=== PATIENT | male | born 1950 | race Caucasian/White ===

== ENCOUNTER 2020-12-19 22:52 | Inpatient (IN) | payer MEDICARE, OTHER, SELFPAY ==
--- NOTE | ~2020-12-19 | MR_ITS ---
EXAMINATION: MR brain/brain stem wo con DATE: 12/20/2020 09:49 INDICATION: Altered mental status. TECHNIQUE: Magnetic resonance imaging (MRI) of the brain and brainstem was performed without intraven ous contrast. Sequences included sagittal and axial T1-weighted FSE, axial diffusion-weighted FS EPI, axial T2*-weighted GRE, axial T2-weighted FLAIR Propeller, and axial T2-weighted Propeller. Apparent diffusion coefficient (ADC) maps were created. COMPARISON: Head CT 12/19/2020 FINDINGS: There are scattered areas of nonspecific increased T2-weighted signal intensity in the cere bral white matter and tiny. There is no intracranial hemorrhage, acute infarction, or abnormal intrac ranial mass lesion. The ventricles are normal in size. The paranasal sinuses are clear. The orbits ar e normal. There is a small right mastoid effusion. IMPRESSION: 1. Extensive nonspecific cerebral white matter disease and mild pontine disease, which likely represe nts chronic small vessel ischemic disease. Reviewed, dictated and finalized at location A. IMPRESSION: 1. Extensive nonspecific cerebral white matter disease and mild pontine disease , which likely represents chronic small vessel ischemic disease.
--- NOTE | ~2020-12-19 | CT_ITS ---
EXAMINATION: CT brain wo con DATE: 12/21/2020 16:13 INDICATION: Confusion. Altered mental state. TECHNIQUE: Computed tomography (CT) of the head was performed without intravenous contrast. The mA wa s adjusted according to patient size. Iterative reconstruction technique was employed. Exam dose: 83 2.33 mGy-cm total exam DLP. COMPARISON: 12/19/2020 CT brain 01/24/2019 CT brain FINDINGS: Bilateral carotid siphon internal carotid artery calcifications. Nonspecific diminished attenuation of the subcortical and periventricular cerebral white matter, like ly due to chronic small vessel ischemic changes. There is cerebral volume loss. No intracranial mass lesion or hemorrhage or cerebrovascular accident is evident. No midline shifts o r mass effects. No subdural or epidural hematoma. Small mucus retention cyst or polyp at the floor of the right maxillary sinus. The paranasal sinuses and mastoid air cells are otherwise unremarkable. No fracture or bone destruction of the cranial vault. IMPRESSION: Cerebral atherosclerosis and chronic small vessel ischemic changes of the cerebral white matter No acute intracranial finding Reviewed, dictated and finalized at Location [facility]. Reviewed, dictated and finalized at location A.
--- NOTE | ~2020-12-19 | XR_ITS ---
XR chest 1V DATE: 12/21/2020 16:16 INDICATION: Shortness of breath TECHNIQUE: Portable AP chest on 12/21/2020 at 1613 hours COMPARISON: 12/19/2020 portable AP chest FINDINGS: There is patchy infiltrate and/atelectasis of the left lower lung, increased since . The remaining lung bowles appear clear. No pleural effusion or pulmonary vascular congestion or pneum othorax. Cardiomegaly. Aortic calcification and mild unfolding. Diffuse osteopenia. IMPRESSION: Patchy left lower lung infiltrate and/atelectasis, increased since 12/19/2020 Reviewed, dictated and finalized at location A.
--- NOTE | ~2020-12-19 | US_ITS ---
EXAMINATION: US carotid duplex BI DATE: 12/20/2020 10:05 INDICATION: Syncope. TECHNIQUE: Grayscale, color Doppler, and pulsed Doppler images of the cervical carotid arteries were obtained. The degree of vessel stenosis is placed in one of the following categories: normal, <50%, 5 0-69%, >=70% but less than near-occlusion, near-occlusion, or total occlusion. Note that percent sten osis relative to normal distal artery lumen diameter is indirectly measured from velocity measurement s as described by Thompson, et al. Radiology 2003; [id number]:[id number]. COMPARISON: None. FINDINGS: RIGHT: The right common carotid artery (CCA) peak systolic velocity (PSV) is 77 cm/s. The right internal car otid artery (ICA) PSV is 61 cm/s. The right ICA end-diastolic velocity (EDV) is 13 cm/s. The right IC A/CCA PSV ratio is 0.8. Grayscale and color Doppler images yield an estimate of <50% diameter reducti on from plaque in the ICA. There is antegrade flow in the right vertebral artery. LEFT: The left CCA PSV is 75 cm/s. The left ICA PSV is 81 cm/s. The left ICA EDV is 24 cm/s. The left ICA/C CA PSV ratio is 1.1. Grayscale and color Doppler images yield an estimate of <50% diameter reduction from plaque in the ICA. There is antegrade flow in the left vertebral artery. IMPRESSION: 1. <50% stenosis in the right internal carotid artery. 2. <50% stenosis in the left internal carotid artery. Reviewed, dictated and finalized at location A.
--- NOTE | ~2020-12-19 | XR_ITS ---
XR chest 1V portable DATE: 12/19/2020 23:21 INDICATION: Transient alteration of awareness TECHNIQUE: Portable upright AP chest on at 2322 hours COMPARISON: 02/03/2019 portable AP chest FINDINGS: There is discoid atelectasis or scarring in the left lower lung. No pulmonary consolidation or pleural effusion, pulmonary vascular congestion or pneumothorax is evident. Alignment borderline heart size. Mild aortic calcification and unfolding. Diffuse osteopenia. IMPRESSION: Mild discoid atelectasis or scarring of the left lower lung Aortic atherosclerosis Diffuse osteopenia Reviewed, dictated and finalized at location A.
--- NOTE | ~2020-12-19 | CT_ITS ---
EXAMINATION: CT brain wo con DATE: 12/19/2020 22:59 INDICATION: Altered mental state, confusion starting this evening TECHNIQUE: Computed tomography (CT) of the head was performed without intravenous contrast. The mA wa s adjusted according to patient size. Iterative reconstruction technique was employed. Exam dose: 60 5.33 mGy-cm total exam DLP. COMPARISON: 01/24/2019 CT brain FINDINGS: Bilateral carotid siphon internal carotid artery calcifications. There is nonspecific dimin ished attenuation of the cerebral white matter, likely due to chronic small vessel ischemic changes. There is central and cortical cerebral atrophy. No intracranial mass lesion or hemorrhage or cerebrov ascular accident is evident. No midline shift or mass effect effect. No subdural or epidural hematoma . No fracture or bone destruction of the cranial vault. The mastoid air cells and included paranasal si nuses are unremarkable. IMPRESSION: No acute intracranial finding Cerebral atherosclerosis and chronic small vessel ischemic changes of cerebral white matter Reviewed, dictated and finalized at [facility]. Reviewed, dictated and finalized at location A.
[2020-12-19 23:04] VITALS: BP 156/85; PULSE 74; RESP 20; TEMP 36.6; O2SAT 100
[2020-12-19 23:05] LABS: Glucose Point of Care 105 mg/dl (65-105)
--- NOTE | 2020-12-19 23:05 | ECG_ITS ---
Measurements Intervals [place] Rate: 77 P: -1 IA: 187 QRS: -37 QRSD: 104 T: 11 QT: 388 QTc: 441 Interpretive Statements SINUS RHYTHM LEFT AXIS DEVIATION BORDERLINE R WAVE PROGRESSION, ANTERIOR LEADS INFERIOR INFARCT, AGE INDETERMINATE BASELINE ARTIFACT- V1, V4 ABNORMAL ECG Electronically Signed On 12-20-2020 7:38:19 CDT by Elton Garner D.O.
[2020-12-19 23:21] LABS: Basophils Absolute Auto 0.1 K/mm3 (0.0-0.1); Basophils Percent Auto 0.6 % (0.2-1.2); Eosinophils Absolute Auto 0.3 K/mm3 (0-0.3); Eosinophils Percent Auto 2.7 % (0-4.4); Hematocrit 40.6 % (42.0-52.0); Hemoglobin 12.7 g/dL (14.0-18.0); Immature Granulocyte Absolute 0.04 K/mm3 (0.00-0.031); Immature Granulocyte Percent A 0.4 % (0-0.5); Lymphocytes Absolute Auto 2.46 K/mm3 (0.9-3.2); Lymphocytes Percent Auto 23.1 % (18.3-44.2); Mean Corpuscular HGB Conc 31.3 g/dl (32-36); Mean Corpuscular Hemoglobin 28.7 pg (26-34); Mean Corpuscular Volume 91.6 fl (80-100); Mean Platelet Volume 10.8 fl (7.4-10.4); Monocytes Absolute Auto 0.9 K/mm3 (0.1-0.6); Monocytes Percent Auto 8.3 % (2.6-8.5); Neutrophils Absolute Auto 6.9 K/mm3 (1.3-6.7); Neutrophils Percent Auto 64.9 % (45.5-73.1); Platelet Count Result 228 k/mm3 (150-375); Red Blood Count 4.43 M/mm3 (4.6-6.20); Red Cell Distribution Width 12.8 % (11.5-14.5); White Blood Count 10.6 K/mm3 (4.5-10.0)
[2020-12-19 23:35] LABS: Alanine Aminotransferase 35 U/L (4-50); Albumin Level 4.3 g/dL (3.5-5.1); Alkaline Phosphatase 86 U/L (38-126); Anion Gap 7 mmol/L (8-16); Aspartate Amino Transferase 27 U/L (17-59); Bilirubin,Total 0.2 mg/dL (0.2-1.3); Blood Urea Nitrogen 21 mg/dL (9-20); Calcium 9.8 mg/dL (8.4-10.2); Carbon Dioxide 32 mmol/L (22-30); Chloride 102 mmol/L (98-107); Estimated CRCL calculation 67 ml/min; Estimated Glomerular Filt Rate > 60; Glucose 96 mg/dL (75-110); Magnesium 1.8 mg/dL (1.6-2.3); Potassium 4.6 mmol/L (3.4-5.0); Sodium 141 mmol/L (137-145)
[2020-12-19 23:40] LABS: INR 0.8; Prothrombin Time 11.9 Seconds (11.1-14.7)
[2020-12-19 23:46] LABS: NT Pro B Type Natriuretic Pept 721 pg/mL (5-100); Troponin I < 0.012 ng/mL (0.000-0.034)
[2020-12-19 23:47] LABS: Lactic Acid Reflex 1.7 mmol/L (0.7-2.1)
[2020-12-20] VITALS (18 sets, daily range): BP systolic 87–169; BP diastolic 57–93; PULSE 70–88; RESP 14–22; TEMP 36.2–36.6; O2SAT 93–100; BMI 28.1
--- NOTE | 2020-12-20 00:33 | ED.GENADULT ---
HPI - General Adult General Chief complaint: Altered Mental Status Stated complaint: code stroke Time Seen by Provider: 12/19/20 22:58 History of Present Illness HPI narrative: Patient is 70-year-old gentleman who presents the emergency department with chief complaint of altered mental status. The patient reports that today he had an episode where he became unresponsive the patient reported to be confused after he woke up the patient states that currently he is back to his baseline and has no complaints at this time and actually feels what he did the patient denies chest pain denies shortness of breath abdominal pain vomiting or diarrhea Related Data Home Medications Medication Instructions Recorded Confirmed albuterol 1 mcg INHALATION QID 12/20/20 12/20/20 atorvastatin 40 mg PO HS 12/20/20 budesonide 2 inh INHALATION QAM 12/20/20 diclofenac sodium 4 g TOPICAL QID 12/20/20 finasteride 5 mg PO DAILY 12/20/20 furosemide 40 mg PO DAILY 12/20/20 gabapentin 300 mg PO HS 12/20/20 hydrochlorothiazide 25 mg PO DAILY 12/20/20 insulin aspart U-100 [Novolog 12 unit SUBCUT TID 12/20/20 U-100 Insulin aspart] insulin glargine 25 unit SUBCUT HS 12/20/20 metformin 1,000 mg PO BID 12/20/20 pantoprazole 40 mg PO QAM 12/20/20 potassium chloride 20 meq PO DAILY 12/20/20 sertraline 100 mg PO DAILY 12/20/20 tamsulosin 0.4 mg PO DAILY 12/20/20 Allergies Allergy/AdvReac Type Severity Reaction Status Date / Time lisinopril Allergy Mild SWELLING Verified 01/25/19 00:47 Review of Systems Review of Systems: Narrative: A 10 system review of systems was completed on the patient and is negative except for what is stated in the HPI. Nursing and ancillary documentation was reviewed. Exam Narrative: Exam Narrative: GENERAL: Well-appearing, well-nourished, and in no acute distress. HEAD: Normocephalic, atraumatic. EYES: PERRLA and EOMI. ENT: Nares clear, no rhinorrhea or epistaxis. Mucous membranes moist. NECK: Supple. CHEST: Clear to auscultation. No respiratory distress. HEART: Regular rate and rhythm. No murmur heard. Normal peripheral pulses. ABDOMEN: Soft, nontender, nondistended, normal active bowel sounds. EXTREMITIES: Normal range of motion. No edema. SKIN: Warm, dry, no rash. NEURO: No focal deficits. Alert and oriented x3. PSYCH: Normal mood and affect. Course Vital Signs Vital signs: Vital Signs Temperature 36.6 C 12/19/20 23:04 Pulse Rate 74 12/19/20 23:04 Respiratory Rate 20 12/19/20 23:04 Blood Pressure 156/85 H 12/19/20 23:04 Pulse Oximetry 100 12/19/20 23:04 Temperature 36.6 C 12/19/20 23:04 Pulse Rate 76 12/20/20 01:50 Respiratory Rate 16 12/20/20 01:50 Blood Pressure 159/82 H 12/20/20 01:50 Pulse Oximetry 95 12/20/20 01:50 Medical Decision Making Vital Signs Vital Signs: Vital Signs Temperature 36.6 C 12/19/20 23:04 Pulse Rate 74 12/19/20 23:04 Respiratory Rate 20 12/19/20 23:04 Blood Pressure 156/85 H 12/19/20 23:04 Pulse Oximetry 100 12/19/20 23:04 Temperature 36.6 C 12/19/20 23:04 Pulse Rate 76 12/20/20 01:50 Respiratory Rate 16 12/20/20 01:50 Blood Pressure 159/82 H 12/20/20 01:50 Pulse Oximetry 95 12/20/20 01:50 Lab Data Result diagrams: 12/19/20 23:16 12/19/20 23:16 Labs: Lab Results 12/19/20 12/19/20 12/19/20 Range/Units 23:02 23:15 23:16 WBC 10.6 H (4.5-10.0) K/mm3 RBC 4.43 L (4.6-6.20) M/mm3 Hgb 12.7 L (14.0-18.0) g/dL Hct 40.6 L (42.0-52.0) % MCV 91.6 (80-100) fl MCH 28.7 (26-34) pg MCHC 31.3 L (32-36) g/dl RDW 12.8 (11.5-14.5) % Plt Count 228 (150-375) k/mm3 MPV 10.8 H (7.4-10.4) fl Immature Gran % (Auto) 0.4 (0-0.5) % Neut % (Auto) 64.9 (45.5-73.1) % Lymph % (Auto) 23.1 (18.3-44.2) % [place] % (Auto) 8.3 (2.6-8.5) % Eos % (Auto) 2.7 (0-4.4) % Baso % (Auto) 0.6 (0.2-1.2) % Lymph # (Auto)
--- NOTE | 2020-12-20 03:09 | ADMGEN ---
This patient, Memo Simpson, was admitted to [facility] Surg Room 328-01. Patient/family oriented to hospital policies and general routines including ID bracelet, bed and alarms, visiting hours, pain management, procedures, bathroom and other care routines, personal items, smoking policy, room service/diet, and visiting hours. Information on how to activate the Rapid Response Team has been discussed. Patient/Family are encouraged to report perceived risks to care and to ask questions if they do not understand what they are told or what they should do.
--- NOTE | 2020-12-20 06:08 | PM.IMHP ---
H&P: HPI History of Present Illness Date/Time: 12/20/20 06:08 Chief Complaint: altered mental status Narrative: Patient is 70-year-old gentleman who presents the emergency department with chief complaint of altered mental status. The patient reports that today he had an episode where he became unresponsive the patient reported to be confused after he woke up the patient states that currently he is back to his baseline and has no complaints at this time and actually feels back to normal self. he is very slow to respond. he is a former smoker and former drinker. no illicit drug use. he is on oxygen chronically at home as well for his underlying COPD> patient denies chest pain denies shortness of breath abdominal pain vomiting or diarrhea Review of Systems Review of Systems: Narrative: - CONSTITUTIONAL: Denies weight loss, fever and chills. - HEENT: Denies changes in vision and hearing - RESPIRATORY: Denies SOB and cough. - CV: Denies palpitations and CP. - GI: Denies abdominal pain, nausea, vomiting and diarrhea. - : Denies dysuria and urinary frequency. - MSK: Denies myalgia and joint pain. - SKIN: Denies rash and pruritus. - NEUROLOGICAL: Denies headache - PSYCHIATRIC: Denies recent changes in mood. Denies anxiety and depression. All systems reviewed & are unremarkable except as noted in HPI and below Constitutional: Constitutional: Reports fatigue and Reports weakness Neurologic: Reports weakness Endocrine: Endocrine: Reports fatigue [facility] Social History Social History Smoking packs per day: 1.25 Smoking cigarettes per day: 25.0 Smoking status: Former smoker Smoking end date: 11/16/16 Alcohol intake: former Substance use: never Gender identity (if verbalized by the patient): Male Spiritual care concerns: No Meds Home Medications and Allergies Home Medications Medication Instructions Recorded Confirmed Type albuterol 1 mcg INHALATION QID 12/20/20 12/20/20 History atorvastatin 40 mg PO HS 12/20/20 12/20/20 History budesonide 2 inh INHALATION QAM 12/20/20 12/20/20 History diclofenac sodium 4 g TOPICAL QID 12/20/20 12/20/20 History finasteride 5 mg PO DAILY 12/20/20 12/20/20 History furosemide 40 mg PO DAILY 12/20/20 12/20/20 History gabapentin 300 mg PO HS 12/20/20 12/20/20 History hydrochlorothiazide 25 mg PO DAILY 12/20/20 12/20/20 History insulin aspart U-100 [Novolog 12 unit SUBCUT TID 12/20/20 12/20/20 History U-100 Insulin aspart] insulin glargine 25 unit SUBCUT HS 12/20/20 12/20/20 History metformin 1,000 mg PO BID 12/20/20 12/20/20 History pantoprazole 40 mg PO QAM 12/20/20 12/20/20 History potassium chloride 20 meq PO DAILY 12/20/20 12/20/20 History sertraline 100 mg PO DAILY 12/20/20 12/20/20 History tamsulosin 0.4 mg PO DAILY 12/20/20 12/20/20 History Allergies Allergy/AdvReac Type Severity Reaction Status Date / Time lisinopril Allergy Mild SWELLING Verified 01/25/19 00:47 Vital Signs Vital Signs - 24 hr 12/19/20 23:04 12/20/20 00:47 12/20/20 01:50 Temperature 98 F Pulse Rate 74 75 76 Respiratory Rate 20 20 16 Blood Pressure 156/85 H 158/93 H 159/82 H Pulse Oximetry 100 99 95 12/20/20 03:20 12/20/20 03:55 12/20/20 04:00 Temperature 97.9 F Pulse Rate 79 70 Respiratory Rate 20 Blood Pressure 169/84 H Pulse Oximetry 100 96 12/20/20 05:54 Temperature 97.7 F Pulse Rate 81 Respiratory Rate 22 H Blood Pressure 167/81 H Pulse Oximetry 94 Exam Narrative: Exam Narrative: GENERAL: Well-appearing, well-nourished, and in no acute distress. HEAD: Normocephalic, atraumatic. EYES: PERRLA and EOMI. ENT: Nares clear, no rhinorrhea or epistaxis. Mucous membranes moist. NECK: Supple.non tender CHEST: Clear to auscultation. No respiratory distress. HEART: Regular rate and rhythm. No murmur heard. Normal peripheral pulses. ABDOMEN: Soft, nontender, nondistended, normal active
[2020-12-20 06:47] LABS: Ammonia < 9 umol/L (9-30)
[2020-12-20 07:44] LABS: Glucose Point of Care 242 mg/dl (65-105)
[2020-12-20] MEDS: ALBUTEROL SULFATE NEB 2.5 MG/0.5 ML INH INHALATION ×3 (08:00→20:44)
--- NOTE | 2020-12-20 08:06 | PCRCNOTE ---
have not received Pulmicort flexhaler yet
[2020-12-20] MEDS: INSULIN ASPART (*BKC) 100 UNITS/ML 12 UNITS SUB-Q ×3 (08:12→17:44)
[2020-12-20] MEDS: ENOXAPARIN 40 MG/0.4 ML SYRINGE SUB-Q (08:14)
[2020-12-20] MEDS: TAMSULOSIN HCL 0.4 MG CAPSULE PO (08:15)
[2020-12-20] MEDS: metFORMIN HCL 500 MG TABLET 1000 MG PO ×2 (08:15→17:42)
[2020-12-20] MEDS: hydroCHLOROthiazide 25 MG TABLET PO (08:15)
[2020-12-20] MEDS: FINASTERIDE 5 MG TABLET PO (08:15)
[2020-12-20] MEDS: SERTRALINE HCL 50 MG TABLET 100 MG PO (08:16)
[2020-12-20] MEDS: PANTOPRAZOLE 40 MG TABLET PO (08:16)
[2020-12-20] MEDS: POTASSIUM CHLORIDE 20 MEQ TABLET.ER PO (08:16)
[2020-12-20] MEDS: amLODIPine BESYLATE 5 MG TABLET PO (11:15)
[2020-12-20] MEDS: FUROSEMIDE INJ 40 MG/4 ML VIAL IV PUSH ×2 (11:15→17:42)
[2020-12-20 11:17] LABS: Alveolar/Arterial O2 Gradient 60.1 mmHg; Base Excess ABG 1.3 mEq/l (+/-2.0); Fractional Inspired Oxygen 36 %; HCO3 ABG 27.3 mEq/l (22.0-26.0); Oxygen Content ABG 16.9 %vol (16.0-22.0); Oxygen Saturation ABG 98.7 % (95.0-100.0); Oxyhemoglobin 97.3 % THb (90.0-100.0); PO2 ABG 139.7 mmHg (80.0-100.0); PO2 FiO2 Ratio Arterial Blood 3.88 %; Total Hemoglobin 12.2 g/dL (12.0-18.0); pH ABG 7.364 (7.350-7.450)
[2020-12-20 11:45] LABS: Glucose Point of Care 146 mg/dl (65-105)
--- NOTE | 2020-12-20 12:05 | PCNSR ---
On 12/20/20, the student, Benita Velasquez, provided care and completed [facility] documentation on this patient. I have reviewed the student's documentation and agree with the findings.
--- NOTE | 2020-12-20 12:36 | P.PNIM_ITS ---
Progress Note: A&P Assessment and Plan (1) Syncope: Qualifiers: Syncope type: unspecified Qualified Code(s): R55 - Syncope and collapse Code(s): R55 - Syncope and collapse Status: Acute Assessment and Plan: * Transient altered mental status: unclear etiology. * Back to his baseline now. * Neurology consultation. 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 * Ammonia <9 * Abg compensated respiratory acidosis * Carotid Doppler were negative and showed less than 50% * Neurology is consulted the for recommendations * Start aspirin 81 mg p.o. daily (2) Altered mental status: Code(s): R41.82 - Altered mental status, unspecified Status: Acute Assessment and Plan: * See above (3) Hypertension: Code(s): I10 - Essential (primary) hypertension Status: Acute Assessment and Plan: * BP is 167/81 from 0500 * Trend blood pressure * Added amlodipine 5mg PO daily * BNP 721 * Changed Lasix from PO to IV 40 BID for 24 hours * Continue hydrochlorothiazide 25mg PO daily (4) Hyperlipidemia: Code(s): E78.5 - Hyperlipidemia, unspecified Status: Acute Assessment and Plan: * Continue home atorvastatin 40mg PO bedtime (5) Diabetes type 2, controlled: Code(s): E11.9 - Type 2 diabetes mellitus without complications Status: Acute Assessment and Plan: * Blood sugar 96 according to labs * Continue home Metformin HCL 1000mg PO BIDWM * Aspart 12 units with meals * Lantus 25 units at bedtime * Sliding scale (6) BPH (benign prostatic hyperplasia): Code(s): N40.0 - Benign prostatic hyperplasia without lower urinary tract symptoms Status: Acute Assessment and Plan: * Continue home finasteride 5mg PO and tamsulosin 0.4mg PO daily * Strict I&Os * Check residual if needed for retention (7) Peripheral neuropathy: Code(s): G62.9 - Polyneuropathy, unspecified Status: Acute Assessment and Plan: * Continue home gabapentin 300 PO bedtime (8) GERD (gastroesophageal reflux disease): Code(s): K21.9 - Gastro-esophageal reflux disease without esophagitis Status: Acute Assessment and Plan: * Continue home pantoprazole 40mg PO Daily Subjective Date/time seen: 12/20/20 08:20 Patient is 70-year-old gentleman with a past medical history of HLD, CHF, COPD, and home oxygen who presents the emergency department with chief complaint of altered mental status. Tere stated that he was just unaware of what was going on around him. He also stated that this is not new and that he has had many times when he will be in a situation to where he is try to talk but can not find the right words. He did say that he was back to baseline and that he felt better. Patient is on 3-4L of oxygen at home. He also stated that he does have lower extremity swelling which is more on the right then the left. Patient has no other complaints. He denies chest pain, shortness of breath, nausea, vomiting, abdominal pain, constipation, diarrhea, urinary dysfunction, pain or burning with urinating, headache, dizziness, confusion, falls, syncope, numbness and tingling, or lightheadedness weakness or fatigue. Patient did say he quit smoking about 3-4 years ago. Also talked to the patient about his BPH and if he felt that he was fully empting and he state that he thoug
--- NOTE | 2020-12-20 12:36 | PM.IMPN ---
Progress Note: A&P Assessment and Plan (1) Syncope: Qualifiers: Syncope type: unspecified Qualified Code(s): R55 - Syncope and collapse Code(s): R55 - Syncope and collapse Status: Acute Assessment and Plan: Transient altered mental status: unclear etiology. Back to his baseline now. Neurology consultation. 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 Ammonia <9 Abg compensated respiratory acidosis Carotid Doppler were negative and showed less than 50% Neurology is consulted the for recommendations Start aspirin 81 mg p.o. daily (2) Altered mental status: Code(s): R41.82 - Altered mental status, unspecified Status: Acute Assessment and Plan: See above (3) Hypertension: Code(s): I10 - Essential (primary) hypertension Status: Acute Assessment and Plan: BP is 167/81 from 0500 Trend blood pressure Added amlodipine 5mg PO daily BNP 721 Changed Lasix from PO to IV 40 BID for 24 hours Continue hydrochlorothiazide 25mg PO daily (4) Hyperlipidemia: Code(s): E78.5 - Hyperlipidemia, unspecified Status: Acute Assessment and Plan: Continue home atorvastatin 40mg PO bedtime (5) Diabetes type 2, controlled: Code(s): E11.9 - Type 2 diabetes mellitus without complications Status: Acute Assessment and Plan: Blood sugar 96 according to labs Continue home Metformin HCL 1000mg PO BIDWM Aspart 12 units with meals Lantus 25 units at bedtime Sliding scale (6) BPH (benign prostatic hyperplasia): Code(s): N40.0 - Benign prostatic hyperplasia without lower urinary tract symptoms Status: Acute Assessment and Plan: Continue home finasteride 5mg PO and tamsulosin 0.4mg PO daily Strict I&Os Check residual if needed for retention (7) Peripheral neuropathy: Code(s): G62.9 - Polyneuropathy, unspecified Status: Acute Assessment and Plan: Continue home gabapentin 300 PO bedtime (8) GERD (gastroesophageal reflux disease): Code(s): K21.9 - Gastro-esophageal reflux disease without esophagitis Status: Acute Assessment and Plan: Continue home pantoprazole 40mg PO Daily Subjective Date/time seen: 12/20/20 08:20 Patient is 70-year-old gentleman with a past medical history of HLD, CHF, COPD, and home oxygen who presents the emergency department with chief complaint of altered mental status. Patietn stated that he was just unaware of what was going on around him. He also stated that this is not new and that he has had many times when he will be in a situation to where he is try to talk but can not find the right words. He did say that he was back to baseline and that he felt better. Patient is on 3-4L of oxygen at home. He also stated that he does have lower extremity swelling which is more on the right then the left. Patient has no other complaints. He denies chest pain, shortness of breath, nausea, vomiting, abdominal pain, constipation, diarrhea, urinary dysfunction, pain or burning with urinating, headache, dizziness, confusion, falls, syncope, numbness and tingling, or lightheadedness weakness or fatigue. Patient did say he quit smoking about 3-4 years ago. Also talked to the patient about his BPH and if he felt that he was fully empting and he state that he thought so. Review of Systems Review of Systems: All systems reviewed & are unremarkable except as noted in HPI and below Exam Const: General: cooperative, healthy appearing, comfortable, no acute distress, well developed, alert, awake and Physically active Nutritional Appearance: average body habitus, well nourished and overweight Orientation/consciousness: patient oriented x3 Limitations: no limitations HENMT: Head: normal to inspection Ears: hearing grossly normal bilaterally General nose e
--- NOTE | 2020-12-20 13:52 | WPDNEURCNPN ---
Assessment and Plan Assessment and plan (1) Altered mental status: Code(s): R41.82 - Altered mental status, unspecified Status: Acute Additional Plan abnormal neuro examination with normal MRI will need to be re-examined again Consult date: 12/20/20 Time Seen: 13:30 HPI: Memo Simpson is a 70 year old male admitted to the hospital for the complaints of change in the mental status but by the time he came to the hospital he was back to his baseline he was reportedly very slow in responding and reported is a former smoker former drinker no illicit drug use, initial lab studies were compatible with mild abnormalities including the glycosuria and hyperglycemia, MRI of the brain documented extensive nonspecific white matter disease with mild pontine disease as well and negative carotid studies Review of Systems Review of Systems: All systems reviewed & are unremarkable except as noted in HPI and below PMFSH Social History Social History Smoking packs per day: 1.25 Smoking cigarettes per day: 25.0 Smoking status: Former smoker Smoking end date: 11/16/16 Alcohol intake: former Substance use: never Gender identity (if verbalized by the patient): Male Spiritual care concerns: No Meds Home Medications and Allergies Home Medications Medication Instructions Recorded Confirmed Type albuterol 1 mcg INHALATION QID 12/20/20 12/20/20 History atorvastatin 40 mg PO HS 12/20/20 12/20/20 History budesonide 2 inh INHALATION QAM 12/20/20 12/20/20 History diclofenac sodium 4 g TOPICAL QID 12/20/20 12/20/20 History finasteride 5 mg PO DAILY 12/20/20 12/20/20 History furosemide 40 mg PO DAILY 12/20/20 12/20/20 History gabapentin 300 mg PO HS 12/20/20 12/20/20 History hydrochlorothiazide 25 mg PO DAILY 12/20/20 12/20/20 History insulin aspart U-100 [Novolog 12 unit SUBCUT TID 12/20/20 12/20/20 History U-100 Insulin aspart] insulin glargine 25 unit SUBCUT HS 12/20/20 12/20/20 History metformin 1,000 mg PO BID 12/20/20 12/20/20 History pantoprazole 40 mg PO QAM 12/20/20 12/20/20 History potassium chloride 20 meq PO DAILY 12/20/20 12/20/20 History sertraline 100 mg PO DAILY 12/20/20 12/20/20 History tamsulosin 0.4 mg PO DAILY 12/20/20 12/20/20 History Allergies Allergy/AdvReac Type Severity Reaction Status Date / Time lisinopril Allergy Mild SWELLING Verified 01/25/19 00:47 Vital Signs Vital Signs - 24 hr 12/19/20 23:04 12/20/20 00:47 12/20/20 01:50 Temperature 36.6 C Pulse Rate 74 75 76 Respiratory Rate 20 20 16 Blood Pressure 156/85 H 158/93 H 159/82 H Pulse Oximetry 100 99 95 12/20/20 03:20 12/20/20 03:55 12/20/20 04:00 Temperature 36.6 C Pulse Rate 79 70 Respiratory Rate 20 Blood Pressure 169/84 H Pulse Oximetry 100 96 12/20/20 05:54 12/20/20 07:50 12/20/20 08:00 Temperature 36.5 C Pulse Rate 81 86 87 Respiratory Rate 22 H 18 18 Blood Pressure 167/81 H Pulse Oximetry 94 12/20/20 08:07 12/20/20 08:21 12/20/20 12:00 Temperature Pulse Rate 82 88 Respiratory Rate Blood Pressure Pulse Oximetry 94 95 12/20/20 13:39 Temperature Pulse Rate 84 Respiratory Rate 18 Blood Pressure Pulse Oximetry Exam Narrative: Exam Narrative: revealed him to be awake alert sitting in chair with head turn to the left side and not responding very well to the examiner head normocephalic with no cranial bruit ear nose throat examination normal neck supple with no cervical bruit no thyromegaly no lymphadenopathy heart regular with no murmur lungs clear with no rhonchi or crepitation abdomen is softer simple palpation no organomegaly neurologically he was awake alert regarding the examiner with visual turning but did not changes posture at all motor examination was grossly with decreased strength but no focal motor deficit reflex was sluggish plantars were downgoing he was sitting in the chair. Considering the whole
[2020-12-20 17:25] LABS: Glucose Point of Care 236 mg/dl (65-105)
[2020-12-20 17:41] LABS: Add Urine Microscopic? YES; Appearance Urine Clear (Clear); Bilirubin Urine Negative (Negative); Blood Urine Negative (Negative); Color Urine Yellow (Yellow); Glucose Urine UA 3+ mg/dL (Negative); Ketones Urine Negative (Negative); Leukocyte Esterase Ur Negative LEU/UL (NEGATIVE); Mucus Urine Rare /lpf; Nitrate Urine Negative (Negative); Protein Urine Negative (Negative); RBC Urine 0-2 /hpf (0-2); Specific Grav Ur 1.012 (1.001-1.035); Squamous Epithelial Cell Urine Rare /hpf (Few); Urobilinogen Urine Negative mg/dL (<2.0); WBC Urine 0-3 /hpf (0-3)
[2020-12-20] MEDS: DICLOFENAC SODIUM 1% 100 GM GEL (*BKC) TOPICAL ×4 (17:43→20:16)
[2020-12-20] MEDS: ATORVASTATIN 40 MG TABLET PO (20:15)
[2020-12-20] MEDS: GABAPENTIN 300 MG CAPSULE PO (20:16)
[2020-12-20] MEDS: INSULIN GLARGINE (*BKC) 100 UNITS/ML 25 UNITS SUB-Q (20:25)
[2020-12-20 21:11] LABS: Glucose Point of Care 263 mg/dl (65-105)
[2020-12-21] VITALS (17 sets, daily range): BP systolic 107–128; BP diastolic 61–81; PULSE 64–92; RESP 14–20; TEMP 36.4–37; O2SAT 92–99
[2020-12-21] MEDS: ALBUTEROL SULFATE NEB 2.5 MG/0.5 ML INH INHALATION ×4 (01:30→19:51)
[2020-12-21 07:06] LABS: Basophils Absolute Auto 0.1 K/mm3 (0.0-0.1); Basophils Percent Auto 0.6 % (0.2-1.2); Eosinophils Absolute Auto 0.1 K/mm3 (0-0.3); Eosinophils Percent Auto 1.5 % (0-4.4); Hematocrit 33.4 % (42.0-52.0); Hemoglobin 10.9 g/dL (14.0-18.0); Immature Granulocyte Absolute 0.03 K/mm3 (0.00-0.031); Immature Granulocyte Percent A 0.3 % (0-0.5); Lymphocytes Absolute Auto 3.37 K/mm3 (0.9-3.2); Lymphocytes Percent Auto 39.2 % (18.3-44.2); Mean Corpuscular HGB Conc 32.6 g/dl (32-36); Mean Corpuscular Hemoglobin 28.9 pg (26-34); Mean Corpuscular Volume 88.6 fl (80-100); Mean Platelet Volume 10.6 fl (7.4-10.4); Monocytes Absolute Auto 0.7 K/mm3 (0.1-0.6); Monocytes Percent Auto 8.5 % (2.6-8.5); Neutrophils Absolute Auto 4.3 K/mm3 (1.3-6.7); Neutrophils Percent Auto 49.9 % (45.5-73.1); Platelet Count Result 218 k/mm3 (150-375); Red Blood Count 3.77 M/mm3 (4.6-6.20); Red Cell Distribution Width 12.6 % (11.5-14.5); White Blood Count 8.6 K/mm3 (4.5-10.0)
[2020-12-21 07:17] LABS: Alanine Aminotransferase 24 U/L (4-50); Albumin Level 3.4 g/dL (3.5-5.1); Alkaline Phosphatase 75 U/L (38-126); Anion Gap 6 mmol/L (8-16); Aspartate Amino Transferase 15 U/L (17-59); Bilirubin,Total 0.3 mg/dL (0.2-1.3); Blood Urea Nitrogen 20 mg/dL (9-20); Calcium 9.2 mg/dL (8.4-10.2); Carbon Dioxide 31 mmol/L (22-30); Chloride 100 mmol/L (98-107); Estimated CRCL calculation 75 ml/min; Estimated Glomerular Filt Rate > 60; Glucose 146 mg/dL (75-110); Magnesium 1.7 mg/dL (1.6-2.3); Potassium 3.2 mmol/L (3.4-5.0); Sodium 137 mmol/L (137-145)
[2020-12-21 07:24] LABS: NT Pro B Type Natriuretic Pept 136 pg/mL (5-100)
[2020-12-21 08:28] LABS: Glucose Point of Care 135 mg/dl (65-105)
[2020-12-21] MEDS: POTASSIUM CHLORIDE 20 MEQ TABLET.ER PO (09:26)
[2020-12-21] MEDS: INSULIN ASPART (*BKC) 100 UNITS/ML 12 UNITS SUB-Q ×3 (09:26→19:02)
[2020-12-21] MEDS: POTASSIUM CHLORIDE 20 MEQ TABLET 60 MEQ PO (09:26)
[2020-12-21] MEDS: FUROSEMIDE INJ 40 MG/4 ML VIAL IV PUSH ×2 (09:27→16:58)
[2020-12-21] MEDS: hydroCHLOROthiazide 25 MG TABLET PO (09:27)
[2020-12-21] MEDS: ASPIRIN 81 MG CHEWABLE TABLET PO (09:27)
[2020-12-21] MEDS: TAMSULOSIN HCL 0.4 MG CAPSULE PO (09:27)
[2020-12-21] MEDS: metFORMIN HCL 500 MG TABLET 1000 MG PO ×2 (09:27→16:58)
[2020-12-21] MEDS: SERTRALINE HCL 50 MG TABLET 100 MG PO (09:28)
[2020-12-21] MEDS: DICLOFENAC SODIUM 1% 100 GM GEL (*BKC) TOPICAL ×4 (09:28→20:26)
[2020-12-21] MEDS: ENOXAPARIN 40 MG/0.4 ML SYRINGE SUB-Q (09:28)
[2020-12-21] MEDS: amLODIPine BESYLATE 5 MG TABLET PO (09:28)
[2020-12-21] MEDS: PANTOPRAZOLE 40 MG TABLET PO (09:28)
[2020-12-21] MEDS: FINASTERIDE 5 MG TABLET PO (09:29)
--- NOTE | 2020-12-21 10:13 | P.DS_ITS ---
DS: Admitting Diagnosis Admitting Diagnosis Admitting Diagnosis: Altered mental status DS: Discharge Diagnosis Discharge Diagnosis (1) Syncope: Qualifiers: Syncope type: unspecified Qualified Code(s): R55 - Syncope and collapse Code(s): R55 - Syncope and collapse Status: Acute Assessment and Plan: * Transient altered mental status: unclear etiology. * Back to his baseline now. * Neurology consultation. 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 * Ammonia <9 * Abg compensated respiratory acidosis * Carotid Doppler were negative and showed less than 50% * Start aspirin 81 mg p.o. daily * Follow up with neurology in 8 weeks, call to make appt (2) Altered mental status: Qualifiers: Altered mental status type: unspecified Qualified Code(s): R41.82 - Altered mental status, unspecified Code(s): R41.82 - Altered mental status, unspecified Status: Acute Assessment and Plan: * See above (3) Hypertension: Qualifiers: Hypertension type: essential hypertension Qualified Code(s): I10 - Essential (primary) hypertension Code(s): I10 - Essential (primary) hypertension Status: Acute Assessment and Plan: * BP is 128/81 * Trend blood pressure * Added amlodipine 5mg PO daily * BNP 136 today * Changed Lasix from PO to IV 40 BID for 24 hours * Continue hydrochlorothiazide 25mg PO daily (4) Hyperlipidemia: Qualifiers: Hyperlipidemia type: unspecified Qualified Code(s): E78.5 - Hyperlipidemia, unspecified Code(s): E78.5 - Hyperlipidemia, unspecified Status: Acute Assessment and Plan: * Continue home atorvastatin 40mg PO bedtime (5) Diabetes type 2, controlled: Qualifiers: Diabetes mellitus complication status: with unspecified complications Diabetes mellitus chcf insulin use: with chcf use Qualified Code(s): E11.8 - Type 2 diabetes mellitus with unspecified complications; Z79.4 - retirement (current) use of insulin Code(s): E11.9 - Type 2 diabetes mellitus without complications Status: Acute Assessment and Plan: * Blood sugar 146 according to labs * Continue home Metformin HCL 1000mg PO BIDWM * Aspart 12 units with meals * Lantus 25 units at bedtime * Sliding scale (6) BPH (benign prostatic hyperplasia): Qualifiers: Lower urinary tract symptom presence: symptoms absent Qualified Code(s): N40.0 - Benign prostatic hyperplasia without lower urinary tract symptoms Code(s): N40.0 - Benign prostatic hyperplasia without lower urinary tract symptoms Status: Acute Assessment and Plan: * Continue home finasteride 5mg PO and tamsulosin 0.4mg PO daily * Strict I&Os * Check residual if needed for retention (7) Peripheral neuropathy: Qualifiers: Peripheral neuropathy type: polyneuropathy, unspecified Qualified Code(s): G62.9 - Polyneuropathy, unspecified Code(s): G62.9 - Polyneuropathy, unspecified Status: Acute Assessment and Plan: * Continue home gabapentin 300 PO bedtime (8) GERD (gastroesophageal reflux disease): Qualifiers: Esophagitis presence: without esophagitis Qualified Code(s): K21.9 - Gastro-esophageal reflux disease without esophagitis Code(s): K21.9 - Gastro-esophageal reflux disease wi
--- NOTE | 2020-12-21 10:13 | PM.DS ---
DS: Admitting Diagnosis Admitting Diagnosis Admitting Diagnosis: Altered mental status DS: Discharge Diagnosis Discharge Diagnosis (1) Syncope: Qualifiers: Syncope type: unspecified Qualified Code(s): R55 - Syncope and collapse Code(s): R55 - Syncope and collapse Status: Acute Assessment and Plan: Transient altered mental status: unclear etiology. Back to his baseline now. Neurology consultation. 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 Ammonia <9 Abg compensated respiratory acidosis Carotid Doppler were negative and showed less than 50% Start aspirin 81 mg p.o. daily Follow up with neurology in 8 weeks, call to make appt (2) Altered mental status: Qualifiers: Altered mental status type: unspecified Qualified Code(s): R41.82 - Altered mental status, unspecified Code(s): R41.82 - Altered mental status, unspecified Status: Acute Assessment and Plan: See above (3) Hypertension: Qualifiers: Hypertension type: essential hypertension Qualified Code(s): I10 - Essential (primary) hypertension Code(s): I10 - Essential (primary) hypertension Status: Acute Assessment and Plan: BP is 128/81 Trend blood pressure Added amlodipine 5mg PO daily BNP 136 today Changed Lasix from PO to IV 40 BID for 24 hours Continue hydrochlorothiazide 25mg PO daily (4) Hyperlipidemia: Qualifiers: Hyperlipidemia type: unspecified Qualified Code(s): E78.5 - Hyperlipidemia, unspecified Code(s): E78.5 - Hyperlipidemia, unspecified Status: Acute Assessment and Plan: Continue home atorvastatin 40mg PO bedtime (5) Diabetes type 2, controlled: Qualifiers: Diabetes mellitus complication status: with unspecified complications Diabetes mellitus senior care insulin use: with senior care use Qualified Code(s): E11.8 - Type 2 diabetes mellitus with unspecified complications; 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 Code(s): E11.9 - Type 2 diabetes mellitus without complications Status: Acute Assessment and Plan: Blood sugar 146 according to labs Continue home Metformin HCL 1000mg PO BIDWM Aspart 12 units with meals Lantus 25 units at bedtime Sliding scale (6) BPH (benign prostatic hyperplasia): Qualifiers: Lower urinary tract symptom presence: symptoms absent Qualified Code(s): N40.0 - Benign prostatic hyperplasia without lower urinary tract symptoms Code(s): N40.0 - Benign prostatic hyperplasia without lower urinary tract symptoms Status: Acute Assessment and Plan: Continue home finasteride 5mg PO and tamsulosin 0.4mg PO daily Strict I&Os Check residual if needed for retention (7) Peripheral neuropathy: Qualifiers: Peripheral neuropathy type: polyneuropathy, unspecified Qualified Code(s): G62.9 - Polyneuropathy, unspecified Code(s): G62.9 - Polyneuropathy, unspecified Status: Acute Assessment and Plan: Continue home gabapentin 300 PO bedtime (8) GERD (gastroesophageal reflux disease): Qualifiers: Esophagitis presence: without esophagitis Qualified Code(s): K21.9 - Gastro-esophageal reflux disease without esophagitis Code(s): K21.9 - Gastro-esophageal reflux disease without esophagitis Status: Acute Assessment and Plan: Continue home pantoprazole 40mg PO Daily DS: Summary Hospital Course Hospital Course: Patient is 70-year-old gentleman with a past medical history of HLD, CHF, COPD, and home oxygen who presents the emergency department with chief complaint of altered mental status. Patient stated that he was just unaware of what was going on around him. He also stated that this is not new and that he has had many times when he will be in a situation to where he is try
[2020-12-21 12:52] LABS: Glucose Point of Care 295 mg/dl (65-105)
[2020-12-21 15:39] LABS: Alveolar/Arterial O2 Gradient 46.1 mmHg; Base Excess ABG 3.8 mEq/l (+/-2.0); Fractional Inspired Oxygen 28 %; HCO3 ABG 28.6 mEq/l (22.0-26.0); Oxygen Content ABG 18.1 %vol (16.0-22.0); Oxygen Saturation ABG 97.8 % (95.0-100.0); Oxyhemoglobin 96.8 % THb (90.0-100.0); PO2 ABG 101.6 mmHg (80.0-100.0); PO2 FiO2 Ratio Arterial Blood 3.63 %; Total Hemoglobin 13.2 g/dL (12.0-18.0); pH ABG 7.431 (7.350-7.450)
[2020-12-21 15:40] LABS: Glucose Point of Care 172 mg/dl (65-105)
[2020-12-21 15:40] LABS: Device NASAL CANNULA; Modified Allen's Test Pass; Site Drawn RIGHT RADIAL
--- NOTE | 2020-12-21 15:56 | PCRCNOTE ---
Patient did not qualify for home oxygen. Dr Mendenhall was in room and patient aware.
--- NOTE | 2020-12-21 16:06 | PC.NURSE ---
Addendum entered by Derick Huitron RN 12/21/20 16:10: O2 pulled off of wall prior to transfer back to bed. Pt alert to himself, but too agitated to respond to rest of questions. Original Note: Pt prepared for discharge, including IV removed, discharge instructions discussed. When significant other came into pt room, she sat with pt. At 1500, she stated that he had been arguing with her about getting dressed, slurred speech, altered mental status. Pt difficult to get focused as he was this morning; he appears very tired and is slumped in chair. Assisted pt back to bed, difficult to follow instructions. She states something is wrong with pt . Girlfriend in pt wheelchair, and she had rolled over his 02 tubing and pulled it off of 02 valve on wall.
[2020-12-21 17:15] LABS: Alanine Aminotransferase 31 U/L (4-50); Albumin Level 3.8 g/dL (3.5-5.1); Alkaline Phosphatase 80 U/L (38-126); Anion Gap 11 mmol/L (8-16); Aspartate Amino Transferase 26 U/L (17-59); Bilirubin,Total 0.1 mg/dL (0.2-1.3); Blood Urea Nitrogen 28 mg/dL (9-20); Calcium 9.5 mg/dL (8.4-10.2); Carbon Dioxide 28 mmol/L (22-30); Chloride 98 mmol/L (98-107); Estimated CRCL calculation 67 ml/min; Estimated Glomerular Filt Rate > 60; Glucose 133 mg/dL (75-110); Potassium 4.3 mmol/L (3.4-5.0); Sodium 137 mmol/L (137-145)
[2020-12-21 17:39] LABS: Hematocrit 38.9 % (42.0-52.0); Hemoglobin 12.3 g/dL (14.0-18.0); Mean Corpuscular HGB Conc 31.6 g/dl (32-36); Mean Corpuscular Hemoglobin 28.9 pg (26-34); Mean Corpuscular Volume 91.3 fl (80-100); Mean Platelet Volume 10.6 fl (7.4-10.4); Platelet Count Result 229 k/mm3 (150-375); Red Blood Count 4.26 M/mm3 (4.6-6.20); Red Cell Distribution Width 13.1 % (11.5-14.5); White Blood Count 9.3 K/mm3 (4.5-10.0)
[2020-12-21] MEDS: ATORVASTATIN 40 MG TABLET PO (20:24)
[2020-12-21] MEDS: GABAPENTIN 300 MG CAPSULE PO (20:24)
[2020-12-21] MEDS: INSULIN GLARGINE (*BKC) 100 UNITS/ML 25 UNITS SUB-Q (20:26)
[2020-12-21 22:22] LABS: Glucose Point of Care 140 mg/dl (65-105)
[2020-12-22] VITALS (12 sets, daily range): BP systolic 105–158; BP diastolic 58–89; PULSE 65–90; RESP 18–20; TEMP 36.5–36.7; O2SAT 92–99
[2020-12-22] MEDS: ALBUTEROL SULFATE NEB 2.5 MG/0.5 ML INH INHALATION ×4 (02:50→19:40)
[2020-12-22 06:26] LABS: Hemoglobin 11.2 g/dL (14.0-18.0); Mean Corpuscular Hemoglobin 28.6 pg (26-34); Mean Corpuscular Volume 89.5 fl (80-100); Mean Platelet Volume 10.5 fl (7.4-10.4); Platelet Count Result 223 k/mm3 (150-375); Red Blood Count 3.91 M/mm3 (4.6-6.20); Red Cell Distribution Width 12.7 % (11.5-14.5); White Blood Count 8.5 K/mm3 (4.5-10.0)
[2020-12-22 06:37] LABS: Alanine Aminotransferase 29 U/L (4-50); Albumin Level 3.5 g/dL (3.5-5.1); Alkaline Phosphatase 74 U/L (38-126); Anion Gap 7 mmol/L (8-16); Aspartate Amino Transferase 22 U/L (17-59); Bilirubin,Total 0.2 mg/dL (0.2-1.3); Blood Urea Nitrogen 25 mg/dL (9-20); Calcium 9.4 mg/dL (8.4-10.2); Carbon Dioxide 29 mmol/L (22-30); Chloride 100 mmol/L (98-107); Estimated CRCL calculation 75 ml/min; Estimated Glomerular Filt Rate > 60; Glucose 78 mg/dL (75-110); Magnesium 1.7 mg/dL (1.6-2.3); Potassium 3.5 mmol/L (3.4-5.0); Sodium 136 mmol/L (137-145)
--- NOTE | 2020-12-22 07:27 | P.PNIM_ITS ---
Progress Note: A&P Assessment and Plan (1) Syncope: Qualifiers: Syncope type: unspecified Qualified Code(s): R55 - Syncope and collapse Code(s): R55 - Syncope and collapse Status: Acute Assessment and Plan: * Transient altered mental status: unclear etiology. * Back to his baseline now. * Neurology consultation. 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 * Ammonia <9 * Abg compensated respiratory acidosis * Carotid Doppler were negative and showed less than 50% * Start aspirin 81 mg p.o. daily * Follow up with neurology in 8 weeks, call to make appt * Patient had another episode, head ct, labs, and ABG obtained * All testing came back the same and no new findings. * Patient and would like the option of rehab (2) Altered mental status: Qualifiers: Altered mental status type: unspecified Qualified Code(s): R41.82 - Altered mental status, unspecified Code(s): R41.82 - Altered mental status, unspecified Status: Acute Assessment and Plan: * See above (3) Hypertension: Qualifiers: Hypertension type: essential hypertension Qualified Code(s): I10 - Essential (primary) hypertension Code(s): I10 - Essential (primary) hypertension Status: Acute Assessment and Plan: * BP is 128/81 * Trend blood pressure * Added amlodipine 5mg PO daily * BNP 136 today * Changed Lasix from PO to IV 40 BID for 24 hours * Continue hydrochlorothiazide 25mg PO daily (4) Hyperlipidemia: Qualifiers: Hyperlipidemia type: unspecified Qualified Code(s): E78.5 - Hyperlipidemia, unspecified Code(s): E78.5 - Hyperlipidemia, unspecified Status: Acute Assessment and Plan: * Continue home atorvastatin 40mg PO bedtime (5) Diabetes type 2, controlled: Qualifiers: 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 insulin 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: with mcc use Diabetes mellitus complication status: with unspecified complications Qualified Code(s): E11.8 - Type 2 diabetes mellitus with unspecified complications; 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 Code(s): E11.9 - Type 2 diabetes mellitus without complications Status: Acute Assessment and Plan: * Blood sugar 146 according to labs * Continue home Metformin HCL 1000mg PO BIDWM * Aspart 12 units with meals * Lantus 25 units at bedtime * Sliding scale (6) BPH (benign prostatic hyperplasia): Qualifiers: Lower urinary tract symptom presence: symptoms absent Qualified Code(s): N40.0 - Benign prostatic hyperplasia without lower urinary tract symptoms Code(s): N40.0 - Benign prostatic hyperplasia without lower urinary tract symptoms Status: Acute Assessment and Plan: * Continue home finasteride 5mg PO and tamsulosin 0.4mg PO daily * Strict I&Os * Check residual if needed for retention (7) Peripheral neuropathy: Qualifiers: Peripheral neuropathy type: polyneuropathy, unspecified Qualified Code(s): G62.9 - Polyneuropathy, unspecified Code(s): G62.9 - Polyneuropathy, unspecified Status: Acute Assessment and Plan: * Continue home gabapentin 300 PO bedtime (8) GERD (gastroesophageal reflux disease): Qualifiers: Esophagitis presence: without esophagitis Qualified Code(s): K21.9 - Gastro-esophageal reflux disease without esophagitis
--- NOTE | 2020-12-22 07:27 | PM.IMPN ---
Progress Note: A&P Assessment and Plan (1) Syncope: Qualifiers: Syncope type: unspecified Qualified Code(s): R55 - Syncope and collapse Code(s): R55 - Syncope and collapse Status: Acute Assessment and Plan: Transient altered mental status: unclear etiology. Back to his baseline now. Neurology consultation. 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 Ammonia <9 Abg compensated respiratory acidosis Carotid Doppler were negative and showed less than 50% Start aspirin 81 mg p.o. daily Follow up with neurology in 8 weeks, call to make appt Patient had another episode, head ct, labs, and ABG obtained All testing came back the same and no new findings. Patient and would like the option of rehab (2) Altered mental status: Qualifiers: Altered mental status type: unspecified Qualified Code(s): R41.82 - Altered mental status, unspecified Code(s): R41.82 - Altered mental status, unspecified Status: Acute Assessment and Plan: See above (3) Hypertension: Qualifiers: Hypertension type: essential hypertension Qualified Code(s): I10 - Essential (primary) hypertension Code(s): I10 - Essential (primary) hypertension Status: Acute Assessment and Plan: BP is 128/81 Trend blood pressure Added amlodipine 5mg PO daily BNP 136 today Changed Lasix from PO to IV 40 BID for 24 hours Continue hydrochlorothiazide 25mg PO daily (4) Hyperlipidemia: Qualifiers: Hyperlipidemia type: unspecified Qualified Code(s): E78.5 - Hyperlipidemia, unspecified Code(s): E78.5 - Hyperlipidemia, unspecified Status: Acute Assessment and Plan: Continue home atorvastatin 40mg PO bedtime (5) Diabetes type 2, controlled: Qualifiers: Diabetes mellitus skilled nursing insulin use: with skilled nursing use Diabetes mellitus complication status: with unspecified complications Qualified Code(s): E11.8 - Type 2 diabetes mellitus with unspecified complications; Z79.4 - USP (current) use of insulin Code(s): E11.9 - Type 2 diabetes mellitus without complications Status: Acute Assessment and Plan: Blood sugar 146 according to labs Continue home Metformin HCL 1000mg PO BIDWM Aspart 12 units with meals Lantus 25 units at bedtime Sliding scale (6) BPH (benign prostatic hyperplasia): Qualifiers: Lower urinary tract symptom presence: symptoms absent Qualified Code(s): N40.0 - Benign prostatic hyperplasia without lower urinary tract symptoms Code(s): N40.0 - Benign prostatic hyperplasia without lower urinary tract symptoms Status: Acute Assessment and Plan: Continue home finasteride 5mg PO and tamsulosin 0.4mg PO daily Strict I&Os Check residual if needed for retention (7) Peripheral neuropathy: Qualifiers: Peripheral neuropathy type: polyneuropathy, unspecified Qualified Code(s): G62.9 - Polyneuropathy, unspecified Code(s): G62.9 - Polyneuropathy, unspecified Status: Acute Assessment and Plan: Continue home gabapentin 300 PO bedtime (8) GERD (gastroesophageal reflux disease): Qualifiers: Esophagitis presence: without esophagitis Qualified Code(s): K21.9 - Gastro-esophageal reflux disease without esophagitis Code(s): K21.9 - Gastro-esophageal reflux disease without esophagitis Status: Acute Assessment and Plan: Continue home pantoprazole 40mg PO Daily Subjective Date/time seen: 12/21/20 07:15, 16:00 Patient is 70-year-old gentleman with a past medical history of HLD, CHF, COPD, and home oxygen who presents the emergency department with chief complaint of altered mental status. Patient stated that he was just unaware of what was going on around him. He also stated that this is not new and marquita
[2020-12-22 08:04] LABS: Glucose Point of Care 79 mg/dl (65-105)
[2020-12-22] MEDS: TAMSULOSIN HCL 0.4 MG CAPSULE PO (08:15)
[2020-12-22] MEDS: amLODIPine BESYLATE 5 MG TABLET PO (08:15)
[2020-12-22] MEDS: POTASSIUM CHLORIDE 20 MEQ TABLET.ER PO (08:15)
[2020-12-22] MEDS: DICLOFENAC SODIUM 1% 100 GM GEL (*BKC) TOPICAL ×3 (08:15→20:49)
[2020-12-22] MEDS: SERTRALINE HCL 50 MG TABLET 100 MG PO (08:15)
[2020-12-22] MEDS: PANTOPRAZOLE 40 MG TABLET PO (08:15)
[2020-12-22] MEDS: metFORMIN HCL 500 MG TABLET 1000 MG PO ×2 (08:16→17:13)
[2020-12-22] MEDS: FINASTERIDE 5 MG TABLET PO (08:16)
[2020-12-22] MEDS: ENOXAPARIN 40 MG/0.4 ML SYRINGE SUB-Q (08:16)
[2020-12-22] MEDS: ASPIRIN 81 MG CHEWABLE TABLET PO (08:16)
[2020-12-22] MEDS: hydroCHLOROthiazide 25 MG TABLET PO (08:16)
--- NOTE | 2020-12-22 09:44 | P.PNIM_ITS ---
Progress Note: A&P Assessment and Plan (1) Syncope: Qualifiers: Syncope type: unspecified Qualified Code(s): R55 - Syncope and collapse Code(s): R55 - Syncope and collapse Status: Acute Assessment and Plan: * Transient altered mental status: unclear etiology. * Back to his baseline now. * Neurology consultation. 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 * Ammonia <9 * Abg compensated respiratory acidosis * Carotid Doppler were negative and showed less than 50% * Start aspirin 81 mg p.o. daily * Follow up with neurology in 8 weeks, call to make appt * Patient had another episode, Patient was blank, would not answer any questions or respond, also very limp * head ct, labs, and ABG obtained * All testing came back the same and no new findings. * Patient and would like the option of rehab * No further problem * I wonder if this is atypical seizure activity. * Will get an EEG just to check (2) Altered mental status: Qualifiers: Altered mental status type: unspecified Qualified Code(s): R41.82 - Altered mental status, unspecified Code(s): R41.82 - Altered mental status, unspecified Status: Acute Assessment and Plan: * See above (3) Hypertension: Qualifiers: Hypertension type: essential hypertension Qualified Code(s): I10 - Essential (primary) hypertension Code(s): I10 - Essential (primary) hypertension Status: Acute Assessment and Plan: * BP is 128/81 * Trend blood pressure * Added amlodipine 5mg PO daily * BNP 136 today * Changed Lasix from PO to IV 40 BID for 24 hours * Continue hydrochlorothiazide 25mg PO daily (4) Hyperlipidemia: Qualifiers: Hyperlipidemia type: unspecified Qualified Code(s): E78.5 - Hyperlipidemia, unspecified Code(s): E78.5 - Hyperlipidemia, unspecified Status: Acute Assessment and Plan: * Continue home atorvastatin 40mg PO bedtime (5) Diabetes type 2, controlled: Qualifiers: Diabetes mellitus termination clerk insulin use: with jail use Diabetes mellitus complication status: with unspecified complications Qualified Code(s): E11.8 - Type 2 diabetes mellitus with unspecified complications; Z79.4 - residential (current) use of insulin Code(s): E11.9 - Type 2 diabetes mellitus without complications Status: Acute Assessment and Plan: * Blood sugar 78 according to labs * Continue home Metformin HCL 1000mg PO BIDWM * Aspart 12 units with meals held for right now * Lantus 25 units at bedtime * Sliding scale (6) BPH (benign prostatic hyperplasia): Qualifiers: Lower urinary tract symptom presence: symptoms absent Qualified Code(s): N40.0 - Benign prostatic hyperplasia without lower urinary tract symptoms Code(s): N40.0 - Benign prostatic hyperplasia without lower urinary tract symptoms Status: Acute Assessment and Plan: * Continue home finasteride 5mg PO and tamsulosin 0.4mg PO daily * Strict I&Os * Check residual if needed for retention (7) Peripheral neuropathy: Qualifiers: Peripheral neuropathy type: polyneuropathy, unspecified Qualified Code(s): G62.9 - Polyneuropathy, unspecified Code(s): G62.9 - Polyneuropathy, unspecified Status: Acute Assessment and Plan: * Continue home gabapentin 300 PO bedtime
--- NOTE | 2020-12-22 09:44 | PM.IMPN ---
Progress Note: A&P Assessment and Plan (1) Syncope: Qualifiers: Syncope type: unspecified Qualified Code(s): R55 - Syncope and collapse Code(s): R55 - Syncope and collapse Status: Acute Assessment and Plan: Transient altered mental status: unclear etiology. Back to his baseline now. Neurology consultation. 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 Ammonia <9 Abg compensated respiratory acidosis Carotid Doppler were negative and showed less than 50% Start aspirin 81 mg p.o. daily Follow up with neurology in 8 weeks, call to make appt Patient had another episode, Patient was blank, would not answer any questions or respond, also very limp head ct, labs, and ABG obtained All testing came back the same and no new findings. Patient and would like the option of rehab No further problem I wonder if this is atypical seizure activity. Will get an EEG just to check (2) Altered mental status: Qualifiers: Altered mental status type: unspecified Qualified Code(s): R41.82 - Altered mental status, unspecified Code(s): R41.82 - Altered mental status, unspecified Status: Acute Assessment and Plan: See above (3) Hypertension: Qualifiers: Hypertension type: essential hypertension Qualified Code(s): I10 - Essential (primary) hypertension Code(s): I10 - Essential (primary) hypertension Status: Acute Assessment and Plan: BP is 128/81 Trend blood pressure Added amlodipine 5mg PO daily BNP 136 today Changed Lasix from PO to IV 40 BID for 24 hours Continue hydrochlorothiazide 25mg PO daily (4) Hyperlipidemia: Qualifiers: Hyperlipidemia type: unspecified Qualified Code(s): E78.5 - Hyperlipidemia, unspecified Code(s): E78.5 - Hyperlipidemia, unspecified Status: Acute Assessment and Plan: Continue home atorvastatin 40mg PO bedtime (5) Diabetes type 2, controlled: Qualifiers: Diabetes mellitus custodial insulin use: with custodial use Diabetes mellitus complication status: with unspecified complications Qualified Code(s): E11.8 - Type 2 diabetes mellitus with unspecified complications; 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 Code(s): E11.9 - Type 2 diabetes mellitus without complications Status: Acute Assessment and Plan: Blood sugar 78 according to labs Continue home Metformin HCL 1000mg PO BIDWM Aspart 12 units with meals held for right now Lantus 25 units at bedtime Sliding scale (6) BPH (benign prostatic hyperplasia): Qualifiers: Lower urinary tract symptom presence: symptoms absent Qualified Code(s): N40.0 - Benign prostatic hyperplasia without lower urinary tract symptoms Code(s): N40.0 - Benign prostatic hyperplasia without lower urinary tract symptoms Status: Acute Assessment and Plan: Continue home finasteride 5mg PO and tamsulosin 0.4mg PO daily Strict I&Os Check residual if needed for retention (7) Peripheral neuropathy: Qualifiers: Peripheral neuropathy type: polyneuropathy, unspecified Qualified Code(s): G62.9 - Polyneuropathy, unspecified Code(s): G62.9 - Polyneuropathy, unspecified Status: Acute Assessment and Plan: Continue home gabapentin 300 PO bedtime (8) GERD (gastroesophageal reflux disease): Qualifiers: Esophagitis presence: without esophagitis Qualified Code(s): K21.9 - Gastro-esophageal reflux disease without esophagitis Code(s): K21.9 - Gastro-esophageal reflux disease without esophagitis Status: Acute Assessment and Plan: Continue home pantoprazole 40mg PO Daily Subjective Date/time seen: 12/22/20 09:15 Patient is 70-year-old gentleman with a past medical history of HLD, CHF, COPD, and home oxygen who prese
[2020-12-22 11:57] LABS: Glucose Point of Care 251 mg/dl (65-105)
[2020-12-22] MEDS: INSULIN ASPART (*BKC) 100 UNITS/ML 12 UNITS SUB-Q ×2 (12:10→17:12)
[2020-12-22] MEDS: FUROSEMIDE 40 MG TABLET PO (12:11)
[2020-12-22 17:34] LABS: Glucose Point of Care 204 mg/dl (65-105)
[2020-12-22] MEDS: ATORVASTATIN 40 MG TABLET PO (20:48)
[2020-12-22] MEDS: GABAPENTIN 300 MG CAPSULE PO (20:48)
[2020-12-22] MEDS: INSULIN GLARGINE (*BKC) 100 UNITS/ML 25 UNITS SUB-Q (20:50)
[2020-12-22 21:43] LABS: Glucose Point of Care 173 mg/dl (65-105)
[2020-12-23] VITALS (7 sets, daily range): BP systolic 139–151; BP diastolic 73–79; PULSE 70–84; RESP 16–20; TEMP 36.1–36.9; O2SAT 92–96
[2020-12-23] MEDS: ALBUTEROL SULFATE NEB 2.5 MG/0.5 ML INH INHALATION ×3 (01:42→14:27)
[2020-12-23 06:26] LABS: Hematocrit 35.9 % (42.0-52.0); Hemoglobin 11.3 g/dL (14.0-18.0); Mean Corpuscular HGB Conc 31.5 g/dl (32-36); Mean Corpuscular Hemoglobin 28.2 pg (26-34); Mean Corpuscular Volume 89.5 fl (80-100); Mean Platelet Volume 10.6 fl (7.4-10.4); Platelet Count Result 232 k/mm3 (150-375); Red Blood Count 4.01 M/mm3 (4.6-6.20); Red Cell Distribution Width 12.7 % (11.5-14.5); White Blood Count 9.2 K/mm3 (4.5-10.0)
[2020-12-23 06:31] LABS: Alanine Aminotransferase 27 U/L (4-50); Albumin Level 3.9 g/dL (3.5-5.1); Alkaline Phosphatase 80 U/L (38-126); Anion Gap 9 mmol/L (8-16); Aspartate Amino Transferase 20 U/L (17-59); Bilirubin,Total 0.3 mg/dL (0.2-1.3); Blood Urea Nitrogen 23 mg/dL (9-20); Calcium 9.6 mg/dL (8.4-10.2); Carbon Dioxide 30 mmol/L (22-30); Chloride 99 mmol/L (98-107); Estimated CRCL calculation 85 ml/min; Estimated Glomerular Filt Rate > 60; Glucose 159 mg/dL (75-110); Magnesium 1.7 mg/dL (1.6-2.3); Potassium 3.6 mmol/L (3.4-5.0); Sodium 138 mmol/L (137-145)
[2020-12-23] MEDS: metFORMIN HCL 500 MG TABLET 1000 MG PO (07:58)
[2020-12-23] MEDS: ASPIRIN 81 MG CHEWABLE TABLET PO (07:58)
[2020-12-23] MEDS: POTASSIUM CHLORIDE 20 MEQ TABLET.ER PO (07:58)
[2020-12-23] MEDS: INSULIN ASPART (*BKC) 100 UNITS/ML 12 UNITS SUB-Q ×2 (07:58→12:17)
[2020-12-23] MEDS: TAMSULOSIN HCL 0.4 MG CAPSULE PO (08:00)
[2020-12-23] MEDS: FUROSEMIDE 40 MG TABLET PO (08:00)
[2020-12-23] MEDS: hydroCHLOROthiazide 25 MG TABLET PO (08:00)
[2020-12-23] MEDS: DICLOFENAC SODIUM 1% 100 GM GEL (*BKC) TOPICAL ×2 (08:00→12:20)
[2020-12-23] MEDS: SERTRALINE HCL 50 MG TABLET 100 MG PO (08:00)
[2020-12-23] MEDS: amLODIPine BESYLATE 5 MG TABLET PO (08:00)
[2020-12-23] MEDS: PANTOPRAZOLE 40 MG TABLET PO (08:00)
[2020-12-23] MEDS: ENOXAPARIN 40 MG/0.4 ML SYRINGE SUB-Q (08:01)
[2020-12-23] MEDS: FINASTERIDE 5 MG TABLET PO (08:01)
[2020-12-23 08:19] LABS: Glucose Point of Care 182 mg/dl (65-105)
--- NOTE | 2020-12-23 09:47 | WPDNEUROPN ---
Progress Note: A&P Additional Plan EEG to rule out the possibility of seizures Review of Systems Review of Systems: All systems reviewed & are unremarkable except as noted in HPI and below Exam Narrative: Exam Narrative: exam at this particular time is unchanged will wait for the EEG to be done Objective Data Vital Signs Vital Signs: Vital Signs - 24 hr 12/22/20 14:00 12/22/20 14:11 12/22/20 19:42 Temperature 36.7 C Pulse Rate 84 80 84 Respiratory Rate 20 20 20 Blood Pressure 105/58 L Pulse Oximetry 98 95 12/22/20 19:55 12/22/20 20:00 12/22/20 22:00 Temperature 36.7 C Pulse Rate 87 65 Respiratory Rate 20 20 Blood Pressure 131/77 Pulse Oximetry 95 97 12/23/20 01:45 12/23/20 01:55 12/23/20 05:43 Temperature 36.1 C L Pulse Rate 72 70 77 Respiratory Rate 20 20 20 Blood Pressure 151/79 H Pulse Oximetry 96 12/23/20 07:45 12/23/20 07:52 Temperature Pulse Rate 71 81 Respiratory Rate 20 20 Blood Pressure Pulse Oximetry 92 Intake/Output Intake/Output: Intake & Output 12/20/20 12/21/20 12/22/20 12/23/20 23:59 23:59 23:59 23:59 Intake Total 1440 2790 2980 590 Output Total 900 825 Balance 540 1965 2980 590 Meds/Results Medications: Active Medications Generic Name Dose Route Start Last Admin Trade Name Freq PRN Reason Stop Dose Admin Acetaminophen 650 mg 12/20/20 01:47 Acetaminophen 325 Mg Tablet PO Q4H PRN Mild Pain (1-3) or Fever Albuterol 2.5 mg 12/20/20 08:00 12/23/20 07:44 Albuterol Sulfate Neb 2.5 Mg/0.5 Ml Inh INHALATION 2.5 mg Q6HRT KETTY Administration Amlodipine Besylate 5 mg 12/20/20 09:00 12/23/20 08:00 Amlodipine Besylate 5 Mg Tablet PO 5 mg QAM KETTY Administration Aspirin 81 mg 12/21/20 08:00 12/23/20 07:58 Aspirin 81 Mg Chewable Tablet PO 81 mg DAILY@0800 KETTY Administration Atorvastatin Calcium 40 mg 12/20/20 21:00 12/22/20 20:48 Atorvastatin 40 Mg Tablet PO 40 mg HS KETTY Administration Budesonide 2 puff 12/20/20 08:00 12/23/20 07:45 Budesonide 180 Mcg/Puff Flexhaler INHALATION 2 puff DAILYRT KETTY Administration Diclofenac Sodium 0 applic 12/20/20 09:00 12/23/20 08:00 Diclofenac Sodium 1% 100 Gm Gel (*Bkc) TOPICAL 01/19/21 09:01 1 applic QID KETTY Administration Enoxaparin Sodium 40 mg 12/20/20 09:00 12/23/20 08:01 Enoxaparin 40 Mg/0.4 Ml Syringe SUB-Q 40 mg DAILY KETTY Administration Finasteride 5 mg 12/20/20 09:00 12/23/20 08:01 Finasteride 5 Mg Tablet PO 5 mg DAILY KETTY Administration Furosemide 40 mg 12/22/20 09:00 12/23/20 08:00 Furosemide 40 Mg Tablet PO 40 mg DAILY KETTY Administration Gabapentin 300 mg 12/20/20 21:00 12/22/20 20:48 Gabapentin 300 Mg Capsule PO 300 mg HS [facility] Administration Hydrochlorothiazide 25 mg 12/20/20 09:00 12/23/20 08:00 Hydrochlorothiazide 25 Mg Tablet PO 25 mg DAILY KETTY Administration Insulin Aspart 12 units 12/20/20 08:00 12/23/20 07:58 Insulin Aspart (*Bkc) 100 Units/Ml SUB-Q 12 units TIDWM KETTY Administration Insulin Glargine 25 units 12/20/20 21:00 12/22/20 20:50 Insulin Glargine (*Bkc) 100 Units/Ml SUB-Q 01/19/21 21:01 25 units HS KETTY Administration Metformin HCl 1,000 mg 12/20/20 08:00 12/23/20 07:58 Metformin Hcl 500 Mg Tablet PO 1,000 mg BIDWM KETTY Administration Ondansetron HCl 4 mg 12/20/20 01:47 Ondansetron Inj 4 Mg/2 Ml Vial IV PUSH Q4H PRN Nausea Pantoprazole Sodium 40 mg 12/20/20 09:00 12/23/20 08:00 Pantoprazole 40 Mg Tablet PO 40 mg QAM KETTY Administration Potassium Chloride 20 meq 12/20/20 08:00 12/23/20 07:58 Potassium Chloride 20 Meq Tablet.Er PO 20 meq DAILY@0800 KETTY Administration Sertraline HCl 100 mg 12/20/20 09:00 12/23/20 08:00 Sertraline Hcl 50 Mg Tablet PO 100 mg DAILY KETTY Administration Tamsulosin HCl 0.4 mg 12/20/20 09:00 12/23/20 08:00 Tamsulosin Hcl 0.4 Mg Ca
[2020-12-23 10:57] LABS: Device NASAL CANNULA
--- NOTE | 2020-12-23 15:11 | P.DS_ITS ---
DS: Admitting Diagnosis Admitting Diagnosis Admitting Diagnosis: Altered mental status DS: Discharge Diagnosis Discharge Diagnosis (1) Syncope: Qualifiers: Syncope type: unspecified Qualified Code(s): R55 - Syncope and collapse Code(s): R55 - Syncope and collapse Status: Acute Assessment and Plan: * Transient altered mental status: unclear etiology. * Back to his baseline now. * Neurology consultation. 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 * Ammonia <9 * Abg compensated respiratory acidosis * Carotid Doppler were negative and showed less than 50% * Start aspirin 81 mg p.o. daily * Follow up with neurology in 8 weeks, call to make appt * Patient had another episode, Patient was blank, would not answer any questions or respond, also very limp * head ct, labs, and ABG obtained * All testing came back the same and no new findings. * Patient and would like the option of rehab * No further problem * I wonder if this is atypical seizure activity. * Will get an EEG just to check (2) Altered mental status: Qualifiers: Altered mental status type: unspecified Qualified Code(s): R41.82 - Altered mental status, unspecified Code(s): R41.82 - Altered mental status, unspecified Status: Acute Assessment and Plan: * See above (3) Hypertension: Qualifiers: Hypertension type: essential hypertension Qualified Code(s): I10 - Essential (primary) hypertension Code(s): I10 - Essential (primary) hypertension Status: Acute Assessment and Plan: * BP is 128/81 * Trend blood pressure * Added amlodipine 5mg PO daily * BNP 136 today * Changed Lasix from PO to IV 40 BID for 24 hours * Continue hydrochlorothiazide 25mg PO daily (4) Hyperlipidemia: Qualifiers: Hyperlipidemia type: unspecified Qualified Code(s): E78.5 - Hyperlipidemia, unspecified Code(s): E78.5 - Hyperlipidemia, unspecified Status: Acute Assessment and Plan: * Continue home atorvastatin 40mg PO bedtime (5) Diabetes type 2, controlled: Qualifiers: Diabetes 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 Diabetes mellitus complication status: with unspecified complications Qualified Code(s): E11.8 - Type 2 diabetes mellitus with unspecified complications; 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 Code(s): E11.9 - Type 2 diabetes mellitus without complications Status: Acute Assessment and Plan: * Blood sugar 78 according to labs * Continue home Metformin HCL 1000mg PO BIDWM * Aspart 12 units with meals held for right now * Lantus 25 units at bedtime * Sliding scale (6) BPH (benign prostatic hyperplasia): Qualifiers: Lower urinary tract symptom presence: symptoms absent Qualified Co de(s): N40.0 - Benign prostatic hyperplasia without lower urinary tract symptoms Code(s): N40.0 - Benign prostatic hyperplasia without lower urinary tract symptoms Status: Acute Assessment and Plan: * Continue home finasteride 5mg PO and tamsulosin 0.4mg PO daily * Strict I&Os * Check residual if needed for retention (7) Peripheral neuropathy: Qualifiers: Peripheral neuropathy type: polyneuropathy, unspecified Qualified Code(s): G62.9 - Polyneuropathy, unspecified Code(s): G62.9 - Polyneuropathy, unspecified
--- NOTE | 2020-12-23 15:11 | PM.DS ---
DS: Admitting Diagnosis Admitting Diagnosis Admitting Diagnosis: Altered mental status DS: Discharge Diagnosis Discharge Diagnosis (1) Syncope: Qualifiers: Syncope type: unspecified Qualified Code(s): R55 - Syncope and collapse Code(s): R55 - Syncope and collapse Status: Acute Assessment and Plan: Transient altered mental status: unclear etiology. Back to his baseline now. Neurology consultation. 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 Ammonia <9 Abg compensated respiratory acidosis Carotid Doppler were negative and showed less than 50% Start aspirin 81 mg p.o. daily Follow up with neurology in 8 weeks, call to make appt Patient had another episode, Patient was blank, would not answer any questions or respond, also very limp head ct, labs, and ABG obtained All testing came back the same and no new findings. Patient and would like the option of rehab No further problem I wonder if this is atypical seizure activity. Will get an EEG just to check (2) Altered mental status: Qualifiers: Altered mental status type: unspecified Qualified Code(s): R41.82 - Altered mental status, unspecified Code(s): R41.82 - Altered mental status, unspecified Status: Acute Assessment and Plan: See above (3) Hypertension: Qualifiers: Hypertension type: essential hypertension Qualified Code(s): I10 - Essential (primary) hypertension Code(s): I10 - Essential (primary) hypertension Status: Acute Assessment and Plan: BP is 128/81 Trend blood pressure Added amlodipine 5mg PO daily BNP 136 today Changed Lasix from PO to IV 40 BID for 24 hours Continue hydrochlorothiazide 25mg PO daily (4) Hyperlipidemia: Qualifiers: Hyperlipidemia type: unspecified Qualified Code(s): E78.5 - Hyperlipidemia, unspecified Code(s): E78.5 - Hyperlipidemia, unspecified Status: Acute Assessment and Plan: Continue home atorvastatin 40mg PO bedtime (5) Diabetes type 2, controlled: Qualifiers: Diabetes mellitus retirement insulin use: with retirement use Diabetes mellitus complication status: with unspecified complications Qualified Code(s): E11.8 - Type 2 diabetes mellitus with unspecified complications; 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 Code(s): E11.9 - Type 2 diabetes mellitus without complications Status: Acute Assessment and Plan: Blood sugar 78 according to labs Continue home Metformin HCL 1000mg PO BIDWM Aspart 12 units with meals held for right now Lantus 25 units at bedtime Sliding scale (6) BPH (benign prostatic hyperplasia): Qualifiers: Lower urinary tract symptom presence: symptoms absent Qualified Code(s): N40.0 - Benign prostatic hyperplasia without lower urinary tract symptoms Code(s): N40.0 - Benign prostatic hyperplasia without lower urinary tract symptoms Status: Acute Assessment and Plan: Continue home finasteride 5mg PO and tamsulosin 0.4mg PO daily Strict I&Os Check residual if needed for retention (7) Peripheral neuropathy: Qualifiers: Peripheral neuropathy type: polyneuropathy, unspecified Qualified Code(s): G62.9 - Polyneuropathy, unspecified Code(s): G62.9 - Polyneuropathy, unspecified Status: Acute Assessment and Plan: Continue home gabapentin 300 PO bedtime (8) GERD (gastroesophageal reflux disease): Qualifiers: Esophagitis presence: without esophagitis Qualified Code(s): K21.9 - Gastro-esophageal reflux disease without esophagitis Code(s): K21.9 - Gastro-esophageal reflux disease without esophagitis Status: Acute Assessment and Plan: Continue home pantoprazole 40mg PO Daily DS: Summary Hospital Course Hospital Course: Yamileth
[2020-12-23 17:10] LABS: Glucose Point of Care 122 mg/dl (65-105)
--- NOTE | 2020-12-24 09:50 | WPDNEUROLOGY ---
Neurology EEG Report General Information Date of Study: 12/23/20 TEST eeg DIAGNOSIS blank staring CONDITION OF RECORDING awake EEG NUMBER [id number] CLINICAL HISTORY patient reported that he lost consciousness couple of days ago. He could not provide any further information. EEG DESCRIPTION basic resting occipital frequency consists of medium voltage 8 hertz per second alpha admixed with low-voltage 15 to 18 hertz per second beta and super imposed by multiple movement artifacts. Bilateral symmetrical sleep activity seen again admixed with movements artifacts. Hyperventilation not done. Photic stimulation not done. Non paroxysmal .non focal. Nonlateralizing. IMPRESSION No significant abnormalities noted in this tracing
== END 2020-12-23 16:20 | disposition home or self-care (01) | DRG 312 ==
LOC: ANHED 12-20 01:47 → ANH3MEDSUR 12-20 02:21
PROVIDERS: Nurse Practitioner; Admitting Provider Internal Medicine; Emergency Provider Emergency Medicine; Visit Provider Internal Medicine
DX: R55 Syncope and collapse (principal); R41.82 Altered mental status, unspecified; J44.9 Chronic obstructive pulmonary disease, unspecified; I10 Essential (primary) hypertension; E11.42 Type 2 diabetes mellitus with diabetic polyneuropathy; N40.0 Benign prostatic hyperplasia without lower urinary tract symptoms; K21.9 Gastro-esophageal reflux disease without esophagitis; E78.5 Hyperlipidemia, unspecified; Z79.4 Long term (current) use of insulin; Z99.81 Dependence on supplemental oxygen; Z87.891 Personal history of nicotine dependence
CPT/HCPCS: 36415; 36600; 70450; 70551; 71045; 80048; 80053; 80076; 81001; 82140; 82805; 82948; 83605; 83735; 83880; 84484; 85025; 85027; 85610; 85730; 93005; 93880; 94640; 95816; 96372; 96374; 96376; 97110; 97116; 97161; 97165; 97530; 97535; 99285; A9270; G0378; J1650; J1815; J1940

== ENCOUNTER 2024-07-10 16:16 | Inpatient (IN) | payer MEDICARE, OTHER, SELFPAY ==
[2024-07-10] VITALS (8 sets, daily range): BP systolic 113–172; BP diastolic 74–84; PULSE 73–106; RESP 16–22; TEMP 36.4–36.8; O2SAT 90–100; BMI 29.1
--- NOTE | ~2024-07-10 | XR_ITS ---
EXAMINATION: XR chest 1V Exam Date/Time: 07/10/2024 17:22 CANDY MIXER HISTORY: LOC? Comparison: 12/21/2020. RESULT: Lines, tubes, and devices: Small electronic device projecting over the right upper medial arm. Lungs and pleura: Loss of the medial aspect of the right hemidiaphragm shadow, likely related to art ifact of projection. Low volumes. Linear scar/atelectasis in the left midlung. Patchy subsegmental op acities in the left lower lung. Cardiomediastinal silhouette: Stable. Other: No acute osseous or upper abdominal finding. IMPRESSION: Subsegmental left lower lung atelectasis/consolidation. Reviewed, dictated and finalized at location [facility]. [facility] MIXER
--- NOTE | ~2024-07-10 | CT_ITS ---
EXAMINATION: CT brain wo con DATE: 07/10/2024 17:36 INDICATION: LOC . TECHNIQUE: Computed tomography (CT) of the head was performed without intravenous contrast. The mA wa s adjusted according to patient size. Iterative reconstruction technique was employed. The dose-lengt h product was 605.33 mGy-cm. COMPARISON: 12/21/2020. FINDINGS: No acute intracranial hemorrhage or extra-axial fluid collection. No hydrocephalus, mass, or herniation. No acute ischemic infarct. Unremarkable dural venous sinus attenuation. No acute osseous abnormality. Maxillary and ethmoid mucosal thickening, nodular mucosal thickening in the nasal passages, the remai adeola aerated spaces are clear. Moderate atrophy and chronic white matter change. Atherosclerotic intracranial calcification. IMPRESSION: No acute intracranial process. Reviewed, dictated and finalized at location K. TNING ROD ERECTOR
--- NOTE | ~2024-07-10 | CT_ITS ---
EXAMINATION: CT chest high resolution wo co DATE: 07/10/2024 23:16 INDICATION: abnormal chest xray TECHNIQUE: Computed tomography (CT) of the chest was performed with high-resolution imaging. Automate d exposure control and iterative reconstruction technique were employed. The dose-length product was 396.01 mGy-cm. COMPARISON: X-ray chest, same date. FINDINGS: CHEST: Thoracic aorta: Ascending aortic ectasia. Mild arch calcification. Lung parenchyma and airways: Mild dependent atelectasis. Small focus of likely rounded atelectasis in the right lung base. Mild right lung base scarring. Lingular scar/atelectasis. Mild emphysematous ch john paul. Patent airways. Thoracic inlet, axillae and chest wall: No thyroid or soft tissue mass. No axillary lymphadenopathy. Mild body wall edema. Mediastinum: Dilated central pulmonary arteries. Heart and pericardium: Mild cardiomegaly. Trace pericardial fluid. Coronary artery calcifications: Mild. Pleura: No effusion or mass. Upper abdomen: No significant finding. Thoracic bones: No acute osseous finding in the chest. Subacute/chronic left lateral rib fractures. IMPRESSION: No acute thoracic process detected. Mild emphysematous change and evidence of pulmonary arterial hypertension. Mild cardiomegaly. Small volume pericardial effusion. Ascending aortic ectasia. Mild body wall edema. Reviewed, dictated and finalized at location [facility]. [facility]
--- NOTE | 2024-07-10 17:31 | ED.RECABL ---
HPI - Recheck/Abnormal Lab/Rx General Chief Complaint: Recheck/Abnormal Lab/Rx <Belkys Howe PA-C - Last Filed: 07/10/24 21:17> Stated Complaint: low bp <Belkys Howe PA-C - Last Filed: 07/10/24 21:17> Time Seen by Provider: 07/10/24 17:02 <Belkys Howe PA-C - Last Filed: 07/10/24 21:17> History of Present Illness HPI narrative: 73-year-old male with history of BPH, type 2 diabetes, hypertension, hyperlipidemia, GERD, Parkinson's presents to the emergency department via EMS from home for a syncopal episode. Patient is unable to provide much history surrounding the events. Patient lives at home with his girlfriend. Girlfriend was contacted by nursing staff who provided history. States she left the patient at home around 1500 and the patient was in his normal state of health. He apparently had an episode of low blood pressure around 60 and hitting a sandwich in taking his meds prior to her departure. About 45 minutes later the patient's girlfriend's child significant other came to the house and found the patient slumped over in his chair and drooling. States he was unable to wake the patient up. This was approximately 1545. That person contacted the patient's girlfriend who then called EMS. Upon EMS arrival the patient's BP was 52/36. He was given 500 mL of normal saline and blood pressure was 128/60 upon arrival. Reportedly the patient is on 3 L nasal cannula for COPD at baseline and 5-6 L with exertion. The patient was not on O2 upon arrival to the ED. The patient's girlfriend also notes that the patient is intermittently be having ?memory issues? for several months. Recently the patient was advised to discontinue his Lasix and potassium. His statin was recently increased. Upon my evaluation the patient has no complaints. Denies headache, vision changes, focal numbness or weakness, chest pain or shortness of breath, abdominal pain, nausea vomiting, diarrhea, dysuria or hematuria. <Belkys Howe PA-C - Last Filed: 07/10/24 21:17> Related Data Home Medications: Home Medications ?Medication ?Instructions ?Recorded ?Confirmed ?Last Taken ?Type albuterol 90 mcg/actuation aerosol 1 mcg inhalation QID PRN shortness 12/20/20 07/10/24 Unknown History inhaler of breath or wheezing atorvastatin 40 mg tablet 80 mg PO HS 12/20/20 07/10/24 07/09/24 History diclofenac sodium 1 % topical gel 4 g topical QID PRN pain 12/20/20 07/10/24 Unknown History finasteride 5 mg tablet 5 mg PO DAILY 12/20/20 07/10/24 07/10/24 09:00 History insulin aspart U-100 100 unit/mL 5 unit subcut .with breakfast 12/20/20 07/10/24 07/10/24 08:00 History subcutaneous solution (Novolog U-100 Insulin aspart) insulin glargine 100 unit/mL 19 unit subcut HS 12/20/20 07/10/24 07/09/24 History subcutaneous cartridge metformin 1,000 mg tablet 1,000 mg PO BID 12/20/20 07/10/24 07/09/24 History pantoprazole 40 mg tablet,delayed 40 mg PO QAM 12/20/20 07/10/24 07/09/24 History release sertraline 100 mg tablet 150 mg PO DAILY 12/20/20 07/10/24 07/09/24 History tamsulosin 0.4 mg capsule 0.4 mg PO HS 12/20/20 07/10/24 07/09/24 History carbidopa 25 mg-levodopa 100 mg 2 tablet PO QID 07/10/24 07/10/24 07/10/24 09:00 History tablet docusate sodium 100 mg capsule 200 mg PO BID 07/10/24 07/10/24 Unknown History empagliflozin 25 mg tablet 25 mg PO DAILY 07/10/24 07/10/24 07/10/24 History insulin aspart U-100 100 unit/mL 5 unit subcut .with lunch 07/10/24 07/10/24 07/09/24 History subcutaneous solution (Novolog U-100 Insulin aspart) insulin aspart U-100 100 unit/mL 11 unit subcut .with dinner 07/10/24 07/10/24 07/09/24 History subcutaneous solution (Novolog U-100 Insulin aspart) losartan 50 mg tablet (Cozaar) 75 mg PO DAILY 07/10/24 07/10/24 07/09/24 History semaglutide 1 mg/dose (4 mg/3 mL) 1 mg subcut WEEKLY 07/10/24 07/10/24 07/07/24 History subcutaneous pen injector (Ozempic) sennosides 8.6 mg tablet (senna) 8.6 mg PO DAILY 07/10/24 07/10/24 Unknown History <Belkys Howe PA-C - Last Filed: 07/10/24 21:17> Allergies/Adverse Reactions: Allergies Allergy/AdvReac Type Severity Reaction Status Date / Time lisinopril Allergy Mild SWELLING Verified 07/10/24 16:23 <Belkys Howe PA-C - Last Filed: 07/10/24 21:17> Review of Systems Review of Systems: All systems reviewed & are unremarkable except as noted in HPI and below <Belkys Howe PA-C - Last Filed: 07/10/24 21:17> [facility] Family History Family History: Family History Father Cancer <Belkys Howe PA-C - Last Filed: 07/10/24 21:17> Social History Social History: Social History Smoking packs per day: 1.25 Smoking cigarettes per day: 25.0 Years smoked: 16 Smoking pack-years: 20.00 Smoking status: Former smoker Tobacco type: cigarettes Smoking end date: 11/16/16 Alcohol intake: current Substance use: former Do You Feel Safe in your Home?: Yes Lack of Transportation: No Lack of Food: Never True Current Housing: I Have Housing Concerned About Future Housing: No Difficulty Paying Gas/Electric Bills: No Difficulty Paying for Meds: No Currently Unemployed: No Education: High School Diploma/GED Difficulty w/ Childcare or Family Care: No Gender identity (if verbalized by the patient): Male Spiritual care concerns: No <Belkys Howe PA-C - Last Filed: 07/10/24 21:17> Exam Narrative: GENERAL: Chronically ill-appearing, resting comfortably in exam bed in no acute distress HEAD: Normocephalic, atraumatic. EYES: PERRLA and EOMI. ENT: Nares clear, no rhinorrhea or epistaxis. Mucous membranes moist. NECK: Supple. CHEST: Fine crackles in the left lower lung field. No respiratory distress. Satting 100% on 4 L nasal cannula HEART: Regular rate and rhythm. No murmur heard. Normal peripheral pulses. ABDOMEN: Soft, nontender, nondistended, normal active bowel sounds. No rebound, guarding rigidity EXTREMITIES: Normal range of motion. No edema. SKIN: Warm, dry, no rash. NEURO: No focal deficits. Alert and oriented x3. Resting pill-rolling tremor bilaterally <Belkys Howe PA-C - Last Filed: 07/10/24 21:17> Course [employer]/PA Physician Supervision For this patient encounter, I reviewed the [employer] or PA documentation, treatment plan, and medical decision making and had [id number] time with this patient. I performed all aspects of the MDM as documented. <Timothy Bhardwaj MD - Last Filed: 07/11/24 01:22> Vital Signs Vital signs: Vital Signs Temperature 97.6 F 07/10/24 16:16 Pulse Rate 106 H 07/10/24 16:16 Respiratory Rate 22 H 07/10/24 16:16 Blood Pressure 172/81 H 07/10/24 16:16 Pulse Oximetry 100 07/10/24 16:16 Temperature 98.3 F 07/10/24 22:11 Pulse Rate 82 07/11/24 00:00 Respiratory Rate 18 07/10/24 22:11 Blood Pressure 153/81 H 07/10/24 22:11 Pulse Oximetry 98 07/10/24 22:26 Oxygen Delivery Nasal Cannula 07/10/24 22:26 Oxygen Flow Rate 3 07/10/24 22:26 <Belkys Howe PA-C - Last Filed: 07/10/24 21:17> Vital Signs Temperature 97.6 F 07/10/24 16:16 Pulse Rate 106 H 07/10/24 16:16 Respiratory Rate 22 H 07/10/24 16:16 Blood Pressure 172/81 H 07/10/24 16:16 Pulse Oximetry 100 07/10/24 16:16 Temperature 98.3 F 07/10/24 22:11 Pulse Rate 82 07/11/24 00:00 Respiratory Rate 18 07/10/24 22:11 Blood Pressure 153/81 H 07/10/24 22:11 Pulse Oximetry 98 07/10/24 22:26 Oxygen Delivery Nasal Cannula 07/10/24 22:26 Oxygen Flow Rate 3 07/10/24 22:26 <Timothy Bhadrwaj MD - Last Filed: 07/11/24 01:22> MDM - Recheck/Abnormal Lab/Rx MDM Narrative Medical decision making narrative: 73-year-old male with history of hypertension, hyperlipidemia, BPH, GERD presents to emergency department for an episode of transient altered mental status he. See HPI for further history. Triage vitals with elevated blood pressure, mild tachycardia 106 tachypnea of 22. Exam is significant for the above. Lab work shows leukocytosis of 14.5. Chemistries are largely unremarkable. BNP is elevated at 3070, patient does not appear to be volume overloaded on exam. His TSH is elevated at 0.480. Blood pressure remained stable. Free T3-T4 are pending. Urinalysis does show 1+ ketonuria, elevated 20 wbc's and 1+ leuk esterase. Urine cultures pending. CK normal. CT brain shows no acute intracranial process. Chest x-ray shows subsegmental lower lung atelectasis consolidation. Patient does have fine crackles on exam. Will start Rocephin and azithromycin for CHP. Lactic acid is normal at 0.9. Blood cultures are pending. Several EKGs obtained which have poor baseline due to tremor. Nursing staff was able to obtain an EKG with a good baseline that shows a ventricular rate of 85 ppm, normal MS interval normal QRS duration, normal QTC, no ischemic changes. Troponin within normal limits. Patient updated on workup. Plan to admit to the hospitalist for further evaluation and management. Discussed case with Dr. Laws who agrees to admission. Advises the CT high-resolution without contrast for further evaluation of abnormal chest x-ray. Also agrees with med tele given transient AMS. Patient agrees to admission. Vitals are stable. <Belkys Howe PA-C - Last Filed: 07/10/24 21:17> Lab Data Result diagrams: 07/10/24 18:23 07/10/24 18:23 <Belkys Howe PA-C - Last Filed: 07/10/24 21:17> Labs: Lab Results 07/10/24 07/10/24 07/10/24 Range/Units 18:23 19:00 19:05 WBC 14.5 H (4.5-10.0) K/mm3 RBC 4.86 (4.6-6.20) M/mm3 Hgb 13.6 L (14.0-18.0) g/dL Hct 45.8 (42.0-52.0) % MCV 94.2 (80-100) fl MCH 28.0 (26-34) pg MCHC 29.7 L (32-36) g/dl RDW 13.8 (11.5-14.5) % Plt Count 284 (150-375) k/mm3 MPV 11.5 H (7.4-10.4) fl Immature Gran % (Auto) 0.4 (0-0.5) % Neut % (Auto) 74.9 H (45.5-73.1) % Lymph % (Auto) 16.2 L (18.3-44.2) % Rankin % (Auto) 6.9 (2.6-8.5) % Eos % (Auto) 1.0 (0-4.4) % Baso % (Auto) 0.6 (0.2-1.2) % Lymph # (Auto) 2.35 (0.9-3.2) K/mm3 Rankin # (Auto) 1.0 H (0.1-0.6) K/mm3 Eos # (Auto) 0.1 (0-0.3) K/mm3 Baso # (Auto) 0.1 (0.0-0.1) K/mm3 Abs Immat Gran (auto) 0.06 H (0.00-0.031) K/mm3 Absolute Neuts (auto) 10.9 H (1.3-6.7) K/mm3 Absolute Nucleated RBC 0.000 (0.0-0.012) K/mm3 Nucleated RBC % 0.0 (0.0-0.2) % Platelet Estimate Adequate (Adequate) Hypochromasia 1+ Macrocytosis 1+ (NORMAL) Ovalocytes 1+ Schistocytes None seen PT 13.2 (11.1-14.7) Seconds INR 1.0 APTT 31.5 (22.3-36.8) Seconds Sodium 136 L (137-145) mmol/L Potassium 4.6 (3.4-5.0) mmol/L Chloride 103 (98-107) mmol/L Carbon Dioxide 28 (22-30) mmol/L Anion Gap 5 (4-12) mmol/L BUN 24 H (9-20) mg/dL Creatinine 0.90 (0.7-1.3) mg/dL Estim Creat Clear Calc 73 ml/min Estimated GFR > 60 (59 - ) Glucose 239 H (65-110) mg/dL POC Capillary Glucose 259 H (65-105) mg/dl Lactic Acid 0.9 (0.7-2.0) mmol/L Calcium 9.2 (8.4-10.2) mg/dL Magnesium 2.0 (1.6-2.3) mg/dL Total Bilirubin 0.8 (0.2-1.3) mg/dL AST 22 (17-59) U/L ALT 6 (6-50) U/L Alkaline Phosphatase 127 H (38-126) U/L Total Creatine Kinase 30 L (55-170) U/L Troponin I 0.022 (0.000-0.034) ng/mL NT-Pro-B Natriuret Pep 3070 H (19.9-100) pg/mL Total Protein 8.0 (6.3-8.2) g/dL Albumin 4.0 (3.5-5.1) g/dL TSH 8.480 H (0.465-4.680) uIU/mL Free T4 (0.78-2.19) ng/dL Free T3 pg/mL Urine Color Yellow (Yellow) Urine Appearance Cloudy H (Clear) Urine pH 6.0 (5.0-9.0) Ur Specific Williamson 1.027 (1.001-1.035) Urine Protein 2+ H (Negative) mg/dL Urine Glucose (UA) 3+ H (Negative) mg/dL Urine Ketones 1+ H (Negative) mg/dL Ur Blood (Man) Negative (Negative) Urine Nitrate Negative (Negative) Urine Bilirubin Negative (Negative) Urine Urobilinogen 0.2 (<2.0) mg/dL Leukocyte Esterase Rfl 1+ H (Negative) ANNE MARIE/UL Urine RBC 0-2 (0-2) /hpf Urine WBC 11-20 H (0-3) /hpf Ur Squamous Epith Cells Few (Few) /hpf Urine Bacteria 1+ H /hpf Urine Casts 0-2 07/10/24 Range/Units 19:46 WBC (4.5-10.0) K/mm3 RBC (4.6-6.20) M/mm3 Hgb (14.0-18.0) g/dL Hct (42.0-52.0) % MCV (80-100) fl MCH (26-34) pg MCHC (32-36) g/dl RDW (11.5-14.5) % Plt Count (150-375) k/mm3 MPV (7.4-10.4) fl Immature Gran % (Auto) (0-0.5) % Neut % (Auto) (45.5-73.1) % Lymph % (Auto) (18.3-44.2) % Rankin % (Auto) (2.6-8.5) % Eos % (Auto) (0-4.4) % Baso % (Auto) (0.2-1.2) % Lymph # (Auto) (0.9-3.2) K/mm3 Rankin # (Auto) (0.1-0.6) K/mm3 Eos # (Auto) (0-0.3) K/mm3 Baso # (Auto) (0.0-0.1) K/mm3 Abs Immat Gran (auto) (0.00-0.031) K/mm3 Absolute Neuts (auto) (1.3-6.7) K/mm3 Absolute Nucleated RBC (0.0-0.012) K/mm3 Nucleated RBC % (0.0-0.2) % Platelet Estimate (Adequate) Hypochromasia Macrocytosis (NORMAL) Ovalocytes Schistocytes PT (11.1-14.7) Seconds INR APTT (22.3-36.8) Seconds Sodium (137-145) mmol/L Potassium (3.4-5.0) mmol/L Chloride (98-107) mmol/L Carbon Dioxide (22-30) mmol/L Anion Gap (4-12) mmol/L BUN (9-20) mg/dL Creatinine (0.7-1.3) mg/dL Estim Creat Clear Calc ml/min Estimated GFR (59 - ) Glucose (65-110) mg/dL POC Capillary Glucose (65-105) mg/dl Lactic Acid (0.7-2.0) mmol/L Calcium (8.4-10.2) mg/dL Magnesium (1.6-2.3) mg/dL Total Bilirubin (0.2-1.3) mg/dL AST (17-59) U/L ALT (6-50) U/L Alkaline Phosphatase (38-126) U/L Total Creatine Kinase (55-170) U/L Troponin I (0.000-0.034) ng/mL NT-Pro-B Natriuret Pep (19.9-100) pg/mL Total Protein (6.3-8.2) g/dL Albumin (3.5-5.1) g/dL TSH (0.465-4.680) uIU/mL Free T4 1.51 (0.78-2.19) ng/dL Free T3 pg/mL Pending Urine Color (Yellow) Urine Appearance (Clear) Urine pH (5.0-9.0) Ur Specific Williamson (1.001-1.035) Urine Protein (Negative) mg/dL Urine Glucose (UA) (Negative) mg/dL Urine Ketones (Negative) mg/dL Ur Blood (Man) (Negative) Urine Nitrate (Negative) Urine Bilirubin (Negative) Urine Urobilinogen (<2.0) mg/dL Leukocyte Esterase Rfl (Negative) ANNE MARIE/UL Urine RBC (0-2) /hpf Urine WBC (0-3) /hpf Ur Squamous Epith Cells (Few) /hpf Urine Bacteria /hpf Urine Casts <Belkys Howe PA-C - Last Filed: 07/10/24 21:17> Lab Results 07/10/24 07/10/24 07/10/24 Range/Units 18:23 19:00 19:05 WBC 14.5 H (4.5-10.0) K/mm3 RBC 4.86 (4.6-6.20) M/mm3 Hgb 13.6 L (14.0-18.0) g/dL Hct 45.8 (42.0-52.0) % MCV 94.2 (80-100) fl MCH 28.0 (26-34) pg MCHC 29.7 L (32-36) g/dl RDW 13.8 (11.5-14.5) % Plt Count 284 (150-375) k/mm3 MPV 11.5 H (7.4-10.4) fl Immature Gran % (Auto) 0.4 (0-0.5) % Neut % (Auto) 74.9 H (45.5-73.1) % Lymph % (Auto) 16.2 L (18.3-44.2) % Rankin % (Auto) 6.9 (2.6-8.5) % Eos % (Auto) 1.0 (0-4.4) % Baso % (Auto) 0.6 (0.2-1.2) % Lymph # (Auto) 2.35 (0.9-3.2) K/mm3 Rankin # (Auto) 1.0 H (0.1-0.6) K/mm3 Eos # (Auto) 0.1 (0-0.3) K/mm3 Baso # (Auto) 0.1 (0.0-0.1) K/mm3 Abs Immat Gran (auto) 0.06 H (0.00-0.031) K/mm3 Absolute Neuts (auto) 10.9 H (1.3-6.7) K/mm3 Absolute Nucleated RBC 0.000 (0.0-0.012) K/mm3 Nucleated RBC % 0.0 (0.0-0.2) % Platelet Estimate Adequate (Adequate) Hypochromasia 1+ Macrocytosis 1+ (NORMAL) Ovalocytes 1+ Schistocytes None seen PT 13.2 (11.1-14.7) Seconds INR 1.0 APTT 31.5 (22.3-36.8) Seconds Sodium 136 L (137-145) mmol/L Potassium 4.6 (3.4-5.0) mmol/L Chloride 103 (98-107) mmol/L Carbon Dioxide 28 (22-30) mmol/L Anion Gap 5 (4-12) mmol/L BUN 24 H (9-20) mg/dL Creatinine 0.90 (0.7-1.3) mg/dL Estim Creat Clear Calc 73 ml/min Estimated GFR > 60 (59 - ) Glucose 239 H (65-110) mg/dL POC Capillary Glucose 259 H (65-105) mg/dl Lactic Acid 0.9 (0.7-2.0) mmol/L Calcium 9.2 (8.4-10.2) mg/dL Magnesium 2.0 (1.6-2.3) mg/dL Total Bilirubin 0.8 (0.2-1.3) mg/dL AST 22 (17-59) U/L ALT 6 (6-50) U/L Alkaline Phosphatase 127 H (38-126) U/L Total Creatine Kinase 30 L (55-170) U/L Troponin I 0.022 (0.000-0.034) ng/mL NT-Pro-B Natriuret Pep 3070 H (19.9-100) pg/mL Total Protein 8.0 (6.3-8.2) g/dL Albumin 4.0 (3.5-5.1) g/dL TSH 8.480 H (0.465-4.680) uIU/mL Free T4 (0.78-2.19) ng/dL Free T3 pg/mL Urine Color Yellow (Yellow) Urine Appearance Cloudy H (Clear) Urine pH 6.0 (5.0-9.0) Ur Specific Williamson 1.027 (1.001-1.035) Urine Protein 2+ H (Negative) mg/dL Urine Glucose (UA) 3+ H (Negative) mg/dL Urine Ketones 1+ H (Negative) mg/dL Ur Blood (Man) Negative (Negative) Urine Nitrate Negative (Negative) Urine Bilirubin Negative (Negative) Urine Urobilinogen 0.2 (<2.0) mg/dL Leukocyte Esterase Rfl 1+ H (Negative) ANNE MARIE/UL Urine RBC 0-2 (0-2) /hpf Urine WBC 11-20 H (0-3) /hpf Ur Squamous Epith Cells Few (Few) /hpf Urine Bacteria 1+ H /hpf Urine Casts 0-2 //24 Range/Units 19:46 WBC (4.5-10.0) K/mm3 RBC (4.6-6.20) M/mm3 Hgb (14.0-18.0) g/dL Hct (42.0-52.0) % MCV (80-100) fl MCH (26-34) pg MCHC (32-36) g/dl RDW (11.5-14.5) % Plt Count (150-375) k/mm3 MPV (7.4-10.4) fl Immature Gran % (Auto) (0-0.5) % Neut % (Auto) (45.5-73.1) % Lymph % (Auto) (18.3-44.2) % Rankin % (Auto) (2.6-8.5) % Eos % (Auto) (0-4.4) % Baso % (Auto) (0.2-1.2) % Lymph # (Auto) (0.9-3.2) K/mm3 Rankin # (Auto) (0.1-0.6) K/mm3 Eos # (Auto) (0-0.3) K/mm3 Baso # (Auto) (0.0-0.1) K/mm3 Abs Immat Gran (auto) (0.00-0.031) K/mm3 Absolute Neuts (auto) (1.3-6.7) K/mm3 Absolute Nucleated RBC (0.0-0.012) K/mm3 Nucleated RBC % (0.0-0.2) % Platelet Estimate (Adequate) Hypochromasia Macrocytosis (NORMAL) Ovalocytes Schistocytes PT (11.1-14.7) Seconds INR APTT (22.3-36.8) Seconds Sodium (137-145) mmol/L Potassium (3.4-5.0) mmol/L Chloride (98-107) mmol/L Carbon Dioxide (22-30) mmol/L Anion Gap (4-12) mmol/L BUN (9-20) mg/dL Creatinine (0.7-1.3) mg/dL Estim Creat Clear Calc ml/min Estimated GFR (59 - ) Glucose (65-110) mg/dL POC Capillary Glucose (65-105) mg/dl Lactic Acid (0.7-2.0) mmol/L Calcium (8.4-10.2) mg/dL Magnesium (1.6-2.3) mg/dL Total Bilirubin (0.2-1.3) mg/dL AST (17-59) U/L ALT (6-50) U/L Alkaline Phosphatase (38-126) U/L Total Creatine Kinase (55-170) U/L Troponin I (0.000-0.034) ng/mL NT-Pro-B Natriuret Pep (19.9-100) pg/mL Total Protein (6.3-8.2) g/dL Albumin (3.5-5.1) g/dL TSH (0.465-4.680) uIU/mL Free T4 1.51 (0.78-2.19) ng/dL Free T3 pg/mL Pending Urine Color (Yellow) Urine Appearance (Clear) Urine pH (5.0-9.0) Ur Specific Williamson (1.001-1.035) Urine Protein (Negative) mg/dL Urine Glucose (UA) (Negative) mg/dL Urine Ketones (Negative) mg/dL Ur Blood (Man) (Negative) Urine Nitrate (Negative) Urine Bilirubin (Negative) Urine Urobilinogen (<2.0) mg/dL Leukocyte Esterase Rfl (Negative) ANNE MARIE/UL Urine RBC (0-2) /hpf Urine WBC (0-3) /hpf Ur Squamous Epith Cells (Few) /hpf Urine Bacteria /hpf Urine Casts <Timothy Bhardwaj MD - Last Filed: 07/11/24 01:22> Discharge Plan Discharge Clinical Impression: Abnormal urinalysis Altered mental status Qualifiers: Altered mental status type: transient alteration of awareness Qualified Code(s): R40.4 - Transient alteration of awareness CAP (community acquired pneumonia) Qualifiers: Laterality: left Lung location: lower lobe of lung Qualified Code(s): J18.9 - Pneumonia, unspecified organism <Belkys Howe PA-C - Last Filed: 07/10/24 21:17> Patient Disposition: Still a Patient <Belkys Howe PA-C - Last Filed: 07/10/24 21:17> Condition: Stable <Belkys Howe PA-C - Last Filed: 07/10/24 21:17>
--- NOTE | 2024-07-10 17:36 | PC.NURSE ---
RN called pt's girlfriend/point of contact. She states that she was not home when EMS was called, but saw the patient at 15:00 when she states he was totally normal, this is when she left the home. Pt had eaten a sandwich and taken his meds around that time. Approx 45 min later, third democrat in patient's home found patient sitting in chair, slumped over, drooling, and he was unable to wake patient up. This was approximately 15:45. This person called pt's girlfriend who then called EMS. Pt's girlfriend reports pt is normally on 3L NC for COPD at baseline, 5-6L with exertion. Pt receives medical care at [facility]. Pt's girlfriend also states pt has been having memory issues intermittently for the last few months. And that patient is no longer taking Lasix or Potassium. Provider made aware.
--- NOTE | 2024-07-10 18:26 | ECG_ITS ---
Test Date: 2024-07-10 16:21:52 Measurements Intervals [place] Rate: 76 P: 0 SC: 0 QRS: -32 QRSD: 102 T: 26 QT: 412 QTc: 464 Interpretive Statements sinus rhythm LEFT AXIS DEVIATION [QRS AXIS < -30] PATTERN CONSISTENT WITH PULMONARY DISEASE SEPTAL MYOCARDIAL INFARCTION , OF INDETERMINATE AGE [40+ ms Q WAVE IN V1/V2] No previous ECG available for comparison Electronically Signed On 07-11-2024 15:02:56 R&D ENGINEER by Thomas Gandhi M.D.
[2024-07-10 18:32] LABS: Basophils Absolute Auto 0.1 K/mm3 (0.0-0.1); Basophils Percent Auto 0.6 % (0.2-1.2); Eosinophils Absolute Auto 0.1 K/mm3 (0-0.3); Hematocrit 45.8 % (42.0-52.0); Hemoglobin 13.6 g/dL (14.0-18.0); Immature Granulocyte Absolute 0.06 K/mm3 (0.00-0.031); Immature Granulocyte Percent A 0.4 % (0-0.5); Lymphocytes Absolute Auto 2.35 K/mm3 (0.9-3.2); Lymphocytes Percent Auto 16.2 % (18.3-44.2); Mean Corpuscular HGB Conc 29.7 g/dl (32-36); Mean Corpuscular Volume 94.2 fl (80-100); Mean Platelet Volume 11.5 fl (7.4-10.4); Monocytes Percent Auto 6.9 % (2.6-8.5); Neutrophils Absolute Auto 10.9 K/mm3 (1.3-6.7); Neutrophils Percent Auto 74.9 % (45.5-73.1); Platelet Count Result 284 k/mm3 (150-375); Red Blood Count 4.86 M/mm3 (4.6-6.20); Red Cell Distribution Width 13.8 % (11.5-14.5); White Blood Count 14.5 K/mm3 (4.5-10.0)
--- NOTE | 2024-07-10 18:35 | ECG_ITS ---
Test Date: 2024-07-10 18:35:02 Measurements Intervals [place] Rate: 73 P: -24 NC: 187 QRS: -52 QRSD: 106 T: 21 QT: 411 QTc: 454 Interpretive Statements SINUS RHYTHM PATTERN CONSISTENT WITH PULMONARY DISEASE LEFT ANTERIOR FASCICULAR BLOCK [QRS AXIS <= -45, QR IN I, RS IN II] SEPTAL MYOCARDIAL INFARCTION , OF INDETERMINATE AGE [40+ ms Q WAVE IN V1/V2] possible old inferior MD Compared to ECG 07/10/2024 16:21:52 Supraventricular rhythm no longer present Left-axis deviation no longer present Myocardial infarct finding still present Electronically Signed On 07-11-2024 15:00:19 ELECTROPHYSIOLOGY NURSE PRACTITIONER by Thomas Gandhi M.D.
[2024-07-10 18:41] LABS: Alanine Aminotransferase 6 U/L (6-50); Alkaline Phosphatase 127 U/L (38-126); Anion Gap 5 mmol/L (4-12); Aspartate Amino Transferase 22 U/L (17-59); Bilirubin,Total 0.8 mg/dL (0.2-1.3); Blood Urea Nitrogen 24 mg/dL (9-20); Calcium 9.2 mg/dL (8.4-10.2); Carbon Dioxide 28 mmol/L (22-30); Chloride 103 mmol/L (98-107); Creatine Kinase 30 U/L (55-170); Estimated CRCL calculation 73 ml/min; Estimated Glomerular Filt Rate > 60; Glucose 239 mg/dL (65-110); Potassium 4.6 mmol/L (3.4-5.0); Sodium 136 mmol/L (137-145)
[2024-07-10 18:47] LABS: Prothrombin Time 13.2 Seconds (11.1-14.7)
[2024-07-10 18:48] LABS: Partial Thromboplastin Time 31.5 Seconds (22.3-36.8)
[2024-07-10 18:53] LABS: Troponin I 0.022 ng/mL (0.000-0.034)
[2024-07-10 19:09] LABS: Glucose Point of Care 259 mg/dl (65-105)
[2024-07-10 19:22] LABS: Lactic Acid Reflex 0.9 mmol/L (0.7-2.0)
[2024-07-10 19:34] LABS: Hypochromasia 1+; Macrocytosis 1+ (NORMAL); Ovalocytes 1+; Platelet Estimate Adequate (Adequate); Schistocytes None Seen
[2024-07-10 19:41] LABS: Add Urine Microscopic? YES; Appearance Urine Cloudy (Clear); Bacteria Urine 1+ /hpf; Bilirubin Urine Negative (Negative); Blood Urine Negative (Negative); Color Urine Yellow (Yellow); Glucose Urine UA 3+ mg/dL (Negative); Ketones Urine 1+ mg/dL (Negative); Leukocyte Esterase Ur 1+ LEU/UL (Negative); Nitrate Urine Negative (Negative); Non Pathogenic Casts 0-2; Protein Urine 2+ mg/dL (Negative); RBC Urine 0-2 /hpf (0-2); Specific Grav Ur 1.027 (1.001-1.035); Squamous Epithelial Cell Urine Few /hpf (Few); Urobilinogen Urine 0.2 mg/dL (<2.0)
[2024-07-10 19:50] LABS: NT Pro B Type Natriuretic Pept 3070 pg/mL (19.9-100)
[2024-07-10 20:46] LABS: Free T4 Free Thyroxine 1.51 ng/dL (0.78-2.19)
[2024-07-10] MEDS: AZITHROMYCIN 500 MG/NS 250 ML 500 MG/250 ML BAG 250 MG IVPB (21:49)
[2024-07-10 22:09] LABS: Glucose Point of Care 298 mg/dl (65-105)
--- NOTE | 2024-07-10 22:11 | ADMGEN ---
This patient, Memo Simpson, was admitted to Medical Room 343-01. Patient/family oriented to hospital policies and general routines including ID bracelet, bed and alarms, visiting hours, pain management, procedures, bathroom and other care routines, personal items, smoking policy, room service/diet, and visiting hours. Information on how to activate the Rapid Response Team has been discussed. Patient/Family are encouraged to report perceived risks to care and to ask questions if they do not understand what they are told or what they should do.
--- NOTE | 2024-07-10 22:25 | PC.NURSE ---
Call placed to CT to discuss status of order for patient's stat CT chest high resolution. Awaiting further instructions as she is waiting to hear from radiologist.
[2024-07-11] VITALS (10 sets, daily range): BP systolic 139–192; BP diastolic 79–98; PULSE 75–82; RESP 18; TEMP 36.4–36.8; O2SAT 98–100
--- NOTE | 2024-07-11 00:13 | P.HP_ITS ---
H&P: HPI History of Present Illness Date/Time: 07/11/24 00:13 Chief Complaint: Altered mental status Narrative: This is a 73-year-old male with past medical history significant for insulin- dependent diabetes mellitus, dyslipidemia, benign prostatic hyperplasia, Parkinson's. Patient was brought to the emergency room due to altered mental status apparently patient was found unresponsive was a brief episode. Patient has no recollection of events. Patient is unable to really participate in a meaningful way contributing to history taking. Preliminary workup was significant for chest x-ray with opacities present, CBC showed a leukocyte count of 14,000, urinalysis had numerous WBCs present. EXAMINATION: CT brain wo con DATE: 07/10/2024 17:36 INDICATION: LOC . TECHNIQUE: Computed tomography (CT) of the head was performed without intravenous contrast. The mA was adjusted according to patient size. Iterative reconstruction technique was employed. The dose-length product was 605.33 mGy- cm. COMPARISON: 12/21/2020. FINDINGS: No acute intracranial hemorrhage or extra-axial fluid collection. No hydrocephalus, mass, or herniation. No acute ischemic infarct. Unremarkable dural venous sinus attenuation. No acute osseous abnormality. Maxillary and ethmoid mucosal thickening, nodular mucosal thickening in the nasal passages, the remaining aerated spaces are clear. Moderate atrophy and chronic white matter change. Atherosclerotic intracranial calcification. IMPRESSION: No acute intracranial process. EXAMINATION: XR chest 1V Exam Date/Time: 07/10/2024 17:22 BANANA HANDLER HISTORY: LOC? Comparison: 12/21/2020. RESULT: Lines, tubes, and devices: Small electronic device projecting over the right upper medial arm. Lungs and pleura: Loss of the medial aspect of the right hemidiaphragm shadow, likely related to artifact of projection. Low volumes. Linear scar/atelectasis in the left midlung. Patchy subsegmental opacities in the left lower lung. Cardiomediastinal silhouette: Stable. Other: No acute osseous or upper abdominal finding. IMPRESSION: Subsegmental left lower lung atelectasis/consolidation. EXAMINATION: CT chest high resolution wo co DATE: 07/10/2024 23:16 INDICATION: abnormal chest xray TECHNIQUE: Computed tomography (CT) of the chest was performed with high- resolution imaging. Automated exposure control and iterative reconstruction technique were employed. The dose-length product was 396.01 mGy-cm. COMPARISON: X-ray chest, same date. FINDINGS: CHEST: Thoracic aorta: Ascending aortic ectasia. Mild arch calcification. Lung parenchyma and airways: Mild dependent atelectasis. Small focus of likely rounded atelectasis in the right lung base. Mild right lung base scarring. Lingular scar/atelectasis. Mild emphysematous change. Patent airways. Thoracic inlet, axillae and chest wall: No thyroid or soft tissue mass. No axillary lymphadenopathy. Mild body wall edema. Mediastinum: Dilated central pulmonary arteries. Heart and pericardium: Mild cardiomegaly. Trace pericardial fluid. Coronary artery calcifications: Mild. Pleura: No effusion or mass. Upper abdomen: No significant finding. Thoracic bones: No acute osseous finding in the chest. Subacute/chronic left lateral rib fractures. IMPRESSION: No acute thoracic process detected. Mild emphysematous change and evidence of pulmonary arterial hypertension. Mild cardiomegaly. Small volume pericardial effusion. Ascending aortic ectasia. Mild body wall edema. Review of Systems Review of Systems: ROS unobtainable: Yes other (Patient has no recollection event) [facility] Family History Family History Father Cancer Social History Social History Smoking packs per day: 1.25 Smoking cigarettes per day: 25.0 Years smoked: 16 Smoking pack-years: 20.00 Smoking status: Former smoker Tobacco type: cigarettes Smoking end date: 11/16/16 Alcohol intake: current Substance use: former Do You Feel Safe in your Home?: Yes Lack of Transportation: No Lack of Food: Never True Current Housing: I Have Housing Concerned About Future Housing: No Difficulty Paying Gas/Electric Bills: No Difficulty Paying for Meds: No Currently Unemployed: No Education: High School Diploma/GED Difficulty w/ Childcare or Family Care: No Gender identity (if verbalized by the patient): Male Spiritual care concerns: No Meds Home Medications and Allergies Home Medications ?Medication ?Instructions ?Recorded ?Confirmed ?Type albuterol 90 mcg/actuation aerosol 1 mcg inhalation QID PRN shortness 12/20/20 07/10/24 History inhaler of breath or wheezing atorvastatin 40 mg tablet 80 mg PO HS 12/20/20 07/10/24 History diclofenac sodium 1 % topical gel 4 g topical QID PRN pain 12/20/20 07/10/24 History finasteride 5 mg tablet 5 mg PO DAILY 12/20/20 07/10/24 History insulin aspart U-100 100 unit/mL 5 unit subcut .with breakfast 12/20/20 07/10/24 History subcutaneous solution (Novolog U-100 Insulin aspart) insulin glargine 100 unit/mL 19 unit subcut HS 12/20/20 07/10/24 History subcutaneous cartridge metformin 1,000 mg tablet 1,000 mg PO BID 12/20/20 07/10/24 History pantoprazole 40 mg tablet,delayed 40 mg PO QAM 12/20/20 07/10/24 History release sertraline 100 mg tablet 150 mg PO DAILY 12/20/20 07/10/24 History tamsulosin 0.4 mg capsule 0.4 mg PO HS 12/20/20 07/10/24 History aspirin 81 mg chewable tablet 81 mg PO DAILY@0800 #30 tabs 12/21/20 07/10/24 Rx (Children's Aspirin) carbidopa 25 mg-levodopa 100 mg 2 tablet PO QID 07/10/24 07/10/24 History tablet docusate sodium 100 mg capsule 200 mg PO BID 07/10/24 07/10/24 History empagliflozin 25 mg tablet 25 mg PO DAILY 07/10/24 07/10/24 History insulin aspart U-100 100 unit/mL 5 unit subcut .with lunch 07/10/24 07/10/24 History subcutaneous solution (Novolog U-100 Insulin aspart) insulin aspart U-100 100 unit/mL 11 unit subcut .with dinner 07/10/24 07/10/24 History subcutaneous solution (Novolog U-100 Insulin aspart) losartan 50 mg tablet (Cozaar) 75 mg PO DAILY 07/10/24 07/10/24 History semaglutide 1 mg/dose (4 mg/3 mL) 1 mg subcut WEEKLY 07/10/24 07/10/24 History subcutaneous pen injector (Ozempic) sennosides 8.6 mg tablet (senna) 8.6 mg PO DAILY 07/10/24 07/10/24 History Allergies Allergy/AdvReac Type Severity Reaction Status Date / Time lisinopril Allergy Mild SWELLING Verified 07/10/24 16:23 Vital Signs Vital Signs - 24 hr 07/10/24 16:16 07/10/24 17:00 07/10/24 18:15 Temperature 97.6 F Pulse Rate 106 H 76 73 Respiratory Rate 22 H 21 H 18 Blood Pressure 172/81 H 150/74 H 113/77 Pulse Oximetry 100 92 90 Oxygen Delivery Oxygen Flow Rate 07/10/24 18:30 07/10/24 21:45 07/10/24 21:45 Temperature Pulse Rate 76 77 Respiratory Rate 22 H 16 Blood Pressure 139/78 148/84 H Pulse Oximetry 96 94 94 Oxygen Delivery Nasal Cannula Oxygen Flow Rate 3 07/10/24 22:04 07/10/24 22:11 07/10/24 22:26 Temperature 98.3 F Pulse Rate 79 81 Respiratory Rate 18 Blood Pressure 153/81 H Pulse Oximetry 95 98 Oxygen Delivery Nasal Cannula Oxygen Flow Rate 3 Exam Narrative: Laying in bed Const: General: comfortable, no acute distress, well developed, alert, awake and average body habitus Nutritional Appearance: average body habitus Orientation/consciousness: oriented to person and oriented to place HENMT: Head: normal to inspection, normocephalic and atraumatic Ears: hearing grossly normal bilaterally Face/Nose/Sinus: normal facial exam Face and sinus: normal facial exam Eyes: General: appearance normal, both eyes and all related structures Pupils: Equal, round and reactive pupils present EOM: EOMs intact bilaterally Neck: Neck: full ROM, no lymphadenopathy and no JVD Thyroid: thyroid normal Lymphatic: no lymphadenopathy noted Resp: Effort & Inspection: normal respiratory effort and able to speak in complete sentences Auscultation: clear to auscultation bilaterally Cardio: Jugular venous distension: no JVD Rate: regular rate Rhythm: regular rhythm Heart sounds: S1 normal heart sound present and S2 normal heart sound present GI: GI Palp: Yes Soft to palpation and Yes No hepatosplenomegaly present : General: Yes deferred Skin: Rashes: no rashes Wounds: no wounds Neuro: General: patient oriented x3 and CN's II-XI intact bilaterally Cranial nerves: Yes CN's II-XII intact bilaterally and Yes Equal, round and reactive pupils present Cognition (Neuro): normal cognition Speech: normal speech Gait exam (Neuro): Unable to assess gait Motor exam (neuro): 5/5 motor strength present throughout Other: Hand tremors Extrem: General: normal to inspection, full ROM, no joint enlargement and no pedal edema H&P: Results Labs Labs: Short CBC 07/10/24 Range/Units 18:23 WBC 14.5 H (4.5-10.0) K/mm3 Hgb 13.6 L (14.0-18.0) g/dL Hct 45.8 (42.0-52.0) % Plt Count 284 (150-375) k/mm3 BMP 07/10/24 18:23 Sodium 136 L Potassium 4.6 Chloride 103 Carbon Dioxide 28 BUN 24 H Creatinine 0.90 Glucose 239 H Calcium 9.2 Cardiac Enzymes 07/10/24 Range/Units 18:23 Total Creatine Kinase 30 L (55-170) U/L Troponin I 0.022 (0.000-0.034) ng/mL Liver Function 07/10/24 Range/Units 18:23 Total Bilirubin 0.8 (0.2-1.3) mg/dL AST 22 (17-59) U/L ALT 6 (6-50) U/L Alkaline Phosphatase 127 H (38-126) U/L Albumin 4.0 (3.5-5.1) g/dL Urine 07/10/24 Range/Units 19:00 Urine Color Yellow (Yellow) Urine Appearance Cloudy H (Clear) Urine pH 6.0 (5.0-9.0) Ur Specific [place] 1.027 (1.001-1.035) Urine Protein 2+ H (Negative) mg/dL Urine Glucose (UA) 3+ H (Negative) mg/dL Assessment and Plan Assessment and plan (1) CAP (community acquired pneumonia): Qualifiers: Laterality: left Lung location: lower lobe of lung Qualified Code(s): J18.9 - Pneumonia, unspecified organism Code(s): J18.9 - Pneumonia, unspecified organism Status: Acute Assessment and Plan: Admit to [facility] Patient started on Rocephin and Zithromax Cultures in progress (2) Syncope: Qualifiers: Syncope type: unspecified Qualified Code(s): R55 - Syncope and collapse Code(s): R55 - Syncope and collapse Status: Acute Assessment and Plan: Likely vasovagal Patient has Parkinson's (3) Altered mental status: Qualifiers: Altered mental status type: transient alteration of awareness Qualified Code(s): R40.4 - Transient alteration of awareness Code(s): R41.82 - Altered mental status, unspecified Status: Acute Assessment and Plan: As 2. 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 Diabetes mellitus complication status: with unspecified complications Qualified Code(s): E11.8 - Type 2 diabetes mellitus with unspecified complications; Z79.4 - [facility]CI (current) use of insulin Code(s): E11.9 - Type 2 diabetes mellitus without complications Status: Acute Assessment and Plan: Continue home meds Holding metformin (6) Peripheral neuropathy: Qualifiers: Peripheral neuropathy type: polyneuropathy, unspecified Qualified Code(s): G62.9 - Polyneuropathy, unspecified Code(s): G62.9 - Polyneuropathy, unspecified Status: Acute Assessment and Plan: On no treatment (7) BPH (benign prostatic hyperplasia): Qualifiers: Lower urinary tract symptom presence: symptoms absent Qualified Cod e(s): N40.0 - Benign prostatic hyperplasia without lower urinary tract symptoms Code(s): N40.0 - Benign prostatic hyperplasia without lower urinary tract symptoms Status: Acute Assessment and Plan: Continue tamsulosin (8) GERD (gastroesophageal reflux disease): Qualifiers: Esophagitis presence: without esophagitis Qualified Code(s): K21.9 - Gastro-esophageal reflux disease without esophagitis Code(s): K21.9 - Gastro-esophageal reflux disease without esophagitis Status: Acute Assessment and Plan: PPI Hospitalist [facility] Advance Care Plan I have confirmed that the patient's Advanced Care Plan is present, code status is documented, or surrogate decision maker is listed in patient medical record.: Yes Medication Reconciliation I have utilized all available resources to obtain, update and review the patients current medications (includes all prescriptions, OTC, herbals, cannabis, and nutritional supplements).: Yes
[2024-07-11] MEDS: LOSARTAN POTASSIUM 25 MG TABLET 75 MG PO (06:49)
[2024-07-11 08:19] LABS: Glucose Point of Care 151 mg/dl (65-105)
[2024-07-11] MEDS: INSULIN ASPART (*BKC) 100 UNITS/ML SUB-Q ×3 (08:47→17:25)
[2024-07-11] MEDS: DOCUSATE SODIUM 100 MG CAPSULE 200 MG PO ×2 (08:48→17:25)
[2024-07-11] MEDS: ASPIRIN 81 MG CHEWABLE TABLET PO (08:48)
[2024-07-11] MEDS: FINASTERIDE 5 MG TABLET PO (08:48)
[2024-07-11] MEDS: SERTRALINE HCL 50 MG TABLET 150 MG PO (08:48)
[2024-07-11] MEDS: PANTOPRAZOLE 40 MG TABLET PO (08:48)
[2024-07-11] MEDS: CARBIDOPA/LEVODOPA 25/100 MG TABLET 2 TABLET PO ×4 (08:48→20:32)
[2024-07-11] MEDS: EMPAGLIFLOZIN 25 MG TABLET PO (08:48)
[2024-07-11 11:40] LABS: Glucose Point of Care 225 mg/dl (65-105)
[2024-07-11 16:34] LABS: Glucose Point of Care 223 mg/dl (65-105)
[2024-07-11 20:32] LABS: Glucose Point of Care 192 mg/dl (65-105)
[2024-07-11] MEDS: TAMSULOSIN HCL 0.4 MG CAPSULE PO (20:32)
[2024-07-11] MEDS: INSULIN GLARGINE (*BKC) 100 UNITS/ML 19 UNITS SUB-Q (20:32)
[2024-07-11] MEDS: ATORVASTATIN 40 MG TABLET 80 MG PO (20:32)
[2024-07-11] MEDS: AZITHROMYCIN 500 MG/NS 250 ML 500 MG/250 ML BAG 250 MG IVPB (21:03)
[2024-07-12] VITALS (13 sets, daily range): BP systolic 153–182; BP diastolic 76–97; PULSE 67–86; RESP 16–18; TEMP 36.4–36.7; O2SAT 96–99
[2024-07-12 07:13] LABS: Basophils Absolute Auto 0.1 K/mm3 (0.0-0.1); Basophils Percent Auto 0.7 % (0.2-1.2); Eosinophils Absolute Auto 0.2 K/mm3 (0-0.3); Eosinophils Percent Auto 2.6 % (0-4.4); Hematocrit 37.9 % (42.0-52.0); Hemoglobin 11.6 g/dL (14.0-18.0); Immature Granulocyte Absolute 0.02 K/mm3 (0.00-0.031); Immature Granulocyte Percent A 0.2 % (0-0.5); Lymphocytes Absolute Auto 2.06 K/mm3 (0.9-3.2); Lymphocytes Percent Auto 23.4 % (18.3-44.2); Mean Corpuscular HGB Conc 30.6 g/dl (32-36); Mean Corpuscular Hemoglobin 28.5 pg (26-34); Mean Corpuscular Volume 93.1 fl (80-100); Mean Platelet Volume 10.1 fl (7.4-10.4); Monocytes Absolute Auto 0.7 K/mm3 (0.1-0.6); Monocytes Percent Auto 8.2 % (2.6-8.5); Neutrophils Absolute Auto 5.7 K/mm3 (1.3-6.7); Neutrophils Percent Auto 64.9 % (45.5-73.1); Platelet Count Result 210 k/mm3 (150-375); Red Blood Count 4.07 M/mm3 (4.6-6.20); Red Cell Distribution Width 13.8 % (11.5-14.5); White Blood Count 8.8 K/mm3 (4.5-10.0)
[2024-07-12 07:29] LABS: Alanine Aminotransferase 8 U/L (6-50); Albumin Level 3.3 g/dL (3.5-5.1); Alkaline Phosphatase 89 U/L (38-126); Anion Gap -2 mmol/L (4-12); Aspartate Amino Transferase 41 U/L (17-59); Bilirubin,Total 0.5 mg/dL (0.2-1.3); Blood Urea Nitrogen 18 mg/dL (9-20); Calcium 8.6 mg/dL (8.4-10.2); Carbon Dioxide 31 mmol/L (22-30); Chloride 107 mmol/L (98-107); Estimated CRCL calculation 81 ml/min; Estimated Glomerular Filt Rate > 60; Glucose 127 mg/dL (65-110); Sodium 136 mmol/L (137-145)
[2024-07-12 08:58] LABS: Glucose Point of Care 110 mg/dl (65-105)
[2024-07-12] MEDS: SERTRALINE HCL 50 MG TABLET 150 MG PO (08:58)
[2024-07-12] MEDS: LOSARTAN POTASSIUM 25 MG TABLET 75 MG PO (08:58)
[2024-07-12] MEDS: FINASTERIDE 5 MG TABLET PO (08:58)
[2024-07-12] MEDS: ASPIRIN 81 MG CHEWABLE TABLET PO (08:58)
[2024-07-12] MEDS: EMPAGLIFLOZIN 25 MG TABLET PO (08:58)
[2024-07-12] MEDS: PANTOPRAZOLE 40 MG TABLET PO (08:59)
[2024-07-12] MEDS: DOCUSATE SODIUM 100 MG CAPSULE 200 MG PO ×2 (08:59→17:29)
[2024-07-12] MEDS: CARBIDOPA/LEVODOPA 25/100 MG TABLET 2 TABLET PO ×4 (08:59→21:05)
--- NOTE | 2024-07-12 09:54 | P.PNIM_ITS ---
Progress Note: A&P Assessment and Plan (1) Altered mental status: Qualifiers: Altered mental status type: transient alteration of awareness Qualified Code(s): R40.4 - Transient alteration of awareness Code(s): R41.82 - Altered mental status, unspecified Status: Acute Assessment and Plan: Likely more related to patients syncopal episode. - Head CT: No acute intracranial process. - Monitor (2) Syncope: Qualifiers: Syncope type: unspecified Qualified Code(s): R55 - Syncope and collapse Code(s): R55 - Syncope and collapse Status: Acute Assessment and Plan: Likely vasovagal vs dehydration. Per chart review, upon EMS arrival the patient's BP was 52/36. Given 500 mL of normal saline and blood pressure was 128/60 upon arrival to the hospital. Denies seizure history. No neuro deficits on exam. - Orthostatic vital signs: positive although patient remains asymptomatic and does not become hypotensive during assessment - EKG sinus rhythm HR 73 with old inferior [place] findings - Echo ordered (3) CAP (community acquired pneumonia): Qualifiers: Laterality: left Lung location: lower lobe of lung Qualified Code(s): J18.9 - Pneumonia, unspecified organism Code(s): J18.9 - Pneumonia, unspecified organism Status: Acute Assessment and Plan: CXR: Subsegmental left lower lung atelectasis/consolidation. Chest CT: No acute thoracic process. Mild emphysematous change and evidence of pulmonary arterial hypertension. Mild cardiomegaly. Small volume pericardial effusion. Ascending aortic ectasia. Mild body wall edema. - started on CAP tx: azithromycin ceftriaxone on 07/11 - Viral PCR: ordered - Remains on baseline oxygen supplementation of 3 L NC with rest and 5-6 L NC with exertion - Monitor vital signs, I&Os, neuro status and patient is a fall risk - Follow WBC, serum electrolytes, temperature curves and cultures (4) UTI (urinary tract infection): Code(s): N39.0 - Urinary tract infection, site not specified Status: Acute Assessment and Plan: - UA concerning for infection - UC obtained on 07/10: negative - no previous micro to be reviewed - started on rocephin on 07/10, remains on this medication for pneumonia (5) Diabetes type 2, controlled: Qualifiers: Diabetes mellitus complication status: with unspecified complications 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 Qualified Code(s): E11.8 - Type 2 diabetes mellitus with unspecified complications; 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 Code(s): E11.9 - Type 2 diabetes mellitus without complications Status: Acute Assessment and Plan: - hypoglycemia protocol - POC blood glucose ACHS - home medication - jardiance 25 mg daily , metformin 1000 mg BID, ozempic 1 mg weekly, lantus 19 units HS, novolog 5 units with breakfast and lunch, 11 units with dinner - correct regimen ordered - Jardiance 25 mg daily, Mod SSI TIDWM, Lantus 19 units HS, - A1C 8.8 on 07/12/24 (6) Peripheral neuropathy: Qualifiers: Peripheral neuropathy type: polyneuropathy, unspecified Qualified Code(s): G62.9 - Polyneuropathy, unspecified Code(s): G62.9 - Polyneuropathy, unspecified Status: Acute Assessment and Plan: On no treatment (7) BPH (benign prostatic hyperplasia): Qualifiers: Lower urinary tract symptom presence: symptoms absent Qualified Code(s): N40.0 - Benign prostatic hyperplasia without lower urinary tract symptoms Code(s): N40.0 - Benign prostatic hyperplasia without lower urinary tract symptoms Status: Acute Assessment and Plan: Continue tamsulosin (8) GERD (gastroesophageal reflux disease): Qualifiers: Esophagitis presence: without esophagitis Qualified Code(s): K21.9 - Gastro-esophageal reflux disease without esophagitis Code(s): K21.9 - Gastro-esophageal reflux disease without esophagitis Status: Acute Assessment and Plan: PPI Time Spent With Patient Time with patient: 25 - 35 minutes Subjective Date/time seen: 07/12/24 09:54 Interval history: 73-year-old male with past medical history significant for insulin-dependent diabetes mellitus, dyslipidemia, benign prostatic hyperplasia, Parkinson's presents to the hospital for syncopal episode. Patient is pleasant lying comfortably in bed. He has no complaints denying chest pain, shortness of breath, nausea/vomiting and abdominal pain. Review of Systems Review of Systems: All systems reviewed & are unremarkable except as noted in HPI and below Exam Narrative: AF HR 86 RR 18 SpO2 98 3L NC (baseline) BP 155/89 General: male in no acute respiratory distress who is nontoxic appearing, lying semi recumbent in bed. HEENT: Normocephalic. Atraumatic. Extraocular movement intact. Sclera clear and anicteric. No facial asymmetry. Chest: Lungs are clear to auscultation bilaterally. No wheezes or crackles. CV: Heart was regular rate and rhythm. S1/S2. No murmurs, gallops, or rubs. Abd: Abdomen was soft. Nontender. Nondistended. Positive bowel sounds. No organomegaly or masses. Ext: No clubbing, cyanosis, or edema. 2+ DP pulses bilaterally. Neuro: Patient is alert. Cranial nerves 2-12 are intact. Speech is clear. Objective Data Vital Signs Vital Signs: Vital Signs - 24 hr 07/11/24 12:00 07/11/24 14:00 07/11/24 14:04 Temperature 97.6 F Pulse Rate 75 80 Respiratory Rate 18 Blood Pressure 139/79 Pulse Oximetry 98 Oxygen Delivery Nasal Cannula Oxygen Flow Rate 3 07/11/24 16:00 07/11/24 16:03 07/11/24 20:00 Temperature Pulse Rate 82 Respiratory Rate Blood Pressure Pulse Oximetry 98 Oxygen Delivery Room Air Nasal Cannula Oxygen Flow Rate 3 07/11/24 20:00 07/11/24 21:12 07/12/24 00:00 Temperature 98.2 F Pulse Rate 75 75 76 Respiratory Rate 18 Blood Pressure 151/91 H Pulse Oximetry 100 Oxygen Delivery Oxygen Flow Rate 07/12/24 04:00 07/12/24 06:00 07/12/24 08:00 Temperature 98.1 F Pulse Rate 78 76 75 Respiratory Rate 18 Blood Pressure 177/94 H Pulse Oximetry 96 Oxygen Delivery Oxygen Flow Rate Intake/Output Intake/Output: Intake & Output 07/09/24 07/10/24 07/11/24 07/12/24 23:59 23:59 23:59 23:59 Intake Total 300 1980 240 Output Total 1300 Balance 300 1979 -1060 Meds/Results Medications: Active Medications Generic Name Dose Route Start Last Admin Trade Name Freq PRN Reason Stop Dose Admin Albuterol 2.5 mg 07/11/24 01:45 Albuterol Sulfate Neb 2.5 Mg/3 Ml Inh INHALATION Q6HRT PRN Shortness Of Breath Aspirin 81 mg 07/11/24 08:00 07/12/24 08:58 Aspirin 81 Mg Chewable Tablet PO 81 mg DAILY@0800 KETTY Administration Atorvastatin Calcium 80 mg 07/11/24 21:00 07/11/24 20:32 Atorvastatin 40 Mg Tablet PO 80 mg HS KETTY Administration Carbidopa/Levodopa 2 tablet 07/11/24 09:00 07/12/24 08:59 Carbidopa/Levodopa 25/100 Mg Tablet PO 2 tablet QID KETTY Administration Dextrose 12.5 gm 07/11/24 13:41 Dextrose 50% 25 Gm/50 Ml Syringe IV PUSH PRN PRN Hypoglycemia Protocol Docusate Sodium 200 mg 07/11/24 09:00 07/12/24 08:59 Docusate Sodium 100 Mg Capsule PO 200 mg BID KETTY Administration Empagliflozin 25 mg 07/11/24 09:00 07/12/24 08:58 Empagliflozin 25 Mg Tablet PO 25 mg DAILY KETTY Administration Finasteride 5 mg 07/11/24 09:00 07/12/24 08:58 Finasteride 5 Mg Tablet PO 5 mg DAILY KETTY Administration Glucagon 1 mg 07/11/24 13:41 Glucagon For Inj 1 Mg Vial IM PRN PRN Hypoglycemia Protocol Glucose 15 gm 07/11/24 13:41 Glucose Oral Gel 15 Gm Of Glucse In 37.5 Gm Tube PO PRN PRN Hypoglycemia Protocol Ceftriaxone Sodium 1 gm in 50 mls @ 100 mls/hr 07/11/24 21:00 07/11/24 21:02 Rocephin 1 Gm/Ns 50 Ml IVPB Infused Q24H KETTY Infusion Azithromycin 500 mg in 250 mls @ 250 mls/hr 07/11/24 22:00 07/11/24 22:03 Zithromax IVPB Infused Q24H KETTY Infusion Dextrose 1,000 mls @ 100 mls/hr 07/11/24 13:41 Dextrose 5% 1,000 Ml IVPB PRN PRN Hypoglycemia Protocol Insulin Aspart 4 - 8 units 07/11/24 17:00 07/12/24 08:57 Insulin Aspart (*Bkc) 100 Units/Ml SUB-Q Not Given TIDWM KETTY Protocol Insulin Glargine 19 units 07/11/24 21:00 07/11/24 20:32 Insulin Glargine (*Bkc) 100 Units/Ml SUB-Q 19 units HS KETTY Administration Losartan Potassium 75 mg 07/11/24 09:00 07/12/24 08:58 Losartan Potassium 25 Mg Tablet PO 75 mg DAILY KETTY Administration Pantoprazole Sodium 40 mg 07/11/24 09:00 07/12/24 08:59 Pantoprazole 40 Mg Tablet PO 40 mg QAM KETTY Administration Sertraline HCl 150 mg 07/11/24 09:00 07/12/24 08:58 Sertraline Hcl 50 Mg Tablet PO 150 mg DAILY KETTY Administration Tamsulosin HCl 0.4 mg 07/11/24 21:00 07/11/24 20:32 Tamsulosin Hcl 0.4 Mg Capsule PO 0.4 mg HS KETTY Administration Radiology Results: ITS Impressions Head CT 07/10/24 17:38 IMPRESSION: No acute intracranial process. Chest X-Ray 07/10/24 17:54 IMPRESSION: Subsegmental left lower lung atelectasis/consolidation. High Resolution CT 07/10/24 23:30 IMPRESSION: No acute thoracic process detected. Mild emphysematous change and evidence of pulmonary arterial hypertension. Mild cardiomegaly. Small volume pericardial effusion. Ascending aortic ectasia. Mild body wall edema. Labs Labs: Laboratory Results - last 24 hr 07/11/24 07/11/24 07/11/24 11:32 16:28 19:38 WBC RBC Hgb Hct MCV MCH MCHC RDW Plt Count MPV Immature Gran % (Auto) Neut % (Auto) Lymph % (Auto) [place] % (Auto) Eos % (Auto) Baso % (Auto) Lymph # (Auto) [place] # (Auto) Eos # (Auto) Baso # (Auto) Abs Immat Gran (auto) Absolute Neuts (auto) Absolute Nucleated RBC Nucleated RBC % Sodium Potassium Chloride Carbon Dioxide Anion Gap BUN Creatinine Estim Creat Clear Calc Estimated GFR Glucose POC Capillary Glucose 225 H 223 H 192 H Calcium Total Bilirubin AST ALT Alkaline Phosphatase Total Protein Albumin 07/12/24 07/12/24 07:00 08:51 WBC 8.8 RBC 4.07 L Hgb 11.6 L Hct 37.9 L MCV 93.1 MCH 28.5 MCHC 30.6 L RDW 13.8 Plt Count 210 MPV 10.1 Immature Gran % (Auto) 0.2 Neut % (Auto) 64.9 Lymph % (Auto) 23.4 [place] % (Auto) 8.2 Eos % (Auto) 2.6 Baso % (Auto) 0.7 Lymph # (Auto) 2.06 [place] # (Auto) 0.7 H Eos # (Auto) 0.2 Baso # (Auto) 0.1 Abs Immat Gran (auto) 0.02 Absolute Neuts (auto) 5.7 Absolute Nucleated RBC 0.000 Nucleated RBC % 0.0 Sodium 136 L Potassium 4.0 Chloride 107 Carbon Dioxide 31 H Anion Gap -2 L BUN 18 Creatinine 0.70 Estim Creat Clear Calc 81 Estimated GFR > 60 Glucose 127 H POC Capillary Glucose 110 H Calcium 8.6 Total Bilirubin 0.5 AST 41 ALT 8 Alkaline Phosphatase 89 Total Protein 6.0 L Albumin 3.3 L Quality VTE Prophylaxis VTE prophylaxis: mechanical ordered
[2024-07-12 11:00] LABS: Hemoglobin A1C 8.8 % (<5.7)
[2024-07-12 12:24] LABS: Glucose Point of Care 135 mg/dl (65-105)
[2024-07-12 17:28] LABS: Glucose Point of Care 119 mg/dl (65-105)
[2024-07-12 19:26] LABS: Influenza A QL RT-PCR Negative (Negative); Influenza B QL RT-PCR Negative (Negative); RSV RNA, RT-PCR Negative (Negative); SARS-CoV-2 RNA PCR Negative (Negative)
[2024-07-12 20:43] LABS: Glucose Point of Care 160 mg/dl (65-105)
[2024-07-12] MEDS: ATORVASTATIN 40 MG TABLET 80 MG PO (21:05)
[2024-07-12] MEDS: TAMSULOSIN HCL 0.4 MG CAPSULE PO (21:05)
[2024-07-12] MEDS: INSULIN GLARGINE (*BKC) 100 UNITS/ML 19 UNITS SUB-Q (21:06)
[2024-07-12] MEDS: AZITHROMYCIN 500 MG/NS 250 ML 500 MG/250 ML BAG 250 MG IVPB (21:06)
[2024-07-13] VITALS (12 sets, daily range): BP systolic 126–181; BP diastolic 67–98; PULSE 69–87; RESP 16–18; TEMP 36.4–36.6; O2SAT 95–98
--- NOTE | 2024-07-13 | ECHO_ITS ---
Patient Info Name: Memo Simpson Age: 73 years : 1950 Gender: Male Ht: 69 in Wt: 197 lbs BSA: 2.11 m2 HR: 73 bpm BP: 157 / 77 mmHg Technical Quality: Fair Exam Date: 07/13/2024 10:56 AM Exam Location: Echo Lab Patient Status: Inpatient Admit Date: 07/11/2024 Staff Ordering Physician: Lucie Solorio PA-C [employer]: Elliot Em RDCS Attending Provider: Lucie Solorio PA-C Referring Physician: Lyndsey LEONE; Exam Type: CA echo doppler color flow Study Info Indications R55 - Syncope and collapse Complete two-dimensional, color flow and Doppler transthoracic echocardiogram is performed. Summary 1. Complete two-dimensional, color flow and Doppler transthoracic echocardiogram is performed. 2. The left ventricle is normal in size and systolic function. There is mild concentric left ventricular hypertrophy. The left ventricular ejection fraction is visually estimated to be 55-60%. 3. The right ventricle is normal in size and systolic function. 4. The mitral valve leaflets and subvalvular apparatus are thickened. The mitral valve opens well with no significant regurgitation. Left Ventricle The left ventricle is normal in size and systolic function. There is mild concentric left ventricular hypertrophy. The left ventricular ejection fraction is visually estimated to be 55-60%. Right Ventricle The right ventricle is normal in size and systolic function. Left Atria The left atrium is mildly dilated. Right Atria The right atrium is normal size. Aortic Valve The aortic valve is trileaflet and opens well. There is trace aortic regurgitation. Pulmonic Valve The pulmonic valve is not well visualized. There is no color Doppler evidence of pulmonic valve regurgitation. Mitral Valve The mitral valve leaflets and subvalvular apparatus are thickened. The mitral valve opens well with no significant regurgitation. Tricuspid Valve The tricuspid valve is grossly normal. There is trace tricuspid regurgitation. Pericardium/Pleural Subcostal views were not performed. Inferior Vena Cava Subcostal views were not performed. Aorta The aortic root at the level of the sinus of Valsalva measures 2.8 cm in diameter. Left Ventricular Outflow Tract Name Value Normal LVOT 2D LVOT Diameter 1.9 cm LVOT Doppler LVOT Peak Gradient 6 mmHg LVOT Mean Gradient 3 mmHg LVOT VTI 23 cm LVOT VTI/AV VTI Ratio 0.8 LVOT Stroke Volume 63 ml LVOT CO 4.5 l/min LVOT CI 2.1 l/min/m2 Pulmonic Valve Name Value Normal PV Doppler PV Peak Gradient 7 mmHg Mitral Valve Name Value Normal MV Doppler MV Decel [place] 397 cm/s2 MV PHT 40 ms MV Area (PHT) 5.6 cm2 4.0-5.0 MV Diastolic Function MV E Peak Velocity 54 cm/s MV A Peak Velocity 111 cm/s MV E/A 0.5 MV Decel Time 137 ms Tricuspid Valve Name Value Normal TV Regurgitation Doppler TR Peak Velocity 251 cm/s TR Peak Gradient 25 mmHg Aorta Name Value Normal Ascending Aorta Ao Root Diameter (MM) 2.6 cm Ao Root Diam Index (MM) 1.3 cm/m2 Aortic Valve Name Value Normal AV Doppler AV Peak Velocity 166 cm/s AV Peak Gradient 11 mmHg AV Mean Gradient 6 mmHg AV VTI 30 cm AV Area (Cont Eq VTI) 2.1 cm2 >=3.0 AV Area (Cont Eq Darnell) 2.0 cm2 AV Regurgitation 2D LVOT Area 2.7 cm2 AV Regurgitation Doppler AR Decel Time 3,652 ms AR Decel [place] 75 cm/s2 AR PHT 1,059 ms Ventricles Name Value Normal LV Dimensions 2D/MM IVS Diastolic Thickness (2D) 1.0 cm 0.6-1.0 IVS Diastole Thickness (MM) 1.2 cm 0.6-1.0 LVID Diastole (2D) 5.3 cm 4.2-5.8 LVID Diastole (MM) 5.5 cm 4.2-5.8 LVIW Diastolic Thickness (2D) 1.1 cm 0.6-1.0 LVIW Diastolic Thickness (MM) 1.2 cm 0.6-1.0 LVID Systole (2D) 3.4 cm 2.5-4.0 LVID Systole (MM) 3.7 cm 2.5-4.0 LVOT Diameter 1.9 cm LV Mass (2D Cubed) 218.79 g 88.00-224.00 LV Mass Index (2D Cubed) 104 g/m2 49-115 Relative Wall Thickness (2D) 0.41 LV Mass (MM Cubed) 270.02 g 88.00-224.00 LV Mass Index (MM Cubed) 128 g/m2 49-115 Relative Wall Thickness (MM) 0.44 LV Fractional Shortening/Ejection Fraction 2D/MM LV Fractional Shortening (2D) 37 % 25-43 LV Fractional Shortening (MM) 33 % 25-43 LV EF (MM Teicholz) 61 % 52-72 LV EF (2D Teicholz) 66 % 52-72 LV Diastolic Volume (4C MOD) 132 ml LV EF (4C MOD) 54 % LV Diastolic Volume (2C MOD) 108 ml LV EF (2C MOD) 58 % LV Diastolic Volume (BP MOD) 122 ml 62-150 LV Diastolic Volume Index (BP MOD) 58 ml/m2 34-74 LV Systolic Volume (BP MOD) 53 ml 21-61 LV Systolic Volume Index (BP MOD) 25 ml/m2 11-31 LV EF (BP MOD) 57 % 52-72 LV Diastolic Length (4C) 9.2 cm LV Systolic Length (4C) 8.0 cm LV Stroke Volume (4C MOD) 71 ml Atria Name Value Normal LA Dimensions LA Dimension (MM) 5.1 cm 3.0-4.1 LA Volume (4C A-L) 88 ml LA Volume (BP A-L) 87 ml RA Dimensions RA Area (4C) 17.0 cm2 <=18.0 Report Signatures
[2024-07-13 07:24] LABS: Basophils Absolute Auto 0.1 K/mm3 (0.0-0.1); Basophils Percent Auto 0.6 % (0.2-1.2); Eosinophils Absolute Auto 0.3 K/mm3 (0-0.3); Eosinophils Percent Auto 2.8 % (0-4.4); Hematocrit 38.8 % (42.0-52.0); Hemoglobin 11.9 g/dL (14.0-18.0); Immature Granulocyte Absolute 0.02 K/mm3 (0.00-0.031); Immature Granulocyte Percent A 0.2 % (0-0.5); Lymphocytes Absolute Auto 2.19 K/mm3 (0.9-3.2); Lymphocytes Percent Auto 24.9 % (18.3-44.2); Mean Corpuscular HGB Conc 30.7 g/dl (32-36); Mean Corpuscular Hemoglobin 28.3 pg (26-34); Mean Corpuscular Volume 92.4 fl (80-100); Mean Platelet Volume 10.4 fl (7.4-10.4); Monocytes Absolute Auto 0.8 K/mm3 (0.1-0.6); Monocytes Percent Auto 9.5 % (2.6-8.5); Neutrophils Absolute Auto 5.5 K/mm3 (1.3-6.7); Platelet Count Result 206 k/mm3 (150-375); Red Cell Distribution Width 13.6 % (11.5-14.5); White Blood Count 8.8 K/mm3 (4.5-10.0)
[2024-07-13 07:35] LABS: Potassium 4.1 mmol/L (3.4-5.0)
[2024-07-13 07:56] LABS: Alanine Aminotransferase 21 U/L (6-50); Albumin Level 3.4 g/dL (3.5-5.1); Alkaline Phosphatase 107 U/L (38-126); Anion Gap -2 mmol/L (4-12); Aspartate Amino Transferase 82 U/L (17-59); Bilirubin,Total 0.6 mg/dL (0.2-1.3); Blood Urea Nitrogen 17 mg/dL (9-20); Calcium 8.5 mg/dL (8.4-10.2); Carbon Dioxide 30 mmol/L (22-30); Chloride 104 mmol/L (98-107); Estimated CRCL calculation 72 ml/min; Estimated Glomerular Filt Rate > 60; Glucose 99 mg/dL (65-110); Sodium 132 mmol/L (137-145)
--- NOTE | 2024-07-13 08:28 | PCPTNOTE ---
Attempted to see patient for PT, however patient was working with OT.
--- NOTE | 2024-07-13 08:36 | PM.IMPN ---
Progress Note: A&P Assessment and Plan (1) Altered mental status: Qualifiers: Altered mental status type: transient alteration of awareness Qualified Code(s): R40.4 - Transient alteration of awareness Code(s): R41.82 - Altered mental status, unspecified Status: Acute Assessment and Plan: Likely more related to patients syncopal episode. - Head CT: No acute intracranial process. - Monitor (2) Syncope: Qualifiers: Syncope type: unspecified Qualified Code(s): R55 - Syncope and collapse Code(s): R55 - Syncope and collapse Status: Acute Assessment and Plan: Likely vasovagal vs dehydration. Per chart review, upon EMS arrival the patient's BP was 52/36. Given 500 mL of normal saline and blood pressure was 128/60 upon arrival to the hospital. Denies seizure history. No neuro deficits on exam. - Orthostatic vital signs: positive although patient remains asymptomatic and does not become hypotensive during assessment - EKG sinus rhythm HR 73 with old inferior PA findings - Echo ordered (3) CAP (community acquired pneumonia): Qualifiers: Laterality: left Lung location: lower lobe of lung Qualified Code(s): J18.9 - Pneumonia, unspecified organism Code(s): J18.9 - Pneumonia, unspecified organism Status: Acute Assessment and Plan: CXR: Subsegmental left lower lung atelectasis/consolidation. Chest CT: No acute thoracic process. Mild emphysematous change and evidence of pulmonary arterial hypertension. Mild cardiomegaly. Small volume pericardial effusion. Ascending aortic ectasia. Mild body wall edema. - started on CAP tx: azithromycin ceftriaxone on 07/11 - Viral PCR: ordered - Remains on baseline oxygen supplementation of 3 L NC with rest and 5-6 L NC with exertion - Monitor vital signs, I&Os, neuro status and patient is a fall risk - Follow WBC, serum electrolytes, temperature curves and cultures (4) UTI (urinary tract infection): Code(s): N39.0 - Urinary tract infection, site not specified Status: Acute Assessment and Plan: - UA concerning for infection - UC obtained on 07/10: negative - no previous micro to be reviewed - started on rocephin on 07/10, remains on this medication for pneumonia (5) Diabetes type 2, controlled: Qualifiers: Diabetes mellitus alf insulin use: with alf use Diabetes mellitus complication status: with unspecified complications Qualified Code(s): E11.8 - Type 2 diabetes mellitus with unspecified complications; Z79.4 - jail (current) use of insulin Code(s): E11.9 - Type 2 diabetes mellitus without complications Status: Acute Assessment and Plan: - hypoglycemia protocol - POC blood glucose ACHS - home medication - jardiance 25 mg daily , metformin 1000 mg BID, ozempic 1 mg weekly, lantus 19 units HS, novolog 5 units with breakfast and lunch, 11 units with dinner - correct regimen ordered - Jardiance 25 mg daily, Mod SSI TIDWM, Lantus 19 units HS, - A1C 8.8 on 07/12/24 (6) Peripheral neuropathy: Qualifiers: Peripheral neuropathy type: polyneuropathy, unspecified Qualified Code(s): G62.9 - Polyneuropathy, unspecified Code(s): G62.9 - Polyneuropathy, unspecified Status: Acute Assessment and Plan: On no treatment (7) BPH (benign prostatic hyperplasia): Qualifiers: Lower urinary tract symptom presence: symptoms absent Qualified Code(s): N40.0 - Benign prostatic hyperplasia without lower urinary tract symptoms Code(s): N40.0 - Benign prostatic hyperplasia without lower urinary tract symptoms Status: Acute Assessment and Plan: Continue tamsulosin (8) GERD (gastroesophageal reflux disease): Qualifiers: Esophagitis presence: without esophagitis Qualified Code(s): K21.9 - Gastro-esophageal reflux disease without esophagitis Code(s): K21.9 - Gastro-esophageal reflux disease without esophagitis Status: Acute Assessment and Plan: PPI Subjective Date/time seen: 07/13/24 08:36 Interval history: 73-year-old male with past medical history significant for insulin-dependent diabetes mellitus, dyslipidemia, benign prostatic hyperplasia, Parkinson's presents to the hospital for syncopal episode. Review of Systems Review of Systems: All systems reviewed & are unremarkable except as noted in HPI and below Exam Narrative: AF HR General: male in no acute respiratory distress who is nontoxic appearing, lying semi recumbent in bed. HEENT: Normocephalic. Atraumatic. Extraocular movement intact. Sclera clear and anicteric. No facial asymmetry. Chest: Lungs are clear to auscultation bilaterally. No wheezes or crackles. CV: Heart was regular rate and rhythm. S1/S2. No murmurs, gallops, or rubs. Abd: Abdomen was soft. Nontender. Nondistended. Positive bowel sounds. No organomegaly or masses. Ext: No clubbing, cyanosis, or edema. 2+ DP pulses bilaterally. Neuro: Patient is alert. Cranial nerves 2-12 are intact. Speech is clear. Objective Data Vital Signs Vital Signs: Vital Signs - 24 hr 07/12/24 09:00 07/12/24 12:00 07/12/24 12:42 Temperature Pulse Rate 74 Respiratory Rate Blood Pressure 180/84 H Pulse Oximetry 96 Oxygen Delivery Nasal Cannula Oxygen Flow Rate 3 Fraction of Inspired Oxygen 07/12/24 12:44 07/12/24 12:45 07/12/24 14:00 Temperature 97.9 F Pulse Rate 86 86 67 Respiratory Rate 16 Blood Pressure 172/97 H 155/89 H 153/82 H Pulse Oximetry 97 98 97 Oxygen Delivery Oxygen Flow Rate Fraction of Inspired Oxygen 07/12/24 16:00 07/12/24 20:00 07/12/24 20:00 Temperature Pulse Rate 72 69 Respiratory Rate Blood Pressure Pulse Oximetry 98 Oxygen Delivery Nasal Cannula Oxygen Flow Rate 3 Fraction of Inspired Oxygen 07/12/24 20:21 07/13/24 00:00 07/13/24 04:00 Temperature 97.5 F L Pulse Rate 68 75 75 Respiratory Rate 18 Blood Pressure 182/76 H Pulse Oximetry 99 Oxygen Delivery Oxygen Flow Rate Fraction of Inspired Oxygen 07/13/24 05:20 07/13/24 07:42 Temperature 97.8 F Pulse Rate 73 Respiratory Rate 18 Blood Pressure 157/77 H Pulse Oximetry 97 95 Oxygen Delivery Nasal Cannula Oxygen Flow Rate 3 Fraction of Inspired Oxygen 32 Intake/Output Intake/Output: Intake & Output 07/10/24 07/11/24 07/12/24 07/13/24 23:59 23:59 23:59 23:59 Intake Total 300 1980 1820 1200 Output Total 2150 1000 Balance 300 1979 -330 200 Meds/Results Medications: Active Medications Generic Name Dose Route Start Last Admin Trade Name Freq PRN Reason Stop Dose Admin Albuterol 2.5 mg 07/11/24 01:45 Albuterol Sulfate Neb 2.5 Mg/3 Ml Inh INHALATION Q6HRT PRN Shortness Of Breath Aspirin 81 mg 07/11/24 08:00 07/12/24 08:58 Aspirin 81 Mg Chewable Tablet PO 81 mg DAILY@0800 KETTY Administration Atorvastatin Calcium 80 mg 07/11/24 21:00 07/12/24 21:05 Atorvastatin 40 Mg Tablet PO 80 mg HS KETTY Administration Carbidopa/Levodopa 2 tablet 07/11/24 09:00 07/12/24 21:05 Carbidopa/Levodopa 25/100 Mg Tablet PO 2 tablet QID KETTY Administration Dextrose 12.5 gm 07/11/24 13:41 Dextrose 50% 25 Gm/50 Ml Syringe IV PUSH PRN PRN Hypoglycemia Protocol Docusate Sodium 200 mg 07/11/24 09:00 07/12/24 17:29 Docusate Sodium 100 Mg Capsule PO 200 mg BID KETTY Administration Empagliflozin 25 mg 07/11/24 09:00 07/12/24 08:58 Empagliflozin 25 Mg Tablet PO 25 mg DAILY KETTY Administration Finasteride 5 mg 07/11/24 09:00 07/12/24 08:58 Finasteride 5 Mg Tablet PO 5 mg DAILY KETTY Administration Glucagon 1 mg 07/11/24 13:41 Glucagon For Inj 1 Mg Vial IM PRN PRN Hypoglycemia Protocol Glucose 15 gm 07/11/24 13:41 Glucose Oral Gel 15 Gm Of Glucse In 37.5 Gm Tube PO PRN PRN Hypoglycemia Protocol Ceftriaxone Sodium 1 gm in 50 mls @ 100 mls/hr 07/11/24 21:00 07/12/24 21:05 Rocephin 1 Gm/Ns 50 Ml IVPB 100 mls/hr Q24H KETTY Administration Azithromycin 500 mg in 250 mls @ 250 mls/hr 07/11/24 22:00 07/12/24 21:06 Zithromax IVPB 250 mls/hr Q24H KETTY Administration Dextrose 1,000 mls @ 100 mls/hr 07/11/24 13:41 Dextrose 5% 1,000 Ml IVPB PRN PRN Hypoglycemia Protocol Insulin Aspart 4 - 8 units 07/11/24 17:00 07/12/24 17:28 Insulin Aspart (*Bkc) 100 Units/Ml SUB-Q Not Given TIDWM KETTY Protocol Insulin Glargine 19 units 07/11/24 21:00 07/12/24 21:06 Insulin Glargine (*Bkc) 100 Units/Ml SUB-Q 19 units HS KETTY Administration Losartan Potassium 75 mg 07/11/24 09:00 07/12/24 08:58 Losartan Potassium 25 Mg Tablet PO 75 mg DAILY KETTY Administration Pantoprazole Sodium 40 mg 07/11/24 09:00 07/12/24 08:59 Pantoprazole 40 Mg Tablet PO 40 mg QAM KETTY Administration Perflutren Lipid Microsphere 0 ml 07/12/24 10:01 Perflutren Lipid Microspheres 1.5 Ml Vial Diluted To 10 Ml Total Volume IV PUSH 07/15/24 10:01 ONCE PRN adequate visualization Protocol Sertraline HCl 150 mg 07/11/24 09:00 07/12/24 08:58 Sertraline Hcl 50 Mg Tablet PO 150 mg DAILY KETTY Administration Tamsulosin HCl 0.4 mg 07/11/24 21:00 07/12/24 21:05 Tamsulosin Hcl 0.4 Mg Capsule PO 0.4 mg HS KETTY Administration Radiology Results: ITS Impressions Head CT 07/10/24 17:38 IMPRESSION: No acute intracranial process. Chest X-Ray 07/10/24 17:54 IMPRESSION: Subsegmental left lower lung atelectasis/consolidation. High Resolution CT 07/10/24 23:30 IMPRESSION: No acute thoracic process detected. Mild emphysematous change and evidence of pulmonary arterial hypertension. Mild cardiomegaly. Small volume pericardial effusion. Ascending aortic ectasia. Mild body wall edema. Labs Labs: Laboratory Results - last 24 hr 07/12/24 07/12/24 07/12/24 06:58 08:51 12:22 WBC RBC Hgb Hct MCV MCH MCHC RDW Plt Count MPV Immature Gran % (Auto) Neut % (Auto) Lymph % (Auto) [place] % (Auto) Eos % (Auto) Baso % (Auto) Lymph # (Auto) [place] # (Auto) Eos # (Auto) Baso # (Auto) Abs Immat Gran (auto) Absolute Neuts (auto) Absolute Nucleated RBC Nucleated RBC % Sodium Potassium Chloride Carbon Dioxide Anion Gap BUN Creatinine Estim Creat Clear Calc Estimated GFR Glucose POC Capillary Glucose 110 H 135 H Hemoglobin A1c 8.8 H Calcium Total Bilirubin AST ALT Alkaline Phosphatase Total Protein Albumin Influenza A (RT-PCR) Influenza B (RT-PCR) RSV (RT-PCR) SARS-CoV-2 RNA (RT-PCR) 07/12/24 07/12/24 07/12/24 17:23 18:46 20:27 WBC RBC Hgb Hct MCV MCH MCHC RDW Plt Count MPV Immature Gran % (Auto) Neut % (Auto) Lymph % (Auto) [place] % (Auto) Eos % (Auto) Baso % (Auto) Lymph # (Auto) [place] # (Auto) Eos # (Auto) Baso # (Auto) Abs Immat Gran (auto) Absolute Neuts (auto) Absolute Nucleated RBC Nucleated RBC % Sodium Potassium Chloride Carbon Dioxide Anion Gap BUN Creatinine Estim Creat Clear Calc Estimated GFR Glucose POC Capillary Glucose 119 H 160 H Hemoglobin A1c Calcium Total Bilirubin AST ALT Alkaline Phosphatase Total Protein Albumin Influenza A (RT-PCR) Negative Influenza B (RT-PCR) Negative RSV (RT-PCR) Negative SARS-CoV-2 RNA (RT-PCR) Negative 07/13/24 06:57 WBC 8.8 RBC 4.20 L Hgb 11.9 L Hct 38.8 L MCV 92.4 MCH 28.3 MCHC 30.7 L RDW 13.6 Plt Count 206 MPV 10.4 Immature Gran % (Auto) 0.2 Neut % (Auto) 62.0 Lymph % (Auto) 24.9 [place] % (Auto) 9.5 H Eos % (Auto) 2.8 Baso % (Auto) 0.6 Lymph # (Auto) 2.19 [place] # (Auto) 0.8 H Eos # (Auto) 0.3 Baso # (Auto) 0.1 Abs Immat Gran (auto) 0.02 Absolute Neuts (auto) 5.5 Absolute Nucleated RBC 0.000 Nucleated RBC % 0.0 Sodium 132 L Potassium 4.1 Chloride 104 Carbon Dioxide 30 Anion Gap -2 L BUN 17 Creatinine 0.80 Estim Creat Clear Calc 72 Estimated GFR > 60 Glucose 99 POC Capillary Glucose Hemoglobin A1c Calcium 8.5 Total Bilirubin 0.6 AST 82 H ALT 21 Alkaline Phosphatase 107 Total Protein 6.0 L Albumin 3.4 L Influenza A (RT-PCR) Influenza B (RT-PCR) RSV (RT-PCR) SARS-CoV-2 RNA (RT-PCR) Quality VTE Prophylaxis VTE prophylaxis: mechanical ordered
[2024-07-13] MEDS: ASPIRIN 81 MG CHEWABLE TABLET PO (08:37)
[2024-07-13] MEDS: PANTOPRAZOLE 40 MG TABLET PO (08:37)
[2024-07-13] MEDS: LOSARTAN POTASSIUM 25 MG TABLET 75 MG PO (08:37)
[2024-07-13] MEDS: FINASTERIDE 5 MG TABLET PO (08:37)
[2024-07-13] MEDS: EMPAGLIFLOZIN 25 MG TABLET PO (08:37)
[2024-07-13] MEDS: DOCUSATE SODIUM 100 MG CAPSULE 200 MG PO (08:37)
[2024-07-13] MEDS: CARBIDOPA/LEVODOPA 25/100 MG TABLET 2 TABLET PO ×2 (08:37→12:03)
[2024-07-13] MEDS: SERTRALINE HCL 50 MG TABLET 150 MG PO (08:37)
[2024-07-13 09:13] LABS: Glucose Point of Care 100 mg/dl (65-105)
[2024-07-13 11:56] LABS: Glucose Point of Care 218 mg/dl (65-105)
[2024-07-13] MEDS: INSULIN ASPART (*BKC) 100 UNITS/ML SUB-Q (12:03)
--- NOTE | 2024-07-13 15:08 | P.DS_ITS ---
DS: Admitting Diagnosis Discharge Date 07/13/2024 Admitting Diagnosis altered mental status syncope community acquired pneumonia UTI DM peripheral neuropathy BPH GERD DS: Discharge Diagnosis Discharge Diagnosis (1) Altered mental status: Qualifiers: Altered mental status type: transient alteration of awareness Qualified Code(s): R40.4 - Transient alteration of awareness Code(s): R41.82 - Altered mental status, unspecified Status: Acute (2) Syncope: Qualifiers: Syncope type: unspecified Qualified Code(s): R55 - Syncope and collapse Code(s): R55 - Syncope and collapse Status: Acute (3) CAP (community acquired pneumonia): Qualifiers: Laterality: left Lung location: lower lobe of lung Qualified Code(s): J18.9 - Pneumonia, unspecified organism Code(s): J18.9 - Pneumonia, unspecified organism Status: Acute (4) UTI (urinary tract infection): Code(s): N39.0 - Urinary tract infection, site not specified Status: Acute (5) Diabetes type 2, controlled: Qualifiers: Diabetes mellitus complication status: with unspecified complications Diabetes mellitus assisted insulin use: with assisted use Qualified Code(s): E11.8 - Type 2 diabetes mellitus with unspecified complications; 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 Code(s): E11.9 - Type 2 diabetes mellitus without complications Status: Acute (6) Peripheral neuropathy: Qualifiers: Peripheral neuropathy type: polyneuropathy, unspecified Qualified Code(s): G62.9 - Polyneuropathy, unspecified Code(s): G62.9 - Polyneuropathy, unspecified Status: Acute (7) BPH (benign prostatic hyperplasia): Qualifiers: Lower urinary tract symptom presence: symptoms absent Qualified Code(s): N40.0 - Benign prostatic hyperplasia without lower urinary tract symptoms Code(s): N40.0 - Benign prostatic hyperplasia without lower urinary tract symptoms Status: Acute (8) GERD (gastroesophageal reflux disease): Qualifiers: Esophagitis presence: without esophagitis Qualified Code(s): K21.9 - Gastro-esophageal reflux disease without esophagitis Code(s): K21.9 - Gastro-esophageal reflux disease without esophagitis Status: Acute DS: Summary Hospital Course Reason for hospitalization: altered mental status syncope community acquired pneumonia UTI DM peripheral neuropathy BPH GERD Hospital Course: 73-year-old male with past medical history significant for insulin-dependent diabetes mellitus, dyslipidemia, benign prostatic hyperplasia, Parkinson's presents to the hospital for syncopal episode. Likely vasovagal vs dehydration. Per chart review, upon EMS arrival the patient's BP was 52/36. Given 500 mL of normal saline and blood pressure was 128/60 upon arrival to the hospital. Denies seizure history. No neuro deficits on exam. Head CT showed no acute intracranial process. Throughout admission patient was alert and oriented. Patients blood pressures were elevated at time of discharge, however he remained asymptomatic. Discussed with patient that he is to continue his antihypertensives as prescribed and monitor/record his blood pressures for his PCP appointment in a week. Antihypertensive dose was not increased given the fluctuating blood pressures throughout this admission and hypotension being a primary reason for admission. Patient states understanding. At time of admission patient was not meeting sepsis criteria. A chest XR was obtained adn showed subsegmental left lower lung atelectasis/consolidation. Chest CT showed no acute thoracic process, mild emphysematous change and evidence of pulmonary arterial hypertension, mild cardiomegaly and small volume pericardial effusion. Patient was started on IV antibiotics for pneumonia treatment which were transitioned to oral antibiotics at time discharge. Throughout admission patient remained on his home oxygen supplementation. At time of discharge patient has no complaints denying chest pain, shortness of breath, nausea/vomiting, abdominal pain, headache, dizziness and lightheadedness. Patient discharged in a stable condition. He is to follow up with his PCP in 1 week. Status at Discharge Functional status at discharge: uses cane/walker Time Spent with Patient Time attestation: Total time spent providing and/or coordinating discharge services: Time spent: Greater than 30 minutes Exam Narrative: AF HR General: male in no acute respiratory distress who is nontoxic appearing, lying semi recumbent in bed. HEENT: Normocephalic. Atraumatic. Extraocular movement intact. Sclera clear and anicteric. No facial asymmetry. Chest: Lungs are clear to auscultation bilaterally. No wheezes or crackles. CV: Heart was regular rate and rhythm. S1/S2. No murmurs, gallops, or rubs. Abd: Abdomen was soft. Nontender. Nondistended. Positive bowel sounds. No organomegaly or masses. Ext: No clubbing, cyanosis, or edema. 2+ DP pulses bilaterally. Neuro: Patient is alert. Cranial nerves 2-12 are intact. Speech is clear. DS: Data Data Completed and Pending Labs on day of discharge: Labs from last 24 hours 07/13/24 07/13/24 07/13/24 11:51 08:53 06:57 WBC 8.8 RBC 4.20 L Hgb 11.9 L Hct 38.8 L MCV 92.4 MCH 28.3 MCHC 30.7 L RDW 13.6 Plt Count 206 MPV 10.4 Immature Gran % (Auto) 0.2 Neut % (Auto) 62.0 Lymph % (Auto) 24.9 [place] % (Auto) 9.5 H Eos % (Auto) 2.8 Baso % (Auto) 0.6 Lymph # (Auto) 2.19 [place] # (Auto) 0.8 H Eos # (Auto) 0.3 Baso # (Auto) 0.1 Abs Immat Gran (auto) 0.02 Absolute Neuts (auto) 5.5 Absolute Nucleated RBC 0.000 Nucleated RBC % 0.0 Sodium 132 L Potassium 4.1 Chloride 104 Carbon Dioxide 30 Anion Gap -2 L BUN 17 Creatinine 0.80 Estim Creat Clear Calc 72 Estimated GFR > 60 Glucose 99 POC Capillary Glucose 218 H 100 Calcium 8.5 Total Bilirubin 0.6 AST 82 H ALT 21 Alkaline Phosphatase 107 Total Protein 6.0 L Albumin 3.4 L Influenza A (RT-PCR) Influenza B (RT-PCR) RSV (RT-PCR) SARS-CoV-2 RNA (RT-PCR) 07/12/24 07/12/24 07/12/24 20:27 18:46 17:23 WBC RBC Hgb Hct MCV MCH MCHC RDW Plt Count MPV Immature Gran % (Auto) Neut % (Auto) Lymph % (Auto) [place] % (Auto) Eos % (Auto) Baso % (Auto) Lymph # (Auto) [place] # (Auto) Eos # (Auto) Baso # (Auto) Abs Immat Gran (auto) Absolute Neuts (auto) Absolute Nucleated RBC Nucleated RBC % Sodium Potassium Chloride Carbon Dioxide Anion Gap BUN Creatinine Estim Creat Clear Calc Estimated GFR Glucose POC Capillary Glucose 160 H 119 H Calcium Total Bilirubin AST ALT Alkaline Phosphatase Total Protein Albumin Influenza A (RT-PCR) Negative Influenza B (RT-PCR) Negative RSV (RT-PCR) Negative SARS-CoV-2 RNA (RT-PCR) Negative Preliminary micro results at discharge 07/10/24 21:18 Blood Culture - Preliminary Blood 07/10/24 21:18 Blood Culture - Preliminary Blood Discharge Plan Discharge Attending physician on discharge: Jitendra Collins Discharging Clinician: uLcie Solorio Anticipated Discharge Date/Time: 07/13/24 14:58 Patient Disposition: Home, Self-Care Activity: as tolerated Diet: as tolerated, heart healthy and diabetic Discharge Instructions: Discharge disposition: Patient was admitted to the hospital for altered mental status and found to have a low blood pressure Patient received IV fluids and blood pressure has since been stable Continue blood pressure medications as prescribed Ensure adequate hydration Monitor blood pressures Record blood pressures daily and bring this record to your primary care appointment Take caution while standing, rising, or moving Change positions slowly taking a break between each position change If you standing feel dizzy sat back down and take a break During admission patient was diagnosed with pneumonia Started on IV antibiotics Continue oral antibiotics to complete the course, continue this medication even if feeling better Augmentin and azithromycin, course to be completed on 07/17. Attached is information on these medications. Continue oxygen supplementation as prescribed. Monitor glucose levels Encouraged to continue with yearly vaccinations Return to the emergency department if he developed sudden shortness of breath, chest pain, nausea, vomiting, upset stomach or intractable diarrhea Return to the emergency department if you develop fever greater than 101.5 Follow-up with the primary care physician within 1-2 weeks Thank you for [facility] for your healthcare needs Patient Instructions: Antibiotic Form, Amoxicillin/Clavulanate Potassium (By mouth), Azithromycin (By mouth), Heart Failure (DC), Community Acquired Pneumonia (DC), Hypotension (DC) Patient Language: Chadian Stand Alone Forms: General Discharge Information Follow-up/Referrals: [facility] [Primary Care Provider] - 1 Week Discharge Medications: New azithromycin 500 mg tablet 500 mg PO DAILY 5 Days Qty: 5 0RF amoxicillin-pot clavulanate 875-125 mg tablet 1 tablet PO Q12H 5 Days Qty: 10 0RF Continued atorvastatin 40 mg Tablet 80 mg PO HS insulin aspart U-100 [Novolog U-100 Insulin aspart] 100 unit/mL Solution 5 unit SUBCUT .with breakfast metformin 1,000 mg Tablet 1,000 mg PO BID albuterol 90 mcg/actuation Aerosol 1 mcg INHALATION QID PRN (Reason: shortness of breath or wheezing) finasteride 5 mg Tablet 5 mg PO DAILY insulin glargine 100 unit/mL Cartridge 19 unit SUBCUT HS diclofenac sodium 1 % Gel 4 g TOPICAL QID PRN (Reason: pain) sertraline 100 mg Tablet 150 mg PO DAILY tamsulosin 0.4 mg Capsule 0.4 mg PO HS pantoprazole 40 mg Tablet,Delayed Release (Dr/Ec) 40 mg PO QAM aspirin [Children's Aspirin] 81 mg Tablet,Chewable 81 mg PO DAILY@0800 Qty: 30 0RF carbidopa-levodopa 25-100 mg tablet 2 tablet PO QID Patient Comments: significant other decreased dose to 2 tabs with neurologist instruction losartan [Cozaar] 50 mg tablet 75 mg PO DAILY docusate sodium 100 mg capsule 200 mg PO BID sennosides [senna] 8.6 mg tablet 8.6 mg PO DAILY insulin aspart U-100 [Novolog U-100 Insulin aspart] 100 unit/mL solution 5 unit subcut .with lunch insulin aspart U-100 [Novolog U-100 Insulin aspart] 100 unit/mL solution 11 unit subcut .with dinner Ozempic 1 mg/dose (4 mg/3 mL) pen injector 1 mg subcut WEEKLY Rx Instructions: every Wednesday empagliflozin 25 mg tablet 25 mg PO DAILY Date of admission: 07/11/24 13:30 Primary Care Provider: [facility]USUM Admitting Provider: Qasim Laws V. Attending physician on admission: Lucie Solorio Condition: Stable
--- NOTE | 2024-07-13 17:00 | PC.NURSE ---
Patient family member forgot portable oxygen tank when coming to pick patient up following discharge. Refused to go get tank and stated patient would be fine for the five minute drive home and that he regularly goes without oxygen for short periods of time at home. Family member will have portable oxygen tank waiting when patient arrives at home.
== END 2024-07-13 17:01 | disposition home or self-care (01) | DRG 312 ==
LOC: ANHED 21:09 → ANH3MED 21:34
PROVIDERS: Admitting Provider Internal Medicine; Emergency Provider Physician Assistant; Visit Provider Student in an Organized Health Care Education/Training Program
DX: R55 Syncope and collapse (principal); J18.9 Pneumonia, unspecified organism; N39.0 Urinary tract infection, site not specified; E86.0 Dehydration; N40.0 Benign prostatic hyperplasia without lower urinary tract symptoms; K21.9 Gastro-esophageal reflux disease without esophagitis; E11.42 Type 2 diabetes mellitus with diabetic polyneuropathy; G20.A1 Parkinson's disease without dyskinesia, without mention of fluctuations; Z79.4 Long term (current) use of insulin; Z87.891 Personal history of nicotine dependence; Z79.82 Long term (current) use of aspirin
CPT/HCPCS: 36415; 70450; 71045; 71250; 80053; 81001; 82550; 82948; 83036; 83605; 83735; 83880; 84439; 84443; 84480; 84484; 85025; 85610; 85730; 87040; 87086; 87637; 93005; 93306; 96365; 96367; 97110; 97161; 97165; 97530; 97535; 99285; A9270; G0378; J0456; J0696; J1815

== ENCOUNTER 2024-08-26 16:47 | Inpatient (IN) | payer MEDICARE, OTHER, SELFPAY ==
[2024-08-26] VITALS (9 sets, daily range): BP systolic 135–144; BP diastolic 73–94; PULSE 70–82; RESP 16–21; TEMP 36.4–36.6; O2SAT 96–100; BMI 27.5
--- NOTE | ~2024-08-26 | XR_ITS ---
EXAMINATION: XR chest 1V portable Exam Date/Time: 08/26/2024 17:18 ELECTRONICS DEPARTMENT MANAGER HISTORY: syncopal episode Comparison: None. RESULT: Lines, tubes, and devices: None. Lungs and pleura: Persistent left lower lung scar and left hemidiaphragm elevation, lungs otherwise clear. Cardiomediastinal silhouette: Stable. Other: No acute osseous or upper abdominal finding. IMPRESSION: No acute cardiopulmonary process. Reviewed, dictated and finalized at location K. TRONICS DEPARTMENT MANAGER
--- NOTE | ~2024-08-26 | MR_ITS ---
EXAMINATION: MR brain/brain stem wo/w con DATE: 08/27/2024 12:10 INDICATION: Recurrent syncope with staring TECHNIQUE: Magnetic resonance imaging (MRI) of the brain and brainstem was performed without and with 17 mL Multihance intravenous contrast. Sequences included sagittal and axial T1-weighted SE, axial d iffusion-weighted FS SE, axial 3D SWAN, axial T2-weighted FLAIR, and axial T2-weighted FSE. Postcontr ast axial and coronal T1-weighted SE was obtained. Apparent diffusion coefficient (ADC) maps were cre ated. COMPARISON: Brain MR dated 12/20/[address] dated 08/26/2024 FINDINGS: There are no areas of restricted diffusion to suggest acute infarction. No intracranial hemorrhage or abnormal intracranial mass lesion. Extensive scattered areas of nonspecific increased T2-weighted si gnal intensity in the cerebral and pontine white matter, predominantly involving the deep and periven tricular white matter. There are no intraparenchymal signal abnormalities seen on the other pulse seq uences. The ventricles are symmetric and normal in size. There are no abnormal extra-axial fluid sophia ections. Flow voids are seen in the cerebral arteries on the T2-weighted sequences consistent with th eir expected patency. Small mucous retention cyst at the inferior right maxillary sinus and mild muco red thickening the bilateral ethmoid and left maxillary sinuses. Visualized orbits and soft tissues a re unremarkable. There are no areas of abnormal enhancement on the post contrast images. IMPRESSION: 1. No acute intracranial process. 2. Extensive nonspecific cerebral and pontine white matter T2 hyperintensity consistent with chronic small vessel ischemic disease. Reviewed, dictated and finalized at location A. H MOSS GATHERER IMPRESSION: 1. No acute intracranial process. 2. Extensive nonspecific cerebral and pontine white matter T2 hyperintensity co nsistent with chronic small vessel ischemic disease.
--- NOTE | ~2024-08-26 | CT_ITS ---
EXAMINATION: CT brain wo con DATE: 08/26/2024 18:09 INDICATION: syncope . TECHNIQUE: Computed tomography (CT) of the head was performed without intravenous contrast. The mA wa s adjusted according to patient size. Iterative reconstruction technique was employed. The dose-lengt h product was 605.33 mGy-cm. COMPARISON: None. FINDINGS: No acute intracranial hemorrhage or extra-axial fluid collection. No hydrocephalus, mass, or herniation. No acute ischemic infarct. Unremarkable dural venous sinus attenuation. No acute osseous abnormality. Small right inferior mastoid sinus retention cyst/polyp, the remaining aerated spaces are clear. Moderate atrophy and chronic white matter change. Atherosclerotic intracranial calcification. IMPRESSION: No acute intracranial process. Reviewed, dictated and finalized at location K. ENT FINANCIAL REP
--- NOTE | 2024-08-26 17:02 | ECG_ITS ---
Test Date: 2024-08-26 16:59:21 Measurements Intervals Angelica Rate: 69 P: 5 PA: 191 QRS: -23 QRSD: 129 T: 29 QT: 440 QTc: 472 Interpretive Statements SINUS RHYTHM INTRAVENTRICULAR CONDUCTION DELAY ANTEROSEPTAL INFARCT, AGE INDETERMINATE BASELINE ARTIFACT- I, II, III, AVR, AVL, AVF, V1-V6 ABNORMAL ECG Compared to ECG 07/10/2024 18:35:02 NO SIGNIFICANT CHANGE Electronically Signed On 08-26-2024 19:21:00 EDUCATION MANAGER by Elton Garner D.O.
[2024-08-26 17:13] LABS: Basophils Absolute Auto 0.1 K/mm3 (0.0-0.1); Basophils Percent Auto 0.7 % (0.2-1.2); Eosinophils Absolute Auto 0.2 K/mm3 (0-0.3); Eosinophils Percent Auto 2.3 % (0-4.4); Hematocrit 44.4 % (42.0-52.0); Hemoglobin 13.6 g/dL (14.0-18.0); Immature Granulocyte Absolute 0.02 K/mm3 (0.00-0.031); Immature Granulocyte Percent A 0.3 % (0-0.5); Lymphocytes Absolute Auto 1.69 K/mm3 (0.9-3.2); Lymphocytes Percent Auto 24.6 % (18.3-44.2); Mean Corpuscular HGB Conc 30.6 g/dl (32-36); Mean Corpuscular Hemoglobin 27.6 pg (26-34); Mean Corpuscular Volume 90.1 fl (80-100); Mean Platelet Volume 10.7 fl (7.4-10.4); Monocytes Absolute Auto 0.6 K/mm3 (0.1-0.6); Monocytes Percent Auto 8.3 % (2.6-8.5); Neutrophils Absolute Auto 4.4 K/mm3 (1.3-6.7); Neutrophils Percent Auto 63.8 % (45.5-73.1); Platelet Count Result 251 k/mm3 (150-375); Red Blood Count 4.93 M/mm3 (4.6-6.20); Red Cell Distribution Width 13.8 % (11.5-14.5); White Blood Count 6.9 K/mm3 (4.5-10.0)
--- NOTE | 2024-08-26 17:13 | PC.NURSE ---
nasal O2 sensor required to get SpO2 due to tremors
[2024-08-26 17:25] LABS: Alanine Aminotransferase 10 U/L (6-50); Albumin Level 4.2 g/dL (3.5-5.1); Alkaline Phosphatase 148 U/L (38-126); Anion Gap 10 mmol/L (4-12); Aspartate Amino Transferase 22 U/L (17-59); Bilirubin,Total 0.5 mg/dL (0.2-1.3); Blood Urea Nitrogen 18 mg/dL (9-20); Calcium 9.1 mg/dL (8.4-10.2); Carbon Dioxide 27 mmol/L (22-30); Chloride 97 mmol/L (98-107); Estimated CRCL calculation 75 ml/min; Estimated Glomerular Filt Rate > 60; Glucose 239 mg/dL (65-110); Potassium 3.8 mmol/L (3.4-5.0); Sodium 134 mmol/L (137-145)
--- NOTE | 2024-08-26 17:41 | ED_ITS ---
HPI - General Adult General Chief complaint: Recheck/Abnormal Lab/Rx Stated complaint: low blood pressure Time Seen by Provider: 08/26/24 17:08 History of Present Illness HPI narrative: 73-year-old male with history of Parkinson's presents the emergency department for evaluation after having a prolonged syncopal episode. patient was apparently playing with his grandchild when the family went to check on him and the patient was upright in a chair and was unresponsive with a [address] The attempted to wake up the patient but he did not respond. Ultimately EMS was contacted. Patient was reportedly hypoxic when EMS arrived. Patient is normally on 2 L of oxygen at all time. at time of evaluation patient denies any pain or complaints. Patient denies any recent illness coughs colds or fevers. Patient denies any nausea vomiting diarrhea. Patient reports he does feel back at his baseline now. Family agrees he is at his normal self. Patient does have Parkinson's a baseline tremor. Patient had not yet taken his carbidopa levodopa but today. Related Data Home Medications ?Medication ?Instructions ?Recorded ?Confirmed ?Last Taken ?Type albuterol 90 mcg/actuation aerosol 1 mcg inhalation QID PRN shortness 12/20/20 08/26/24 Unknown History inhaler of breath or wheezing atorvastatin 40 mg tablet 80 mg PO HS 12/20/20 08/26/24 08/25/24 History diclofenac sodium 1 % topical gel 4 g topical QID PRN pain 12/20/20 08/26/24 Unknown History finasteride 5 mg tablet 5 mg PO DAILY 12/20/20 08/26/24 08/25/24 History insulin aspart U-100 100 unit/mL 5 unit subcut .with breakfast 12/20/20 08/26/24 08/26/24 History subcutaneous solution (Novolog U-100 Insulin aspart) insulin glargine 100 unit/mL 18 unit subcut HS 12/20/20 08/26/24 08/25/24 History subcutaneous cartridge metformin 1,000 mg tablet 1,000 mg PO BID 12/20/20 08/26/24 08/25/24 History pantoprazole 40 mg tablet,delayed 40 mg PO QPM 12/20/20 08/26/24 08/26/24 History release sertraline 100 mg tablet 150 mg PO DAILY 12/20/20 08/26/24 08/25/24 History tamsulosin 0.4 mg capsule 0.4 mg PO HS 12/20/20 08/26/24 08/25/24 History carbidopa 25 mg-levodopa 100 mg 2 tablet PO QID 07/10/24 08/26/24 08/26/24 History tablet docusate sodium 100 mg capsule 200 mg PO BID 07/10/24 08/26/24 08/25/24 History empagliflozin 25 mg tablet 25 mg PO DAILY 07/10/24 08/26/24 08/25/24 History insulin aspart U-100 100 unit/mL 5 unit subcut .with lunch 07/10/24 08/26/24 08/26/24 History subcutaneous solution (Novolog U-100 Insulin aspart) insulin aspart U-100 100 unit/mL 11 unit subcut .with dinner 07/10/24 08/26/24 08/25/24 History subcutaneous solution (Novolog U-100 Insulin aspart) losartan 50 mg tablet (Cozaar) 100 mg PO DAILY 07/10/24 08/26/24 08/25/24 History semaglutide 1 mg/dose (4 mg/3 mL) 1 mg subcut WEEKLY 07/10/24 08/26/24 08/25/24 History subcutaneous pen injector (Ozempic) sennosides 8.6 mg tablet (senna) 8.6 mg PO DAILY 07/10/24 08/26/24 08/25/24 History Allergies Allergy/AdvReac Type Severity Reaction Status Date / Time lisinopril Allergy Mild SWELLING Verified 08/26/24 20:58 Review of Systems 2 Review of Systems: All systems reviewed & are unremarkable except as noted in HPI and below [facility] Past Medical History Medical History (Updated 08/27/24 @ 07:43 by Flaco Tate MD) Hypotension Parkinson disease Family History Family History Father Cancer Social History Social History Smoking packs per day: 1.25 Smoking cigarettes per day: 25.0 Years smoked: 16 Smoking pack-years: 20.00 Smoking status: Former smoker Substance use: former Substance use type: marijuana Do You Feel Safe in your Home?: Yes Lack of Transportation: No Lack of Food: Never True Current Housing: I Have Housing Concerned About Future Housing: No Difficulty Paying Gas/Electric Bills: No Difficulty Paying for Meds: No Currently Unemployed: No Education: High School Diploma/GED Difficulty w/ Childcare or Family Care: No Gender identity (if verbalized by the patient): Male Spiritual care concerns: No Exam 2 Narrative: APPEARANCE: Well appearing, no pain, no distress, well-nourished. HEAD: normocephalic, atraumatic. EYES: PERRLA/EOMI, conjunctivae clear. NOSE: Normal no drainage EARS:TMS clear with good light reflex. THROAT: Pharynx clear, no exudate. NECK: Supple. No adenopathy, no masses. RESPIRATORY: Airway patent, respirations nonlabored. Clear to auscultation bilaterally, no rales, rhonchi, wheezing. CARDIOVASCULAR: Regular rate and rhythm without murmurs rubs or gallops. ABDOMINAL: Soft, nontender, nondistended, normal bowel sounds MUSCULOSKELETAL: Moves all extremities. Strength/ROM intact, No edema, No calf tenderness. NEURO: Alert. Cranial nerves II through XII intact. Grossly intact SKIN: Warm, dry. Normal Color Course Vital Signs Vital signs: Vital Signs Pulse Rate 74 08/26/24 16:48 Respiratory Rate 16 08/26/24 16:48 Pulse Oximetry 99 08/26/24 16:48 Oxygen Delivery Room Air 08/26/24 16:48 Temperature 98 F 08/27/24 06:00 Pulse Rate 82 08/27/24 06:05 Respiratory Rate 20 08/27/24 06:00 Blood Pressure 133/67 08/27/24 06:05 Pulse Oximetry 99 08/27/24 06:00 Oxygen Delivery Room Air 08/26/24 22:13 Medical Decision Making MDM Narrative Medical decision making narrative: 73-year-old male present to the emergency department for evaluation for having a prolonged syncopal episode. Upon arrival to the emergency department patient was back to his normal baseline denies any complaints. Patient is currently afebrile with no leukocytosis and hemoglobin of 11.9. Patient has no significant acute abnormalities on his CMP, UA was negative for infection. Patient was negative for RSV influenza and COVID. Head CT was ordered and showed no acute intracranial abnormality chest x-ray was negative for any acute cardiopulmonary abnormality. Does sound like the patient had an episode hypotension that has since been resolved lying flat in the bed. I did discuss the case with the hospitalist and patient was accepted for further evaluation. All questions concerns were addressed patient was well-appearing at time of admission to [facility]. Differential Diagnosis Differential Diagnosis: COVID, RSV, influenza, dehydration, gastritis, cardiac syncope Vital Signs Vital Signs: Vital Signs Pulse Rate 74 08/26/24 16:48 Respiratory Rate 16 08/26/24 16:48 Pulse Oximetry 99 08/26/24 16:48 Oxygen Delivery Room Air 08/26/24 16:48 Temperature 98 F 08/27/24 06:00 Pulse Rate 82 08/27/24 06:05 Respiratory Rate 20 08/27/24 06:00 Blood Pressure 133/67 08/27/24 06:05 Pulse Oximetry 99 08/27/24 06:00 Oxygen Delivery Room Air 08/26/24 22:13 Lab Data Lab results reviewed: Yes I reviewed the patient's lab results. 08/27/24 05:11 08/27/24 05:11 Labs: Lab Results 08/26/24 08/26/24 08/26/24 Range/Units 17:09 17:30 18:21 WBC 6.9 (4.5-10.0) K/mm3 RBC 4.93 (4.6-6.20) M/mm3 Hgb 13.6 L (14.0-18.0) g/dL Hct 44.4 (42.0-52.0) % MCV 90.1 (80-100) fl MCH 27.6 (26-34) pg MCHC 30.6 L (32-36) g/dl RDW 13.8 (11.5-14.5) % Plt Count 251 (150-375) k/mm3 MPV 10.7 H (7.4-10.4) fl Immature Gran % (Auto) 0.3 (0-0.5) % Neut % (Auto) 63.8 (45.5-73.1) % Lymph % (Auto) 24.6 (18.3-44.2) % [place] % (Auto) 8.3 (2.6-8.5) % Eos % (Auto) 2.3 (0-4.4) % Baso % (Auto) 0.7 (0.2-1.2) % Lymph # (Auto) 1.69 (0.9-3.2) K/mm3 [place] # (Auto) 0.6 (0.1-0.6) K/mm3 Eos # (Auto) 0.2 (0-0.3) K/mm3 Baso # (Auto) 0.1 (0.0-0.1) K/mm3 Abs Immat Gran (auto) 0.02 (0.00-0.031) K/mm3 Absolute Neuts (auto) 4.4 (1.3-6.7) K/mm3 Absolute Nucleated RBC 0.000 (0.0-0.012) K/mm3 Nucleated RBC % 0.0 (0.0-0.2) % Sodium 134 L (137-145) mmol/L Potassium 3.8 (3.4-5.0) mmol/L Chloride 97 L (98-107) mmol/L Carbon Dioxide 27 (22-30) mmol/L Anion Gap 10 (4-12) mmol/L BUN 18 (9-20) mg/dL Creatinine 0.76 (0.7-1.3) mg/dL Estim Creat Clear Calc 75 ml/min Estimated GFR > 60 (59 - ) Glucose 239 H (65-110) mg/dL Hemoglobin A1c 9.8 H (<5.7) % Calcium 9.1 (8.4-10.2) mg/dL Total Bilirubin 0.5 (0.2-1.3) mg/dL AST 22 (17-59) U/L ALT 10 (6-50) U/L Alkaline Phosphatase 148 H (38-126) U/L Total Protein 7.0 (6.3-8.2) g/dL Albumin 4.2 (3.5-5.1) g/dL Urine Color Yellow (Yellow) Urine Appearance Clear (Clear) Urine pH 5.5 (5.0-9.0) Ur Specific [place] 1.034 (1.001-1.035) Urine Protein 2+ H (Negative) mg/dL Urine Glucose (UA) 3+ H (Negative) mg/dL Urine Ketones 1+ H (Negative) mg/dL Ur Blood (Man) Negative (Negative) Urine Nitrate Negative (Negative) Urine Bilirubin Negative (Negative) Urine Urobilinogen 0.2 (<2.0) mg/dL Leukocyte Esterase Rfl Negative (Negative) ANNE MARIE/UL Urine RBC 0-2 (0-2) /hpf Urine WBC 0-5 (0-3) /hpf Ur Squamous Epith Cells None seen (Few) /hpf Urine Bacteria None seen /hpf Urine Casts 0-2 Influenza A (RT-PCR) Negative (Negative) Influenza B (RT-PCR) Negative (Negative) RSV (RT-PCR) Negative (Negative) SARS-CoV-2 RNA (RT-PCR) Negative (Negative) Imaging Data Radiologist's impression: Impressions Chest X-Ray 08/26/24 17:53 IMPRESSION: No acute cardiopulmonary process. Head CT 08/26/24 18:10 IMPRESSION: No acute intracranial process. Discharge Plan Discharge Clinical Impression: Syncope Qualifiers: Syncope type: unspecified Qualified Code(s): R55 - Syncope and collapse Patient Disposition: Still a Patient Condition: Stable
--- OUTSIDE RECORDS SUMMARY | 2024-08-26 17:42 | XMS_ITS | Referral Summary ---
Author Organization [facility] [address] Address [address] [place] [address] Care Team Providers Care Card Fixer Name Role Phone [facility], Roni [facility] Pro vider Allergies Active Allergy Reactions Criticality Noted Date Comments Lisinopril Unknown,Angioedema,C o ugh High 03/14/2011 Sulfamethoxazole-Trime thoprim Rash,Unknown Medium 05/17/2015 States allergic due to kidney function Medications atorvastatin (LIPITOR) 40 mg tablet Take 1 tablet (40 mg total) by mouth daily Active carbidopa-levod opa CR (SINEMET CR) 25-100 mg per CR tablet Take 1 tablet by mouth 4 (four) times a day Active diclofenac sodium (VOLTAREN) 1 % gel Apply 4 g topically 4 (four) times a day 3 Active sertraline (ZOLOFT) 100 mg tablet Take 1.5 tablets (150 mg total) by mouth daily 3 Active tamsulosin (FLOMAX) 0.4 mg extended release capsule Take 1 capsule (0.4 mg total) by mouth nightly 0 Active potassium chloride ER 20 mEq CR tablet Take 1 tablet (20 mEq total) by mouth daily [address] (PROTONIX) 40 mg EC tablet Take 1 tablet (40 mg total) by mouth daily 0 Active losartan (COZAAR) 50 mg tablet Take 0.5 tablets (25 mg total) by mouth daily 3 Active metFORMIN (GLUCOPHAGE) 1,000 mg tablet Take 1 tablet (1,000 mg total) by mouth 2 (two) times a day with meals 3 Active insulin glargine 100 unit/mL (3 mL) pen for injection Inject 20 Units under the skin 3 Active empagliflozin (JARDIANCE) 25 mg tablet Take 1 tablet (25 mg total) by mouth daily 3 Active finasteride (PROSCAR) 5 mg tablet Take 1 tablet (5 mg total) by mouth daily 0 Active gabapentin (NEURONTIN) 300 mg capsule Take 1 capsule (300 mg total) by mouth nightly 3 Active albuterol HFA (PROVENTIL HFA,VENTOLIN HFA,PROAIR HFA) 90 mcg/actuation inhaler Inhale 2 puffs every 4 (four) hours as needed for wheezing or shortness of breath 4 Active insulin aspart (NovoLOG) 100 unit/mL (3 mL) pen for injection Inject 5 Units under the skin 3 (three) times a day with meals 0 Active semaglutide (OZEMPIC) 1 mg/dose (4 mg/3 mL) pen injector injection Inject 1 mg under the skin once a week 3 Active senna-docusate (PERICOLACE) 8.6-50 mg Take 2 tablets by mouth 2 (two) times a day 120 tablet 4 Active Active Problems Problem Noted Date Diagnosed Date Age-related nuclear cataract, left eye 4 Chronic cor pulmonale 08/09/2023 Chronic insomnia 08/09/2023 Chronic obstructive pulmonary disease 08/09/2023 Assessment & Plan (08/09/2023 3:17 AM [employer]GE): - Continue albuterol PRN - Patient is in process of arranging PFT for further evaluation [facility] Acute on chronic diastolic c ongestive heart failure (CMS/HCC) 08/09/2023 Overview (08/09/2023): Last ECHO in 04/2015 revealed mild LVH and hyperdynamic systolic function with LVEF>70%. Mild diastolic dysfunction with elevated left atrial filling pressure. Mild to mod RV enlargement with hyperdynamic systolic fxn, with mild aortic stenosis. - Taking furosemide 40mg daily and k+ 20meq daily, may not be on optimal dosing of diuretic given waxing and waning nature of his pedal edema.. Assessment & Plan (08/09/2023 7:48 AM [employer] JUDGE): Holding furosemide 20 mg at this time in setting of hypovolemia. - TTE ordered - Continuous telemetry with vitals q8hr Gastro-esophageal reflux disease without esophag itis 08/09/2023 Assessment & Plan (08/09/2023 7:53 AM [employer] JUDGE): - Continue home pantoprazole 40 mg daily Obstructive sleep apnea syndrome in adult 2023 Overview (08/09/2023): Diagnosed several years ago when patient had BMI >-50 per chart review. Most recent sleep summer 2022, patient did not require CPAP and was discontinued on home NPVV Parkinson's disease 08/09/2023 Overview (08/09/2023): Prior history: His tremors started 4-6 years ago, and started in the right hand more than the left. They are worse when using his hands. In the past for his tremor he was tried on primiodone (up to 200 mg QID) and topamax (100 mg BID). When he stopped both of these medications his tremor did not get worse. He thinks that they might have helped a little bit and he was having side effects with Topamax. There was concern for possible Parkinonsim features on exam (bradykinesia, increased tone, decreased arm swing) but however distractable tremors, and he was started on a trial of Carvidopa/Levadopa (25/100 TID). He is unsure if his tremors are worse when he is anxious. He had previous DaTscan that was consistent with Parkinson's done in 04/2021. He [facility]. Last seen in clinic by them in 03/2023. He was last up-titrated to dose of regimen to 2 + 1.5 + 2+ 1.5 of sinamet. Assessment & Plan (08/09/2023 2:21 AM [employer]GE): - holding home carbidopa/levidopa in setting of volume depletion and orthostatic hypotension. - PT/OT consults placed Edema 08/09/2023 Syncope, unspecified syncope type 08/08/2023 Overview (08/09/2023): New syncope without clear etiology, though patient's profound volume depletion and orthostatic hypotension indicates vasovagal syncope to be the culprit. Without prodromal symptoms. Cardiac causes need to be ruled out. CTH 08/08 negative, EKG unremarkable. BP was 70s/40 when he stood up, but is 140s/80s at rest. Assessment & Plan (08/09/2023 7:39 AM [employer]GE): - Given 500 mL IVF in ED - Continuous telemetry with SPO2 monitoring - Conduct orthostatic vitals evaluating for improvement with IVF - IVF 1L when on floor - Repeat TTE during hospitalization BPH with urinary obstruction 02/15/2020 Overview (08/09/2023): 02/15/20 Mild hydronephrosis with BPH/urinary retention 2.2 liters in bladder 02/13/20. Urology consult Dr. Davenport. Oral Proscar and Tamsulosin. Bladder rest with urology follow up. Assessment & Plan (08/09/2023 7:54 AM [employer] JUDGE): - Continue tamsulosin 0.4 mg daily Stercolith ([facility]) 02/14/2020 Overview (08/09/2023): Patient has had progressive challenges having regular bowel movements at home. He states he has not had a bowel movement in several days. CT AP in ED showed rectal stool ball with inflammation of colon concerning for stercoral colitis. Denies abdominal pain or discomfort. Denies fevers, chills, or flushing. >>OVERVIEW FOR CONSTIPATION WRITTEN ON 08/09/2023 1:22 AM BY JAUN HENDRIX MD Bowel regimen ordered Assessment & Plan (08/08/2023 10:53 PM [employer] JUDGE): - will conduct enema - start miralax and senna scheduled Leukocytosis 02/13/2020 Overview (08/09/2023): In setting of recent syncopal episode, most likely reactive. No concerns for infectious process at this time.. Assessment & Plan (08/09/2023 2:37 AM [employer] JUDGE): - CTM daily CBC's Type 2 diabetes, controlled, with renal manifest ation 02/12/2020 Overview (08/09/2023): Managed by PCP and [facility] 08/04/2023: Most recently seen with endocrine on 05/2023, noted BGs in 60s-80s so decreased his home Lantus from 25u -> 15u. Was doing well on this regimen until late June, where his fasting BGs started to increase per spouse. Recently presented to the ED 07/2022 for confusion, urinary frequency, found to be hyperglycemic to 600, responded well to IV insulin therapy. Recent BGs have been in the 300s (fasting), and as a result, endocrinology wanted to increase Lantus back to 30u with an additional short-acting insulin until their appointment on 08/11/2022. Spouse believes the old box of insulin (expires 09/2023) was responsible for this, and has since utilized a new box.Fasting BGs 200s-300s over the past few days. Reports eating more fruits recently. Assessment & Plan (08/09/2023 8:01 AM [employer] JUDGE): Hemoglobin A1c 8.0 03/10 with lantus 30 at home - Repeat A1c here - Dose reduce to 20 units with ss - Continue to monitor with POCT glucose checks TIDAC Mixed hyperlipidemia 02/01/2020 Overview (08/09/2023): Prev lipid panel 08/2022: LDL 68, HDL 58 [facility]. Assessment & Plan (08/08/2023 10:55 PM [employer]GE): - Ordering lipid panel - Continue home atorvastatin 40 mg Depression 02/01/2020 Assessment & Plan (08/09/2023 7:53 AM [employer]GE): - Continue home sertraline 150 mg daily Hypertension 02/01/2020 Overview (08/09/2023): Patient was reportedly well-controlled on regimen including home losartan 50 mg and Jardiance 10 mg. On admission,though he was hypertensive, he also had orthostatic hypotension. Likely in acute hypovolemia with inappropriate sympathetic response due to autonomic dysreflexia in the setting of progressive parkinson's disease. Patient met criteria for orthostatic hypotension when admitted to floor 08/09/23. Would likely improve with treatment of underlying volume depletion and with additional therapies for Parkinson's disease. Assessment & Plan (08/09/2023 7:43 AM [employer]GE): - Continue losartan 50 mg - Holding furosemide in the setting of hypovolemia Resolved Problems Problem Noted Date Diagnosed Date Resolved Date Abdominal obesity 08/09/2023 08/09/2023 Benign neoplasm of colon 08/09/2023 Overview (08/09/2023): Jan 29, 2010 Entered By: BALJINDER OLEA Comment: colonoscopy 12/19/09, f/u in 10 years. Cellulitis, unspecified 08/09/202307/20 Hyperglycemia, unspecified 08/09/2023 0 08/09/2023 Hypokalemia 08/09/2023 08/09/2023 Iron deficiency anemia 08/09/202308/09 Lateral epicondylitis 08/09/20232023 Restless legs syndrome 08/09/202308/09 Phimosis 08/09/2023 08/09/2023 Vitamin D deficiency 08/09/2023 024 Encephalopathy acute 02/15/2020 024 Pressure injury of sacral region, stage 3 02/13/2020 08/09/2023 Overview (08/09/2023): Wound care consulted, debridement not indicated at this time Wound dressing ordered Cellulitis of right leg 02/12/202007/20 Overview (08/09/2023): 02/09/20 completing Doxycycline course PO. Minimal erythema. Decubitus ulcer of coccyx, unstageable 02/12/2020 08/09/2023 Overview (08/09/2023): Present on receipt to skilled rehab admission 02/09/20. Santyl and wound consult. Essential tremor 02/12/2020 08/09/2023 Tremor 02/01/2020 08/09/2023 Overview (08/09/2023): Reports improved by etoh, Patient reports he takes primidone 200 mg Q6H and topiramate 50 mg BID Immunizations Name Administration Dates Next Due H1N1 All Forms 08/13/2009,08/08/2009 Influenza, Quad, Adjuvantate d, Intramuscular 08/20/2022,05/13/2021 Influenza, Quadrivalent, Hig h Dose, Preservative Free, Intrr 06/26/2020 Influenza, Quadrivalent, Spl it, Preservative Free, Intramuscular 06/09/2019,06/30/2018 Influenza, Trivalent, Preser vative Free, Intramuscular 03/19/2019,06/30/2016,04/09/2015,08/28 Influenza, Unspecified 04/20/2013,2011,04/02/2011,05/14,05/08/2009,06/11/2008,05/13/2006 ,06/23/2005 [employer] Sars-Cov-2 Bivalent V accination (12+ YRS) 08/20/2022 Pneumococcal Conjugate PCV 13 06/30/2016 Pneumococcal Polysaccharide PPV23 07/15/2018 Pneumococcal, Unspecified 02/25/2007 Td, Unspecified 02/25/2007 Tdap 03/02/2017 ZOSTER LIVE 07/28/2012 ZOSTER Recombinant 07/15/2018,12/31/2017 Social History Tobacco Use Types Packs/Day Years Used Date Smoking Tobacco: Former Cigarettes Tobacco Cessation:Counseling Given: Not Answered [facility] Utilities Answer Date Recorded In the past 12 months has th e electric, gas, oil, or water company threatened to shut off services in your home? No 08/12/2023 Social Connection and Isolat ion Panel [NHANES] Answer Date Recorded In a typical week, how many times do you talk on the phone with family, friends, or neighbors? Once a week 08/12/2023 How often do you get togethe r with friends or relatives? More than three times a week 08/12/2023 How often do you attend chur ch or islam services? Never 08/12/2023 Do you belong to any clubs o r organizations such as episcopalian groups, unions, fraternal or athletic groups, or school groups? No 08/12/2023 How often do you attend meet ings of the clubs or organizations you belong to? Never 08/12/2023 Are you , , di vorced, , never , or living with a partner? Living with partner 08/12/2023 Overall Financial Resource Strain (CARDIA) Answe r Date Recorded How hard is it for you to pa y for the very basics like food, housing, medical care, and heating? Somewhat hard 08/12/2023 Hunger Vital Sign Answer Date Recorded Within the past 12 months, y ou worried that your food would run out before you got the money to buy more. Sometimes true Within the past 12 months, t he food you bought just didn't last and you didn't have money to get more. Sometimes true PRAPARE - Transportation Answer Date Re corded In the past 12 months, has l ack of transportation kept you from medical appointments or from getting medications? No 07/20 In the past 12 months, has l ack of transportation kept you from meetings, work, or from getting things needed for daily living? No 08/12/2023 Housing Stability Vital Sign Answer Vamsi e Recorded In the last 12 months, was t here a time when you were not able to pay the mortgage or rent on time? No 08/12/2023 In the last 12 months, how many places have you lived? 1 08/12/2023 In the last 12 months, was t here a time when you did not have a steady place to sleep or slept in a [place] (including now)? No 08/12/2023 Personal Safety Answer Date Recorded Have you ever been in or are you currently in a harmful physical or emotional relationship or is someone making you feel afraid or unsafe? Denies 08/08/2023 Sex and Gender Information Value Date Recorded Sex Assigned at Not on file Legal Sex Male 5:35 PM [employer] Gender Identity Not on file Sexual Orientation Not on file Last Filed Vital Signs Vital Sign Reading Time Taken Comments Blood Pressure 99/59 08/11/2023 11:05 AM [employer]GE Pulse 68 08/11/2023 11:05 AM [employer] Temperature 36.5 C (97.7 F) 08/11/2023 11:05 AM [employer]GE Respiratory Rate 20 08/11/2023 11:0 5 AM [employer]GE Oxygen Saturation 96% 08/11/2023 11: 05 AM [employer]GE Inhaled Oxygen Concentration - - Weight 89.3 kg (196 lb 12.8 oz) 08/11/2023 5:20 AM [employer] Height 175.3 cm (5' 9 ) 08/08/2023 11:4 7 PM [employer] Body Mass Index 29.06 08/08/2023 11:47 PM [employer]GE Plan of Treatment Not on file Procedures Procedure Name Priority Date/Time Associated Diagnosis Comments EGFR Routine 08/10/2023 8:13 PM [employer]GE LIPID PANEL Routine 08/09/2023 4:38 AM [employer]GE HEMOGLOBIN A1C Routine 08/09/2023 1:09 AM [employer]IV[employer] F[employer]GE CT ABDOMEN PELVIS W CONTRAST ED 08/08/2023 6:59 PM [employer]GE from Last 3 Months or Most Recently Relevant to Health Maintenance Results * eGFR (08/10/2023 8:13 PM [employer] JUDGE) eGFR 85 >=60 mL/min/1. 73 m2 [facility] Comment: Interpretive Data Reference Interval Normal >/= 90 mL/min/1.73m2 Mildly decreased* 60 - 89 mL/min/1.73m2 Mildly to moderately decreased 45 - 59 mL/min/1.73m2 Moderately to severely decreased 30 - 44 mL/min/1.73m2 Severely decreased 15 - 29 mL/min/1.73m2 Kidney Failure < 15 mL/min/1.73m2 *Relative to young adult level Estimated glomerular filtration rate is determined by the 2020 CKD-EPI equation recommended by the National Kidney Foundation (A Unifying Approach to GFR Estimation: Recommendations of the NKF-ASK Task Force on Reassessing the Inclusion of Race in Diagnosing Kidney Disease, JASN 2020). The CKD-EPI equation should not be used for patients with unstable renal function and has not been validated in children and those over 70. Current interpretive data was last reviewed 2021. Blood 08/10/2023 8:1 3 PM [employer]GE 08/10/2023 9:31 PM [employer]GE Renny Albright MD LAB BLOOD ORDERABLES nal Result [facility] [place] [address] * Lipid panel (08/09/2023 4:38 AM [employer] JUDGE) Cholesterol 137 30 - 199 mg/dL [facility] Comment: Interpretive Data Ages < or = 19 years Acceptable: <170 mg/dL Borderline high: 170-199 mg/dL High: >or= 200 mg/dL Ages > or = 20 years Desirable: <200 mg/dL Borderline high: 200-239 mg/dL High: >or= 240 mg/dL Literature References: 1. Expert Panel on Integrated Guidelines for Cardiovascular Health and Risk Reduction in Children and Adolescents. Pediatrics 2011;128:S213 2. NCEP Expert Panel. Circulation 2004;110:227 Current Interpretive Data was last revised on 2018. Triglycerides 75 <=149 mg/dL [facility] Comment: Interpretive Data Ages < or = 9 years Acceptable: <75 mg/dL Borderline high: 75-99 mg/dL High: >or= 100 mg/dL Ages 10 to 20 years Acceptable: <90 mg/dL Borderline high: 90-129 mg/dL High: >or= 130 mg/dL Ages > or = 20 years Desirable: <150 mg/dL Borderline high: 150-199 mg/dL High: 200-499 mg/dL Very high: >or= 499 mg/dL Literature References: 1. Expert Panel on Integrated Guidelines for Cardiovascular Health and Risk Reduction in Children and Adolescents. Pediatrics 2011;128:S213 2. NCEP Expert Panel. Circulation 2004;110:227 Current Interpretive Data was last revised on 2018. HDL 56 >=40 mg/dL [facility] Comment: Interpretive Data Ages < or = 19 years Acceptable: >45 mg/dL Borderline low: 40-45 mg/dL Low: <40 mg/dL Ages > or = 20 years Desirable: >or= 60 mg/dL Low: <40 mg/dL Literature References: 1. Expert Panel on Integrated Guidelines for Cardiovascular Health and Risk Reduction in Children and Adolescents. Pediatrics 2011;128:S213 2. NCEP Expert Panel. Circulation 2004;110:227 Current Interpretive Data was last revised on 2018. LDL, calculated 66 <=129 mg/dL [facility] Comment: Interpretive Data Ages < or = 19 years Acceptable: <110 mg/dL Borderline high: 110-129 mg/dL High: >or= 130 mg/dL Ages > or = 20 years Optimal: <100 mg/dL Near optimal: 100-129 mg/dL Borderline high: 130-159 mg/dL High: >160 mg/dL Literature References: 1. Expert Panel on Integrated Guidelines for Cardiovascular Health and Risk Reduction in Children and Adolescents. Pediatrics 2011;128:S213 2. NCEP Expert Panel. Circulation 2003;110:227 Current Interpretive Data was last revised on 2018. Non-HDL Cholesterol 81 mg/dL [facility] Comment: Interpretive Data Ages < or = 19 years Acceptable: <120 mg/dL Borderline high: 120-144 mg/dL High: >145 mg/dL Ages > or = 20 years When triglycerides are >200 mg/dL, Non-HDL cholesterol is a secondary target of therapy with treatment goals that are 30 mg/dL greater than the LDL cholesterol target. Literature References: 1. Expert Panel on Integrated Guidelines for Cardiovascular Health and Risk Reduction in Children and Adolescents. Pediatrics 2011;128:S213 2. NCEP Expert Panel. Circulation 2003;110:227 Current Interpretive Data was last revised on 2018. Chol/HDL ratio 2 [facility] Blood 08/09/2023 4:38 AM [employer]GE 08/09/2023 5:32 AM [employer]GE Josh Corona MD LAB BLOOD ORDERABLES F inal Result Performing Organization Address [facility] de Phone Number [facility] [place] [address] * (ABNORMAL) Hemoglobin A1c (08/09/2023 1:09 AM [employer]) Hgb A1C 12.7(H) 4.0 - 5.6 % [facility] Estimated Average Glucose 318 mg/dL [facility] Comment: The ADA recommends reporting an estimated Average Glucose (eAG) with all Hemoglobin A1c results using the equation derived from a study of 507 normal and diabetic adults. Minority populations were underrepresented and children were not included. (Diabetes Care 2020; 43(S1): S66-S76). The eAG is not equivalent to a fasting glucose. Blood 08/09/2023 1:09 AM [employer]GE 08/09/2023 2:23 AM [employer]GE Josh Corona MD LAB BLOOD ORDERABLES F inal Result Performing Organization Address [facility] [place] [address] * CT Abdomen Pelvis W Contrast (08/08/2023 6:59 PM [employer]) Anatomical Region Laterality Modality Body N/A Computed Tomogra phy 08/08/2023 7:24 PM [employer]GE Impressions 08/08/2023 10:35 PM [employer]GE 1. Rectal stool ball with mild surrounding fat stranding, which could be seen with mild stercoral colitis. 2. Mild diffuse urinary bladder wall thickening likely represents chronic bladder outlet obstruction in the setting of prostatomegaly, versus cystitis. 3. Multiple pulmonary nodules within the imaged lung bases, measuring up to 6 mm. If no outside prior imaging is available for comparison, follow-up chest CT can be obtained in 6 months. 4. Indeterminate 1.8 cm unilocular cystic lesion arising from the tail of the pancreas. Differential includes pseudocyst, side branch intraductal papillary mucinous neoplasm, or cystic neuroendocrine tumor. This can be further evaluated with MRCP on a nonemergent basis. 5. Indeterminate right adrenal gland nodule measuring 1.5 cm. If MRCP is obtained, the can be further evaluated on that examination. Alternatively, a follow-up adrenal protocol CT can be obtained in 12 months. 6. High grade stenosis or occlusion of the right superficial femoral artery. Dictated by: Arnaldo Velazquez MD The radiology attending physician has personally reviewed this study, and had reviewed and/or edited this written report and agrees with it. Electronically signed by: Safia Mendez M.D. Narrative 08/08/2023 10:35 PM [employer]GE EXAMINATION: CT ABDOMEN PELVIS W CONTRAST HISTORY: One month of nausea and vomiting, abdominal distention TECHNIQUE: Computed tomographic images of the abdomen and pelvis were obtained following administration of intravenous 95 ml Optiray-350. COMPARISON: No prior body CT available for comparison FINDINGS: There are multiple pulmonary nodules within the imaged portions of the lower lungs. The largest is a subpleural right posterior lower lobe nodule measuring 7 mm (series 3, image 16). There are additional areas of peripheral scarring and/or atelectasis. No focal hepatic lesion. No intra or extrahepatic biliary ductal dilatation. The gallbladder is normal. The spleen is normal. There is a 1.8 cm, round cystic lesion adjacent to the distal pancreatic tail (series 2, image 54). There is a 1.5 cm, intermediate density right adrenal gland nodule. There is nodular thickening of the left adrenal gland. Both kidneys enhance symmetrically. There is a small right renal cyst. No hydronephrosis. There is mild diffuse wall thickening of the urinary bladder. The prostate is mildly enlarged. There is a small hiatal hernia. The small bowel is normal in caliber, without evidence of obstruction. The rectum is mildly distended with stool. There is minimal circumferential fat stranding surrounding the rectum. No free fluid or air. The appendix is not identified, but there are no secondary signs of appendicitis. No abdominopelvic lymphadenopathy. There are atherosclerotic calcifications of the abdominal aorta and its branches, without aneurysm. There is severe stenosis or occlusion of the right superficial femoral artery. There are multilevel degenerative changes throughout the spine. No acute fracture or suspicious osseous lesion identified. Procedure Note Safia Mendez MD - 08/08/2023 EXAMINATION: CT ABDOMEN PELVIS W CONTRAST HISTORY: One month of nausea and vomiting, abdominal distention TECHNIQUE: Computed tomographic images of the abdomen and pelvis were obtained following administration of intravenous 95 ml Optiray-350. COMPARISON: No prior body CT available for comparison FINDINGS: There are multiple pulmonary nodules within the imaged portions of the lower lungs. The largest is a subpleural right posterior lower lobe nodule measuring 7 mm (series 3, image 16). There are additional areas of peripheral scarring and/or atelectasis. No focal hepatic lesion. No intra or extrahepatic biliary ductal dilatation. The gallbladder is normal. The spleen is normal. There is a 1.8 cm, round cystic lesion adjacent to the distal pancreatic tail (series 2, image 54). There is a 1.5 cm, intermediate density right adrenal gland nodule. There is nodular thickening of the left adrenal gland. Both kidneys enhance symmetrically. There is a small right renal cyst. No hydronephrosis. There is mild diffuse wall thickening of the urinary bladder. The prostate is mildly enlarged. There is a small hiatal hernia. The small bowel is normal in caliber, without evidence of obstruction. The rectum is mildly distended with stool. There is minimal circumferential fat stranding surrounding the rectum. No free fluid or air. The appendix is not identified, but there are no secondary signs of appendicitis. No abdominopelvic lymphadenopathy. There are atherosclerotic calcifications of the abdominal aorta and its branches, without aneurysm. There is severe stenosis or occlusion of the right superficial femoral artery. There are multilevel degenerative changes throughout the spine. No acute fracture or suspicious osseous lesion identified. IMPRESSION: 1. Rectal stool ball with mild surrounding fat stranding, which could be seen with mild stercoral colitis. 2. Mild diffuse urinary bladder wall thickening likely represents chronic bladder outlet obstruction in the setting of prostatomegaly, versus cystitis. 3. Multiple pulmonary nodules within the imaged lung bases, measuring up to 6 mm. If no outside prior imaging is available for comparison, follow-up chest CT can be obtained in 6 months. 4. Indeterminate 1.8 cm unilocular cystic lesion arising from the tail of the pancreas. Differential includes pseudocyst, side branch intraductal papillary mucinous neoplasm, or cystic neuroendocrine tumor. This can be further evaluated with MRCP on a nonemergent basis. 5. Indeterminate right adrenal gland nodule measuring 1.5 cm. If MRCP is obtained, the can be further evaluated on that examination. Alternatively, a follow-up adrenal protocol CT can be obtained in 12 months. 6. High grade stenosis or occlusion of the right superficial femoral artery. Dictated by: Arnaldo Velazquez MD The radiology attending physician has personally reviewed this study, and had reviewed and/or edited this written report and agrees with it. Electronically signed by: Safia Mendez M.D. Jaclyn Wall MD PhD IMG CT PROCEDURES Fi nal Result from Last 3 Months or Most Recently Relevant to Health Maintenance [place] Advance Directives For more information, please contact: [phone] * Full Code (Latest Code Status on File) Date Activated Date Inactivated Comments 08/08/2023 11:59 PM 08/11/2023 9:08 PM Care Teams Card Fixer Relationship Specialty Start Date End Date [facility], Roni Austin [address] [place] [id number] PCP - General Genetics 07/05/24
--- OUTSIDE RECORDS SUMMARY | 2024-08-26 17:42 | XMS_ITS | Clinical Summary ---
Author Organization [facility] Address [address] [place] [address] Care Team Providers Care Transfer Table Operator Name Role Phone [facility], Roni Austin Primary Care Pro vider Allergies [...] 08/09/2023 Assessment & Plan (08/09/2023 3:17 AM DULITE MACHINE BLUER): - Continue albuterol PRN - Patient is in process of arranging PFT for further evaluation at the [place] Acute on chronic diastolic c ongestive heart [...] edema.. Assessment & Plan (08/09/2023 7:48 AM DULITE MACHINE BLUER): Holding furosemide 20 mg at this time in setting of hypovolemia. - TTE ordered - Continuous telemetry with vitals q8hr Gastro-esophageal reflux disease without esophag itis 08/09/2023 Assessment & Plan (08/09/2023 7:53 AM DULITE MACHINE BLUER): - Continue home pantoprazole 40 mg daily [...] 04/2021. He follows with neurology at the [place]. Last seen in clinic by them in 03/2023. He was last up-titrated to dose of regimen to 2 + 1.5 + 2+ 1.5 of sinamet. Assessment & Plan (08/09/2023 2:21 AM DULITE MACHINE BLUER): - holding home carbidopa/levidopa in setting of [...] rest. Assessment & Plan (08/09/2023 7:39 AM DULITE MACHINE BLUER): - Given 500 mL IVF in ED [...] up. Assessment & Plan (08/09/2023 7:54 AM DULITE MACHINE BLUER): - Continue tamsulosin 0.4 mg daily Stercolith ([facility]) 02/14/2020 Overview (08/09/2023): Patient has had progressive [...] ordered Assessment & Plan (08/08/2023 10:53 PM DULITE MACHINE BLUER): - will conduct enema - start miralax and senna scheduled Leukocytosis 02/13/2020 Overview (08/09/2023): In setting of recent syncopal episode, most likely reactive. No concerns for infectious process at this time.. Assessment & Plan (08/09/2023 2:37 AM DULITE MACHINE BLUER): - CTM daily CBC's Type 2 diabetes, controlled, with renal manifest ation 02/12/2020 Overview (08/09/2023): Managed by PCP and endocrinology at the [facility]. PCP at [facility] note 08/04/2023: Most recently seen with endocrine [...] recently. Assessment & Plan (08/09/2023 8:01 AM DULITE MACHINE BLUER): Hemoglobin A1c 8.0 03/10 with lantus 30 at home - Repeat A1c here - Dose reduce to 20 units with ss - Continue to monitor with POCT glucose checks TIDAC Mixed hyperlipidemia 02/01/2020 Overview (08/09/2023): Prev lipid panel 08/2022: LDL 68, HDL 58 [facility]. Assessment & Plan (08/08/2023 10:55 PM DULITE MACHINE BLUER): - Ordering lipid panel - Continue home atorvastatin 40 mg Depression 02/01/2020 Assessment & Plan (08/09/2023 7:53 AM DULITE MACHINE BLUER): - Continue home sertraline 150 mg daily [...] disease. Assessment & Plan (08/09/2023 7:43 AM DULITE MACHINE BLUER): - Continue losartan 50 mg - Holding [...] Free, Intramuscular 03/19/2019,06/30/2016,04/09/2015,08/28 Influenza, Unspecified 04/20/2013,2011,04/02/2011,05/14,05/08/2009,06/11/2008,05/13/2006 ,06/23/2005 AM Technology Sars-Cov-2 Bivalent V accination (12+ YRS) 08/20/2022 Pneumococcal Conjugate PCV 13 06/30/2016 Pneumococcal Polysaccharide PPV23 07/15/2018 Pneumococcal, Unspecified 02/25/2007 Td, Unspecified 02/25/2007 Tdap 03/02/2017 ZOSTER LIVE 07/28/2012 ZOSTER Recombinant 07/15/2018,12/31/2017 Medical History Medical History Date Comments Pressure injury of sacral re gion, stage 3 ([facility]) 02/13/2020 Formatting of this note migh t be different from the original. Wound care consulted, debridement not indicated at this time Wound dressing ordered Encephalopathy acute 02/15/2020 Decubitus ulcer of coccyx, u nstageable ([facility]) 02/12/2020 Formatting of this note migh t be different from the original. Present on receipt to skilled rehab admission 02/09/20. Santyl and wound consult. Cellulitis of right leg 02/12/2020 Formatti ng of this note might be different from the original. 02/09/20 completing Doxycycline course PO. Minimal erythema. Cellulitis, unspecified 08/09/2023 Lateral epicondylitis Social History Tobacco Use Types Packs/Day Years Used Date Smoking Tobacco: Former Cigarettes Tobacco Cessation:Counseling Given: Not Answered [facility] Utilities Answer Date Recorded In the past 12 months has [employer], gas, oil, or water [employer] threatened to shut off services in your [...] often do you attend chur ch or anglican services? Never 08/12/2023 Do you belong to any clubs o r organizations such as religion groups, unions, fraternal or athletic groups, or [...] place to sleep or slept in a snf (including now)? No 08/12/2023 Personal Safety Answer Date Recorded Have you ever been in or are you currently in a harmful physical or emotional relationship or is someone making you feel afraid or unsafe? Denies 08/08/2023 Sex and Gender Information Value Date Recorded Sex Assigned at Not on file Legal Sex Male 5:35 PM DULITE MACHINE BLUER Gender Identity Not on file Sexual Orientation Not on file Obstetrics History Last Filed Vital Signs Vital Sign Reading Time Taken Comments Blood Pressure 99/59 08/11/2023 11:05 AM DULITE MACHINE BLUER Pulse 68 08/11/2023 11:05 AM DULITE MACHINE BLUER Temperature 36.5 C (97.7 F) 08/11/2023 11:05 AM DULITE MACHINE BLUER Respiratory Rate 20 08/11/2023 11:0 5 AM DULITE MACHINE BLUER Oxygen Saturation 96% 08/11/2023 11: 05 AM DULITE MACHINE BLUER Inhaled Oxygen Concentration - - Weight 89.3 kg (196 lb 12.8 oz) 08/11/2023 5:20 AM DULITE MACHINE BLUER Height 175.3 cm (5' 9 ) 08/08/2023 11:4 7 PM DULITE MACHINE BLUER Body Mass Index 29.06 08/08/2023 11:47 PM DULITE MACHINE BLUER Plan of Treatment Health Maintenance Due Date Last Done Comments Albumin Creatinine Ratio, Urine 1950 Colon Cancer Screening-Colonoscopy 1950 Depression Screening 1950 Hepatitis C Screening 1950 Dilated Eye Exam 1950 Foot Exam 1950 Hepatitis B Screening 1968 Well Visit 65+ 11/17/2015 Hemoglobin A1C 02/07/2024 08/09/2023 Covid-19 Vaccine (6 2023-2 5 season) 2024 08/04/2023, 08/20/2022, 05/13/2021, Additional history exists Influenza Vaccine (#1) 2024 , 08/20/2022, 05/13/2021, Additional history exists Lipid Panel 08/09/2024 08/09/2023 eGFR 08/10/2024 08/10/2023, 07/20, 08/09/2023, Additional history exists Fall Risk Assessment 08/11/2024 08/11/2023 DTaP/Tdap/Td Vaccine (2 - Td or Tdap) 03/02/2027 03/02/2017, 02/25/2007 Pneumococcal vaccine 65+ Completed 018, 06/30/2016, 02/25/2007 Zoster Vaccine Completed 07/15/2018, 12/17, 07/28/2012 Abdominal Aortic Aneurysm (A AA) Screen Completed 08/08/2023, 02/13/2020 Procedures Procedure Name Priority Date/Time Associated Diagnosis Comments EGFR Routine 08/10/2023 8:13 PM DULITE MACHINE BLUER LIPID PANEL Routine 08/09/2023 4:38 AM DULITE MACHINE BLUER HEMOGLOBIN A1C Routine 08/09/2023 1:[address] ABDOMEN PELVIS W CONTRAST ED 08/08/2023 6:59 PM DULITE MACHINE BLUER from Last 3 Months or Most Recently Relevant to Health Maintenance Results * eGFR (08/10/2023 8:13 PM DULITE MACHINE BLUER) Pathologist [facility] eGFR 85 >=60 mL/min/1. 73 m2 [facility] Comment: Interpretive Data Reference Interval Normal [...] of Race in Diagnosing Kidney Disease, JASN 202). The CKD-EPI equation should not be used for patients with unstable renal function and has not been validated in children and those over 70. Current interpretive data was last reviewed 2021. Blood 08/10/2023 8:13 PM DULITE MACHINE BLUER 08/10/2023 9:31 PM DULITE MACHINE BLUER [facility] Mukesh Albright MD LAB BLOOD ORDERABLES nal Result [facility] [place] [address] * Lipid panel (08/09/2023 4:38 AM DULITE MACHINE BLUER) Pathologist [facility] Cholesterol 137 30 - 199 mg/dL [facility] [...] on 2018. Triglycerides 75 <=149 mg/dL [facility] Comment: Interpretive Data Ages < or = [...] revised on 2018. HDL 56 >=40 mg/dL [facility] Comment: Interpretive Data Ages < or = [...] on 2018. LDL, calculated 66 <=129 mg/dL [facility] Comment: Interpretive Data Ages [...] revised on 2018. Non-HDL Cholesterol 81 mg/dL [facility] Comment: Interpretive Data Ages [...] last revised on 2018. Chol/HDL ratio 2 [facility] Blood 08/09/2023 4:38 AM DULITE MACHINE BLUER 08/09/2023 5:32 AM DULITE MACHINE BLUER Josh Corona MD LAB BLOOD ORDERABLES F inal Result Performing Organization Address [facility] de Phone Number [facility] [place] [address] * (ABNORMAL) Hemoglobin A1c (08/09/2023 1:09 AM DULITE MACHINE BLUER) Hgb A1C 12.7(H) 4.0 - 5.6 % [facility] Estimated Average Glucose 318 mg/dL [facility] Comment: The ADA recommends reporting an estimated Average Glucose (eAG) with all Hemoglobin A1c results using the equation derived from a study of 507 normal and diabetic adults. Minority populations were underrepresented and children were not included. (Diabetes Care 2020; 43(S1): S66-S76). The eAG is not equivalent to a fasting glucose. Blood 08/09/2023 1:09 AM DULITE MACHINE BLUER 08/09/2023 2:23 AM DULITE MACHINE BLUER Josh Corona MD LAB BLOOD ORDERABLES F inal Result Performing Organization Address [facility] de Phone Number [facility] [place] [address] * CT Abdomen Pelvis W Contrast (08/08/2023 6:59 PM DULITE MACHINE BLUER) Anatomical Region Laterality Modality Body N/A Computed Tomogra phy 08/08/2023 7:24 PM DULITE MACHINE BLUER Impressions 08/08/2023 10:35 PM DULITE MACHINE BLUER 1. Rectal stool ball with mild surrounding [...] Safia Mendez M.D. Narrative 08/08/2023 10:35 PM DULITE MACHINE BLUER EXAMINATION: CT ABDOMEN PELVIS W CONTRAST HISTORY: [...] Most Recently Relevant to Health Maintenance Insurance Member Subscriber Plan / Payer (Ef fective 2004-Present) Name:Memo Simpson Relation to Subscriber:Self Name:EllaMemo marie Payer ID:[id number] Group ID:Not on file Type:OTHER [employer] Address: [place] [id number] [place] Advance Directives For more information, please contact: [phone] * Full Code (Latest Code Status on File) Date Activated Date Inactivated Comments 08/08/2023 11:59 PM 08/11/2023 9:08 PM Care Teams Transfer Table Operator Relationship Specialty Start Date [facility] [address] [place] [phone] PCP - General Genetics 07/05/24
[2024-08-26] MEDS: CARBIDOPA/LEVODOPA 12.5/50 MG 1 TABLET, CARBIDOPA/LEVODOPA 25/100 MG 1 TABLET 2 TABLET PO (18:08)
[2024-08-26 18:23] LABS: Influenza A QL RT-PCR Negative (Negative); Influenza B QL RT-PCR Negative (Negative); RSV RNA, RT-PCR Negative (Negative); SARS-CoV-2 RNA PCR Negative (Negative)
--- NOTE | 2024-08-26 18:33 | P.HP_ITS ---
H&P: HPI History of Present Illness Date/Time: 08/26/24 18:33 Chief Complaint: Altered Mental Status Narrative: This 73 year old male pt with PMH of Parkinson's, Nicotine abuse, IDDM, HLD, BPH, with prior episodes of vasovagal syncope comes to the ER today brought by EMS with complaints of having an episode of AMS where pt just sat in the chair and stared for approximately 15 minutes. The pt was then placed on EMS stretcher and was noted to be Hypotensive. He was brought to the ER for further evaluation where he seems to have improved overall. On review of pt's EMR from 06/2024, he had a similar episode that started the same way. Pt is without any acute complaints or symptoms such as headache, CP, dyspnea, N/V. In the ER workup was performed and labs unremarkable with CBC and CMP. Urinalysis pending at the time of my note. Patient negative for COVID, influenza, RSV. Chest x-ray was normal and CT of was. Last reviewed echocardiogram from July 13, 2024 showed a normal systolic function with a 55-60% ejection fraction. Patient was given IV fluids in the emergency room and his dose of carbidopa levodopa as he had not yet taken his. EKG in ER showing NSR with LAD 69 bpm. Patient's spouse is at the bedside and is determined to be a good and reliable source of information very knowledgeable about the patient's health. She was present when the event occurred today and noted that patient just kept staring straight ahead, not blinking with eyes open and would not respond to verbal stimuli. She stated at 1 point has respirations changed and became very shallow with a pale skin appearance and blue lips and she noted that his eyes deviated to each side going in opposite directions. There were no prodromal symptoms of chest pain, dyspnea, headache, dizziness. Patient had reportedly awakened early today and then went back to sleep and had slept most of the day. His spouse noted that he had not taken his medications. She checked his glucose during the altered mental status episode and it was noted to be 296. She does state that over the course of the past 2-3 months his losartan dose has gradually been increased from 50 mg daily to 100 mg daily. Patient sees neurologist, Dr. Vidal, at [facility] and has an appointment scheduled for this week. Review of Systems Review of Systems: All systems reviewed & are unremarkable except as noted in HPI and below [facility] Past Medical History Medical History (Updated 08/26/24 @ 18:43 by GRECIA Lopez) Hypotension Parkinson disease Family History Family History Father Cancer Social History Social History Smoking packs per day: 1.25 Smoking cigarettes per day: 25.0 Years smoked: 16 Smoking pack-years: 20.00 Smoking status: Former smoker Tobacco type: cigarettes Smoking end date: 11/16/16 Alcohol intake: current Substance use: former Do You Feel Safe in your Home?: Yes Lack of Transportation: No Lack of Food: Never True Current Housing: I Have Housing Concerned About Future Housing: No Difficulty Paying Gas/Electric Bills: No Difficulty Paying for Meds: No Currently Unemployed: No Education: High School Diploma/GED Difficulty w/ Childcare or Family Care: No Gender identity (if verbalized by the patient): Male Spiritual care concerns: No Meds Home Medications and Allergies Home Medications ?Medication ?Instructions ?Recorded ?Confirmed ?Type albuterol 90 mcg/actuation aerosol 1 mcg inhalation QID PRN shortness 12/20/20 07/10/24 History inhaler of breath or wheezing atorvastatin 40 mg tablet 80 mg PO HS 12/20/20 07/10/24 History diclofenac sodium 1 % topical gel 4 g topical QID PRN pain 12/20/20 07/10/24 History finasteride 5 mg tablet 5 mg PO DAILY 12/20/20 07/10/24 History insulin aspart U-100 100 unit/mL 5 unit subcut .with breakfast 12/20/20 07/10/24 History subcutaneous solution (Novolog U-100 Insulin aspart) insulin glargine 100 unit/mL 19 unit subcut HS 12/20/20 07/10/24 History subcutaneous cartridge metformin 1,000 mg tablet 1,000 mg PO BID 12/20/20 07/10/24 History pantoprazole 40 mg tablet,delayed 40 mg PO QAM 12/20/20 07/10/24 History release sertraline 100 mg tablet 150 mg PO DAILY 12/20/20 07/10/24 History tamsulosin 0.4 mg capsule 0.4 mg PO HS 12/20/20 07/10/24 History aspirin 81 mg chewable tablet 81 mg PO DAILY@0800 #30 tabs 12/21/20 07/10/24 Rx (Children's Aspirin) carbidopa 25 mg-levodopa 100 mg 2 tablet PO QID 07/10/24 07/10/24 History tablet docusate sodium 100 mg capsule 200 mg PO BID 07/10/24 07/10/24 History empagliflozin 25 mg tablet 25 mg PO DAILY 07/10/24 07/10/24 History insulin aspart U-100 100 unit/mL 5 unit subcut .with lunch 07/10/24 07/10/24 History subcutaneous solution (Novolog U-100 Insulin aspart) insulin aspart U-100 100 unit/mL 11 unit subcut .with dinner 07/10/24 07/10/24 History subcutaneous solution (Novolog U-100 Insulin aspart) losartan 50 mg tablet (Cozaar) 75 mg PO DAILY 07/10/24 07/10/24 History semaglutide 1 mg/dose (4 mg/3 mL) 1 mg subcut WEEKLY 07/10/24 07/10/24 History subcutaneous pen injector (Ozempic) sennosides 8.6 mg tablet (senna) 8.6 mg PO DAILY 07/10/24 07/10/24 History amoxicillin 875 mg-potassium 1 tablet PO Q12H 5 days #10 tabs 07/13/24 Rx clavulanate 125 mg tablet azithromycin 500 mg tablet 500 mg PO DAILY 5 days #5 tabs 07/13/24 Rx Allergies Allergy/AdvReac Type Severity Reaction Status Date / Time lisinopril Allergy Mild SWELLING Verified 07/10/24 16:23 Vital Signs Vital Signs - 24 hr 08/26/24 16:48 08/26/24 16:57 08/26/24 17:11 Temperature 97.5 F L Pulse Rate 74 Respiratory Rate 16 18 Blood Pressure 144/88 H Pulse Oximetry 99 98 Oxygen Delivery Room Air 08/26/24 17:41 08/26/24 18:15 Temperature Pulse Rate 82 77 Respiratory Rate 16 16 Blood Pressure 144/94 H Pulse Oximetry 100 96 Oxygen Delivery Exam Const: General: comfortable and no acute distress Other: Elderly male pt in no acute distress, poorly kempt HENMT: Other: Atraumatic and normocephalic head. MMM Eyes: General: appearance normal, both eyes and all related structures Sclera: sclerae normal Pupils: Equal, round and reactive pupils present EOM: EOMs intact bilaterally Neck: Neck: supple and no JVD Other: Full AROM in a supple manner Resp: Effort & Inspection: normal respiratory effort Auscultation: clear to auscultation bilaterally Cardio: Rate: regular rate Rhythm: regular rhythm Heart sounds: no gallops, no murmurs and no rubs GI: Inspection: non-distended GI Palp: Yes Soft to palpation and No Tenderness to palpation present (GI) Auscultation: normal bowel sounds Skin: General skin exam: normal color, no rashes or lesions noted and no erythema Lesions: no lesions noted Rashes: no rashes noted Wounds: no wounds Neuro: Speech: normal speech Motor exam (neuro): Normal motor muscle tone present throughout and Motor abnormalites present other (Pt with Parkinsonian tremors of BUE.) Sensory Exam: normal sensation Other: Did not test gait. Extrem: General: normal to inspection and edema (Lower extremities with generalized, non-pitting edema) bilateral Psych: Mental Status: mental status grossly normal Affect: normal affect Attitude: not belligerent H&P: Results Labs Labs: Short CBC 08/26/24 Range/Units 17:09 WBC 6.9 (4.5-10.0) K/mm3 Hgb 13.6 L (14.0-18.0) g/dL Hct 44.4 (42.0-52.0) % Plt Count 251 (150-375) k/mm3 BMP 08/26/24 17:09 Sodium 134 L Potassium 3.8 Chloride 97 L Carbon Dioxide 27 BUN 18 Creatinine 0.76 Glucose 239 H Calcium 9.1 Liver Function 08/26/24 Range/Units 17:09 Total Bilirubin 0.5 (0.2-1.3) mg/dL AST 22 (17-59) U/L ALT 10 (6-50) U/L Alkaline Phosphatase 148 H (38-126) U/L Albumin 4.2 (3.5-5.1) g/dL Assessment and Plan Assessment and plan (1) Altered mental status: Qualifiers: Altered mental status type: transient alteration of awareness Qualified Code(s): R40.4 - Transient alteration of awareness Code(s): R41.82 - Altered mental status, unspecified Status: Acute Assessment and Plan: * Etiology unclear, but given this same occurrence has happened before and family notes it is very similar in appearance with staring followed by hypotension and noted change in respiratory status, will consider differentials to include but not limited to: CVA, seizures, Parkinsonian event * EEG ordered * MRI w/wo Brain/brainstem ordered * Neurology consult - appreciate recommendations * Unknown when last ECHO was, ECHO with bubble study ordered. * Telemetry * Fall precautions * Trend labs and VS. * Neuro checks Q4 hrs (2) Syncope: Qualifiers: Syncope type: unspecified Qualified Code(s): R55 - Syncope and collapse Code(s): R55 - Syncope and collapse Status: Acute Assessment and Plan: * See #1 for plan (3) Hypotension: Code(s): I95.9 - Hypotension, unspecified Status: Acute Assessment and Plan: * As noted per EMS, and again as noted in June of 2025. * Orthostatic VS ordered Q shift * Would recommend holding BP meds for now * Monitor and trend VS. * Telemetry (4) Diabetes type 2, controlled: Qualifiers: Diabetes mellitus terminal operations manager insulin use: with alf use Diabetes mellitus complication status: with unspecified complications Qualified Code(s): E11.8 - Type 2 diabetes mellitus with unspecified complications; Z79.4 - buttermaker continuous churn (current) use of insulin Code(s): E11.9 - Type 2 diabetes mellitus without complications Status: Chronic Assessment and Plan: * Check A1C * Glucose checks AC and HS * Moderate dose SSI for meals and bedtime * Hypoglycemic protocol * Diabetic diet * Resume Lantus 18 units HS as home dose. * Would recommend holding oral hypoglycemics to have better control (5) Parkinson disease: Code(s): G20.A1 - Parkinson's disease without dyskinesia, without mention of fluctuations Status: Chronic Assessment and Plan: * Continue home medications when dose is confirmed. * Fall precautions * PT/OT eval and treat (6) Hypertension: Qualifiers: Hypertension type: essential hypertension Qualified Code(s): I10 - Essential (primary) hypertension Code(s): I10 - Essential (primary) hypertension Status: Chronic Assessment and Plan: * Holding any BP meds for now. * Resume as appropriate after home doses are confirmed. * Monitor and trend VS. (7) Hyperlipidemia: Qualifiers: Hyperlipidemia type: unspecified Qualified Code(s): E78.5 - Hyperlipidemia, unspecified Code(s): E78.5 - Hyperlipidemia, unspecified Status: Chronic Assessment and Plan: * Home meds when appropriate. (8) GERD (gastroesophageal reflux disease): Qualifiers: Esophagitis presence: without esophagitis Qualified Code(s): K21.9 - Gastro-esophageal reflux disease without esophagitis Code(s): K21.9 - Gastro-esophageal reflux disease without esophagitis Status: Chronic Assessment and Plan: * Continue PPI after dose confirmed. Plan Admit obs Telemetry SCD Full Code Quality VTE Prophylaxis VTE prophylaxis: mechanical ordered Stroke Scale 1c Level of consciousness: obeys both correctly-0 2 Best gaze: normal-0 3 Visual: no visual loss-0 4 Facial palsy: normal-0 5a Motor: left arm: no drift-0 5b Motor: right arm: no drift-0 6a Motor: left leg: no drift-0 6b Motor: right leg: no drift-0 7 Limb ataxia: absent-0 8 Sensory: normal-0 9 Best language: no aphasia-0 10 Dysarthria: normal-0 11 Extinction and inattention: no abnormality-0 Comment: 0 Low suspicion of CVA. Hospitalist MIPS Advance Care Plan I have confirmed that the patient's Advanced Care Plan is present, code status is documented, or surrogate decision maker is listed in patient medical record.: Yes Medication Reconciliation I have utilized all available resources to obtain, update and review the ayesha ents current medications (includes all prescriptions, OTC, herbals, cannabis, and nutritional supplements).: Yes
[2024-08-26 18:54] LABS: Add Urine Microscopic? YES; Appearance Urine Clear (Clear); Bacteria Urine None Seen /hpf; Bilirubin Urine Negative (Negative); Blood Urine Negative (Negative); Color Urine Yellow (Yellow); Glucose Urine UA 3+ mg/dL (Negative); Ketones Urine 1+ mg/dL (Negative); Leukocyte Esterase Ur Negative LEU/UL (Negative); Nitrate Urine Negative (Negative); Non Pathogenic Casts 0-2; Protein Urine 2+ mg/dL (Negative); RBC Urine 0-2 /hpf (0-2); Specific Grav Ur 1.034 (1.001-1.035); Squamous Epithelial Cell Urine None Seen /hpf (Few); Urobilinogen Urine 0.2 mg/dL (<2.0); WBC Urine 0-5 /hpf (0-3); pH Urine 5.5 (5.0-9.0)
[2024-08-26 20:21] LABS: Glucose Point of Care 189 mg/dl (65-105)
--- NOTE | 2024-08-26 20:41 | ADMGEN ---
This patient, Memo Simpson, was admitted to 2 Medical Room 249-01. Patient/family oriented to hospital policies and general routines including ID bracelet, bed and alarms, visiting hours, pain management, procedures, bathroom and other care routines, personal items, smoking policy, room service/diet, and visiting hours. Report received from JACOB Arriaga. Information on how to activate the Rapid Response Team has been discussed. Patient/Family are encouraged to report perceived risks to care and to ask questions if they do not understand what they are told or what they should do.
[2024-08-26 21:27] LABS: Hemoglobin A1C 9.8 % (<5.7)
[2024-08-26] MEDS: INSULIN ASPART (*BKC) 100 UNITS/ML SUB-Q (21:34)
[2024-08-26] MEDS: INSULIN GLARGINE (*BKC) 100 UNITS/ML 18 UNITS SUB-Q (21:34)
[2024-08-26 21:53] LABS: Glucose Point of Care 221 mg/dl (65-105)
[2024-08-27] VITALS (16 sets, daily range): BP systolic 119–162; BP diastolic 58–83; PULSE 73–91; RESP 18–24; TEMP 36.6–36.9; O2SAT 93–99
[2024-08-27 05:21] LABS: Basophils Absolute Auto 0.1 K/mm3 (0.0-0.1); Basophils Percent Auto 0.7 % (0.2-1.2); Eosinophils Absolute Auto 0.1 K/mm3 (0-0.3); Eosinophils Percent Auto 1.2 % (0-4.4); Hemoglobin 11.9 g/dL (14.0-18.0); Immature Granulocyte Absolute 0.02 K/mm3 (0.00-0.031); Immature Granulocyte Percent A 0.3 % (0-0.5); Lymphocytes Absolute Auto 1.85 K/mm3 (0.9-3.2); Lymphocytes Percent Auto 24.3 % (18.3-44.2); Mean Corpuscular HGB Conc 31.3 g/dl (32-36); Mean Corpuscular Hemoglobin 28.1 pg (26-34); Mean Corpuscular Volume 89.6 fl (80-100); Mean Platelet Volume 10.4 fl (7.4-10.4); Monocytes Absolute Auto 0.6 K/mm3 (0.1-0.6); Monocytes Percent Auto 8.4 % (2.6-8.5); Neutrophils Percent Auto 65.1 % (45.5-73.1); Platelet Count Result 219 k/mm3 (150-375); Red Blood Count 4.24 M/mm3 (4.6-6.20); Red Cell Distribution Width 13.9 % (11.5-14.5); White Blood Count 7.6 K/mm3 (4.5-10.0)
[2024-08-27 05:34] LABS: Alanine Aminotransferase 10 U/L (6-50); Albumin Level 3.5 g/dL (3.5-5.1); Alkaline Phosphatase 111 U/L (38-126); Anion Gap 8 mmol/L (4-12); Aspartate Amino Transferase 17 U/L (17-59); Bilirubin,Total 0.4 mg/dL (0.2-1.3); Blood Urea Nitrogen 19 mg/dL (9-20); Calcium 8.7 mg/dL (8.4-10.2); Carbon Dioxide 28 mmol/L (22-30); Chloride 101 mmol/L (98-107); Estimated CRCL calculation 73 ml/min; Estimated Glomerular Filt Rate > 60; Glucose 176 mg/dL (65-110); Potassium 3.6 mmol/L (3.4-5.0); Sodium 137 mmol/L (137-145)
[2024-08-27 08:29] LABS: Glucose Point of Care 171 mg/dl (65-105)
[2024-08-27 12:36] LABS: Glucose Point of Care 197 mg/dl (65-105)
--- NOTE | 2024-08-27 12:41 | WPDNEURCNPN ---
Assessment and Plan Assessment and plan (1) Syncope: Code(s): R55 - Syncope and collapse Status: Acute (2) Parkinson disease: Code(s): G20.A1 - Parkinson's disease without dyskinesia, without mention of fluctuations Status: Chronic (3) Peripheral neuropathy: Qualifiers: Peripheral neuropathy type: polyneuropathy, unspecified Qualified Code(s): G62.9 - Polyneuropathy, unspecified Code(s): G62.9 - Polyneuropathy, unspecified Status: Acute (4) Orthostasis: Code(s): I95.1 - Orthostatic hypotension Status: Acute Plan 1. Parkinson's disease for which he is taking carbidopa levodopa 25/100 2 tablets 4 times a day and does needs to be continued as such 2. 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 3. An episode of unresponsiveness as per the family again could very well be related to the either syncopal episode or else underlying seizure for which an EEG will be recommended he was noted to be hypoxic when EMS arrived to that could be a real episode, making it more likely 4 MRI has been ordered will be reviewed with he has any silent stroke. Consult date: 08/27/24 HPI: Memo Simpson is a 73 year old male Admitted to the hospital through the emergency room with the complaints of prolonged syncopal episode. As per the information available he was playing with his grandchild and when the family went to check on him ,patient was upright in a chair and was unresponsive ,they attempted to wake up the patient but he did not respond. ultimately EMS were contacted,patient was reportedly hypoxic when EMS arrived at the scene ,normally he has 2L of oxygen at all the time ,he was not complaining of any pain ,there was no history of any recent illness and he was normal to himself as per the family as well but he does carry the diagnosis of Parkinson's disease and has been on carbidopa and levodopa. He has been taking multiple medications as outlined particularly atorvastatin 80mg at night insulin, metformin 1000mg twice a day, sertraline 150mg daily carbidopa levodopa 2 tablets q.i.d. and each tablet 25/100 mg insulin as noted losartan 100mg daily exam pick 1mg subQ weekly. Reportedly he is allergic to lisinopril. He has history of years smoked 16 with smoking pack years of 20 but at present is a former smoker. On initial exam in the emergency room he was documented with no major deficit. His vital signs were normal, CBC was normal, BMP was normal, and he was negative for routine viral infections. He had a CT scan of the head which did not reveal any ventriculomegaly any other Space-occupying lesion. Since admission the carbidopa levodopa 2 tablets q.i.d. has been continued each being 25 or 100mg in addition all his other medications as such Review of Systems Review of Systems: All systems reviewed & are unremarkable except as noted in HPI and below PMFSH Past Medical History Medical History Hypotension Parkinson disease Family History Family History Father Cancer Social History Social History Smoking packs per day: 1.25 Smoking cigarettes per day: 25.0 Years smoked: 16 Smoking pack-years: 20.00 Smoking status: Former smoker Substance use: former Substance use type: marijuana Do You Feel Safe in your Home?: Yes Lack of Transportation: No Lack of Food: Never True Current Housing: I Have Housing Concerned About Future Housing: No Difficulty Paying Gas/Electric Bills: No Difficulty Paying for Meds: No Currently Unemployed: No Education: High School Diploma/GED Difficulty w/ Childcare or Family Care: No Gender identity (if verbalized by the patient): Male Spiritual care concerns: No Meds Home Medications and Allergies Home Medications ?Medication ?Instructions ?Recorded ?Confirmed ?Type albuterol 90 mcg/actuation aerosol 1 mcg inhalation QID PRN shortness 12/20/20 08/26/24 History inhaler of breath or wheezing atorvastatin 40 mg tablet 80 mg PO HS 12/20/20 08/26/24 History diclofenac sodium 1 % topical gel 4 g topical QID PRN pain 12/20/20 08/26/24 History finasteride 5 mg tablet 5 mg PO DAILY 12/20/20 08/26/24 History insulin aspart U-100 100 unit/mL 5 unit subcut .with breakfast 12/20/20 08/26/24 History subcutaneous solution (Novolog U-100 Insulin aspart) insulin glargine 100 unit/mL 18 unit subcut HS 12/20/20 08/26/24 History subcutaneous cartridge metformin 1,000 mg tablet 1,000 mg PO BID 12/20/20 08/26/24 History pantoprazole 40 mg tablet,delayed 40 mg PO QPM 12/20/20 08/26/24 History release sertraline 100 mg tablet 150 mg PO DAILY 12/20/20 08/26/24 History tamsulosin 0.4 mg capsule 0.4 mg PO HS 12/20/20 08/26/24 History aspirin 81 mg chewable tablet 81 mg PO DAILY@0800 #30 tabs 12/21/20 08/26/24 Rx (Children's Aspirin) carbidopa 25 mg-levodopa 100 mg 2 tablet PO QID 07/10/24 08/26/24 History tablet docusate sodium 100 mg capsule 200 mg PO BID 07/10/24 08/26/24 History empagliflozin 25 mg tablet 25 mg PO DAILY 07/10/24 08/26/24 History insulin aspart U-100 100 unit/mL 5 unit subcut .with lunch 07/10/24 08/26/24 History subcutaneous solution (Novolog U-100 Insulin aspart) insulin aspart U-100 100 unit/mL 11 unit subcut .with dinner 07/10/24 08/26/24 History subcutaneous solution (Novolog U-100 Insulin aspart) losartan 50 mg tablet (Cozaar) 100 mg PO DAILY 07/10/24 08/26/24 History semaglutide 1 mg/dose (4 mg/3 mL) 1 mg subcut WEEKLY 07/10/24 08/26/24 History subcutaneous pen injector (Ozempic) sennosides 8.6 mg tablet (senna) 8.6 mg PO DAILY 07/10/24 08/26/24 History Allergies Allergy/AdvReac Type Severity Reaction Status Date / Time lisinopril Allergy Mild SWELLING Verified 08/26/24 20:58 Vital Signs Vital Signs - 24 hr 08/26/24 16:48 08/26/24 16:57 08/26/24 17:11 Temperature 36.4 C L Pulse Rate 74 Respiratory Rate 16 18 Blood Pressure 144/88 H Pulse Oximetry 99 98 Oxygen Delivery Room Air 08/26/24 17:41 08/26/24 18:15 08/26/24 18:30 Temperature Pulse Rate 82 77 70 Respiratory Rate 16 16 17 Blood Pressure 144/94 H 141/76 H Pulse Oximetry 100 96 98 Oxygen Delivery 08/26/24 19:00 08/26/24 19:15 08/26/24 20:40 Temperature 36.6 C Pulse Rate 73 76 78 Respiratory Rate 21 H 19 20 Blood Pressure 138/86 141/93 H 135/73 Pulse Oximetry 99 97 100 Oxygen Delivery 08/26/24 22:13 08/27/24 00:00 08/27/24 04:00 Temperature Pulse Rate 76 76 Respiratory Rate Blood Pressure Pulse Oximetry Oxygen Delivery Room Air 08/27/24 06:00 08/27/24 06:00 08/27/24 06:03 Temperature 36.6 C Pulse Rate 75 75 81 Respiratory Rate 20 Blood Pressure 154/81 H 154/81 H 139/67 Pulse Oximetry 99 Oxygen Delivery 08/27/24 06:05 08/27/24 08:00 08/27/24 08:00 Temperature Pulse Rate 82 76 Respiratory Rate Blood Pressure 133/67 Pulse Oximetry Oxygen Delivery Room Air 08/27/24 08:16 08/27/24 08:19 08/27/24 08:23 Temperature Pulse Rate 74 76 84 Respiratory Rate Blood Pressure 162/72 H 151/83 H 140/79 Pulse Oximetry Oxygen Delivery Exam Narrative: examination today reveals him to be awake alert in no obvious acute distress able to follow the verbal commands appropriately also able to stand and sit at the bedside. His speech is not dysphasic not dysarthric not dysphonic. While sitting at the bedside he was noted to have the tremors of the left upper extremity. Head was normocephalic with no bruit. Neck was supple with no cervical bruit no thyromegaly no lymphadenopathy. Heart was regular with no murmur. Lungs were clear to auscultation with no rhonchi or crepitations. Abdomen was soft nontender. Neurologically he was awake alert, able to follow the verbal commands appropriately and was able to carry on the conversation with no dysphagia dysarthria or dysphonia pupils were round regular feels the vision were full in all 4 quadrants and extraocular movements are full with no nystagmus or restriction of gaze in vertical or horizontal directions facial sensation was intact symmetrical tongue was midline with no fasciculation uvula was midline motor examination revealed him to have resting tremor of left side more than the right minimal cogwheeling of the passive movements of the upper and lower extremities flexes were symmetrical and 1+ plantar responses were down he has slight difficulties in performing [id number] and heel to knee to sandoval. Results Labs 08/27/24 05:11 08/27/24 05:11 Labs: Short CBC 08/26/24 08/27/24 Range/Units 17:09 05:11 WBC 6.9 7.6 (4.5-10.0) K/mm3 Hgb 13.6 L 11.9 L (14.0-18.0) g/dL Hct 44.4 38.0 L (42.0-52.0) % Plt Count 251 219 (150-375) k/mm3 BMP 08/26/24 08/27/24 17:09 05:11 Sodium 134 L 137 Potassium 3.8 3.6 Chloride 97 L 101 Carbon Dioxide 27 28 BUN 18 19 Creatinine 0.76 0.78 Glucose 239 H 176 H Calcium 9.1 8.7 Liver Function 08/26/24 08/27/24 Range/Units 17:09 05:11 Total Bilirubin 0.5 0.4 (0.2-1.3) mg/dL AST 22 17 (17-59) U/L ALT 10 10 (6-50) U/L Alkaline Phosphatase 148 H 111 (38-126) U/L Albumin 4.2 3.5 (3.5-5.1) g/dL Urine 08/26/24 Range/Units 18:21 Urine Color Yellow (Yellow) Urine Appearance Clear (Clear) Urine pH 5.5 (5.0-9.0) Ur Specific [place] 1.034 (1.001-1.035) Urine Protein 2+ H (Negative) mg/dL Urine Glucose (UA) 3+ H (Negative) mg/dL
[2024-08-27] MEDS: CARBIDOPA/LEVODOPA 25/100 MG TABLET 2 TABLET PO ×3 (12:57→20:38)
[2024-08-27] MEDS: INSULIN ASPART (*BKC) 100 UNITS/ML SUB-Q (12:57)
[2024-08-27] MEDS: DICLOFENAC SODIUM 1% 100 GM GEL (*BKC) 1 APPLIC TOPICAL (13:00)
--- NOTE | 2024-08-27 14:46 | P.PNIM_ITS ---
Progress Note: A&P Assessment and Plan (1) Altered mental status: Qualifiers: Altered mental status type: transient alteration of awareness Qualified Code(s): R40.4 - Transient alteration of awareness Code(s): R41.82 - Altered mental status, unspecified Status: Acute (2) Syncope: Qualifiers: Syncope type: unspecified Qualified Code(s): R55 - Syncope and collapse Code(s): R55 - Syncope and collapse Status: Acute (3) Hypotension: Code(s): I95.9 - Hypotension, unspecified Status: Acute (4) Diabetes type 2, controlled: Qualifiers: Diabetes mellitus fdc insulin use: with fdc use Diabetes mellitus complication status: with unspecified complications Qualified Code(s): E11.8 - Type 2 diabetes mellitus with unspecified complications; Z79.4 - halfway (current) use of insulin Code(s): E11.9 - Type 2 diabetes mellitus without complications Status: Chronic (5) Parkinson disease: Code(s): G20.A1 - Parkinson's disease without dyskinesia, without mention of fluctuations Status: Chronic (6) Hypertension: Qualifiers: Hypertension type: essential hypertension Qualified Code(s): I10 - Essential (primary) hypertension Code(s): I10 - Essential (primary) hypertension Status: Chronic (7) Hyperlipidemia: Qualifiers: Hyperlipidemia type: unspecified Qualified Code(s): E78.5 - Hyperlipidemia, unspecified Code(s): E78.5 - Hyperlipidemia, unspecified Status: Chronic (8) GERD (gastroesophageal reflux disease): Qualifiers: Esophagitis presence: without esophagitis Qualified Code(s): K21.9 - Gastro-esophageal reflux disease without esophagitis Code(s): K21.9 - Gastro-esophageal reflux disease without esophagitis Status: Chronic Plan This 73 year old male pt with PMH of Parkinson's, Nicotine abuse, IDDM, HLD, BPH, with prior episodes of vasovagal syncope comes to the ER today brought by EMS with complaints of having an episode of AMS where pt just sat in the chair and stared for approximately 15 minutes. The pt was then placed on EMS stretcher and was noted to be Hypotensive. He was brought to the ER for further evaluation where he seems to have improved overall. On review of pt's EMR from 06/2024, he had a similar episode that started the same way. Pt is without any acute complaints or symptoms such as headache, CP, dyspnea, N/V. In the ER workup was performed and labs unremarkable with CBC and CMP. U rinalysis negative for infection. Patient negative for COVID, influenza, RSV. Chest x-ray was normal and CT head with no acute intracranial process. Last reviewed echocardiogram from July 13, 2024 showed a normal systolic function with a 55-60% ejection fraction. Patient was given IV fluids in the emergency room. EKG in ER showing NSR with LAD 69 bpm. Patient's spouse is at the bedside and is determined to be a good and reliable source of information very knowledgeable about the patient's health. She was present when the event occurred today and noted that patient just kept staring straight ahead, not blinking with eyes open and would not respond to verbal stimuli. She stated at 1 point has respirations changed and became very shallow with a pale skin appearance and blue lips and she noted that his eyes deviated to each side going in opposite directions. There were no prodromal symptoms of chest pain, dyspnea, headache, dizziness. Patient had reportedly awakened early today and then went back to sleep and had slept most of the day. His spouse noted that he had not taken his medications. She checked his glucose during the altered mental status episode and it was noted to be 296. She does state that over the course of the past 2-3 months his losartan dose has gradually been increased from 50 mg daily to 100 mg daily. Patient sees neurologist, Dr. Vidal, at [facility] and has an appointment scheduled for this week. Neurology has been consulted. Brain MRI was performed which did not show any acute intracranial process. There are extensive nonspecific cerebral and pontine white matter T2 hyperintensity consistent with chronic small-vessel ischemic disease. EEG will be performed. Altered mental status History of syncope with positive orthostasis in the past. Insulin-dependent diabetes mellitus Peripheral neuropathy BPH GERD Hypertension Hyperlipidemia COPD DVT prophylaxis SCDs Code status full code Subjective Date/time seen: 08/27/24 14:46 Interval history: No overnight events. Feels okay. Back to his baseline. No chest pain or shortness of breath Review of Systems Review of Systems: All systems reviewed & are unremarkable except as noted in HPI and below Exam Narrative: APPEARANCE: Well appearing, no pain, no distress, well-nourished. HEAD: normocephalic, atraumatic. EYES: PERRLA/EOMI, conjunctivae clear. NOSE: Normal no drainage NECK: Supple. No adenopathy, no masses. RESPIRATORY: Airway patent, respirations nonlabored. Clear to auscultation bilaterally, no rales, rhonchi, wheezing. CARDIOVASCULAR: Regular rate and rhythm without murmurs rubs or gallops. ABDOMINAL: Soft, nontender, nondistended, normal bowel sounds MUSCULOSKELETAL: Moves all extremities. Strength/ROM intact, No edema, No calf tenderness. NEURO: Alert. Cranial nerves II through XII intact. Grossly intact SKIN: Warm, dry. Normal Color Objective Data Vital Signs Vital Signs: Vital Signs - 24 hr 08/26/24 16:48 08/26/24 16:57 08/26/24 17:11 Temperature 97.5 F L Pulse Rate 74 Respiratory Rate 16 18 Blood Pressure 144/88 H Pulse Oximetry 99 98 Oxygen Delivery Room Air 08/26/24 17:41 08/26/24 18:15 08/26/24 18:30 Temperature Pulse Rate 82 77 70 Respiratory Rate 16 16 17 Blood Pressure 144/94 H 141/76 H Pulse Oximetry 100 96 98 Oxygen Delivery 08/26/24 19:00 08/26/24 19:15 08/26/24 20:40 Temperature 97.8 F Pulse Rate 73 76 78 Respiratory Rate 21 H 19 20 Blood Pressure 138/86 141/93 H 135/73 Pulse Oximetry 99 97 100 Oxygen Delivery 08/26/24 22:13 08/27/24 00:00 08/27/24 04:00 Temperature Pulse Rate 76 76 Respiratory Rate Blood Pressure Pulse Oximetry Oxygen Delivery Room Air 08/27/24 06:00 08/27/24 06:00 08/27/24 06:03 Temperature 98 F Pulse Rate 75 75 81 Respiratory Rate 20 Blood Pressure 154/81 H 154/81 H 139/67 Pulse Oximetry 99 Oxygen Delivery 08/27/24 06:05 08/27/24 08:00 08/27/24 08:00 Temperature Pulse Rate 82 76 Respiratory Rate Blood Pressure 133/67 Pulse Oximetry Oxygen Delivery Room Air 08/27/24 08:16 08/27/24 08:19 08/27/24 08:23 Temperature Pulse Rate 74 76 84 Respiratory Rate Blood Pressure 162/72 H 151/83 H 140/79 Pulse Oximetry Oxygen Delivery 08/27/24 14:10 Temperature 98.4 F Pulse Rate 73 Respiratory Rate 24 H Blood Pressure 149/81 H Pulse Oximetry 93 Oxygen Delivery Intake/Output Intake/Output: Intake & Output 08/24/24 08/25/24 08/26/24 08/27/24 23:59 23:59 23:59 23:59 Intake Total 780 Output Total 300 Balance -300 780 Meds/Results Medications: Active Medications Generic Name Dose Route Start Last Admin Trade Name Freq PRN Reason Stop Dose Admin Albuterol 1 puff 08/27/24 12:24 Albuterol Sulfate (*Sp) Aerosol 1 Puff INHALATION QID PRN shortness of breath or wheezing Aspirin 81 mg 08/28/24 08:00 Aspirin 81 Mg Chewable Tablet PO DAILY@0800 [facility] Atorvastatin Calcium 80 mg 08/27/24 21:00 Atorvastatin 40 Mg Tablet PO HS [facility] Carbidopa/Levodopa 2 tablet 08/27/24 13:00 08/27/24 12:57 Carbidopa/Levodopa 25/100 Mg Tablet PO 2 tablet QID KETTY Administration Dextrose 12.5 gm 08/26/24 19:07 Dextrose 50% 25 Gm/50 Ml Syringe IV PUSH PRN PRN Hypoglycemia Protocol Diclofenac Sodium 1 applic 08/27/24 12:16 08/27/24 13:00 Diclofenac Sodium 1% 100 Gm Gel (*Bkc) TOPICAL 1 applic QID PRN Administration pain Docusate Sodium 200 mg 08/27/24 17:00 Docusate Sodium 100 Mg Capsule PO BID [facility] Empagliflozin 25 mg 08/28/24 09:00 Empagliflozin 25 Mg Tablet PO DAILY [facility] Finasteride 5 mg 08/28/24 09:00 Finasteride 5 Mg Tablet PO DAILY [facility] Glucagon 1 mg 08/26/24 19:07 Glucagon For Inj 1 Mg Vial IM PRN PRN Hypoglycemia Protocol Glucose 15 gm 08/26/24 19:07 Glucose Oral Gel 15 Gm Of Glucse In 37.5 Gm Tube PO PRN PRN Hypoglycemia Protocol Dextrose 1,000 mls @ 100 mls/hr 08/26/24 19:07 Dextrose 5% 1,000 Ml IVPB PRN PRN Hypoglycemia Protocol Insulin Aspart 3 - 6 units 08/27/24 08:00 08/27/24 12:55 Insulin Aspart (*Bkc) 100 Units/Ml SUB-Q Not Given TIDWM [facility] Protocol Insulin Aspart 1 - 3 units 08/26/24 21:00 08/26/24 21:34 Insulin Aspart (*Bkc) 100 Units/Ml SUB-Q 1 units HS [facility] Administration Protocol Insulin Aspart 5 units 08/28/24 06:30 Insulin Aspart (*Bkc) 100 Units/Ml SUB-Q DAILY@0630 [facility] Insulin Aspart 5 units 08/27/24 11:30 08/27/24 12:57 Insulin Aspart (*Bkc) 100 Units/Ml SUB-Q 5 units DAILY@1130 [facility] Administration Insulin Aspart 11 units 08/27/24 16:30 Insulin Aspart (*Bkc) 100 Units/Ml SUB-Q DAILY@1630 [facility] Insulin Glargine 18 units 08/27/24 21:00 Insulin Glargine (*Bkc) 100 Units/Ml SUB-Q HS [facility] Losartan Potassium 100 mg 08/28/24 09:00 Losartan Potassium 50 Mg Tablet PO DAILY [facility] Pantoprazole Sodium 40 mg 08/27/24 18:00 Pantoprazole 40 Mg Tablet PO QPM [facility] Perflutren Lipid Microsphere 0 ml 08/26/24 19:12 Perflutren Lipid Microspheres 1.5 Ml Vial Diluted To 10 Ml Total Volume IV PUSH 08/29/24 19:12 ONCE PRN adequate visualization Protocol Senna 8.6 mg 08/28/24 09:00 Sennosides 8.6 Mg Tablet PO DAILY [facility] Sertraline HCl 150 mg 08/28/24 09:00 Sertraline Hcl 50 Mg Tablet PO DAILY [facility] Tamsulosin HCl 0.4 mg 08/27/24 21:00 Tamsulosin Hcl 0.4 Mg Capsule PO [facility] Radiology Results: ITS Impressions Chest X-Ray 08/26/24 17:53 IMPRESSION: No acute cardiopulmonary process. Head CT 08/26/24 18:10 IMPRESSION: No acute intracranial process. Brain MRI 08/27/24 13:32 IMPRESSION: 1. No acute intracranial process. 2. Extensive nonspecific cerebral and pontine white matter T2 hyperintensity consistent with chronic small vessel ischemic disease. Labs Labs: Laboratory Results - last 24 hr 08/26/24 08/26/24 08/26/24 17:09 17:30 18:21 WBC 6.9 RBC 4.93 Hgb 13.6 L Hct 44.4 MCV 90.1 MCH 27.6 MCHC 30.6 L RDW 13.8 Plt Count 251 MPV 10.7 H Immature Gran % (Auto) 0.3 Neut % (Auto) 63.8 Lymph % (Auto) 24.6 [place] % (Auto) 8.3 Eos % (Auto) 2.3 Baso % (Auto) 0.7 Lymph # (Auto) 1.69 [place] # (Auto) 0.6 Eos # (Auto) 0.2 Baso # (Auto) 0.1 Abs Immat Gran (auto) 0.02 Absolute Neuts (auto) 4.4 Absolute Nucleated RBC 0.000 Nucleated RBC % 0.0 Sodium 134 L Potassium 3.8 Chloride 97 L Carbon Dioxide 27 Anion Gap 10 BUN 18 Creatinine 0.76 Estim Creat Clear Calc 75 Estimated GFR > 60 Glucose 239 H POC Capillary Glucose Hemoglobin A1c 9.8 H Calcium 9.1 Magnesium Total Bilirubin 0.5 AST 22 ALT 10 Alkaline Phosphatase 148 H Total Protein 7.0 Albumin 4.2 Urine Color Yellow Urine Appearance Clear Urine pH 5.5 Ur Specific [place] 1.034 Urine Protein 2+ H Urine Glucose (UA) 3+ H Urine Ketones 1+ H Ur Blood (Man) Negative Urine Nitrate Negative Urine Bilirubin Negative Urine Urobilinogen 0.2 Leukocyte Esterase Rfl Negative Urine RBC 0-2 Urine WBC 0-5 Ur Squamous Epith Cells None seen Urine Bacteria None seen Urine Casts 0-2 Influenza A (RT-PCR) Negative Influenza B (RT-PCR) Negative RSV (RT-PCR) Negative SARS-CoV-2 RNA (RT-PCR) Negative 08/26/24 08/26/24 08/27/24 20:19 21:03 05:11 WBC 7.6 RBC 4.24 L Hgb 11.9 L Hct 38.0 L MCV 89.6 MCH 28.1 MCHC 31.3 L RDW 13.9 Plt Count 219 MPV 10.4 Immature Gran % (Auto) 0.3 Neut % (Auto) 65.1 Lymph % (Auto) 24.3 [place] % (Auto) 8.4 Eos % (Auto) 1.2 Baso % (Auto) 0.7 Lymph # (Auto) 1.85 [place] # (Auto) 0.6 Eos # (Auto) 0.1 Baso # (Auto) 0.1 Abs Immat Gran (auto) 0.02 Absolute Neuts (auto) 5.0 Absolute Nucleated RBC 0.000 Nucleated RBC % 0.0 Sodium 137 Potassium 3.6 Chloride 101 Carbon Dioxide 28 Anion Gap 8 BUN 19 Creatinine 0.78 Estim Creat Clear Calc 73 Estimated GFR > 60 Glucose 176 H POC Capillary Glucose 189 H 221 H Hemoglobin A1c Calcium 8.7 Magnesium 2.0 Total Bilirubin 0.4 AST 17 ALT 10 Alkaline Phosphatase 111 Total Protein 6.0 L Albumin 3.5 Urine Color Urine Appearance Urine pH Ur Specific [place] Urine Protein Urine Glucose (UA) Urine Ketones Ur Blood (Man) Urine Nitrate Urine Bilirubin Urine Urobilinogen Leukocyte Esterase Rfl Urine RBC Urine WBC Ur Squamous Epith Cells Urine Bacteria Urine Casts Influenza A (RT-PCR) Influenza B (RT-PCR) RSV (RT-PCR) SARS-CoV-2 RNA (RT-PCR) 08/27/24 08/27/24 08:13 12:26 WBC RBC Hgb Hct MCV MCH MCHC RDW Plt Count MPV Immature Gran % (Auto) Neut % (Auto) Lymph % (Auto) [place] % (Auto) Eos % (Auto) Baso % (Auto) Lymph # (Auto) [place] # (Auto) Eos # (Auto) Baso # (Auto) Abs Immat Gran (auto) Absolute Neuts (auto) Absolute Nucleated RBC Nucleated RBC % Sodium Potassium Chloride Carbon Dioxide Anion Gap BUN Creatinine Estim Creat Clear Calc Estimated GFR Glucose POC Capillary Glucose 171 H 197 H Hemoglobin A1c Calcium Magnesium Total Bilirubin AST ALT Alkaline Phosphatase Total Protein Albumin Urine Color Urine Appearance Urine pH Ur Specific [place] Urine Protein Urine Glucose (UA) Urine Ketones Ur Blood (Man) Urine Nitrate Urine Bilirubin Urine Urobilinogen Leukocyte Esterase Rfl Urine RBC Urine WBC Ur Squamous Epith Cells Urine Bacteria Urine Casts Influenza A (RT-PCR) Influenza B (RT-PCR) RSV (RT-PCR) SARS-CoV-2 RNA (RT-PCR)
--- NOTE | 2024-08-27 15:05 | PCOTNOTE ---
Attempted OT evaluation. Patient pending EEG. Will hold evaluation till EEG, will follow.
--- NOTE | 2024-08-27 15:05 | PCPTNOTE ---
Attempted to see for PT evaluation, per chart review pt is not neurologically stable, unsure if he is having active seizures. Will see after EEG.
[2024-08-27] MEDS: DOCUSATE SODIUM 100 MG CAPSULE 200 MG PO (16:48)
[2024-08-27 17:03] LABS: Glucose Point of Care 132 mg/dl (65-105)
[2024-08-27] MEDS: INSULIN ASPART (*BKC) 100 UNITS/ML 11 UNITS SUB-Q (18:06)
[2024-08-27] MEDS: PANTOPRAZOLE 40 MG TABLET PO (18:57)
[2024-08-27] MEDS: ATORVASTATIN 40 MG TABLET 80 MG PO (20:38)
[2024-08-27] MEDS: TAMSULOSIN HCL 0.4 MG CAPSULE PO (20:38)
[2024-08-27 22:12] LABS: Glucose Point of Care 95 mg/dl (65-105)
[2024-08-28] VITALS (15 sets, daily range): BP systolic 100–168; BP diastolic 53–90; PULSE 70–87; RESP 18; TEMP 36.5–36.7; O2SAT 95–98
--- NOTE | 2024-08-28 | ECHO_ITS ---
Patient Info Name: Memo Simpson Age: 73 years : 1950 Gender: Male Ht: 69 in Wt: 186 lbs BSA: 2.04 m2 HR: 83 bpm BP: 145 / 58 mmHg Technical Quality: Fair Exam Date: 08/28/2024 9:26 AM Exam Location: Echo Lab Patient Status: Inpatient Admit Date: 08/27/2024 Staff Ordering Physician: Montse Pimentel [employer] Installer: Donn Clement RDCS Attending Provider: Leonila Metcalf APRN Referring Physician: Loren WATKINS; Exam Type: CA echo limited w bubble study Study Info Indications - SYNCOPE Limited two-dimensional transthoracic echocardiogram is performed with agitated saline. Contrast/Agitated Saline Contrast/Ag. Saline: Agitated Saline Amount: 20.00 ml Existing IV Access: Yes Summary 1. The left ventricle is normal in size and systolic function. The left ventricular ejection fraction is visually estimated to be 50-55%. 2. The right ventricle is normal in size and systolic function. 3. The bubble study is negative for [id number] shunt. Left Ventricle The left ventricle is normal in size and systolic function. The left ventricular ejection fraction is visually estimated to be 50-55%. Right Ventricle The right ventricle is normal in size and systolic function. Left Atria The left atrium is mildly dilated. Right Atria The right atrium is normal size. Atrial Septum The bubble study is negative for [id number] shunt. Aortic Valve The aortic valve is trileaflet and calcified but opens adequately. Mitral Valve The mitral valve is calcified but opens well. There is no mitral regurgitation. There is evidence of subvalvular calcification. Tricuspid Valve The tricuspid valve is normal. There is no tricuspid regurgitation. Ventricles Name Value Normal LV Fractional Shortening/Ejection Fraction 2D/MM LV Diastolic Volume (4C MOD) 180 ml LV EF (4C MOD) 63 % LV Diastolic Volume (2C MOD) 118 ml LV EF (2C MOD) 45 % LV Diastolic Volume (BP MOD) 147 ml 62-150 LV Diastolic Volume Index (BP MOD) 72 ml/m2 34-74 LV Systolic Volume (BP MOD) 69 ml 21-61 LV Systolic Volume Index (BP MOD) 34 ml/m2 11-31 LV EF (BP MOD) 53 % 52-72 LV Diastolic Length (4C) 9.4 cm LV Systolic Length (4C) 8.4 cm LV Stroke Volume (4C MOD) 114 ml Report Signatures
[2024-08-28 06:28] LABS: Basophils Percent Auto 0.5 % (0.2-1.2); Eosinophils Absolute Auto 0.3 K/mm3 (0-0.3); Eosinophils Percent Auto 3.5 % (0-4.4); Hemoglobin 12.2 g/dL (14.0-18.0); Immature Granulocyte Absolute 0.02 K/mm3 (0.00-0.031); Immature Granulocyte Percent A 0.3 % (0-0.5); Lymphocytes Absolute Auto 1.88 K/mm3 (0.9-3.2); Lymphocytes Percent Auto 23.7 % (18.3-44.2); Mean Corpuscular HGB Conc 30.5 g/dl (32-36); Mean Corpuscular Hemoglobin 28.2 pg (26-34); Mean Corpuscular Volume 92.6 fl (80-100); Mean Platelet Volume 10.6 fl (7.4-10.4); Monocytes Absolute Auto 0.7 K/mm3 (0.1-0.6); Monocytes Percent Auto 8.6 % (2.6-8.5); Neutrophils Percent Auto 63.4 % (45.5-73.1); Platelet Count Result 198 k/mm3 (150-375); Red Blood Count 4.32 M/mm3 (4.6-6.20); Red Cell Distribution Width 13.9 % (11.5-14.5); White Blood Count 7.9 K/mm3 (4.5-10.0)
[2024-08-28 06:46] LABS: Alanine Aminotransferase 7 U/L (6-50); Albumin Level 3.5 g/dL (3.5-5.1); Alkaline Phosphatase 113 U/L (38-126); Anion Gap 8 mmol/L (4-12); Aspartate Amino Transferase 39 U/L (17-59); Bilirubin,Total 0.4 mg/dL (0.2-1.3); Blood Urea Nitrogen 14 mg/dL (9-20); Carbon Dioxide 27 mmol/L (22-30); Chloride 104 mmol/L (98-107); Estimated CRCL calculation 96 ml/min; Estimated Glomerular Filt Rate > 60; Glucose 158 mg/dL (65-110); Potassium 3.8 mmol/L (3.4-5.0); Sodium 139 mmol/L (137-145)
[2024-08-28 08:27] LABS: Glucose Point of Care 180 mg/dl (65-105)
[2024-08-28] MEDS: INSULIN ASPART (*BKC) 100 UNITS/ML SUB-Q ×3 (08:34→20:44)
[2024-08-28] MEDS: CARBIDOPA/LEVODOPA 25/100 MG TABLET 2 TABLET PO ×4 (09:27→20:34)
[2024-08-28] MEDS: LOSARTAN POTASSIUM 50 MG TABLET 100 MG PO (09:27)
[2024-08-28] MEDS: ASPIRIN 81 MG CHEWABLE TABLET PO (09:27)
[2024-08-28] MEDS: SENNOSIDES 8.6 MG TABLET PO (09:27)
[2024-08-28] MEDS: DOCUSATE SODIUM 100 MG CAPSULE 200 MG PO ×2 (09:27→17:01)
[2024-08-28] MEDS: SERTRALINE HCL 50 MG TABLET 150 MG PO (09:27)
[2024-08-28] MEDS: FINASTERIDE 5 MG TABLET PO (09:28)
[2024-08-28] MEDS: EMPAGLIFLOZIN 25 MG TABLET PO (09:28)
[2024-08-28 12:15] LABS: Glucose Point of Care 156 mg/dl (65-105)
--- NOTE | 2024-08-28 15:06 | P.PNIM_ITS ---
Progress Note: A&P Assessment and Plan (1) Altered mental status: Qualifiers: Altered mental status type: transient alteration of awareness Qualified Code(s): R40.4 - Transient alteration of awareness Code(s): R41.82 - Altered mental status, unspecified Status: Acute (2) Syncope: Qualifiers: Syncope type: unspecified Qualified Code(s): R55 - Syncope and collapse Code(s): R55 - Syncope and collapse Status: Acute (3) Hypotension: Code(s): I95.9 - Hypotension, unspecified Status: Acute (4) Diabetes type 2, controlled: Qualifiers: Diabetes mellitus correction insulin use: with correction use Diabetes mellitus complication status: with unspecified complications Qualified Code(s): E11.8 - Type 2 diabetes mellitus with unspecified complications; Z79.4 - senior care (current) use of insulin Code(s): E11.9 - Type 2 diabetes mellitus without complications Status: Chronic (5) Parkinson disease: Code(s): G20.A1 - Parkinson's disease without dyskinesia, without mention of fluctuations Status: Chronic (6) Hypertension: Qualifiers: Hypertension type: essential hypertension Qualified Code(s): I10 - Essential (primary) hypertension Code(s): I10 - Essential (primary) hypertension Status: Chronic (7) Hyperlipidemia: Qualifiers: Hyperlipidemia type: unspecified Qualified Code(s): E78.5 - Hyperlipidemia, unspecified Code(s): E78.5 - Hyperlipidemia, unspecified Status: Chronic (8) GERD (gastroesophageal reflux disease): Qualifiers: Esophagitis presence: without esophagitis Qualified Code(s): K21.9 - Gastro-esophageal reflux disease without esophagitis Code(s): K21.9 - Gastro-esophageal reflux disease without esophagitis Status: Chronic Plan This 73 year old male pt with PMH of Parkinson's, Nicotine abuse, IDDM, HLD, BPH, with prior episodes of vasovagal syncope comes to the ER today brought by EMS with complaints of having an episode of AMS where pt just sat in the chair and stared for approximately 15 minutes. The pt was then placed on EMS stretcher and was noted to be Hypotensive. He was brought to the ER for further evaluation where he seems to have improved overall. On review of pt's EMR from 06/2024, he had a similar episode that started the same way. Pt is without any acute complaints or symptoms such as headache, CP, dyspnea, N/V. In the ER workup was performed and labs unremarkable with CBC and CMP. U rinalysis negative for infection. Patient negative for COVID, influenza, RSV. Chest x-ray was normal and CT head with no acute intracranial process. Last reviewed echocardiogram from July 13, 2024 showed a normal systolic function with a 55-60% ejection fraction. Patient was given IV fluids in the emergency room. EKG in ER showing NSR with LAD 69 bpm. Patient's spouse is at the bedside and is determined to be a good and reliable source of information very knowledgeable about the patient's health. She was present when the event occurred today and noted that patient just kept staring straight ahead, not blinking with eyes open and would not respond to verbal stimuli. She stated at 1 point has respirations changed and became very shallow with a pale skin appearance and blue lips and she noted that his eyes deviated to each side going in opposite directions. There were no prodromal symptoms of chest pain, dyspnea, headache, dizziness. Patient had reportedly awakened early today and then went back to sleep and had slept most of the day. His spouse noted that he had not taken his medications. She checked his glucose during the altered mental status episode and it was noted to be 296. She does state that over the course of the past 2-3 months his losartan dose has gradually been increased from 50 mg daily to 100 mg daily. Patient sees neurologist, Dr. Vidal, at [facility] and has an appointment scheduled for this week. Neurology has been consulted. Brain MRI was performed which did not show any acute intracranial process. There are extensive nonspecific cerebral and pontine white matter T2 hyperintensity consistent with chronic small-vessel ischemic disease. EEG pending. PT OT evaluation Altered mental status this has resolved now History of syncope with positive orthostasis in the past. Insulin-dependent diabetes mellitus Peripheral neuropathy BPH GERD Hypertension Hyperlipidemia COPD DVT prophylaxis SCDs Code status full code Subjective Date/time seen: 08/28/24 15:06 Interval history: No overnight events. PT OT pending. Going for EEG today. Review of Systems Review of Systems: All systems reviewed & are unremarkable except as noted in HPI and below Exam Narrative: APPEARANCE: Well appearing, no pain, no distress, well-nourished. HEAD: normocephalic, atraumatic. EYES: PERRLA/EOMI, conjunctivae clear. NOSE: Normal no drainage NECK: Supple. No adenopathy, no masses. RESPIRATORY: Airway patent, respirations nonlabored. Clear to auscultation bilaterally, no rales, rhonchi, wheezing. CARDIOVASCULAR: Regular rate and rhythm without murmurs rubs or gallops. ABDOMINAL: Soft, nontender, nondistended, normal bowel sounds MUSCULOSKELETAL: Moves all extremities. Strength/ROM intact, No edema, No calf tenderness. NEURO: Alert. Cranial nerves II through XII intact. Grossly intact SKIN: Warm, dry. Normal Color Objective Data Vital Signs Vital Signs: Vital Signs - 24 hr 08/27/24 16:00 08/27/24 20:00 08/27/24 20:00 Temperature Pulse Rate 86 80 81 Respiratory Rate 18 Blood Pressure Pulse Oximetry 97 Oxygen Delivery Room Air Oxygen Flow Rate 08/27/24 21:17 08/27/24 21:20 08/27/24 21:23 Temperature 98.3 F 98.3 F 98.3 F Pulse Rate 80 86 91 Respiratory Rate 18 18 18 Blood Pressure 139/77 119/58 L 122/59 L Pulse Oximetry 97 96 97 Oxygen Delivery Oxygen Flow Rate 08/27/24 21:30 08/28/24 00:00 08/28/24 04:00 Temperature 98.3 F Pulse Rate 80 77 77 Respiratory Rate 18 Blood Pressure 139/77 Pulse Oximetry 97 Oxygen Delivery Oxygen Flow Rate 08/28/24 05:39 08/28/24 08:03 08/28/24 09:28 Temperature 98.0 F Pulse Rate 83 72 Respiratory Rate 18 18 Blood Pressure 145/58 H Pulse Oximetry 95 95 Oxygen Delivery Nasal Cannula Oxygen Flow Rate 3 08/28/24 09:50 08/28/24 12:01 08/28/24 14:06 Temperature Pulse Rate 72 Respiratory Rate Blood Pressure Pulse Oximetry Oxygen Delivery Nasal Cannula Nasal Cannula Oxygen Flow Rate 3 3 Intake/Output Intake/Output: Intake & Output 08/25/24 08/26/24 08/27/24 08/28/24 23:59 23:59 23:59 23:59 Intake Total 1420 1010 Output Total 300 Balance -300 1420 1010 Meds/Results Medications: Active Medications Generic Name Dose Route Start Last Admin Trade Name Freq PRN Reason Stop Dose Admin Albuterol 1 puff 08/27/24 12:24 Albuterol Sulfate (*Sp) Aerosol 1 Puff INHALATION QID PRN shortness of breath or wheezing Aspirin 81 mg 08/28/24 08:00 08/28/24 09:27 Aspirin 81 Mg Chewable Tablet PO 81 mg DAILY@0800 KETTY Administration Atorvastatin Calcium 80 mg 08/27/24 21:00 08/27/24 20:38 Atorvastatin 40 Mg Tablet PO 80 mg HS KETTY Administration Carbidopa/Levodopa 2 tablet 08/27/24 13:00 08/28/24 12:25 Carbidopa/Levodopa 25/100 Mg Tablet PO 2 tablet QID KETTY Administration Dextrose 12.5 gm 08/26/24 19:07 Dextrose 50% 25 Gm/50 Ml Syringe IV PUSH PRN PRN Hypoglycemia Protocol Diclofenac Sodium 1 applic 08/27/24 12:16 08/27/24 13:00 Diclofenac Sodium 1% 100 Gm Gel (*Bkc) TOPICAL 1 applic QID PRN Administration pain Docusate Sodium 200 mg 08/27/24 17:00 08/28/24 09:27 Docusate Sodium 100 Mg Capsule PO 200 mg BID KETTY Administration Empagliflozin 25 mg 08/28/24 09:00 08/28/24 09:28 Empagliflozin 25 Mg Tablet PO 25 mg DAILY KETTY Administration Finasteride 5 mg 08/28/24 09:00 08/28/24 09:28 Finasteride 5 Mg Tablet PO 5 mg DAILY KETTY Administration Glucagon 1 mg 08/26/24 19:07 Glucagon For Inj 1 Mg Vial IM PRN PRN Hypoglycemia Protocol Glucose 15 gm 08/26/24 19:07 Glucose Oral Gel 15 Gm Of Glucse In 37.5 Gm Tube PO PRN PRN Hypoglycemia Protocol Dextrose 1,000 mls @ 100 mls/hr 08/26/24 19:07 Dextrose 5% 1,000 Ml IVPB PRN PRN Hypoglycemia Protocol Insulin Aspart 3 - 6 units 08/27/24 08:00 08/28/24 12:24 Insulin Aspart (*Bkc) 100 Units/Ml SUB-Q Not Given TIDWM [facility] Protocol Insulin Aspart 1 - 3 units 08/26/24 21:00 08/27/24 21:02 Insulin Aspart (*Bkc) 100 Units/Ml SUB-Q Not Given HS [facility] Protocol Insulin Aspart 5 units 08/28/24 06:30 08/28/24 08:34 Insulin Aspart (*Bkc) 100 Units/Ml SUB-Q 5 units DAILY@0630 KETTY Administration Insulin Aspart 5 units 08/27/24 11:30 08/28/24 12:26 Insulin Aspart (*Bkc) 100 Units/Ml SUB-Q 5 units DAILY@1130 KETTY Administration Insulin Aspart 11 units 08/27/24 16:30 08/27/24 18:06 Insulin Aspart (*Bkc) 100 Units/Ml SUB-Q 11 units DAILY@1630 KETTY Administration Insulin Glargine 18 units 08/27/24 21:00 08/27/24 21:03 Insulin Glargine (*Bkc) 100 Units/Ml SUB-Q Not Given HS KETTY Losartan Potassium 100 mg 08/28/24 09:00 08/28/24 09:27 Losartan Potassium 50 Mg Tablet PO 100 mg DAILY KETTY Administration Pantoprazole Sodium 40 mg 08/27/24 18:00 08/27/24 18:57 Pantoprazole 40 Mg Tablet PO 40 mg QPM KETTY Administration Perflutren Lipid Microsphere 0 ml 08/26/24 19:12 Perflutren Lipid Microspheres 1.5 Ml Vial Diluted To 10 Ml Total Volume IV PUSH 08/29/24 19:12 ONCE PRN adequate visualization Protocol Senna 8.6 mg 08/28/24 09:00 08/28/24 09:27 Sennosides 8.6 Mg Tablet PO 8.6 mg DAILY KETTY Administration Sertraline HCl 150 mg 08/28/24 09:00 08/28/24 09:27 Sertraline Hcl 50 Mg Tablet PO 150 mg DAILY KETTY Administration Tamsulosin HCl 0.4 mg 08/27/24 21:00 08/27/24 20:38 Tamsulosin Hcl 0.4 Mg Capsule PO 0.4 mg HS KETTY Administration Radiology Results: ITS Impressions Chest X-Ray 08/26/24 17:53 IMPRESSION: No acute cardiopulmonary process. Head CT 08/26/24 18:10 IMPRESSION: No acute intracranial process. Brain MRI 08/27/24 13:32 IMPRESSION: 1. No acute intracranial process. 2. Extensive nonspecific cerebral and pontine white matter T2 hyperintensity consistent with chronic small vessel ischemic disease. Labs Labs: Laboratory Results - last 24 hr 08/27/24 08/27/24 08/28/24 16:50 21:01 06:03 WBC 7.9 RBC 4.32 L Hgb 12.2 L Hct 40.0 L MCV 92.6 MCH 28.2 MCHC 30.5 L RDW 13.9 Plt Count 198 MPV 10.6 H Immature Gran % (Auto) 0.3 Neut % (Auto) 63.4 Lymph % (Auto) 23.7 Divide % (Auto) 8.6 H Eos % (Auto) 3.5 Baso % (Auto) 0.5 Lymph # (Auto) 1.88 Divide # (Auto) 0.7 H Eos # (Auto) 0.3 Baso # (Auto) 0.0 Abs Immat Gran (auto) 0.02 Absolute Neuts (auto) 5.0 Absolute Nucleated RBC 0.000 Nucleated RBC % 0.0 Sodium 139 Potassium 3.8 Chloride 104 Carbon Dioxide 27 Anion Gap 8 BUN 14 D Creatinine 0.58 L Estim Creat Clear Calc 96 Estimated GFR > 60 Glucose 158 H POC Capillary Glucose 132 H 95 Calcium 9.0 Magnesium 2.0 Total Bilirubin 0.4 AST 39 ALT 7 Alkaline Phosphatase 113 Total Protein 6.0 L Albumin 3.5 08/28/24 08/28/24 08:18 12:07 WBC RBC Hgb Hct MCV MCH MCHC RDW Plt Count MPV Immature Gran % (Auto) Neut % (Auto) Lymph % (Auto) Divide % (Auto) Eos % (Auto) Baso % (Auto) Lymph # (Auto) Divide # (Auto) Eos # (Auto) Baso # (Auto) Abs Immat Gran (auto) Absolute Neuts (auto) Absolute Nucleated RBC Nucleated RBC % Sodium Potassium Chloride Carbon Dioxide Anion Gap BUN Creatinine Estim Creat Clear Calc Estimated GFR Glucose POC Capillary Glucose 180 H 156 H Calcium Magnesium Total Bilirubin AST ALT Alkaline Phosphatase Total Protein Albumin
[2024-08-28 17:01] LABS: Glucose Point of Care 188 mg/dl (65-105)
[2024-08-28] MEDS: PANTOPRAZOLE 40 MG TABLET PO (17:01)
[2024-08-28] MEDS: INSULIN ASPART (*BKC) 100 UNITS/ML 11 UNITS SUB-Q (17:04)
[2024-08-28] MEDS: TAMSULOSIN HCL 0.4 MG CAPSULE PO (20:34)
[2024-08-28] MEDS: ATORVASTATIN 40 MG TABLET 80 MG PO (20:34)
[2024-08-28] MEDS: INSULIN GLARGINE (*BKC) 100 UNITS/ML 18 UNITS SUB-Q (20:44)
[2024-08-28 21:48] LABS: Glucose Point of Care 220 mg/dl (65-105)
[2024-08-29] VITALS (8 sets, daily range): BP systolic 137–175; BP diastolic 74–86; PULSE 71–82; RESP 18–20; TEMP 36.4–36.5; O2SAT 94–98
[2024-08-29 08:05] LABS: Glucose Point of Care 163 mg/dl (65-105)
[2024-08-29] MEDS: INSULIN ASPART (*BKC) 100 UNITS/ML SUB-Q ×3 (08:17→12:24)
[2024-08-29] MEDS: LOSARTAN POTASSIUM 50 MG TABLET 100 MG PO (08:22)
[2024-08-29] MEDS: CARBIDOPA/LEVODOPA 25/100 MG TABLET 2 TABLET PO ×2 (08:22→12:22)
[2024-08-29] MEDS: ASPIRIN 81 MG CHEWABLE TABLET PO (08:22)
[2024-08-29] MEDS: DOCUSATE SODIUM 100 MG CAPSULE 200 MG PO (08:22)
[2024-08-29] MEDS: SENNOSIDES 8.6 MG TABLET PO (08:23)
[2024-08-29] MEDS: SERTRALINE HCL 50 MG TABLET 150 MG PO (08:23)
[2024-08-29] MEDS: FINASTERIDE 5 MG TABLET PO (08:23)
[2024-08-29] MEDS: EMPAGLIFLOZIN 25 MG TABLET PO (08:23)
--- NOTE | 2024-08-29 09:05 | P.NEURO_ITS ---
Neurology EEG Report General Information Date of Study: 08/28/24 TEST Eeg DIAGNOSIS seizure-like activity CONDITION OF RECORDING drowsy and asleep. EEG NUMBER [id number] CLINICAL HISTORY Patient reports he was sitting and talking when he just lost consciousness. EEG DESCRIPTION Background rhythm consists of low to medium voltage 5 to 7 hertz per 2nd theta activity admixed with intermittent low-voltage 15 to 18 hertz per 2nd beta activity. Bilateral symmetrical sleep activity is noted with admixture of low- voltage beta, theta, and alpha activity evolving into bilateral symmetrical sleep spindles. Occasional intermittent low-voltage 3 to 4 hertz per 2nd delta activity is noted. Hyperventilation not done, photic stimulation not done. Non paroxysmal. Nonfocal. Nonlateralizing. IMPRESSION Mildly abnormal record due to the presence of excessive amount of delta activity. There is no evidence of any paroxysmal discharge, clinical correlation recommended, this tracing does not rule out the possibility of seizures. EEG can be normal in the setting of seizure disorder as well.
[2024-08-29 12:01] LABS: Glucose Point of Care 223 mg/dl (65-105)
--- NOTE | 2024-08-29 12:22 | P.DS_ITS ---
DS: Admitting Diagnosis Discharge Date 08/29/2024 Admitting Diagnosis Altered mental status DS: Discharge Diagnosis Discharge Diagnosis (1) Altered mental status: Qualifiers: Altered mental status type: transient alteration of awareness Qualified Code(s): R40.4 - Transient alteration of awareness Code(s): R41.82 - Altered mental status, unspecified Status: Acute (2) Syncope: Qualifiers: Syncope type: unspecified Qualified Code(s): R55 - Syncope and collapse Code(s): R55 - Syncope and collapse Status: Acute (3) Hypotension: Code(s): I95.9 - Hypotension, unspecified Status: Acute (4) Diabetes type 2, controlled: Qualifiers: Diabetes mellitus senior living insulin use: with senior living use Diabetes mellitus complication status: with unspecified complications Qualified Code(s): E11.8 - Type 2 diabetes mellitus with unspecified complications; 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 Code(s): E11.9 - Type 2 diabetes mellitus without complications Status: Chronic (5) Parkinson disease: Code(s): G20.A1 - Parkinson's disease without dyskinesia, without mention of fluctuations Status: Chronic (6) Hypertension: Qualifiers: Hypertension type: essential hypertension Qualified Code(s): I10 - Essential (primary) hypertension Code(s): I10 - Essential (primary) hypertension Status: Chronic (7) Hyperlipidemia: Qualifiers: Hyperlipidemia type: unspecified Qualified Code(s): E78.5 - Hyperlipidemia, unspecified Code(s): E78.5 - Hyperlipidemia, unspecified Status: Chronic (8) GERD (gastroesophageal reflux disease): Qualifiers: Esophagitis presence: without esophagitis Qualified Code(s): K21.9 - Gastro-esophageal reflux disease without esophagitis Code(s): K21.9 - Gastro-esophageal reflux disease without esophagitis Status: Chronic DS: Summary Hospital Course Hospital Course: This 73 year old male pt with PMH of Parkinson's, Nicotine abuse, IDDM, HLD, BPH, with prior episodes of vasovagal syncope comes to the ER today brought by EMS with complaints of having an episode of AMS where pt just sat in the chair and stared for approximately 15 minutes. The pt was then placed on EMS stretcher and was noted to be Hypotensive. He was brought to the ER for further evaluation where he seems to have improved overall. On review of pt's EMR from 06/2024, he had a similar episode that started the same way. Pt is without any acute complaints or symptoms such as headache, CP, dyspnea, N/V. In the ER workup was performed and labs unremarkable with CBC and CMP. Urinalysis negative for infection. Patient negative for COVID, influenza, RSV. Chest x-ray was normal and CT head with no acute intracranial process. Last reviewed echocardiogram from July 13, 2024 showed a normal systolic function with a 55-60% ejection fraction. Patient was given IV fluids in the emergency room. EKG in ER showing NSR with LAD 69 bpm. Patient's spouse is at the bedside and is determined to be a good and reliable source of information very knowledgeable about the patient's health. She was present when the event occurred today and noted that patient just kept staring straight ahead, not blinking with eyes open and would not respond to verbal stimuli. She stated at 1 point has respirations changed and became very shallow with a pale skin appearance and blue lips and she noted that his eyes deviated to each side going in opposite directions. There were no prodromal symptoms of chest pain, dyspnea, headache, dizziness. Patient had reportedly awakened early today and then went back to sleep and had slept most of the day. His spouse noted that he had not taken his medications. She checked his glucose during the altered mental status episode and it was noted to be 296. She does state that over the course of the past 2-3 months his losartan dose has gradually been increased from 50 mg daily to 100 mg daily. Patient sees neurologist, Dr. Vidal, at [facility] and has an appointment scheduled for this week. Neurology has been consulted. Brain MRI was performed which did not show any acute intracranial process. There are extensive nonspecific cerebral and pontine white matter T2 hyperintensity consistent with chronic small-vessel ischemic disease. EEG was performed which was negative for any seizure activity. PT OT evaluation and recommended home health arrangement which was arranged the time of discharge. Altered mental status this has resolved now History of syncope with positive orthostasis in the past. Insulin-dependent diabetes mellitus Peripheral neuropathy BPH GERD Hypertension Hyperlipidemia COPD DVT prophylaxis SCDs Code status full code Time Spent with Patient Time attestation: Total time spent providing and/or coordinating discharge services: 40 minutes Exam Narrative: APPEARANCE: Well appearing, no pain, no distress, well-nourished. HEAD: normocephalic, atraumatic. EYES: PERRLA/EOMI, conjunctivae clear. NOSE: Normal no drainage NECK: Supple. No adenopathy, no masses. RESPIRATORY: Airway patent, respirations nonlabored. Clear to auscultation bilaterally, no rales, rhonchi, wheezing. CARDIOVASCULAR: Regular rate and rhythm without murmurs rubs or gallops. ABDOMINAL: Soft, nontender, nondistended, normal bowel sounds MUSCULOSKELETAL: Moves all extremities. Strength/ROM intact, No edema, No calf tenderness. NEURO: Alert. Cranial nerves II through XII intact. Grossly intact SKIN: Warm, dry. Normal Color DS: Data Data Completed and Pending Labs on day of discharge: Labs from last 24 hours 08/29/24 08/29/24 08/28/24 11:53 07:59 20:41 POC Capillary Glucose 223 H 163 H 220 H 08/28/24 16:57 POC Capillary Glucose 188 H Imaging Radiologist's impression: ITS Impressions Chest X-Ray 08/26/24 17:53 IMPRESSION: No acute cardiopulmonary process. Head CT 08/26/24 18:10 IMPRESSION: No acute intracranial process. Brain MRI 08/27/24 13:32 IMPRESSION: 1. No acute intracranial process. 2. Extensive nonspecific cerebral and pontine white matter T2 hyperintensity consistent with chronic small vessel ischemic disease. Discharge Plan Discharge Attending physician on discharge: Chon Hernandez Consulting providers: Lebron Babb Discharging Clinician: Chon Hernandez Anticipated Discharge Date/Time: 08/29/24 12:24 Patient Disposition: Home Health Service Activity: as tolerated Diet: heart healthy and diabetic Discharge Instructions: Per Care Coordination: Please follow up with [facility] in [facility] to get set up with Home Health for physical and occupational therapy, we are unable to arrange at this time as it is required to go through your primary. Home Health will help you to get stronger. Patient Instructions: Antibiotic Form, Heart Failure (DC), Pain Management (DC) Patient Language: Gambian Stand Alone Forms: General Discharge Information Follow-up/Referrals: Lebron Babb MD [Physician] - 2 Weeks [facility] [Primary Care Provider] - 1 Week Discharge Medications: Continued atorvastatin 40 mg Tablet 80 mg PO HS insulin aspart U-100 [Novolog U-100 Insulin aspart] 100 unit/mL Solution 5 unit SUBCUT .with breakfast metformin 1,000 mg Tablet 1,000 mg PO BID albuterol 90 mcg/actuation Aerosol 1 mcg INHALATION QID PRN (Reason: shortness of breath or wheezing) finasteride 5 mg Tablet 5 mg PO DAILY insulin glargine 100 unit/mL Cartridge 18 unit SUBCUT HS diclofenac sodium 1 % Gel 4 g TOPICAL QID PRN (Reason: pain) sertraline 100 mg Tablet 150 mg PO DAILY tamsulosin 0.4 mg Capsule 0.4 mg PO HS pantoprazole 40 mg Tablet,Delayed Release (Dr/Ec) 40 mg PO QPM aspirin [Children's Aspirin] 81 mg Tablet,Chewable 81 mg PO DAILY@0800 Qty: 30 0RF carbidopa-levodopa 25-100 mg tablet 2 tablet PO QID Patient Comments: significant other decreased dose to 2 tabs with neurologist instruction losartan [Cozaar] 50 mg tablet 100 mg PO DAILY docusate sodium 100 mg capsule 200 mg PO BID sennosides [senna] 8.6 mg tablet 8.6 mg PO DAILY insulin aspart U-100 [Novolog U-100 Insulin aspart] 100 unit/mL solution 5 unit subcut .with lunch insulin aspart U-100 [Novolog U-100 Insulin aspart] 100 unit/mL solution 11 unit subcut .with dinner Ozempic 1 mg/dose (4 mg/3 mL) pen injector 1 mg subcut WEEKLY Rx Instructions: every Wednesday empagliflozin 25 mg tablet 25 mg PO DAILY Date of admission: 08/27/24 07:35 Primary Care Provider: [facility]KUSUM Admitting Provider: Jitendra Collins Attending physician on admission: Leonila Metcalf Condition: Stable
== END 2024-08-29 16:30 | disposition home health service (06) | DRG 312 ==
LOC: ANHED 17:40 → ANH3MEDSUR 19:36 → ANH2MED 20:07
PROVIDERS: Nurse Practitioner Acute Care; Nurse Practitioner Adult Health; Student in an Organized Health Care Education/Training Program; Admitting Provider Internal Medicine; Emergency Provider Emergency Medicine; Visit Provider Internal Medicine
DX: R55 Syncope and collapse (principal); R41.82 Altered mental status, unspecified; I95.9 Hypotension, unspecified; E78.5 Hyperlipidemia, unspecified; E11.42 Type 2 diabetes mellitus with diabetic polyneuropathy; G20.A1 Parkinson's disease without dyskinesia, without mention of fluctuations; N40.0 Benign prostatic hyperplasia without lower urinary tract symptoms; K21.9 Gastro-esophageal reflux disease without esophagitis; Z99.81 Dependence on supplemental oxygen; Z20.822 Contact with and (suspected) exposure to COVID-19; Z79.4 Long term (current) use of insulin; Z87.891 Personal history of nicotine dependence; Z79.82 Long term (current) use of aspirin
CPT/HCPCS: 36415; 70450; 70553; 71045; 80053; 81001; 82948; 83036; 83735; 85025; 87637; 93005; 93308; 95816; 96374; 96375; 97161; 97165; 97535; 99285; A9270; A9577; G0378; J1815

== ENCOUNTER 2024-12-19 19:51 | Emergency (ER) | payer MEDICARE, SELFPAY ==
[2024-12-19] VITALS (20 sets, daily range): BP systolic 146–179; BP diastolic 58–93; PULSE 53–68; RESP 12–20; TEMP 33.8–35.2; O2SAT 93–95
--- NOTE | ~2024-12-19 | CT_ITS ---
Clinical Indication: Altered mental status, elevated d-dimer CT Scan of the Chest, Abdomen, and Pelvis with Contrast: Technique: Contiguous sections were acquired throughout the chest, abdomen, and pelvis after intraven ous administration of 100 cc of Omnipaque 350. Dose reduction technique was used on this scan by uti lizing automated exposure control and iterative reconstruction technique. The dose-length product (DL P) was 2108.19 mGy-cm. Comparison: 07/10/2024 Findings: There is no evidence of any significant mediastinal, hilar or axillary lymphadenopathy. The mediastin al soft tissues appear normal. No pulmonary embolus seen. No aortic aneurysm or dissection. There is no evidence of pleural or pericardial effusion. Chronic areas of left basilar atelectasis is noted. A few scattered subcentimeter pulmonary nodule pr esent, largest the right lower lobe measuring 4 mm (axial image 100). The liver, spleen, pancreas, gallbladder, left adrenal gland, and kidneys are within normal limits. S table small right adrenal nodule, likely adenoma. There are atherosclerotic calcifications of the aor ta. No lymphadenopathy. No bowel obstruction or bowel wall thickening. There is no evidence to suggest acute appendicitis. Urinary bladder is collapsed around a Walters catheter. No pelvic mass evident. No ascites. Impression: No acute abnormality. Chronic left basilar atelectatic change. Scattered subcentimeter pulmonary nodules are similar to prior exam, most likely benign. Probable small left adrenal adenoma. Reviewed, dictated and finalized at location . Impression: No acute abnormality. Chronic left basilar atelectatic change. Scattered subcentimeter pulmonary nodules are similar to prior exam, most likel y benign. Probable small left adrenal adenoma.
--- NOTE | ~2024-12-19 | CT_ITS ---
CT scan of the Neck Technique: 2.5 mm axial scans were obtained through the neck after intravenous administration of 100 cc Omnipaque 350. Coronal and sagittal reconstructions of the neck were obtained. Dose reduction tech nique was used on this scan by utilizing automated exposure control and iterative reconstruction tech nique. The dose-length product (DLP) was 618.39 mGy-cm. Clinical History: Left parotid enlargement Findings: There is no evidence of any significant cervical lymphadenopathy. Several small, nonenlarged jugulo- digastric and posterior cervical lymph nodes are noted bilaterally. Parapharyngeal spaces appear norm al bilaterally. There is mild enlargement of the left parotid gland as compared to the right, without evidence of discrete mass or definite inflammatory change. Submandibular glands unremarkable.. The pharyngeal mucosal spaces appear normal. No soft tissue masses are seen in the neck. The thyroid gland appears normal. Images of the lung apices reveal no abnormalities, aside from left basilar atelectatic change. Impression: Left parotid gland is mildly enlarged as compared to the right, without evidence of discrete mass or definite inflammatory change. Clinical correlation required. Pre and postcontrast MR could be conside red for further evaluation for masses. Reviewed, dictated and finalized at location . Impression: Left parotid gland is mildly enlarged as compared to the right, without evidenc e of discrete mass or definite inflammatory change. Clinical correlation requir ed. Pre and postcontrast MR could be considered for further evaluation for mass es.
--- NOTE | ~2024-12-19 | XR_ITS ---
XR chest 1V Ordering provider: Mable Charlton MD History: 74 years Male with . shortness of breth, altered . Comparison: August 26, 2024 FINDINGS: MEDIASTINUM: The cardiac silhouette is moderately enlarged. Congestive riki. LUNGS: No infiltrates, effusions or pneumothorax. Lucency in the left apical area unchanged from prev ious examination. OTHER: No free air under the diaphragm. IMPRESSION: No acute cardiopulmonary pathology. Reviewed, dictated and finalized at location A.
--- NOTE | ~2024-12-19 | CT_ITS ---
CT brain wo con Ordering provider: Mable Charlton MD History: 74 years Male with . ams . Comparison: August 26, 2024 Technique: CT of the head without contrast. Radiation reduction technique utilized.The dose-length pr oduct was 681 mGy-cm. FINDINGS: BRAIN PARENCHYMA AND CSF SPACES: Mild leukoaraiosis and diffuse cortical atrophy. Mild atheromatous d isease. No midline shift, mass effect or hemorrhage. The brain parenchyma and CSF spaces are otherwi se normal. VISUALIZED PARANASAL SINUSES: Bilateral maxillary sinus. Old fracture in the right nasal bone. MASTOIDS: Well aerated. BONES: The bones appear intact. SOFT TISSUES: Visualized nasopharynx is normal. Enlarged left parotid the gland. Ultrasound or CT con trast evaluation advised. Otherwise, Superficial soft tissues are normal. IMPRESSION: No acute intracranial findings. Enlarged left parotid the gland. Further evaluation advised Reviewed, dictated and finalized at location A.
[2024-12-19 20:06] LABS: Glucose Point of Care 106 mg/dl (65-105)
--- OUTSIDE RECORDS SUMMARY | 2024-12-19 20:13 | XMS_ITS | Clinical Summary ---
Author Organization [facility] Medical Office Building B Address [address] [place] [address] Care Team Providers Care Fern Cutter Name Role Phone [facility], Roni Austin Primary Care Pro vider [...] 08/09/2023 Assessment & Plan (08/09/2023 3:17 AM BISQUE FINISHER): - Continue albuterol PRN - Patient is in process of arranging PFT for further evaluation at the [place] Acute on chronic diastolic congestive heart fail ure 08/09/2023 Overview (08/09/2023): Last ECHO in 04/2015 [...] edema.. Assessment & Plan (08/09/2023 7:48 AM BISQUE FINISHER): Holding furosemide 20 mg at this time in setting of hypovolemia. - TTE ordered - Continuous telemetry with vitals q8hr Gastro-esophageal reflux disease without esophag itis 08/09/2023 Assessment & Plan (08/09/2023 7:53 AM BISQUE FINISHER): - Continue home pantoprazole 40 mg daily [...] 04/2021. He [facility] with [facility]y [facility] the [place]. Last seen in clinic by them in 03/2023. He was last up-titrated to dose of regimen to 2 + 1.5 + 2+ 1.5 of sinamet. Assessment & Plan (08/09/2023 2:21 AM BISQUE FINISHER): - holding home carbidopa/levidopa in setting of [...] rest. Assessment & Plan (08/09/2023 7:39 AM BISQUE FINISHER): - Given 500 mL IVF in ED [...] up. Assessment & Plan (08/09/2023 7:54 AM BISQUE FINISHER): - Continue tamsulosin 0.4 mg daily Stercolith 02/14/2020 Overview (08/09/2023): Patient has had progressive [...] ordered Assessment & Plan (08/08/2023 10:53 PM BISQUE FINISHER): - will conduct enema - start miralax and senna scheduled Leukocytosis 02/13/2020 Overview (08/09/2023): In setting of recent syncopal episode, most likely reactive. No concerns for infectious process at this time.. Assessment & Plan (08/09/2023 2:37 AM BISQUE FINISHER): - CTM daily CBC's Type 2 diabetes, controlled, with renal manifest ation 02/12/2020 Overview (08/09/2023): Managed by PCP and endocrinology [facility]. [facility]CP at [facility] note 08/04/2023: Most recently seen with endocrine [...] recently. Assessment & Plan (08/09/2023 8:01 AM BISQUE FINISHER): Hemoglobin A1c 8.0 03/10 with lantus 30 at home - Repeat A1c here - Dose reduce to 20 units with ss - Continue to monitor with POCT glucose checks TIDAC Mixed hyperlipidemia 02/01/2020 Overview (08/09/2023): Prev lipid panel 08/2022: LDL 68, HDL 58 [facility]. Assessment & Plan (08/08/2023 10:55 PM BISQUE FINISHER): - Ordering lipid panel - Continue home atorvastatin 40 mg Depression 02/01/2020 Assessment & Plan (08/09/2023 7:53 AM BISQUE FINISHER): - Continue home sertraline 150 mg daily [...] disease. Assessment & Plan (08/09/2023 7:43 AM BISQUE FINISHER): - Continue losartan 50 mg - Holding [...] Q6H and topiramate 50 mg BID Immunizations Immunization Administration Dates Next Due H1N1 All Forms 08/13/2009,08/08/2009 Influenza, Quad, Adjuvantate d, Intramuscular 08/20/2022,05/13/2021 Influenza, Quadrivalent, Hig h Dose, Preservative Free, Intrr 06/26/2020 Influenza, Quadrivalent, Spl it, Preservative Free, Intramuscular 06/09/2019,06/30/2018 Influenza, Trivalent, Preser vative Free, Intramuscular 03/19/2019,06/30/2016,04/09/2015,08/28 Influenza, Unspecified 04/20/2013,2011,04/02/2011,05/14,05/08/2009,06/11/2008,05/13/2006 ,06/23/2005 Semprius Sars-Cov-2 Bivalent V accination (12+ YRS) 08/20/2022 Pneumococcal Conjugate PCV 13 06/30/2016 Pneumococcal Polysaccharide PPV23 07/15/2018 Pneumococcal, Unspecified 02/25/2007 Td, Unspecified 02/25/2007 Tdap 03/02/2017 ZOSTER LIVE 07/28/2012 ZOSTER Recombinant 07/15/2018,12/31/2017 Medical History Medical History Date Comments Pressure injury of sacral re gion, stage 3 ([facility]) 02/13/2020 Formatting of this note migh t be different from the original. Wound care consulted, debridement not indicated at this time Wound dressing ordered Encephalopathy acute 02/15/2020 Decubitus ulcer of coccyx, u nstageable ([facility]) 02/12/2020 Formatting of this note migh t be different from the original. Present on receipt to skilled rehab admission 02/09/20. Santyl and wound consult. Cellulitis of right leg 02/12/2020 Formatti ng of this note might be different from the original. 02/09/20 completing Doxycycline course PO. Minimal erythema. Cellulitis, unspecified 08/09/2023 Lateral epicondylitis 08/09/2023 Social History Tobacco Use Types Packs/Day Years Used Date Smoking Tobacco: Former Cigarettes Tobacco Cessation:Counseling Given: Not Answered [facility] Utilities Answer Date Recorded In the past [...] often do you attend chur ch or cheondoism services? Never 08/12/2023 Do you belong to any clubs o r organizations such as religious groups, unions, fraternal or athletic groups, or [...] on file Legal Sex Male 5:35 PM BISQUE FINISHER Gender Identity Not on file Sexual Orientation Not on file Obstetrics History Last Filed Vital Signs Vital Sign Reading Time Taken Comments Blood Pressure 99/59 08/11/2023 11:05 AM BISQUE FINISHER Pulse 68 08/11/2023 11:05 AM BISQUE FINISHER Temperature 36.5 C (97.7 F) 08/11/2023 11:05 AM BISQUE FINISHER Respiratory Rate 20 08/11/2023 11:0 5 AM BISQUE FINISHER Oxygen Saturation 96% 08/11/2023 11: 05 AM BISQUE FINISHER Inhaled Oxygen Concentration - - Weight 89.3 kg (196 lb 12.8 oz) 08/11/2023 5:20 AM BISQUE FINISHER Height 175.3 cm (5' 9) 08/08/2023 11:4 7 PM BISQUE FINISHER Body Mass Index 29.06 08/08/2023 11:47 PM BISQUE FINISHER Plan of Treatment Health Maintenance Due Date Last Done Comments Albumin Creatinine Ratio, Urine 1950 Colon Cancer Screening-Colonoscopy 1950 Depression Screening 1950 Hepatitis C Screening 1950 Dilated Eye Exam 1950 Foot Exam 1950 Hepatitis B Screening 1968 Well Visit 65+ 11/17/2015 Hemoglobin A1C 02/07/2024 08/09/2023 Covid-19 Vaccine (2023-2 5 season) 2024 08/04/2023, 08/20/2022, 05/13/2021, Additional history exists Lipid Panel 08/09/2024 08/09/2023 eGFR 08/10/2024 08/10/2023, 07/20, 08/09/2023, Additional history exists Fall Risk Assessment 08/11/2024 08/11/2023 Influenza Vaccine (Season Ended) 2025 08/04/2023, 08/20/2022, 05/13/2021, Additional history exists DTaP/Tdap/Td Vaccine (2 - Td or Tdap) 03/02/2027 03/02/2017, 02/25/2007 Pneumococcal vaccine 65+ Completed 018, 06/30/2016, 02/25/2007 Zoster Vaccine Completed 07/15/2018, 12/17, 07/28/2012 Abdominal Aortic Aneurysm (A AA) Screen Completed 08/08/2023, 02/13/2020 Procedures Procedure Name Priority Date/Time Associated Diagnosis Comments EGFR Routine 08/10/2023 8:13 PM BISQUE FINISHER LIPID PANEL Routine 08/09/2023 4:38 AM BISQUE FINISHER HEMOGLOBIN A1C Routine 08/09/2023 1:[address] ABDOMEN PELVIS W CONTRAST ED 08/08/2023 6:59 PM BISQUE FINISHER from Last 3 Months or Most Recently Relevant to Health Maintenance Results * eGFR (08/10/2023 8:13 PM BISQUE FINISHER) eGFR 85 >=60 mL/min/1. 73 m2 [facility] Comment: Interpretive Data Reference Interval Normal >/= [...] last reviewed 2021. Blood 08/10/2023 8:13 PM BISQUE FINISHER 08/10/2023 9:31 PM BISQUE FINISHER Renny Albright MD LAB BLOOD ORDERABLES Fi nal Result [facility] Department [place] [address] * Lipid panel (08/09/2023 4:38 AM BISQUE FINISHER) Cholesterol 137 30 - 199 mg/dL [facility] [...] on 2018. HDL 56 >=40 mg/dL [facility] Comment: Interpretive Data Ages < or = [...] 2018. LDL, calculated 66 <=129 mg/dL [facility] Comment: Interpretive Data Ages < or = [...] on 2018. Non-HDL Cholesterol 81 mg/dL [facility] Comment: Interpretive Data Ages < or = [...] last revised on 2018. Chol/HDL ratio 2 [facility] Blood 08/09/2023 4:38 AM BISQUE FINISHER 08/09/2023 5:32 AM BISQUE FINISHER Josh Corona MD LAB BLOOD ORDERABLES F inal Result Performing Organization Address [facility] de Phone Number [facility] [place] [address] * (ABNORMAL) Hemoglobin A1c (08/09/2023 1:09 AM BISQUE FINISHER) Hgb A1C 12.7(H) 4.0 - 5.6 % [facility] Estimated Average Glucose 318 mg/dL [facility] Comment: The ADA recommends reporting an estimated Average Glucose (eAG) with all Hemoglobin A1c results using the equation derived from a study of 507 normal and diabetic adults. Minority populations were underrepresented and children were not included. (Diabetes Care 2020; 43(S1): S66-S76). The eAG is not equivalent to a fasting glucose. Blood 08/09/2023 1:09 AM BISQUE FINISHER 08/09/2023 2:23 AM BISQUE FINISHER Josh Corona MD LAB BLOOD ORDERABLES F inal Result Performing Organization Address [facility] [place] [address] * CT Abdomen Pelvis W Contrast (08/08/2023 6:59 PM BISQUE FINISHER) Anatomical Region Laterality Modality Body N/A Computed Tomogra phy 08/08/2023 7:24 PM BISQUE FINISHER Impressions 08/08/2023 10:35 PM BISQUE FINISHER 1. Rectal stool ball with mild surrounding [...] Safia Mendez M.D. Narrative 08/08/2023 10:35 PM BISQUE FINISHER EXAMINATION: CT ABDOMEN PELVIS W CONTRAST HISTORY: [...] Most Recently Relevant to Health Maintenance Insurance [facility] MEDIC[facility] [place] [facility] Address: [address] [place] [id number] [facility] [place] [facility] Advance Directives For more information, please contact: [phone] * Full Code (Latest Code Status on File) Date Activated Date Inactivated Comments 08/08/2023 11:59 PM 08/11/2023 9:08 PM Care Teams Fern Cutter Relationship Specialty Start Date End Date [facility], Roni Austin [address] [place] [address] PCP - General Genetics 07/05/24
--- OUTSIDE RECORDS SUMMARY | 2024-12-19 20:14 | XMS_ITS | Referral Summary ---
Author Organization [facility] Medical Office Building B Address [address] [place] [address] Care Team Providers Care Ultimate Hoops Scoreboard Operator Name Role Phone [facility], Roni Austin Primary Care Pro vider [...] 08/09/2023 Assessment & Plan (08/09/2023 3:17 AM IMMIGRATION JUDGE): - Continue albuterol PRN - Patient is in process of arranging PFT for [facility] evaluation [place] the [facility] Acute on chronic diastolic congestive heart fail [...] edema.. Assessment & Plan (08/09/2023 7:48 AM IMMIGRATION JUDGE): Holding furosemide 20 mg at this time in setting of hypovolemia. - TTE ordered - Continuous telemetry with vitals q8hr Gastro-esophageal reflux disease without esophag itis 08/09/2023 Assessment & Plan (08/09/2023 7:53 AM IMMIGRATION JUDGE): - Continue home pantoprazole 40 mg [...] 04/2021. [facility] Last seen in clinic by them in 03/2023. He was last up-titrated to dose of regimen to 2 + 1.5 + 2+ 1.5 of sinamet. Assessment & Plan (08/09/2023 2:21 AM IMMIGRATION JUDGE): - holding home carbidopa/levidopa in setting [...] rest. Assessment & Plan (08/09/2023 7:39 AM IMMIGRATION JUDGE): - Given 500 mL IVF in [...] up. Assessment & Plan (08/09/2023 7:54 AM IMMIGRATION JUDGE): - Continue tamsulosin 0.4 mg daily [...] ordered Assessment & Plan (08/08/2023 10:53 PM IMMIGRATION JUDGE): - will conduct enema - start miralax and senna scheduled Leukocytosis 02/13/2020 Overview (08/09/2023): In setting of recent syncopal episode, most likely reactive. No concerns for infectious process at this time.. Assessment & Plan (08/09/2023 2:37 AM IMMIGRATION JUDGE): - CTM daily CBC's Type 2 diabetes, controlled, with renal manifest ation 02/12/2020 Overview (08/09/2023): Managed [facility] 08/04/2023: Most recently seen with endocrine [...] recently. Assessment & Plan (08/09/2023 8:01 AM IMMIGRATION JUDGE): Hemoglobin A1c 8.0 03/10 with lantus 30 at home - Repeat A1c here - Dose reduce to 20 units with ss - Continue to monitor with POCT glucose checks TIDAC Mixed hyperlipidemia 02/01/2020 Overview (08/09/2023): Prev lipid panel 08/2022: LDL 68, HDL 58 [facility]. Assessment & Plan (08/08/2023 10:55 PM IMMIGRATION JUDGE): - Ordering lipid panel - Continue home atorvastatin 40 mg Depression 02/01/2020 Assessment & Plan (08/09/2023 7:53 AM IMMIGRATION JUDGE): - Continue home sertraline 150 mg [...] disease. Assessment & Plan (08/09/2023 7:43 AM IMMIGRATION JUDGE): - Continue losartan 50 mg - [...] Free, Intramuscular 03/19/2019,06/30/2016,04/09/2015,08/28 Influenza, Unspecified 04/20/2013,2011,04/02/2011,05/14,05/08/2009,06/11/2008,05/13/2006 ,06/23/2005 [place] Sars-Cov-2 Bivalent V accination (12+ YRS) 08/20/2022 Pneumococcal Conjugate PCV 13 06/30/2016 Pneumococcal Polysaccharide PPV23 07/15/2018 Pneumococcal, Unspecified 02/25/2007 Td, Unspecified 02/25/2007 Tdap 03/02/2017 ZOSTER LIVE 07/28/2012 ZOSTER Recombinant 07/15/2018,12/31/2017 Social History Tobacco Use Types Packs/Day Years Used Date Smoking Tobacco: Former Cigarettes Tobacco Cessation:Counseling Given: Not Answered [facility] Utilities Answer Date Recorded In the [...] often do you attend chur ch or oriental orthodox services? Never 08/12/2023 Do you belong to any clubs o r organizations such as restorationist groups, unions, fraternal or athletic groups, or [...] place to sleep or slept in a group home (including now)? No 08/12/2023 Personal Safety Answer Date Recorded Have you ever been in or are you currently in a harmful physical or emotional relationship or is someone making you feel afraid or unsafe? Denies 08/08/2023 Sex and Gender Information Value Date Recorded Sex Assigned at Not on file Legal Sex Male 5:35 PM IMMIGRATION JUDGE Gender Identity Not on file Sexual Orientation Not on file Last Filed Vital Signs Vital Sign Reading Time Taken Comments Blood Pressure 99/59 08/11/2023 11:05 AM IMMIGRATION JUDGE Pulse 68 08/11/2023 11:05 AM IMMIGRATION JUDGE Temperature 36.5 C (97.7 F) 08/11/2023 11:05 AM IMMIGRATION JUDGE Respiratory Rate 20 08/11/2023 11:0 5 AM IMMIGRATION JUDGE Oxygen Saturation 96% 08/11/2023 11: 05 AM IMMIGRATION JUDGE Inhaled Oxygen Concentration - - Weight 89.3 kg (196 lb 12.8 oz) 08/11/2023 5:20 AM IMMIGRATION JUDGE Height 175.3 cm (5' 9) 08/08/2023 11:4 7 PM IMMIGRATION JUDGE Body Mass Index 29.06 08/08/2023 11:47 PM IMMIGRATION JUDGE Plan of Treatment Not on file Procedures Procedure Name Priority Date/Time Associated Diagnosis Comments EGFR Routine 08/10/2023 8:13 PM IMMIGRATION JUDGE LIPID PANEL Routine 08/09/2023 4:38 AM IMMIGRATION JUDGE HEMOGLOBIN A1C Routine 08/09/2023 1:[address] ABDOMEN PELVIS W CONTRAST ED 08/08/2023 6:59 PM IMMIGRATION JUDGE from Last 3 Months or Most Recently Relevant to Health Maintenance Results * eGFR (08/10/2023 8:13 PM IMMIGRATION JUDGE) eGFR 85 >=60 mL/min/1. 73 m2 [facility] Comment: Interpretive Data Reference Interval Normal [...] last reviewed 2021. Blood 08/10/2023 8:13 PM IMMIGRATION JUDGE 08/10/2023 9:31 PM IMMIGRATION JUDGE Renny Albright MD LAB BLOOD ORDERABLES Fi nal Result [facility] Department [place] [address] * Lipid panel (08/09/2023 4:38 AM IMMIGRATION JUDGE) Cholesterol 137 30 - 199 mg/dL [...] on 2018. HDL 56 >=40 mg/dL [facility] Comment: Interpretive Data Ages [...] last revised on 2018. Chol/HDL ratio 2 [facility] Blood 08/09/2023 4:38 AM IMMIGRATION JUDGE 08/09/2023 5:32 AM IMMIGRATION JUDGE Josh Corona MD LAB BLOOD ORDERABLES F inal Result Performing Organization Address [facility] de Phone Number [facility] [place] [address] * (ABNORMAL) Hemoglobin A1c (08/09/2023 1:09 AM IMMIGRATION JUDGE) Hgb A1C 12.7(H) 4.0 - 5.6 % [facility] Estimated Average Glucose 318 mg/dL [facility] Comment: The ADA recommends reporting an estimated Average Glucose (eAG) with all Hemoglobin A1c results using the equation derived from a study of 507 normal and diabetic adults. Minority populations were underrepresented and children were not included. (Diabetes Care 2020; 43(S1): S66-S76). The eAG is not equivalent to a fasting glucose. Blood 08/09/2023 1:09 AM IMMIGRATION JUDGE 08/09/2023 2:23 AM IMMIGRATION JUDGE Josh Corona MD LAB BLOOD ORDERABLES F inal Result Performing Organization Address [facility] de Phone Number [facility] [place] [address] * CT Abdomen Pelvis W Contrast (08/08/2023 6:59 PM IMMIGRATION JUDGE) Anatomical Region Laterality Modality Body N/A Computed Tomogra phy 08/08/2023 7:24 PM IMMIGRATION JUDGE Impressions 08/08/2023 10:35 PM IMMIGRATION JUDGE 1. Rectal stool ball with mild [...] Safia Mendez M.D. Narrative 08/08/2023 10:35 PM IMMIGRATION JUDGE EXAMINATION: CT ABDOMEN PELVIS W CONTRAST [...] Most Recently Relevant to Health Maintenance Insurance [facility] Address: [address] [place] [address] [facility] [place] [facility] [place] [facility] Advance Directives For more information, please contact: [phone] * Full Code (Latest Code Status on File) Date Activated Date Inactivated Comments 08/08/2023 11:59 PM 08/11/2023 9:08 PM Care Teams Ultimate Hoops Scoreboard Operator Relationship Specialty Start Date End Date [facility], Roni Austin [address] [place] [id number] PCP - General Genetics 07/05/24
--- NOTE | 2024-12-19 20:25 | ED_ITS ---
HPI - Altered Mental Status General Chief Complaint: Altered Mental Status Stated Complaint: HYPOGLYCEMIA/CONFUSION Time Seen by Provider: 12/19/24 20:10 Source: patient and RN notes reviewed Mode of arrival: EMS Limitations: no limitations History of Present Illness HPI narrative: Patient with T2DM and Parkinsons presents with report of hypoglycemia and confusion. Blood sugar found to be 43 with reportedly shallow breathing. Glucagon administered and juice reportedly poured on patient's face. EMS reported POC BS 75mg/dL en route. Lives with sister who is not sick. Deneis any pain, no chest pain, headache, abdominal pain, or difficulty breathing. Denies cough or diarrhea. Reports eating only 2x/day which is normal for him. Takes long acting Lantus 18U QHS (last dose was last night) and on a short acting as sliding scale; thinks his last dose was breakfast. Baseline tremor due to parkinsons. Feels chills but no fever. Denies any neck/mouth pain or difficulty swallowing/pain with chewing, etc. Related Data Home Medications ?Medication ?Instructions ?Recorded ?Confirmed ?Last Taken ?Type albuterol 90 mcg/actuation aerosol 1 mcg inhalation QID PRN shortness 12/20/20 08/26/24 Unknown History inhaler of breath or wheezing atorvastatin 40 mg tablet 80 mg PO HS 12/20/20 08/26/24 08/25/24 History diclofenac sodium 1 % topical gel 4 g topical QID PRN pain 12/20/20 08/26/24 Unknown History finasteride 5 mg tablet 5 mg PO DAILY 12/20/20 08/26/24 08/25/24 History insulin aspart U-100 100 unit/mL 5 unit subcut .with breakfast 12/20/20 08/26/24 08/26/24 History subcutaneous solution (Novolog U-100 Insulin aspart) insulin glargine 100 unit/mL 18 unit subcut HS 12/20/20 08/26/24 08/25/24 History subcutaneous cartridge metformin 1,000 mg tablet 1,000 mg PO BID 12/20/20 08/26/24 08/25/24 History pantoprazole 40 mg tablet,delayed 40 mg PO QPM 12/20/20 08/26/24 08/26/24 History release sertraline 100 mg tablet 150 mg PO DAILY 12/20/20 08/26/24 08/25/24 History tamsulosin 0.4 mg capsule 0.4 mg PO HS 12/20/20 08/26/24 08/25/24 History carbidopa 25 mg-levodopa 100 mg 2 tablet PO QID 07/10/24 08/26/24 08/26/24 History tablet docusate sodium 100 mg capsule 200 mg PO BID 07/10/24 08/26/24 08/25/24 History empagliflozin 25 mg tablet 25 mg PO DAILY 07/10/24 08/26/24 08/25/24 History insulin aspart U-100 100 unit/mL 5 unit subcut .with lunch 07/10/24 08/26/24 08/26/24 History subcutaneous solution (Novolog U-100 Insulin aspart) insulin aspart U-100 100 unit/mL 11 unit subcut .with dinner 07/10/24 08/26/24 08/25/24 History subcutaneous solution (Novolog U-100 Insulin aspart) losartan 50 mg tablet (Cozaar) 100 mg PO DAILY 07/10/24 08/26/24 08/25/24 History semaglutide 1 mg/dose (4 mg/3 mL) 1 mg subcut WEEKLY 07/10/24 08/26/24 08/25/24 History subcutaneous pen injector (Ozempic) sennosides 8.6 mg tablet (senna) 8.6 mg PO DAILY 07/10/24 08/26/24 08/25/24 History Allergies Allergy/AdvReac Type Severity Reaction Status Date / Time lisinopril Allergy Mild SWELLING Verified 12/19/24 22:30 [facility] Past Medical History Medical History Type 2 diabetes mellitus treated with insulin Hypotension Parkinson disease Family History Family History Father Cancer Social History Social History Smoking packs per day: 1.25 Smoking cigarettes per day: 25.0 Years smoked: 16 Smoking pack-years: 20.00 Smoking status: Former smoker Substance use: former Substance use type: marijuana Do You Feel Safe in your Home?: Yes Lack of Transportation: No Lack of Food: Never True Current Housing: I Have Housing Concerned About Future Housing: No Difficulty Paying Gas/Electric Bills: No Difficulty Paying for Meds: No Currently Unemployed: No Education: High School Diploma/GED Difficulty w/ Childcare or Family Care: No Living arrangements: with family Additional living arrangements comments: sister Gender identity (if verbalized by the patient): Male Spiritual care concerns: No Exam 2 Narrative: GENERAL: Malodorous but well-nourished, and in no acute distress. HEAD: Normocephalic, atraumatic. EYES: Non injected, non icteric ENT: Red juice in gordon. Nares clear, no rhinorrhea or epistaxis. Gross auditory acuity intact. Mild facial swelling of the left face but no appreciable abscess/fluctuance or tenderness on palpation. Large tongue. Mallampati 4. Unable to visualize posterior oropharynx but grossly normal buccal mucosa. NECK: Supple. No meningismus. CHEST: Speaking in full sentences. No respiratory distress. HEART: Regular rate and rhythm. . ABDOMEN: Soft, nondistended. No rigidity or guarding. Not peritoneal EXTREMITIES: Normal range of motion. No lower extremity edema. SKIN: Cool, dry, no rash. NEURO: No focal deficits. Alert and oriented. Answering questions. Knows where he is and the month; last thing he recalled was being in ambulance. Following commands. Normal speech without aphasia or dysarthria. Tremor, baseline. PSYCH: Congruent mood and affect. Course Vital Signs Vital signs: Vital Signs Pulse Rate 62 12/19/24 19:58 Respiratory Rate 15 12/19/24 19:58 Blood Pressure 146/58 H 12/19/24 19:58 Pulse Oximetry 94 12/19/24 19:58 Oxygen Delivery Room Air 12/19/24 19:58 Temperature 98.3 F 12/20/24 07:00 Pulse Rate 80 12/20/24 07:00 Respiratory Rate 21 H 12/20/24 07:00 Blood Pressure 190/80 H 12/20/24 07:00 Pulse Oximetry 100 12/20/24 07:00 Oxygen Delivery Nasal Cannula 12/20/24 03:35 Oxygen Flow Rate 2 12/20/24 03:35 MDM - Altered Mental Status MDM Narrative Medical decision making narrative: Tere presents after reportedly being confused and found to be hypoglycemic. Blood glucose 43 at the houes; received glucagon and juice. 75mg/dL en route for EMS. Not altered on my exam and without any complaints. I am informed that is difficult to obtain a temperature on patient after multiple attempts. Patient did have a temperature potentially of 92 point something F on rectal temp; will insert temp sensing Walters for better determination. His temperature is 91.8? after temp sensing Walters placed. Biar Hugger ordered. Dimer mildly elevated; although the red on his gordon is presumably from juice, can not confirm this so it remains a possibility that this represents hemoptysis (again, presumably low). Therefore, will proceed with CTA imaging of Chest/abd/pelvis and add CT neck given finding of L parotid seen on earlier imaging. Urine does not appear infected, only proteinuria which I suspect to be due to diabetes. Mild leukocytosis and normocytic anemia. He has an isolated AST elevation. This has been appreciated intermittently before. He also has an isolated BUN elevation and similarly has had isolated azotemia before. While his creatinine is technically within normal limits today, it does represent an increase from previous thus will give 1L IV fluids. Repeat blood sugar after approximately 4 hours in the emergency department is 77mg/dL. Later 98mg/dL. Patient hypertensive on 3 readings. His home 100 mg losartan is ordered. He also is noted to desaturate, 86-88% overnight. When I asked if he is supposed to be on Oxygen he denies but he then tells the nurse that he does wear 1-2L PRN. Patient temperature normalizes even after several hours with Sarah hugger off. GLucose remains normal. Suspected hypothermia was secondary to his hypoglycemia. Differential Diagnosis Differential diagnosis: Likely alcoholic intoxication, altered mental status, hypoglycemia, hyponatremia and subarachnoid hemorrhage Lab Data Attestation: I reviewed the patient's lab results. 12/19/24 21:33 12/19/24 21:33 Labs: Lab Results 12/19/24 12/19/24 12/19/24 Range/Units 20:02 21:18 21:33 WBC 10.9 H (4.5-10.0) K/mm3 RBC 3.78 L (4.6-6.20) M/mm3 Hgb 10.7 L (14.0-18.0) g/dL Hct 36.5 L (42.0-52.0) % MCV 96.6 (80-100) fl MCH 28.3 (26-34) pg MCHC 29.3 L (32-36) g/dl RDW 14.7 H (11.5-14.5) % Plt Count 234 (150-375) k/mm3 MPV 10.3 (7.4-10.4) fl Immature Gran % (Auto) 0.6 H (0-0.5) % Neut % (Auto) 84.2 H (45.5-73.1) % Lymph % (Auto) 8.8 L (18.3-44.2) % [place] % (Auto) 5.6 (2.6-8.5) % Eos % (Auto) 0.4 (0-4.4) % Baso % (Auto) 0.4 (0.2-1.2) % Lymph # (Auto) 0.96 (0.9-3.2) K/mm3 [place] # (Auto) 0.6 (0.1-0.6) K/mm3 Eos # (Auto) 0.0 (0-0.3) K/mm3 Baso # (Auto) 0.0 (0.0-0.1) K/mm3 Abs Immat Gran (auto) 0.06 H (0.00-0.031) K/mm3 Absolute Neuts (auto) 9.2 H (1.3-6.7) K/mm3 Absolute Nucleated RBC 0.000 (0.0-0.012) K/mm3 Nucleated RBC % 0.0 (0.0-0.2) % PT 13.0 (11.1-14.7) Seconds INR 1.0 APTT 31.8 (22.3-36.8) Seconds D-Dimer 0.83 H (<0.48) ug/mL Sodium Cancelled Potassium Chloride Carbon Dioxide Anion Gap BUN Creatinine Estim Creat Clear Calc Estimated GFR Glucose POC Capillary Glucose 106 H (65-105) mg/dl Lactic Acid (0.7-2.0) mmol/L Calcium Magnesium (1.6-2.3) mg/dL Total Bilirubin AST ALT Alkaline Phosphatase Ammonia (9-30) umol/L Total Creatine Kinase Troponin I NT-Pro-B Natriuret Pep (19.9-100) pg/mL Total Protein Albumin TSH Urine Color Yellow (Yellow) Urine Appearance Clear (Clear) Urine pH 5.5 (5.0-9.0) Ur Specific [place] 1.022 (1.001-1.035) Urine Protein 2+ H (Negative) mg/dL Urine Glucose (UA) Negative (Negative) mg/dL Urine Ketones Trace H (Negative) mg/dL Ur Blood (Man) Negative (Negative) Urine Nitrate Negative (Negative) Urine Bilirubin Negative (Negative) Urine Urobilinogen 0.2 (<2.0) mg/dL Leukocyte Esterase Rfl Negative (Negative) ANNE MARIE/UL Urine RBC 0-2 (0-2) /hpf Urine WBC 0-5 (0-3) /hpf Ur Squamous Epith Cells None seen (Few) /hpf Urine Bacteria None seen /hpf Urine Casts 3-5 Salicylates (2-20) mg/dL Urine Opiates Screen Negative (Negative) Urine Methadone Screen Negative (Negative) Acetaminophen (10-30) ug/mL Ur Barbiturates Screen Negative (Negative) Ur Phencyclidine Scrn Negative (Negative) Ur Amphetamine Screen Negative (Negative) U Benzodiazepines Scrn Negative (Negative) Urine Cocaine Screen Negative (Negative) U Cannabinoids Screen Negative (Negative) Ethyl Alcohol (<10) mg/dL Influenza A (RT-PCR) Negative (Negative) Influenza B (RT-PCR) Negative (Negative) RSV (RT-PCR) Negative (Negative) SARS-CoV-2 RNA (RT-PCR) Negative (Negative) 12/19/24 12/19/24 12/19/24 Range/Units 21:33 21:33 21:33 WBC (4.5-10.0) K/mm3 RBC (4.6-6.20) M/mm3 Hgb (14.0-18.0) g/dL Hct (42.0-52.0) % MCV (80-100) fl MCH (26-34) pg MCHC (32-36) g/dl RDW (11.5-14.5) % Plt Count (150-375) k/mm3 MPV (7.4-10.4) fl Immature Gran % (Auto) (0-0.5) % Neut % (Auto) (45.5-73.1) % Lymph % (Auto) (18.3-44.2) % [place] % (Auto) (2.6-8.5) % Eos % (Auto) (0-4.4) % Baso % (Auto) (0.2-1.2) % Lymph # (Auto) (0.9-3.2) K/mm3 [place] # (Auto) (0.1-0.6) K/mm3 Eos # (Auto) (0-0.3) K/mm3 Baso # (Auto) (0.0-0.1) K/mm3 Abs Immat Gran (auto) (0.00-0.031) K/mm3 Absolute Neuts (auto) (1.3-6.7) K/mm3 Absolute Nucleated RBC (0.0-0.012) K/mm3 Nucleated RBC % (0.0-0.2) % PT (11.1-14.7) Seconds INR APTT (22.3-36.8) Seconds D-Dimer (<0.48) ug/mL Sodium 140 Potassium Cancelled 4.5 Chloride Cancelled 103 Carbon Dioxide Cancelled Anion Gap BUN Creatinine Estim Creat Clear Calc Estimated GFR Glucose POC Capillary Glucose (65-105) mg/dl Lactic Acid (0.7-2.0) mmol/L Calcium Magnesium (1.6-2.3) mg/dL Total Bilirubin AST ALT Alkaline Phosphatase Ammonia (9-30) umol/L Total Creatine Kinase Troponin I NT-Pro-B Natriuret Pep (19.9-100) pg/mL Total Protein Albumin TSH Urine Color (Yellow) Urine Appearance (Clear) Urine pH (5.0-9.0) Ur Specific [place] (1.001-1.035) Urine Protein (Negative) mg/dL Urine Glucose (UA) (Negative) mg/dL Urine Ketones (Negative) mg/dL Ur Blood (Man) (Negative) Urine Nitrate (Negative) Urine Bilirubin (Negative) Urine Urobilinogen (<2.0) mg/dL Leukocyte Esterase Rfl (Negative) ANNE MARIE/UL Urine RBC (0-2) /hpf Urine WBC (0-3) /hpf Ur Squamous Epith Cells (Few) /hpf Urine Bacteria /hpf Urine Casts Salicylates (2-20) mg/dL Urine Opiates Screen (Negative) Urine Methadone Screen (Negative) Acetaminophen (10-30) ug/mL Ur Barbiturates Screen (Negative) Ur Phencyclidine Scrn (Negative) Ur Amphetamine Screen (Negative) U Benzodiazepines Scrn (Negative) Urine Cocaine Screen (Negative) U Cannabinoids Screen (Negative) Ethyl Alcohol (<10) mg/dL Influenza A (RT-PCR) (Negative) Influenza B (RT-PCR) (Negative) RSV (RT-PCR) (Negative) SARS-CoV-2 RNA (RT-PCR) (Negative) 12/19/24 12/19/24 12/19/24 Range/Units 21:33 21:33 21:33 WBC (4.5-10.0) K/mm3 RBC (4.6-6.20) M/mm3 Hgb (14.0-18.0) g/dL Hct (42.0-52.0) % MCV (80-100) fl MCH (26-34) pg MCHC (32-36) g/dl RDW (11.5-14.5) % Plt Count (150-375) k/mm3 MPV (7.4-10.4) fl Immature Gran % (Auto) (0-0.5) % Neut % (Auto) (45.5-73.1) % Lymph % (Auto) (18.3-44.2) % [place] % (Auto) (2.6-8.5) % Eos % (Auto) (0-4.4) % Baso % (Auto) (0.2-1.2) % Lymph # (Auto) (0.9-3.2) K/mm3 [place] # (Auto) (0.1-0.6) K/mm3 Eos # (Auto) (0-0.3) K/mm3 Baso # (Auto) (0.0-0.1) K/mm3 Abs Immat Gran (auto) (0.00-0.031) K/mm3 Absolute Neuts (auto) (1.3-6.7) K/mm3 Absolute Nucleated RBC (0.0-0.012) K/mm3 Nucleated RBC % (0.0-0.2) % PT (11.1-14.7) Seconds INR APTT (22.3-36.8) Seconds D-Dimer (<0.48) ug/mL Sodium Potassium Chloride Carbon Dioxide 29 Anion Gap Cancelled 8 BUN Cancelled 46 H D Creatinine Cancelled Estim Creat Clear Calc Estimated GFR Glucose POC Capillary Glucose (65-105) mg/dl Lactic Acid (0.7-2.0) mmol/L Calcium Magnesium (1.6-2.3) mg/dL Total Bilirubin AST ALT Alkaline Phosphatase Ammonia (9-30) umol/L Total Creatine Kinase Troponin I NT-Pro-B Natriuret Pep (19.9-100) pg/mL Total Protein Albumin TSH Urine Color (Yellow) Urine Appearance (Clear) Urine pH (5.0-9.0) Ur Specific [place] (1.001-1.035) Urine Protein (Negative) mg/dL Urine Glucose (UA) (Negative) mg/dL Urine Ketones (Negative) mg/dL Ur Blood (Man) (Negative) Urine Nitrate (Negative) Urine Bilirubin (Negative) Urine Urobilinogen (<2.0) mg/dL Leukocyte Esterase Rfl (Negative) ANNE MARIE/UL Urine RBC (0-2) /hpf Urine WBC (0-3) /hpf Ur Squamous Epith Cells (Few) /hpf Urine Bacteria /hpf Urine Casts Salicylates (2-20) mg/dL Urine Opiates Screen (Negative) Urine Methadone Screen (Negative) Acetaminophen (10-30) ug/mL Ur Barbiturates Screen (Negative) Ur Phencyclidine Scrn (Negative) Ur Amphetamine Screen (Negative) U Benzodiazepines Scrn (Negative) Urine Cocaine Screen (Negative) U Cannabinoids Screen (Negative) Ethyl Alcohol (<10) mg/dL Influenza A (RT-PCR) (Negative) Influenza B (RT-PCR) (Negative) RSV (RT-PCR) (Negative) SARS-CoV-2 RNA (RT-PCR) (Negative) 12/19/24 12/19/24 12/19/24 Range/Units 21:33 21:33 21:33 WBC (4.5-10.0) K/mm3 RBC (4.6-6.20) M/mm3 Hgb (14.0-18.0) g/dL Hct (42.0-52.0) % MCV (80-100) fl MCH (26-34) pg MCHC (32-36) g/dl RDW (11.5-14.5) % Plt Count (150-375) k/mm3 MPV (7.4-10.4) fl Immature Gran % (Auto) (0-0.5) % Neut % (Auto) (45.5-73.1) % Lymph % (Auto) (18.3-44.2) % [place] % (Auto) (2.6-8.5) % Eos % (Auto) (0-4.4) % Baso % (Auto) (0.2-1.2) % Lymph # (Auto) (0.9-3.2) K/mm3 [place] # (Auto) (0.1-0.6) K/mm3 Eos # (Auto) (0-0.3) K/mm3 Baso # (Auto) (0.0-0.1) K/mm3 Abs Immat Gran (auto) (0.00-0.031) K/mm3 Absolute Neuts (auto) (1.3-6.7) K/mm3 Absolute Nucleated RBC (0.0-0.012) K/mm3 Nucleated RBC % (0.0-0.2) % PT (11.1-14.7) Seconds INR APTT (22.3-36.8) Seconds D-Dimer (<0.48) ug/mL Sodium Potassium Chloride Carbon Dioxide Anion Gap BUN Creatinine 1.06 Estim Creat Clear Calc Cancelled 62 Estimated GFR Cancelled > 60 Glucose Cancelled POC Capillary Glucose (65-105) mg/dl Lactic Acid (0.7-2.0) mmol/L Calcium Magnesium (1.6-2.3) mg/dL Total Bilirubin AST ALT Alkaline Phosphatase Ammonia (9-30) umol/L Total Creatine Kinase Troponin I NT-Pro-B Natriuret Pep (19.9-100) pg/mL Total Protein Albumin TSH Urine Color (Yellow) Urine Appearance (Clear) Urine pH (5.0-9.0) Ur Specific [place] (1.001-1.035) Urine Protein (Negative) mg/dL Urine Glucose (UA) (Negative) mg/dL Urine Ketones (Negative) mg/dL Ur Blood (Man) (Negative) Urine Nitrate (Negative) Urine Bilirubin (Negative) Urine Urobilinogen (<2.0) mg/dL Leukocyte Esterase Rfl (Negative) ANNE MARIE/UL Urine RBC (0-2) /hpf Urine WBC (0-3) /hpf Ur Squamous Epith Cells (Few) /hpf Urine Bacteria /hpf Urine Casts Salicylates (2-20) mg/dL Urine Opiates Screen (Negative) Urine Methadone Screen (Negative) Acetaminophen (10-30) ug/mL Ur Barbiturates Screen (Negative) Ur Phencyclidine Scrn (Negative) Ur Amphetamine Screen (Negative) U Benzodiazepines Scrn (Negative) Urine Cocaine Screen (Negative) U Cannabinoids Screen (Negative) Ethyl Alcohol (<10) mg/dL Influenza A (RT-PCR) (Negative) Influenza B (RT-PCR) (Negative) RSV (RT-PCR) (Negative) SARS-CoV-2 RNA (RT-PCR) (Negative) 12/19/24 12/19/24 12/19/24 Range/Units 21:33 21:33 21:33 WBC (4.5-10.0) K/mm3 RBC (4.6-6.20) M/mm3 Hgb (14.0-18.0) g/dL Hct (42.0-52.0) % MCV (80-100) fl MCH (26-34) pg MCHC (32-36) g/dl RDW (11.5-14.5) % Plt Count (150-375) k/mm3 MPV (7.4-10.4) fl Immature Gran % (Auto) (0-0.5) % Neut % (Auto) (45.5-73.1) % Lymph % (Auto) (18.3-44.2) % [place] % (Auto) (2.6-8.5) % Eos % (Auto) (0-4.4) % Baso % (Auto) (0.2-1.2) % Lymph # (Auto) (0.9-3.2) K/mm3 [place] # (Auto) (0.1-0.6) K/mm3 Eos # (Auto) (0-0.3) K/mm3 Baso # (Auto) (0.0-0.1) K/mm3 Abs Immat Gran (auto) (0.00-0.031) K/mm3 Absolute Neuts (auto) (1.3-6.7) K/mm3 Absolute Nucleated RBC (0.0-0.012) K/mm3 Nucleated RBC % (0.0-0.2) % PT (11.1-14.7) Seconds INR APTT (22.3-36.8) Seconds D-Dimer (<0.48) ug/mL Sodium Potassium Chloride Carbon Dioxide Anion Gap BUN Creatinine Estim Creat Clear Calc Estimated GFR Glucose 92 POC Capillary Glucose (65-105) mg/dl Lactic Acid 1.7 (0.7-2.0) mmol/L Calcium Cancelled 9.7 Magnesium 2.1 (1.6-2.3) mg/dL Total Bilirubin Cancelled 0.3 AST Cancelled ALT Alkaline Phosphatase Ammonia (9-30) umol/L Total Creatine Kinase Troponin I NT-Pro-B Natriuret Pep (19.9-100) pg/mL Total Protein Albumin TSH Urine Color (Yellow) Urine Appearance (Clear) Urine pH (5.0-9.0) Ur Specific [place] (1.001-1.035) Urine Protein (Negative) mg/dL Urine Glucose (UA) (Negative) mg/dL Urine Ketones (Negative) mg/dL Ur Blood (Man) (Negative) Urine Nitrate (Negative) Urine Bilirubin (Negative) Urine Urobilinogen (<2.0) mg/dL Leukocyte Esterase Rfl (Negative) ANNE MARIE/UL Urine RBC (0-2) /hpf Urine WBC (0-3) /hpf Ur Squamous Epith Cells (Few) /hpf Urine Bacteria /hpf Urine Casts Salicylates (2-20) mg/dL Urine Opiates Screen (Negative) Urine Methadone Screen (Negative) Acetaminophen (10-30) ug/mL Ur Barbiturates Screen (Negative) Ur Phencyclidine Scrn (Negative) Ur Amphetamine Screen (Negative) U Benzodiazepines Scrn (Negative) Urine Cocaine Screen (Negative) U Cannabinoids Screen (Negative) Ethyl Alcohol (<10) mg/dL Influenza A (RT-PCR) (Negative) Influenza B (RT-PCR) (Negative) RSV (RT-PCR) (Negative) SARS-CoV-2 RNA (RT-PCR) (Negative) 12/19/24 12/19/24 12/19/24 Range/Units 21:33 21:33 21:33 WBC (4.5-10.0) K/mm3 RBC (4.6-6.20) M/mm3 Hgb (14.0-18.0) g/dL Hct (42.0-52.0) % MCV (80-100) fl MCH (26-34) pg MCHC (32-36) g/dl RDW (11.5-14.5) % Plt Count (150-375) k/mm3 MPV (7.4-10.4) fl Immature Gran % (Auto) (0-0.5) % Neut % (Auto) (45.5-73.1) % Lymph % (Auto) (18.3-44.2) % [place] % (Auto) (2.6-8.5) % Eos % (Auto) (0-4.4) % Baso % (Auto) (0.2-1.2) % Lymph # (Auto) (0.9-3.2) K/mm3 [place] # (Auto) (0.1-0.6) K/mm3 Eos # (Auto) (0-0.3) K/mm3 Baso # (Auto) (0.0-0.1) K/mm3 Abs Immat Gran (auto) (0.00-0.031) K/mm3 Absolute Neuts (auto) (1.3-6.7) K/mm3 Absolute Nucleated RBC (0.0-0.012) K/mm3 Nucleated RBC % (0.0-0.2) % PT (11.1-14.7) Seconds INR APTT (22.3-36.8) Seconds D-Dimer (<0.48) ug/mL Sodium Potassium Chloride Carbon Dioxide Anion Gap BUN Creatinine Estim Creat Clear Calc Estimated GFR Glucose POC Capillary Glucose (65-105) mg/dl Lactic Acid (0.7-2.0) mmol/L Calcium Magnesium (1.6-2.3) mg/dL Total Bilirubin AST 92 H ALT Cancelled 12 Alkaline Phosphatase Cancelled 124 Ammonia < 9 L (9-30) umol/L Total Creatine Kinase Cancelled Troponin I NT-Pro-B Natriuret Pep (19.9-100) pg/mL Total Protein Albumin TSH Urine Color (Yellow) Urine Appearance (Clear) Urine pH (5.0-9.0) Ur Specific [place] (1.001-1.035) Urine Protein (Negative) mg/dL Urine Glucose (UA) (Negative) mg/dL Urine Ketones (Negative) mg/dL Ur Blood (Man) (Negative) Urine Nitrate (Negative) Urine Bilirubin (Negative) Urine Urobilinogen (<2.0) mg/dL Leukocyte Esterase Rfl (Negative) ANNE MARIE/UL Urine RBC (0-2) /hpf Urine WBC (0-3) /hpf Ur Squamous Epith Cells (Few) /hpf Urine Bacteria /hpf Urine Casts Salicylates (2-20) mg/dL Urine Opiates Screen (Negative) Urine Methadone Screen (Negative) Acetaminophen (10-30) ug/mL Ur Barbiturates Screen (Negative) Ur Phencyclidine Scrn (Negative) Ur Amphetamine Screen (Negative) U Benzodiazepines Scrn (Negative) Urine Cocaine Screen (Negative) U Cannabinoids Screen (Negative) Ethyl Alcohol (<10) mg/dL Influenza A (RT-PCR) (Negative) Influenza B (RT-PCR) (Negative) RSV (RT-PCR) (Negative) SARS-CoV-2 RNA (RT-PCR) (Negative) 12/19/24 12/19/24 12/19/24 Range/Units 21:33 21:33 21:33 WBC (4.5-10.0) K/mm3 RBC (4.6-6.20) M/mm3 Hgb (14.0-18.0) g/dL Hct (42.0-52.0) % MCV (80-100) fl MCH (26-34) pg MCHC (32-36) g/dl RDW (11.5-14.5) % Plt Count (150-375) k/mm3 MPV (7.4-10.4) fl Immature Gran % (Auto) (0-0.5) % Neut % (Auto) (45.5-73.1) % Lymph % (Auto) (18.3-44.2) % [place] % (Auto) (2.6-8.5) % Eos % (Auto) (0-4.4) % Baso % (Auto) (0.2-1.2) % Lymph # (Auto) (0.9-3.2) K/mm3 [place] # (Auto) (0.1-0.6) K/mm3 Eos # (Auto) (0-0.3) K/mm3 Baso # (Auto) (0.0-0.1) K/mm3 Abs Immat Gran (auto) (0.00-0.031) K/mm3 Absolute Neuts (auto) (1.3-6.7) K/mm3 Absolute Nucleated RBC (0.0-0.012) K/mm3 Nucleated RBC % (0.0-0.2) % PT (11.1-14.7) Seconds INR APTT (22.3-36.8) Seconds D-Dimer (<0.48) ug/mL Sodium Potassium Chloride Carbon Dioxide Anion Gap BUN Creatinine Estim Creat Clear Calc Estimated GFR Glucose POC Capillary Glucose (65-105) mg/dl Lactic Acid (0.7-2.0) mmol/L Calcium Magnesium (1.6-2.3) mg/dL Total Bilirubin AST ALT Alkaline Phosphatase Ammonia (9-30) umol/L Total Creatine Kinase 86 Troponin I Cancelled < 0.012 NT-Pro-B Natriuret Pep 477 H Cancelled (19.9-100) pg/mL Total Protein Cancelled Albumin TSH Urine Color (Yellow) Urine Appearance (Clear) Urine pH (5.0-9.0) Ur Specific [place] (1.001-1.035) Urine Protein (Negative) mg/dL Urine Glucose (UA) (Negative) mg/dL Urine Ketones (Negative) mg/dL Ur Blood (Man) (Negative) Urine Nitrate (Negative) Urine Bilirubin (Negative) Urine Urobilinogen (<2.0) mg/dL Leukocyte Esterase Rfl (Negative) ANNE MARIE/UL Urine RBC (0-2) /hpf Urine WBC (0-3) /hpf Ur Squamous Epith Cells (Few) /hpf Urine Bacteria /hpf Urine Casts Salicylates (2-20) mg/dL Urine Opiates Screen (Negative) Urine Methadone Screen (Negative) Acetaminophen (10-30) ug/mL Ur Barbiturates Screen (Negative) Ur Phencyclidine Scrn (Negative) Ur Amphetamine Screen (Negative) U Benzodiazepines Scrn (Negative) Urine Cocaine Screen (Negative) U Cannabinoids Screen (Negative) Ethyl Alcohol (<10) mg/dL Influenza A (RT-PCR) (Negative) Influenza B (RT-PCR) (Negative) RSV (RT-PCR) (Negative) SARS-CoV-2 RNA (RT-PCR) (Negative) 12/19/24 12/19/24 12/19/24 Range/Units 21:33 21:33 21:33 WBC (4.5-10.0) K/mm3 RBC (4.6-6.20) M/mm3 Hgb (14.0-18.0) g/dL Hct (42.0-52.0) % MCV (80-100) fl MCH (26-34) pg MCHC (32-36) g/dl RDW (11.5-14.5) % Plt Count (150-375) k/mm3 MPV (7.4-10.4) fl Immature Gran % (Auto) (0-0.5) % Neut % (Auto) (45.5-73.1) % Lymph % (Auto) (18.3-44.2) % [place] % (Auto) (2.6-8.5) % Eos % (Auto) (0-4.4) % Baso % (Auto) (0.2-1.2) % Lymph # (Auto) (0.9-3.2) K/mm3 [place] # (Auto) (0.1-0.6) K/mm3 Eos # (Auto) (0-0.3) K/mm3 Baso # (Auto) (0.0-0.1) K/mm3 Abs Immat Gran (auto) (0.00-0.031) K/mm3 Absolute Neuts (auto) (1.3-6.7) K/mm3 Absolute Nucleated RBC (0.0-0.012) K/mm3 Nucleated RBC % (0.0-0.2) % PT (11.1-14.7) Seconds INR APTT (22.3-36.8) Seconds D-Dimer (<0.48) ug/mL Sodium Potassium Chloride Carbon Dioxide Anion Gap BUN Creatinine Estim Creat Clear Calc Estimated GFR Glucose POC Capillary Glucose (65-105) mg/dl Lactic Acid (0.7-2.0) mmol/L Calcium Magnesium (1.6-2.3) mg/dL Total Bilirubin AST ALT Alkaline Phosphatase Ammonia (9-30) umol/L Total Creatine Kinase Troponin I NT-Pro-B Natriuret Pep (19.9-100) pg/mL Total Protein 7.4 Albumin Cancelled 4.4 TSH Cancelled 3.540 Urine Color (Yellow) Urine Appearance (Clear) Urine pH (5.0-9.0) Ur Specific [place] (1.001-1.035) Urine Protein (Negative) mg/dL Urine Glucose (UA) (Negative) mg/dL Urine Ketones (Negative) mg/dL Ur Blood (Man) (Negative) Urine Nitrate (Negative) Urine Bilirubin (Negative) Urine Urobilinogen (<2.0) mg/dL Leukocyte Esterase Rfl (Negative) ANNE MARIE/UL Urine RBC (0-2) /hpf Urine WBC (0-3) /hpf Ur Squamous Epith Cells (Few) /hpf Urine Bacteria /hpf Urine Casts Salicylates < 1.0 L (2-20) mg/dL Urine Opiates Screen (Negative) Urine Methadone Screen (Negative) Acetaminophen < 10 L (10-30) ug/mL Ur Barbiturates Screen (Negative) Ur Phencyclidine Scrn (Negative) Ur Amphetamine Screen (Negative) U Benzodiazepines Scrn (Negative) Urine Cocaine Screen (Negative) U Cannabinoids Screen (Negative) Ethyl Alcohol < 10 (<10) mg/dL Influenza A (RT-PCR) (Negative) Influenza B (RT-PCR) (Negative) RSV (RT-PCR) (Negative) SARS-CoV-2 RNA (RT-PCR) (Negative) 12/19/24 12/20/24 12/20/24 Range/Units 23:34 01:21 05:24 WBC (4.5-10.0) K/mm3 RBC (4.6-6.20) M/mm3 Hgb (14.0-18.0) g/dL Hct (42.0-52.0) % MCV (80-100) fl MCH (26-34) pg MCHC (32-36) g/dl RDW (11.5-14.5) % Plt Count (150-375) k/mm3 MPV (7.4-10.4) fl Immature Gran % (Auto) (0-0.5) % Neut % (Auto) (45.5-73.1) % Lymph % (Auto) (18.3-44.2) % [place] % (Auto) (2.6-8.5) % Eos % (Auto) (0-4.4) % Baso % (Auto) (0.2-1.2) % Lymph # (Auto) (0.9-3.2) K/mm3 [place] # (Auto) (0.1-0.6) K/mm3 Eos # (Auto) (0-0.3) K/mm3 Baso # (Auto) (0.0-0.1) K/mm3 Abs Immat Gran (auto) (0.00-0.031) K/mm3 Absolute Neuts (auto) (1.3-6.7) K/mm3 Absolute Nucleated RBC (0.0-0.012) K/mm3 Nucleated RBC % (0.0-0.2) % PT (11.1-14.7) Seconds INR APTT (22.3-36.8) Seconds D-Dimer (<0.48) ug/mL Sodium Potassium Chloride Carbon Dioxide Anion Gap BUN Creatinine Estim Creat Clear Calc Estimated GFR Glucose POC Capillary Glucose 77 98 134 H (65-105) mg/dl Lactic Acid (0.7-2.0) mmol/L Calcium Magnesium (1.6-2.3) mg/dL Total Bilirubin AST ALT Alkaline Phosphatase Ammonia (9-30) umol/L Total Creatine Kinase Troponin I NT-Pro-B Natriuret Pep (19.9-100) pg/mL Total Protein Albumin TSH Urine Color (Yellow) Urine Appearance (Clear) Urine pH (5.0-9.0) Ur Specific [place] (1.001-1.035) Urine Protein (Negative) mg/dL Urine Glucose (UA) (Negative) mg/dL Urine Ketones (Negative) mg/dL Ur Blood (Man) (Negative) Urine Nitrate (Negative) Urine Bilirubin (Negative) Urine Urobilinogen (<2.0) mg/dL Leukocyte Esterase Rfl (Negative) ANNE MARIE/UL Urine RBC (0-2) /hpf Urine WBC (0-3) /hpf Ur Squamous Epith Cells (Few) /hpf Urine Bacteria /hpf Urine Casts Salicylates (2-20) mg/dL Urine Opiates Screen (Negative) Urine Methadone Screen (Negative) Acetaminophen (10-30) ug/mL Ur Barbiturates Screen (Negative) Ur Phencyclidine Scrn (Negative) Ur Amphetamine Screen (Negative) U Benzodiazepines Scrn (Negative) Urine Cocaine Screen (Negative) U Cannabinoids Screen (Negative) Ethyl Alcohol (<10) mg/dL Influenza A (RT-PCR) (Negative) Influenza B (RT-PCR) (Negative) RSV (RT-PCR) (Negative) SARS-CoV-2 RNA (RT-PCR) (Negative) Imaging Data Radiologist's impression: Impressions Head CT 12/19/24 21:17 IMPRESSION: No acute intracranial findings. Enlarged left parotid the gland. Further evaluation advised Chest X-Ray 12/19/24 21:23 IMPRESSION: No acute cardiopulmonary pathology. CT Neck Soft Tissue Stat Rad: Asymmetric enlargement of the left parotid glad which could be due to infectious or inflammatory etiologies verses sialolithiasis, autoimmune disease, versus neoplastic disease. No incidental findings. CTA CHest Stat Rad: No pulmonary embolism. No pneumonia. Subsegmental atelectasis at both lung bases. No pneumonia. No other acute findings. Degenerative changes in the spine. CTA Abd & Pelvis with Contrast Stat Rad: No acute findings. Aortoiliac atherosclerosis. Walters catheter in bladder. Degenerative changes spine. ECG Data EKG #1: Attestation: I personally reviewed and interpreted this ECG as follows: ECG completion date: 12/19/24 ECG completion time: 22:00 Interpretation: Sinus bradycardia at a rate of 55 beats per minute. OK interval 192. QRS 111. QT/QTC 486/476. No T-wave inversions. Left axis deviation (QRS is positive with dominant R wave in Lead I; QRS is negative with dominant S wave in leads II, III, and aVF). Discharge Plan Discharge Clinical Impression: Hypoglycemia, Acute alteration in mental status, Swelling of left parotid gland, Proteinuria due to type 2 diabetes mellitus, Leukocytosis, Anemia, Hypothermia, Aorto-iliac atherosclerosis, Degenerative joint disease of spine, Adenoma of left adrenal gland, Pulmonary nodule Patient Disposition: Home Condition: Stable Instructions: Antibiotic Form, Hypoglycemia in a Person with Diabetes (DC), Altered Mental Status (ED), Anemia (ED), Pulmonary Nodules (ED), Degenerative Disc Disease (ED) Additional Instructions: Your blood sugar remained normal overnight. Your temperature was low when your blood sugar was low but it also normalized and remained stable. This is not uncommon to happen during hypoglycemia. Make sure you are eating regularly and taking your insulin and other medications as prescribed. Left parotid gland is mildly enlarged as compared to the right, without evidence of discrete mass or definite inflammatory change. Pre and postcontrast MR could be considered for further evaluation for masses. Your primary care physician can help arrange this in the outpatient setting. [facility] but if you need an alternative PCP, a doctor is listed below. Home losartan medication was given this morning given your blood pressure was elevated. Return to the emergency department with any new, worsening, or unmanaged symptoms. Patient Language: Belgian Prescriptions: No Action atorvastatin 40 mg Tablet 80 mg PO HS insulin aspart U-100 [Novolog U-100 Insulin aspart] 100 unit/mL Solution 5 unit SUBCUT .with breakfast metformin 1,000 mg Tablet 1,000 mg PO BID albuterol 90 mcg/actuation Aerosol 1 mcg INHALATION QID PRN (Reason: shortness of breath or wheezing) finasteride 5 mg Tablet 5 mg PO DAILY insulin glargine 100 unit/mL Cartridge 18 unit SUBCUT HS diclofenac sodium 1 % Gel 4 g TOPICAL QID PRN (Reason: pain) sertraline 100 mg Tablet 150 mg PO DAILY tamsulosin 0.4 mg Capsule 0.4 mg PO HS pantoprazole 40 mg Tablet,Delayed Release (Dr/Ec) 40 mg PO QPM aspirin [Children's Aspirin] 81 mg Tablet,Chewable 81 mg PO DAILY@0800 Qty: 30 0RF carbidopa-levodopa 25-100 mg tablet 2 tablet PO QID Patient Comments: significant other decreased dose to 2 tabs with neurologist instruction losartan [Cozaar] 50 mg tablet 100 mg PO DAILY docusate sodium 100 mg capsule 200 mg PO BID sennosides [senna] 8.6 mg tablet 8.6 mg PO DAILY insulin aspart U-100 [Novolog U-100 Insulin aspart] 100 unit/mL solution 5 unit subcut .with lunch insulin aspart U-100 [Novolog U-100 Insulin aspart] 100 unit/mL solution 11 unit subcut .with dinner Ozempic 1 mg/dose (4 mg/3 mL) pen injector 1 mg subcut WEEKLY Rx Instructions: every Wednesday empagliflozin 25 mg tablet 25 mg PO DAILY Follow-up/Referrals: Melina Gordon DO [Physician] - [facility] [Primary Care Provider] - Time of Disposition: 06:17
--- NOTE | 2024-12-19 20:26 | ECG_ITS ---
Test Date: 2024-12-19 22:00:36 Measurements Intervals [place] Rate: 55 P: -4 RI: 192 QRS: -34 QRSD: 111 T: 29 QT: 486 QTc: 468 Interpretive Statements SINUS BRADYCARDIA LEFT AXIS DEVIATION INTRAVENTRICULAR CONDUCTION DELAY CANNOT R/O SEPTAL INFARCT, AGE INDETERMINATE ABNORMAL ECG Compared to ECG 08/26/2024 16:59:21 HEART RATE HAS DECREASED Electronically Signed On 12-20-2024 06:23:28 CDT by Elton Garner D.O.
[2024-12-19 21:49] LABS: Basophils Percent Auto 0.4 % (0.2-1.2); Eosinophils Percent Auto 0.4 % (0-4.4); Hematocrit 36.5 % (42.0-52.0); Hemoglobin 10.7 g/dL (14.0-18.0); Immature Granulocyte Absolute 0.06 K/mm3 (0.00-0.031); Immature Granulocyte Percent A 0.6 % (0-0.5); Lymphocytes Absolute Auto 0.96 K/mm3 (0.9-3.2); Lymphocytes Percent Auto 8.8 % (18.3-44.2); Mean Corpuscular HGB Conc 29.3 g/dl (32-36); Mean Corpuscular Hemoglobin 28.3 pg (26-34); Mean Corpuscular Volume 96.6 fl (80-100); Mean Platelet Volume 10.3 fl (7.4-10.4); Monocytes Absolute Auto 0.6 K/mm3 (0.1-0.6); Monocytes Percent Auto 5.6 % (2.6-8.5); Neutrophils Absolute Auto 9.2 K/mm3 (1.3-6.7); Neutrophils Percent Auto 84.2 % (45.5-73.1); Platelet Count Result 234 k/mm3 (150-375); Red Blood Count 3.78 M/mm3 (4.6-6.20); Red Cell Distribution Width 14.7 % (11.5-14.5); White Blood Count 10.9 K/mm3 (4.5-10.0)
[2024-12-19 22:01] LABS: Acetaminophen < 10 ug/mL (10-30); Ammonia < 9 umol/L (9-30); Ethanol < 10 mg/dL (<10); Salicylate < 1.0 mg/dL (2-20)
[2024-12-19 22:04] LABS: Alanine Aminotransferase 12 U/L (6-50); Albumin Level 4.4 g/dL (3.5-5.1); Alkaline Phosphatase 124 U/L (38-126); Anion Gap 8 mmol/L (4-12); Aspartate Amino Transferase 92 U/L (17-59); Bilirubin,Total 0.3 mg/dL (0.2-1.3); Blood Urea Nitrogen 46 mg/dL (9-20); Calcium 9.7 mg/dL (8.4-10.2); Carbon Dioxide 29 mmol/L (22-30); Chloride 103 mmol/L (98-107); Creatine Kinase 86 U/L (55-170); Estimated CRCL calculation 62 ml/min; Estimated Glomerular Filt Rate > 60; Glucose 92 mg/dL (65-110); Magnesium 2.1 mg/dL (1.6-2.3); Potassium 4.5 mmol/L (3.4-5.0); Sodium 140 mmol/L (137-145); Total Protein 7.4 g/dL (6.3-8.2)
[2024-12-19 22:04] LABS: Add Urine Microscopic? YES; Appearance Urine Clear (Clear); Bacteria Urine None Seen /hpf; Bilirubin Urine Negative (Negative); Blood Urine Negative (Negative); Color Urine Yellow (Yellow); Glucose Urine UA Negative (Negative); Ketones Urine Trace mg/dL (Negative); Leukocyte Esterase Ur Negative LEU/UL (Negative); Nitrate Urine Negative (Negative); Protein Urine 2+ mg/dL (Negative); RBC Urine 0-2 /hpf (0-2); Specific Grav Ur 1.022 (1.001-1.035); Squamous Epithelial Cell Urine None Seen /hpf (Few); Urobilinogen Urine 0.2 mg/dL (<2.0); WBC Urine 0-5 /hpf (0-3); pH Urine 5.5 (5.0-9.0)
[2024-12-19 22:05] LABS: Lactic Acid Reflex 1.7 mmol/L (0.7-2.0)
[2024-12-19 22:11] LABS: Partial Thromboplastin Time 31.8 Seconds (22.3-36.8)
[2024-12-19 22:14] LABS: D Dimer 0.83 ug/mL (<0.48)
[2024-12-19 22:16] LABS: NT Pro B Type Natriuretic Pept 477 pg/mL (19.9-100); Troponin I < 0.012 ng/mL (0.000-0.034)
[2024-12-19 22:36] LABS: Amphetamine Screen Urine Negative (Negative); Barbiturate Screen Urine Negative (Negative); Benzodiazepines Screen Urine Negative (Negative); Cannabinoid Screen Urine Negative (Negative); Cocaine Screen Urine Negative (Negative); Methadone Screen Urine Negative (Negative); Opiate Screen Urine Negative (Negative); Phencyclidine Screen Urine Negative (Negative)
[2024-12-19 22:38] LABS: Influenza A QL RT-PCR Negative (Negative); Influenza B QL RT-PCR Negative (Negative); RSV RNA, RT-PCR Negative (Negative); SARS-CoV-2 RNA PCR Negative (Negative)
--- NOTE | 2024-12-19 22:57 | PC.NURSE ---
This RN called pt contact and gave update. Will call back with any pt status change.
[2024-12-19] MEDS: SODIUM CHLORIDE 0.9% IV 1,000 ML 999 ML IV CONT (23:36)
[2024-12-19 23:45] LABS: Glucose Point of Care 77 mg/dl (65-105)
[2024-12-20] VITALS (19 sets, daily range): BP systolic 175–194; BP diastolic 77–84; PULSE 66–81; RESP 15–21; TEMP 35.3–36.8; O2SAT 90–100
[2024-12-20 01:25] LABS: Glucose Point of Care 98 mg/dl (65-105)
--- NOTE | 2024-12-20 03:07 | PC.NURSE ---
This RN spoke o dorota and gave update on pt status. Will call back with any new updates.
--- NOTE | 2024-12-20 03:35 | PC.NURSE ---
Pt was placed on 2L NC due to pt O2 being 88% on RA. This RN asked pt if he has ever needed Oxygen before and he said yes, I am supposed to wear 2 L at all times. . When this RN asked pt why he did not say anything when myself and the EDP asked earlier, pt stated, didn't think about it.
[2024-12-20] MEDS: LOSARTAN POTASSIUM 100 MG TABLET PO (05:21)
[2024-12-20 05:28] LABS: Glucose Point of Care 134 mg/dl (65-105)
--- NOTE | 2024-12-20 06:21 | PC.NURSE ---
This RN spoke to pt and informed of pt discharge status. Pt Kathryn stated she will have her daughter come and pick him up.
== END 2024-12-20 07:01 | disposition home or self-care (01) ==
PROVIDERS: Emergency Provider Student in an Organized Health Care Education/Training Program
DX: E11.649 Type 2 diabetes mellitus with hypoglycemia without coma (principal); R41.82 Altered mental status, unspecified; K11.9 Disease of salivary gland, unspecified; D72.829 Elevated white blood cell count, unspecified; R80.8 Other proteinuria; D64.9 Anemia, unspecified; R68.0 Hypothermia, not associated with low environmental temperature; I70.0 Atherosclerosis of aorta; I25.10 Atherosclerotic heart disease of native coronary artery without angina pectoris; M47.9 Spondylosis, unspecified; D35.02 Benign neoplasm of left adrenal gland; R91.1 Solitary pulmonary nodule; Z87.891 Personal history of nicotine dependence; Z79.899 Other long term (current) drug therapy
CPT/HCPCS: 36415; 70450; 70491; 71045; 71275; 74177; 80053; 80143; 80179; 80307; 81001; 82077; 82140; 82550; 82948; 83605; 83735; 83880; 84443; 84484; 85025; 85380; 85610; 85730; 87040; 87637; 93005; 96360; 99284; A9270; J7030; Q9967

== ENCOUNTER 2025-02-09 00:12 | Inpatient (IN) | payer MEDICARE, SELFPAY ==
[2025-02-09] VITALS (22 sets, daily range): BP systolic 117–176; BP diastolic 53–103; PULSE 36–777; RESP 14–28; TEMP 36.4–37.1; O2SAT 90–100
--- NOTE | ~2025-02-09 | XR_ITS ---
XR chest 1V portable 02/09/2025 01:24 Indication: Cough Procedure: AP portable chest Comparison: Comparison to multiple prior studies sequentially, with oldest reviewed study dated 11/2020. Findings: Borderline heart size. Bilateral infiltrates of the mid and lower lungs. No pleural effusio n. No pneumothorax. No acute osseous abnormality. Impression: 1: Bilateral infiltrates of the mid and lower lungs have developed. Differential diagnosis includes e melani and pneumonia. Reviewed, dictated and finalized at location A. Impression: 1: Bilateral infiltrates of the mid and lower lungs have developed. Differentia l diagnosis includes edema and pneumonia.
--- NOTE | ~2025-02-09 | XR_ITS ---
CHEST RADIOGRAPH CLINICAL HISTORY: pneumonia . COMPARISON: 02/09/2025 TECHNIQUE: Single portable view of the chest. FINDINGS The cardiomediastinal silhouette is enlarged, unchanged. Bibasilar atelectasis. Elevation of the left hemidiaphragm with adjacent compressive atelectasis. The remainder of the lungs are clear. IMPRESSION: Elevation of the left hemidiaphragm with adjacent compressive atelectasis. Bibasilar atelectasis. The remainder of the lungs are clear. Reviewed, dictated and finalized at location A.
--- NOTE | 2025-02-09 00:21 | ECG_ITS ---
Test Date: 2025-02-09 01:16:44 Measurements Intervals [place] Rate: 69 P: 7 [place]: 189 QRS: -37 QRSD: 109 T: 50 QT: 410 QTc: 439 Interpretive Statements SINUS RHYTHM LEFT AXIS DEVIATION [QRS AXIS < -30] Compared to ECG 12/19/2024 22:00:36 Sinus bradycardia no longer present Intraventricular conduction delay no longer present Myocardial infarct finding no longer present Electronically Signed On 02-10-2025 18:27:17 CDT by Carroll Araiza M.D.
--- OUTSIDE RECORDS SUMMARY | 2025-02-09 00:25 | XMS_ITS | Clinical Summary ---
Author Organization [facility] [address] Address [address] [place] [address] Care Team Providers Care Market Superintendent Name Role Phone [facility], Roni Austin Primary Care Pro vider [...] 08/09/2023 Assessment & Plan (08/09/2023 3:17 AM DATA COLLECTION INTERVIEWER): - Continue albuterol PRN - Patient is in process of arranging PFT for further evaluation at the [facility] Acute on chronic diastolic congestive heart fail [...] edema.. Assessment & Plan (08/09/2023 7:48 AM DATA COLLECTION INTERVIEWER): Holding furosemide 20 mg at this time in setting of hypovolemia. - TTE ordered - Continuous telemetry with vitals q8hr Gastro-esophageal reflux disease without esophag itis 08/09/2023 Assessment & Plan (08/09/2023 7:53 AM DATA COLLECTION INTERVIEWER): - Continue home pantoprazole 40 mg daily [...] 04/2021. He follows with neurology at the [facility]. Last seen in clinic by them in 03/2023. He was last up-titrated to dose of regimen to 2 + 1.5 + 2+ 1.5 of sinamet. Assessment & Plan (08/09/2023 2:21 AM DATA COLLECTION INTERVIEWER): - holding home carbidopa/levidopa in setting of [...] rest. Assessment & Plan (08/09/2023 7:39 AM DATA COLLECTION INTERVIEWER): - Given 500 mL IVF in ED [...] up. Assessment & Plan (08/09/2023 7:54 AM DATA COLLECTION INTERVIEWER): - Continue tamsulosin 0.4 mg daily Stercolith [...] ordered Assessment & Plan (08/08/2023 10:53 PM DATA COLLECTION INTERVIEWER): - will conduct enema - start miralax and senna scheduled Leukocytosis 02/13/2020 Overview (08/09/2023): In setting of recent syncopal episode, most likely reactive. No concerns for infectious process at this time.. Assessment & Plan (08/09/2023 2:37 AM DATA COLLECTION INTERVIEWER): - CTM daily CBC's Type 2 diabetes, controlled, with renal manifest ation 02/12/2020 Overview (08/09/2023): Managed by PCP and endocrinology at [facility]. PCP [facility] note 08/04/2023: Most recently seen with endocrine [...] recently. Assessment & Plan (08/09/2023 8:01 AM DATA COLLECTION INTERVIEWER): Hemoglobin A1c 8.0 03/10 with lantus 30 at home - Repeat A1c here - Dose reduce to 20 units with ss - Continue to monitor with POCT glucose checks TIDAC Mixed hyperlipidemia 02/01/2020 Overview (08/09/2023): Prev lipid panel 08/2022: LDL 68, HDL 58 [facility]. Assessment & Plan (08/08/2023 10:55 PM DATA COLLECTION INTERVIEWER): - Ordering lipid panel - Continue home atorvastatin 40 mg Depression 02/01/2020 Assessment & Plan (08/09/2023 7:53 AM DATA COLLECTION INTERVIEWER): - Continue home sertraline 150 mg daily [...] disease. Assessment & Plan (08/09/2023 7:43 AM DATA COLLECTION INTERVIEWER): - Continue losartan 50 mg - Holding [...] Free, Intramuscular 03/19/2019,06/30/2016,04/09/2015,08/28 Influenza, Unspecified 04/20/2013,2011,04/02/2011,05/14,05/08/2009,06/11/2008,05/13/2006 ,06/23/2005 [employer] Sars-Cov-2 Bivalent V accination (12+ YRS) 08/20/2022 [...] Cigarettes Tobacco Cessation:Counseling Given: Not Answered [facility] Utilities Answer Date Recorded In the [...] often do you attend chur ch or hindu services? Never 08/12/2023 Do you belong to any clubs o r organizations such as cheondoism groups, unions, fraternal or athletic groups, or [...] place to sleep or slept in a custodial (including now)? No 08/12/2023 Personal Safety Answer Date Recorded Have you ever been in or are you currently in a harmful physical or emotional relationship or is someone making you feel afraid or unsafe? Denies 08/08/2023 Sex and Gender Information Value Date Recorded Sex Assigned at Not on file Legal Sex Male 5:35 PM DATA COLLECTION INTERVIEWER Gender Identity Not on file Sexual Orientation Not on file Obstetrics History Last Filed Vital Signs Vital Sign Reading Time Taken Comments Blood Pressure 99/59 08/11/2023 11:05 AM DATA COLLECTION INTERVIEWER Pulse 68 08/11/2023 11:05 AM DATA COLLECTION INTERVIEWER Temperature 36.5 C (97.7 F) 08/11/2023 11:05 AM DATA COLLECTION INTERVIEWER Respiratory Rate 20 08/11/2023 11:0 5 AM DATA COLLECTION INTERVIEWER Oxygen Saturation 96% 08/11/2023 11: 05 AM DATA COLLECTION INTERVIEWER Inhaled Oxygen Concentration - - Weight 89.3 kg (196 lb 12.8 oz) 08/11/2023 5:20 AM DATA COLLECTION INTERVIEWER Height 175.3 cm (5' 9) 08/08/2023 11:4 7 PM DATA COLLECTION INTERVIEWER Body Mass Index 29.06 08/08/2023 11:47 PM DATA COLLECTION INTERVIEWER Plan of Treatment Health Maintenance Due Date [...] Fall Risk Assessment 08/11/2024 08/11/2023 Influenza Vaccine (#1) 2025 , 08/20/2022, 05/13/2021, Additional history exists DTaP/Tdap/Td Vaccine (2 - Td or Tdap) 03/02/2027 03/02/2017, 02/25/2007 Pneumococcal vaccine 65+ Completed 018, 06/30/2016, 02/25/2007 Zoster Vaccine Completed 07/15/2018, 12/17, 07/28/2012 Abdominal Aortic Aneurysm (A AA) Screen Completed 08/08/2023, 02/13/2020 Procedures Procedure Name Priority Date/Time Associated Diagnosis Comments EGFR Routine 08/10/2023 8:13 PM DATA COLLECTION INTERVIEWER LIPID PANEL Routine 08/09/2023 4:38 AM DATA COLLECTION INTERVIEWER HEMOGLOBIN A1C Routine 08/09/2023 1:09 [address] COLLECTION INTER[address]ER CT ABDOMEN PELVIS W CONTRAST ED 08/08/2023 6:59 PM DATA COLLECTION INTERVIEWER from Last 3 Months or Most Recently Relevant to Health Maintenance Results * eGFR (08/10/2023 8:13 PM DATA COLLECTION INTERVIEWER) eGFR 85 >=60 mL/min/1. 73 m2 [facility] Comment: Interpretive Data Reference Interval Normal [...] last reviewed 2021. Blood 08/10/2023 8:13 PM DATA COLLECTION INTERVIEWER 08/10/2023 9:31 PM DATA COLLECTION INTERVIEWER Renny Albright MD LAB BLOOD ORDERABLES Fi nal Result [facility] Department [place] [address] * Lipid panel (08/09/2023 4:38 AM DATA COLLECTION INTERVIEWER) Cholesterol 137 30 - 199 mg/dL [facility] [...] on 2018. HDL 56 >=40 mg/dL [facility] Comment: Interpretive Data Ages < or [...] 2018. LDL, calculated 66 <=129 mg/dL [facility] Comment: Interpretive Data Ages < or [...] on 2018. Non-HDL Cholesterol 81 mg/dL [facility] Comment: Interpretive Data Ages < or [...] last revised on 2018. Chol/HDL ratio 2 [facility] Blood 08/09/2023 4:38 AM DATA COLLECTION INTERVIEWER 08/09/2023 5:32 AM DATA COLLECTION INTERVIEWER Josh Corona MD LAB BLOOD ORDERABLES F inal Result Performing Organization Address [facility] de Phone Number [facility] [place] [address] * (ABNORMAL) Hemoglobin A1c (08/09/2023 1:09 AM DATA COLLECTION INTERVIEWER) Hgb A1C 12.7(H) 4.0 - 5.6 % [facility] Estimated Average Glucose 318 mg/dL [facility] Comment: The ADA recommends reporting an estimated Average Glucose (eAG) with all Hemoglobin A1c results using the equation derived from a study of 507 normal and diabetic adults. Minority populations were underrepresented and children were not included. (Diabetes Care 2020; 43(S1): S66-S76). The eAG is not equivalent to a fasting glucose. Blood 08/09/2023 1:09 AM DATA COLLECTION INTERVIEWER 08/09/2023 2:23 AM DATA COLLECTION INTERVIEWER Josh Corona MD LAB BLOOD ORDERABLES F inal Result Performing Organization Address [facility] [address] * CT Abdomen Pelvis W Contrast (08/08/2023 6:59 PM DATA COLLECTION INTERVIEWER) Anatomical Region Laterality Modality Body N/A Computed Tomogra phy 08/08/2023 7:24 PM DATA COLLECTION INTERVIEWER Impressions 08/08/2023 10:35 PM DATA COLLECTION INTERVIEWER 1. Rectal stool ball with mild surrounding [...] Safia Mendez M.D. Narrative 08/08/2023 10:35 PM DATA COLLECTION INTERVIEWER EXAMINATION: CT ABDOMEN PELVIS W CONTRAST HISTORY: [...] Recently Relevant to Health Maintenance Insurance [facility] [place] [facility] Member Subscriber Plan / Payer (Ef fective 2004-Present) Name:Memo Simpson Relation to Subscriber:Self Name:Memo Simpson Payer ID:[id number] Group ID:Not on file Type:[facility] Address: [address] [place] [id number] [facility] [place] [facility] Advance Directives For more information, please contact: [phone] * Full Code (Latest Code Status on File) Date Activated Date Inactivated Comments 08/08/2023 11:59 PM 08/11/2023 9:08 PM Care Teams Market Superintendent Relationship Specialty Start Date End Date [facility], Roni Austin [address] [place] [address] PCP - General Genetics 07/05/24
--- OUTSIDE RECORDS SUMMARY | 2025-02-09 00:25 | XMS_ITS | Referral Summary ---
Author Organization [facility] Medical Office Building [address] Address [address] [place] [address] Care Team Providers Care Train Control Technician Name Role Phone [facility], Roni Austin Primary Care Pro vider [...] 08/09/2023 Assessment & Plan (08/09/2023 3:17 AM THERAPEUTIC RECREATION LEADER): - Continue albuterol PRN - Patient is in process of arranging PFT for further evaluation at the [facility] on chronic diastolic congestive heart fail [...] edema.. Assessment & Plan (08/09/2023 7:48 AM THERAPEUTIC RECREATION LEADER): Holding furosemide 20 mg at this time in setting of hypovolemia. - TTE ordered - Continuous telemetry with vitals q8hr Gastro-esophageal reflux disease without esophag itis 08/09/2023 Assessment & Plan (08/09/2023 7:53 AM THERAPEUTIC RECREATION LEADER): - Continue home pantoprazole 40 mg daily [...] 04/2021. He follows with neurology at the [facility]. Last seen in clinic by them in 03/2023. He was last up-titrated to dose of regimen to 2 + 1.5 + 2+ 1.5 of sinamet. Assessment & Plan (08/09/2023 2:21 AM THERAPEUTIC RECREATION LEADER): - holding home carbidopa/levidopa in setting of [...] rest. Assessment & Plan (08/09/2023 7:39 AM THERAPEUTIC RECREATION LEADER): - Given 500 mL IVF in ED [...] up. Assessment & Plan (08/09/2023 7:54 AM THERAPEUTIC RECREATION LEADER): - Continue tamsulosin 0.4 mg daily Stercolith [...] ordered Assessment & Plan (08/08/2023 10:53 PM THERAPEUTIC RECREATION LEADER): - will conduct enema - start miralax and senna scheduled Leukocytosis 02/13/2020 Overview (08/09/2023): In setting of recent syncopal episode, most likely reactive. No concerns for infectious process at this time.. Assessment & Plan (08/09/2023 2:37 AM THERAPEUTIC RECREATION LEADER): - CTM daily CBC's Type 2 diabetes, controlled, with renal manifest ation 02/12/2020 Overview (08/09/2023): Managed by PCP and endocrinology at [facility]. PCP [facility] note 08/04/2023: Most recently seen with endocrine [...] recently. Assessment & Plan (08/09/2023 8:01 AM THERAPEUTIC RECREATION LEADER): Hemoglobin A1c 8.0 03/10 with lantus 30 at home - Repeat A1c here - Dose reduce to 20 units with ss - Continue to monitor with POCT glucose checks TIDAC Mixed hyperlipidemia 02/01/2020 Overview (08/09/2023): Prev lipid panel 08/2022: LDL 68, HDL 58 per [facility]. Assessment & Plan (08/08/2023 10:55 PM THERAPEUTIC RECREATION LEADER): - Ordering lipid panel - Continue home atorvastatin 40 mg Depression 02/01/2020 Assessment & Plan (08/09/2023 7:53 AM THERAPEUTIC RECREATION LEADER): - Continue home sertraline 150 mg daily [...] disease. Assessment & Plan (08/09/2023 7:43 AM THERAPEUTIC RECREATION LEADER): - Continue losartan 50 mg - Holding [...] Free, Intramuscular 03/19/2019,06/30/2016,04/09/2015,08/28 Influenza, Unspecified 04/20/2013,2011,04/02/2011,05/14,05/08/2009,06/11/2008,05/13/2006 ,06/23/2005 [employer] Sars-Cov-2 Bivalent V accination (12+ YRS) 08/20/2022 Pneumococcal Conjugate PCV 13 06/30/2016 Pneumococcal Polysaccharide PPV23 07/15/2018 Pneumococcal, Unspecified 02/25/2007 Td, Unspecified 02/25/2007 Tdap 03/02/2017 [employer]OST[employer] LIVE 07/28/2012 [employer] Recombinant 07/15/2018,12/31/2017 Social History Tobacco Use Types Packs/Day Years Used Date Smoking Tobacco: Former Cigarettes Tobacco Cessation:Counseling Given: Not Answered [facility] Utilities Answer Date Recorded In the [...] often do you attend chur ch or pentecostal services? Never 08/12/2023 Do you belong to any clubs o r organizations such as jewish groups, unions, fraternal or athletic groups, or [...] place to sleep or slept in a chcf (including now)? No 08/12/2023 Personal Safety Answer Date Recorded Have you ever been in or are you currently in a harmful physical or emotional relationship or is someone making you feel afraid or unsafe? Denies 08/08/2023 Sex and Gender Information Value Date Recorded Sex Assigned at Not on file Legal Sex Male 5:35 PM THERAPEUTIC RECREATION LEADER Gender Identity Not on file Sexual Orientation Not on file Last Filed Vital Signs Vital Sign Reading Time Taken Comments Blood Pressure 99/59 08/11/2023 11:05 AM THERAPEUTIC RECREATION LEADER Pulse 68 08/11/2023 11:05 AM THERAPEUTIC RECREATION LEADER Temperature 36.5 C (97.7 F) 08/11/2023 11:05 AM THERAPEUTIC RECREATION LEADER Respiratory Rate 20 08/11/2023 11:0 5 AM THERAPEUTIC RECREATION LEADER Oxygen Saturation 96% 08/11/2023 11: 05 AM THERAPEUTIC RECREATION LEADER Inhaled Oxygen Concentration - - Weight 89.3 kg (196 lb 12.8 oz) 08/11/2023 5:20 AM THERAPEUTIC RECREATION LEADER Height 175.3 cm (5' 9) 08/08/2023 11:4 7 PM THERAPEUTIC RECREATION LEADER Body Mass Index 29.06 08/08/2023 11:47 PM THERAPEUTIC RECREATION LEADER Plan of Treatment Not on file Procedures Procedure Name Priority Date/Time Associated Diagnosis Comments EGFR Routine 08/10/2023 8:13 PM THERAPEUTIC RECREATION LEADER LIPID PANEL Routine 08/09/2023 4:38 AM THERAPEUTIC RECREATION LEADER HEMOGLOBIN A1C Routine 08/09/2023 1:09 [address]IC RECREATION LEAD[address] CT ABDOMEN PELVIS W CONTRAST ED 08/08/2023 6:59 PM THERAPEUTIC RECREATION LEADER from Last 3 Months or Most Recently Relevant to Health Maintenance Results * eGFR (08/10/2023 8:13 PM THERAPEUTIC RECREATION LEADER) eGFR 85 >=60 mL/min/1. 73 m2 [facility] Comment: Interpretive Data Reference Interval [...] last reviewed 2021. Blood 08/10/2023 8:13 PM THERAPEUTIC RECREATION LEADER 08/10/2023 9:31 PM THERAPEUTIC RECREATION LEADER Renny Albright MD LAB BLOOD ORDERABLES Fi nal Result [facility] Department [place] [address] * Lipid panel (08/09/2023 4:38 AM THERAPEUTIC RECREATION LEADER) Cholesterol 137 30 - 199 mg/dL [facility] [...] last revised on 2018. Chol/HDL ratio 2 [facility] Blood 08/09/2023 4:38 AM THERAPEUTIC RECREATION LEADER 08/09/2023 5:32 AM THERAPEUTIC RECREATION LEADER Josh Corona MD LAB BLOOD ORDERABLES F inal Result Performing Organization Address [facility] de Phone Number [facility] [place] [address] * (ABNORMAL) Hemoglobin A1c (08/09/2023 1:09 AM THERAPEUTIC RECREATION LEADER) Hgb A1C 12.7(H) 4.0 - 5.6 % [facility] Estimated Average Glucose 318 mg/dL [facility] Comment: The ADA recommends reporting an estimated Average Glucose (eAG) with all Hemoglobin A1c results using the equation derived from a study of 507 normal and diabetic adults. Minority populations were underrepresented and children were not included. (Diabetes Care 2020; 43(S1): S66-S76). The eAG is not equivalent to a fasting glucose. Blood 08/09/2023 1:09 AM THERAPEUTIC RECREATION LEADER 08/09/2023 2:23 AM THERAPEUTIC RECREATION LEADER Josh Corona MD LAB BLOOD ORDERABLES F inal Result Performing Organization Address [facility] de Phone Number [facility] [place] [address] * CT Abdomen Pelvis W Contrast (08/08/2023 6:59 PM THERAPEUTIC RECREATION LEADER) Anatomical Region Laterality Modality Body N/A Computed Tomogra phy 08/08/2023 7:24 PM THERAPEUTIC RECREATION LEADER Impressions 08/08/2023 10:35 PM THERAPEUTIC RECREATION LEADER 1. Rectal stool ball with mild surrounding [...] Safia Mendez M.D. Narrative 08/08/2023 10:35 PM THERAPEUTIC RECREATION LEADER EXAMINATION: CT ABDOMEN PELVIS W CONTRAST HISTORY: [...] Most Recently Relevant to Health Maintenance Insurance [facility] Address: [address] [place] [address] [facility] Advance Directives For more information, please contact: [phone] * Full Code (Latest Code Status on File) Date Activated Date Inactivated Comments 08/08/2023 11:59 PM 08/11/2023 9:08 PM Care Teams Train Control Technician Relationship Specialty Start Date End Date [facility], Roni Austin [address] [place] [id number] PCP - General Genetics 07/05/24
--- NOTE | 2025-02-09 00:26 | ED.GENADULT ---
HPI - General Adult General Chief complaint: Unspecified <Belkys Howe PA-C - Last Filed: 02/09/25 03:08> Stated complaint: high blood sugar <Belkys Howe PA-C - Last Filed: 02/09/25 03:08> Time Seen by Provider: 02/09/25 00:15 <Belkys Howe PA-C - Last Filed: 02/09/25 03:08> History of Present Illness HPI narrative: 74-year-old male with history of Parkinson's disease, GERD, insulin-dependent type 2 diabetes, hyperlipidemia, hypertension, COPD presents to the ED via EMS from home for hyperglycemia. Patient is uncertain why he is in the emergency department. History is obtained by EMS who states the patient's was concerned that the patient's blood sugars have been elevated to 300-350 since 11:00 a.m.. She reportedly voice concern that this occurs in the patient develops pneumonia. EMS notes the patient's baseline mental status per the is A&O times 2-4 and states that he is at his baseline mental status. The patient does note that he developed a productive cough over the past 2-3 days. He denies chest pain, shortness of breath, abdominal pain, fever, dysuria or hematuria. He notes he has chronic lower extremity edema which is unchanged from baseline. Patient wears supple oxygen for chronic hypoxic respiratory failure from COPD. He states he normally wears 2 L nasal cannula at rest and 4 L with ambulation, however EMS states patient worse for L at all times. Patient states he stopped smoking several years ago. <Belkys Howe PA-C - Last Filed: 02/09/25 03:08> Related Data Home medications: Home Medications ?Medication ?Instructions ?Recorded ?Confirmed ?Last Taken ?Type albuterol 90 mcg/actuation aerosol 1 mcg inhalation QID PRN shortness 12/20/20 08/26/24 Unknown History inhaler of breath or wheezing atorvastatin 40 mg tablet 80 mg PO HS 12/20/20 08/26/24 08/25/24 History diclofenac sodium 1 % topical gel 4 g topical QID PRN pain 12/20/20 08/26/24 Unknown History finasteride 5 mg tablet 5 mg PO DAILY 12/20/20 08/26/24 08/25/24 History insulin aspart U-100 100 unit/mL 5 unit subcut .with breakfast 12/20/20 08/26/24 08/26/24 History subcutaneous solution (Novolog U-100 Insulin aspart) insulin glargine 100 unit/mL 18 unit subcut HS 12/20/20 08/26/24 08/25/24 History subcutaneous cartridge metformin 1,000 mg tablet 1,000 mg PO BID 12/20/20 08/26/24 08/25/24 History pantoprazole 40 mg tablet,delayed 40 mg PO QPM 12/20/20 08/26/24 08/26/24 History release sertraline 100 mg tablet 150 mg PO DAILY 12/20/20 08/26/24 08/25/24 History tamsulosin 0.4 mg capsule 0.4 mg PO HS 12/20/20 08/26/24 08/25/24 History carbidopa 25 mg-levodopa 100 mg 2 tablet PO QID 07/10/24 08/26/24 08/26/24 History tablet docusate sodium 100 mg capsule 200 mg PO BID 07/10/24 08/26/24 08/25/24 History empagliflozin 25 mg tablet 25 mg PO DAILY 07/10/24 08/26/24 08/25/24 History insulin aspart U-100 100 unit/mL 5 unit subcut .with lunch 07/10/24 08/26/24 08/26/24 History subcutaneous solution (Novolog U-100 Insulin aspart) insulin aspart U-100 100 unit/mL 11 unit subcut .with dinner 07/10/24 08/26/24 08/25/24 History subcutaneous solution (Novolog U-100 Insulin aspart) losartan 50 mg tablet (Cozaar) 100 mg PO DAILY 07/10/24 08/26/24 08/25/24 History semaglutide 1 mg/dose (4 mg/3 mL) 1 mg subcut WEEKLY 07/10/24 08/26/24 08/25/24 History subcutaneous pen injector (Ozempic) sennosides 8.6 mg tablet (senna) 8.6 mg PO DAILY 07/10/24 08/26/24 08/25/24 History <Belkys Howe PA-C - Last Filed: 02/09/25 03:08> Allergies/adverse reactions: Allergies Allergy/AdvReac Type Severity Reaction Status Date / Time lisinopril Allergy Mild SWELLING Verified 12/19/24 22:30 <Belkys Howe PA-C - Last Filed: 02/09/25 03:08> Review of Systems Review of Systems: All systems reviewed & are unremarkable except as noted in HPI and below <eBlkys Howe PA-C - Last Filed: 02/09/25 03:08> PMFSH Past Medical History Medical History: Medical History Type 2 diabetes mellitus treated with insulin Hypotension Parkinson disease <Belkys Howe PA-C - Last Filed: 02/09/25 03:08> Family History Family History: Family History Father Cancer <Belkys Howe PA-C - Last Filed: 02/09/25 03:08> Social History Social History: Social History Smoking packs per day: 1.25 Smoking cigarettes per day: 25.0 Years smoked: 16 Smoking pack-years: 20.00 Smoking status: Former smoker Substance use: former Substance use type: marijuana Do You Feel Safe in your Home?: Yes Lack of Transportation: No Lack of Food: Never True Current Housing: I Have Housing Concerned About Future Housing: No Difficulty Paying Gas/Electric Bills: No Difficulty Paying for Meds: No Currently Unemployed: No Education: High School Diploma/GED Difficulty w/ Childcare or Family Care: No Living arrangements: with family Additional living arrangements comments: sister Gender identity (if verbalized by the patient): Male Spiritual care concerns: No <Belkys Howe PA-C - Last Filed: 02/09/25 03:08> Exam Narrative: GENERAL: Well-appearing, well-nourished, and in no acute distress. HEAD: Normocephalic, atraumatic. EYES: EOMI. ENT: Nares clear, no rhinorrhea or epistaxis. Mucous membranes moist. NECK: Supple. CHEST: Expiratory wheezing throughout all lung bowles, actively coughing productive cough on exam. Coarse lung sounds in the right lower lung field. Satting 97% on 4 L nasal cannula and speaking in full sentences in no respiratory distress HEART: Regular rate and rhythm. No murmur heard. Normal peripheral pulses. ABDOMEN: Soft, nontender, nondistended, normal active bowel sounds. EXTREMITIES: Normal range of motion. Pitting edema to bilateral lower extremities SKIN: Warm, dry, no rash. NEURO: No focal deficits. Alert and oriented x3 <Belkys Howe PA-C - Last Filed: 02/09/25 03:08> Course AIR TRANSPORTATION PROVIDER/PA Physician Supervision PA informed me this patient was being admitted. He is on his baseline O2 settings that he uses for COPD. I was available for consultation while patient was in the emergency department but otherwise did not physically examine this patient was not directly involved in their care <Mable Charlton MD - Last Filed: 02/09/25 03:47> Vital Signs Vital signs: Vital Signs Temperature 98.2 F 02/09/25 00:15 Pulse Rate 97 02/09/25 00:15 Respiratory Rate 18 02/09/25 00:15 Blood Pressure 146/103 H 02/09/25 00:15 Pulse Oximetry 97 02/09/25 00:15 Oxygen Delivery Nasal Cannula 02/09/25 00:15 Oxygen Flow Rate 4 02/09/25 00:15 Temperature 97.8 F 02/09/25 02:39 Pulse Rate 99 02/09/25 03:08 Respiratory Rate 18 02/09/25 02:39 Blood Pressure 176/76 H 02/09/25 02:39 Pulse Oximetry 95 02/09/25 02:39 Oxygen Delivery Room Air 02/09/25 01:13 Oxygen Flow Rate 2 02/09/25 01:45 <Belkys Howe PA-C - Last Filed: 02/09/25 03:08> Vital Signs Temperature 98.2 F 02/09/25 00:15 Pulse Rate 97 02/09/25 00:15 Respiratory Rate 18 02/09/25 00:15 Blood Pressure 146/103 H 02/09/25 00:15 Pulse Oximetry 97 02/09/25 00:15 Oxygen Delivery Nasal Cannula 02/09/25 00:15 Oxygen Flow Rate 4 02/09/25 00:15 Temperature 97.8 F 02/09/25 02:39 Pulse Rate 99 02/09/25 03:08 Respiratory Rate 18 02/09/25 02:39 Blood Pressure 176/76 H 02/09/25 02:39 Pulse Oximetry 95 02/09/25 02:39 Oxygen Delivery Room Air 02/09/25 01:13 Oxygen Flow Rate 2 02/09/25 01:45 <Mable Charlton MD - Last Filed: 02/09/25 03:47> Medical Decision Making MDM Narrative Medical decision making narrative: 74-year-old male with chronic hypoxic respiratory failure, COPD, Parkinson's disease, insulin-dependent type 2 diabetes, hyperlipidemia, hypertension presents to the emergency department via EMS from home for hyperglycemia today and cough for the past 2-3 days. See HPI for further history. Triage vitals with hypertension of 146/103, otherwise unremarkable. Patient is satting 97% on 4 L nasal cannula in no respiratory distress. He does have expiratory wheezing throughout all lung bowles. CBC with leukocytosis of 11.8. Chemistries with hyperglycemia of 313, bicarb of 32 normal anion gap not consistent with DKA. Magnesium normal at 1.9. Urinalysis without UTI, there is proteinuria and glucosuria. ProBNP is elevated to 2120 which is consistent with prior BNPs with a max BNP of 3070 in June of 2024. Per chart review most recent echocardiogram in August 2024 shows an EF estimated to be 50-55%. EKG shows normal sinus rhythm with rate of 69 ppm, normal [place] interval, normal QRS duration, normal QTC, LAD, no ST elevations or depressions. Chest x-ray concerning for developing opacification to the right lower lung field concerning for pneumonia. Patient updated on results. He received hour long DuoNeb, 125 mg of Solu-Medrol and is resting comfortably in exam bed satting 96% now on 2 L nasal cannula. On repeat exam he does have rhonchi and wheezing throughout all lung bowles and residual coarse breath sounds in the right lower lung field. Curb 65 score is 2. Feel patient would benefit for admission for COPD exacerbation and developing CAP, antibiotics, schedule DuoNebs and steroids. He is amenable to this. Patient was started on Rocephin and azithromycin for CAP. Discussed case with hospitalist, Dr. Irizarry, who agrees to admission. <BEST Ferro Last Filed: 02/09/25 03:08> Vital Signs Vital Signs: Vital Signs Temperature 98.2 F 02/09/25 00:15 Pulse Rate 97 02/09/25 00:15 Respiratory Rate 18 02/09/25 00:15 Blood Pressure 146/103 H 02/09/25 00:15 Pulse Oximetry 97 02/09/25 00:15 Oxygen Delivery Nasal Cannula 02/09/25 00:15 Oxygen Flow Rate 4 02/09/25 00:15 Temperature 97.8 F 02/09/25 02:39 Pulse Rate 99 02/09/25 03:08 Respiratory Rate 18 02/09/25 02:39 Blood Pressure 176/76 H 02/09/25 02:39 Pulse Oximetry 95 02/09/25 02:39 Oxygen Delivery Room Air 02/09/25 01:13 Oxygen Flow Rate 2 02/09/25 01:45 <BEST Ferro Last Filed: 02/09/25 03:08> Vital Signs Temperature 98.2 F 02/09/25 00:15 Pulse Rate 97 02/09/25 00:15 Respiratory Rate 18 02/09/25 00:15 Blood Pressure 146/103 H 02/09/25 00:15 Pulse Oximetry 97 02/09/25 00:15 Oxygen Delivery Nasal Cannula 02/09/25 00:15 Oxygen Flow Rate 4 02/09/25 00:15 Temperature 97.8 F 02/09/25 02:39 Pulse Rate 99 02/09/25 03:08 Respiratory Rate 18 02/09/25 02:39 Blood Pressure 176/76 H 02/09/25 02:39 Pulse Oximetry 95 02/09/25 02:39 Oxygen Delivery Room Air 02/09/25 01:13 Oxygen Flow Rate 2 02/09/25 01:45 <Mable Charlton MD - Last Filed: 02/09/25 03:47> Lab Data Result diagrams: 02/09/25 01:02 02/09/25 01:02 <BEST Ferro Last Filed: 02/09/25 03:08> Labs: Lab Results 02/09/25 02/09/25 02/09/25 Range/Units 01:02 01:23 02:04 WBC 11.8 H (4.5-10.0) K/mm3 RBC 3.46 L (4.6-6.20) M/mm3 Hgb 9.7 L (14.0-18.0) g/dL Hct 31.7 L (42.0-52.0) % MCV 91.6 (80-100) fl MCH 28.0 (26-34) pg MCHC 30.6 L (32-36) g/dl RDW 13.2 (11.5-14.5) % Plt Count 225 (150-375) k/mm3 MPV 10.3 (7.4-10.4) fl Immature Gran % (Auto) 0.3 (0-0.5) % Neut % (Auto) 73.7 H (45.5-73.1) % Lymph % (Auto) 13.9 L (18.3-44.2) % [place] % (Auto) 11.5 H (2.6-8.5) % Eos % (Auto) 0.3 (0-4.4) % Baso % (Auto) 0.3 (0.2-1.2) % Lymph # (Auto) 1.64 (0.9-3.2) K/mm3 [place] # (Auto) 1.4 H (0.1-0.6) K/mm3 Eos # (Auto) 0.0 (0-0.3) K/mm3 Baso # (Auto) 0.0 (0.0-0.1) K/mm3 Abs Immat Gran (auto) 0.04 H (0.00-0.031) K/mm3 Absolute Neuts (auto) 8.7 H (1.3-6.7) K/mm3 Absolute Nucleated RBC 0.000 (0.0-0.012) K/mm3 Nucleated RBC % 0.0 (0.0-0.2) % PT 14.7 (11.1-14.7) Seconds INR 1.2 Sodium 137 (137-145) mmol/L Potassium 3.9 (3.4-5.0) mmol/L Chloride 100 (98-107) mmol/L Carbon Dioxide 32 H (22-30) mmol/L Anion Gap 5 (4-12) mmol/L BUN 24 H D (9-20) mg/dL Creatinine 0.88 (0.7-1.3) mg/dL Estim Creat Clear Calc 73 ml/min Estimated GFR > 60 (59 - ) Glucose 313 H (65-110) mg/dL Lactic Acid 1.5 (0.7-2.0) mmol/L Calcium 8.9 (8.4-10.2) mg/dL Magnesium 1.9 (1.6-2.3) mg/dL Total Bilirubin 0.5 (0.2-1.3) mg/dL AST 24 (17-59) U/L ALT 12 (6-50) U/L Alkaline Phosphatase 117 (38-126) U/L NT-Pro-B Natriuret Pep 2120 H (19.9-100) pg/mL Total Protein 7.1 (6.3-8.2) g/dL Albumin 3.6 (3.5-5.1) g/dL Urine Color Yellow (Yellow) Urine Appearance Clear (Clear) Urine pH 5.5 (5.0-9.0) Ur Specific [place] 1.024 (1.001-1.035) Urine Protein 3+ H (Negative) mg/dL Urine Glucose (UA) 3+ H (Negative) mg/dL Urine Ketones Trace H (Negative) mg/dL Ur Blood (Man) Negative (Negative) Urine Nitrate Negative (Negative) Urine Bilirubin Negative (Negative) Urine Urobilinogen 1.0 (<2.0) mg/dL Add Ur Microanalysis Reviewed Leukocyte Esterase Rfl Negative (Negative) ANNE MARIE/UL Urine RBC 0-2 (0-2) /hpf Urine WBC 0-5 (0-3) /hpf Ur Squamous Epith Cells None seen (Few) /hpf Urine Bacteria None seen /hpf Urine Casts 6-10 Urine Mucus Present /lpf Influenza A (RT-PCR) Negative (Negative) Influenza B (RT-PCR) Negative (Negative) RSV (RT-PCR) Negative (Negative) SARS-CoV-2 RNA (RT-PCR) Negative (Negative) <Belkys Howe PA-C - Last Filed: 02/09/25 03:08> Lab Results 02/09/25 02/09/25 02/09/25 Range/Units 01:02 01:23 02:04 WBC 11.8 H (4.5-10.0) K/mm3 RBC 3.46 L (4.6-6.20) M/mm3 Hgb 9.7 L (14.0-18.0) g/dL Hct 31.7 L (42.0-52.0) % MCV 91.6 (80-100) fl MCH 28.0 (26-34) pg MCHC 30.6 L (32-36) g/dl RDW 13.2 (11.5-14.5) % Plt Count 225 (150-375) k/mm3 MPV 10.3 (7.4-10.4) fl Immature Gran % (Auto) 0.3 (0-0.5) % Neut % (Auto) 73.7 H (45.5-73.1) % Lymph % (Auto) 13.9 L (18.3-44.2) % [place] % (Auto) 11.5 H (2.6-8.5) % Eos % (Auto) 0.3 (0-4.4) % Baso % (Auto) 0.3 (0.2-1.2) % Lymph # (Auto) 1.64 (0.9-3.2) K/mm3 [place] # (Auto) 1.4 H (0.1-0.6) K/mm3 Eos # (Auto) 0.0 (0-0.3) K/mm3 Baso # (Auto) 0.0 (0.0-0.1) K/mm3 Abs Immat Gran (auto) 0.04 H (0.00-0.031) K/mm3 Absolute Neuts (auto) 8.7 H (1.3-6.7) K/mm3 Absolute Nucleated RBC 0.000 (0.0-0.012) K/mm3 Nucleated RBC % 0.0 (0.0-0.2) % PT 14.7 (11.1-14.7) Seconds INR 1.2 Sodium 137 (137-145) mmol/L Potassium 3.9 (3.4-5.0) mmol/L Chloride 100 (98-107) mmol/L Carbon Dioxide 32 H (22-30) mmol/L Anion Gap 5 (4-12) mmol/L BUN 24 H D (9-20) mg/dL Creatinine 0.88 (0.7-1.3) mg/dL Estim Creat Clear Calc 73 ml/min Estimated GFR > 60 (59 - ) Glucose 313 H (65-110) mg/dL Lactic Acid 1.5 (0.7-2.0) mmol/L Calcium 8.9 (8.4-10.2) mg/dL Magnesium 1.9 (1.6-2.3) mg/dL Total Bilirubin 0.5 (0.2-1.3) mg/dL AST 24 (17-59) U/L ALT 12 (6-50) U/L Alkaline Phosphatase 117 (38-126) U/L NT-Pro-B Natriuret Pep 2120 H (19.9-100) pg/mL Total Protein 7.1 (6.3-8.2) g/dL Albumin 3.6 (3.5-5.1) g/dL Urine Color Yellow (Yellow) Urine Appearance Clear (Clear) Urine pH 5.5 (5.0-9.0) Ur Specific [place] 1.024 (1.001-1.035) Urine Protein 3+ H (Negative) mg/dL Urine Glucose (UA) 3+ H (Negative) mg/dL Urine Ketones Trace H (Negative) mg/dL Ur Blood (Man) Negative (Negative) Urine Nitrate Negative (Negative) Urine Bilirubin Negative (Negative) Urine Urobilinogen 1.0 (<2.0) mg/dL Add Ur Microanalysis Reviewed Leukocyte Esterase Rfl Negative (Negative) ANNE MARIE/UL Urine RBC 0-2 (0-2) /hpf Urine WBC 0-5 (0-3) /hpf Ur Squamous Epith Cells None seen (Few) /hpf Urine Bacteria None seen /hpf Urine Casts 6-10 Urine Mucus Present /lpf Influenza A (RT-PCR) Negative (Negative) Influenza B (RT-PCR) Negative (Negative) RSV (RT-PCR) Negative (Negative) SARS-CoV-2 RNA (RT-PCR) Negative (Negative) <Mable Charlton MD - Last Filed: 02/09/25 03:47> Discharge Plan Discharge Clinical Impression: Acute exacerbation of chronic obstructive pulmonary disease, CAP (community acquired pneumonia), Hyperglycemia <Belkys Howe PA-C - Last Filed: 02/09/25 03:08> Patient Disposition: Still a Patient <Belkys Howe PA-C - Last Filed: 02/09/25 03:08> Condition: Stable <Belkys Howe PA-C - Last Filed: 02/09/25 03:08> Patient Language: Hebrew <Belkys Howe PA-C - Last Filed: 02/09/25 03:08> Prescriptions: No Action atorvastatin 40 mg Tablet 80 mg PO HS insulin aspart U-100 [Novolog U-100 Insulin aspart] 100 unit/mL Solution 5 unit SUBCUT .with breakfast metformin 1,000 mg Tablet 1,000 mg PO BID albuterol 90 mcg/actuation Aerosol 1 mcg INHALATION QID PRN (Reason: shortness of breath or wheezing) finasteride 5 mg Tablet 5 mg PO DAILY insulin glargine 100 unit/mL Cartridge 18 unit SUBCUT HS diclofenac sodium 1 % Gel 4 g TOPICAL QID PRN (Reason: pain) sertraline 100 mg Tablet 150 mg PO DAILY tamsulosin 0.4 mg Capsule 0.4 mg PO HS pantoprazole 40 mg Tablet,Delayed Release (Dr/Ec) 40 mg PO QPM aspirin [Children's Aspirin] 81 mg Tablet,Chewable 81 mg PO DAILY@0800 Qty: 30 0RF carbidopa-levodopa 25-100 mg tablet 2 tablet PO QID Patient Comments: significant other decreased dose to 2 tabs with neurologist instruction losartan [Cozaar] 50 mg tablet 100 mg PO DAILY docusate sodium 100 mg capsule 200 mg PO BID sennosides [senna] 8.6 mg tablet 8.6 mg PO DAILY insulin aspart U-100 [Novolog U-100 Insulin aspart] 100 unit/mL solution 5 unit subcut .with lunch insulin aspart U-100 [Novolog U-100 Insulin aspart] 100 unit/mL solution 11 unit subcut .with dinner Ozempic 1 mg/dose (4 mg/3 mL) pen injector 1 mg subcut WEEKLY Rx Instructions: every Wednesday empagliflozin 25 mg tablet 25 mg PO DAILY <Belkys Howe PA-C - Last Filed: 02/09/25 03:08> Follow-up/Referrals: [facility] [Primary Care Provider] - <Belkys Howe PA-C - Last Filed: 02/09/25 03:08>
[2025-02-09] MEDS: IPRATROPIUM 0.5 MG/ALBUTEROL SULFATE 2.5 MG AMPUL.NEB 3 ML INHALATION ×6 (00:29→21:38)
[2025-02-09 01:10] LABS: Hematocrit 31.7 % (42.0-52.0); Hemoglobin 9.7 g/dL (14.0-18.0); Immature Granulocyte Percent A 0.3 % (0-0.5); Lymphocytes Absolute Auto 1.64 K/mm3 (0.9-3.2); Mean Corpuscular HGB Conc 30.6 g/dl (32-36); Mean Corpuscular Hemoglobin 28.0 pg (26-34); Mean Corpuscular Volume 91.6 fl (80-100); Nucleated Red Blood Cells Absolute Auto 0.000 K/mm3 (0.0-0.012); Nucleated Red Blood Cells Perc 0.0 % (0.0-0.2); Platelet Count Result 225 k/mm3 (150-375); Red Blood Count 3.46 M/mm3 (4.6-6.20); White Blood Count 11.8 K/mm3 (4.5-10.0)
[2025-02-09 01:20] LABS: Alanine Aminotransferase 12 U/L (6-50); Albumin Level 3.6 g/dL (3.5-5.1); Alkaline Phosphatase 117 U/L (38-126); Anion Gap 5 mmol/L (4-12); Aspartate Amino Transferase 24 U/L (17-59); Bilirubin,Total 0.5 mg/dL (0.2-1.3); Blood Urea Nitrogen 24 mg/dL (9-20); Calcium 8.9 mg/dL (8.4-10.2); Carbon Dioxide 32 mmol/L (22-30); Chloride 100 mmol/L (98-107); Estimated CRCL calculation 73 ml/min; Estimated Glomerular Filt Rate > 60; Glucose 313 mg/dL (65-110); Magnesium 1.9 mg/dL (1.6-2.3); Potassium 3.9 mmol/L (3.4-5.0); Sodium 137 mmol/L (137-145); Total Protein 7.1 g/dL (6.3-8.2)
[2025-02-09 01:26] LABS: INR 1.2; Prothrombin Time 14.7 Seconds (11.1-14.7)
[2025-02-09 01:29] LABS: NT Pro B Type Natriuretic Pept 2120 pg/mL (19.9-100)
[2025-02-09 01:44] LABS: Add Urine Microscopic? YES; Appearance Urine Clear (Clear); Glucose Urine UA 3+ mg/dL (Negative); Leukocyte Esterase Ur Negative LEU/UL (Negative); Need Manual Microscopic Reviewed; Nitrate Urine Negative (Negative); Specific Grav Ur 1.024 (1.001-1.035)
[2025-02-09] MEDS: cefTRIAXone 1 GM in SODIUM CHLORIDE 0.9% IV 50 ML 100 ML IVPB (02:35)
[2025-02-09] MEDS: AZITHROMYCIN IV 500 MG in SODIUM CHLORIDE 0.9% IV 250 ML IVPB (02:35)
[2025-02-09] MEDS: ONDANSETRON INJ 4 MG/2 ML VIAL IV PUSH (02:44)
[2025-02-09 02:47] LABS: Influenza A QL RT-PCR Negative (Negative); Influenza B QL RT-PCR Negative (Negative); RSV RNA, RT-PCR Negative (Negative); SARS-CoV-2 RNA PCR Negative (Negative)
--- NOTE | 2025-02-09 05:13 | ADMGEN ---
This patient, Memo Simpson, was admitted to [facility] Surg Room 310-01. Patient/family oriented to hospital policies and general routines including ID bracelet, bed and alarms, visiting hours, pain management, procedures, bathroom and other care routines, personal items, smoking policy, room service/diet, and visiting hours. Information on how to activate the Rapid Response Team has been discussed. Patient/Family are encouraged to report perceived risks to care and to ask questions if they do not understand what they are told or what they should do.
[2025-02-09] MEDS: LOSARTAN POTASSIUM 50 MG TABLET 100 MG PO (09:57)
[2025-02-09] MEDS: INSULIN ASPART (*BKC) 100 UNITS/ML SUB-Q ×4 (09:57→21:35)
[2025-02-09] MEDS: SERTRALINE HCL 50 MG TABLET 150 MG PO (09:58)
[2025-02-09] MEDS: EMPAGLIFLOZIN 25 MG TABLET PO (09:58)
[2025-02-09] MEDS: SENNOSIDES 8.6 MG TABLET PO (09:58)
[2025-02-09] MEDS: DOCUSATE SODIUM 100 MG CAPSULE 200 MG PO ×2 (09:58→17:29)
[2025-02-09] MEDS: ASPIRIN 81 MG CHEWABLE TABLET PO (09:58)
[2025-02-09] MEDS: FINASTERIDE 5 MG TABLET PO (09:58)
[2025-02-09] MEDS: ENOXAPARIN 40 MG/0.4 ML SYRINGE SUB-Q (09:59)
[2025-02-09] MEDS: CARBIDOPA/LEVODOPA 25/100 MG TABLET 2 TABLET PO ×3 (09:59→17:29)
[2025-02-09] MEDS: INSULIN GLARGINE (*BKC) 100 UNITS/ML 20 UNITS SUB-Q (13:13)
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
--- NOTE | 2025-02-09 15:01 | PM.IMHP ---
H&P: HPI History of Present Illness Date/Time: 02/09/25 15:01 Chief Complaint: High blood sugars. Narrative: ER-HPI narrative: 74-year-old male with history of Parkinson's disease, GERD, insulin-dependent type 2 diabetes, hyperlipidemia, hypertension, COPD presents to the ED via EMS from home for hyperglycemia. Patient is uncertain why he is in the emergency department. History is obtained by EMS who states the patient's was concerned that the patient's blood sugars have been elevated to 300-350 since 11:00 a.m.. She reportedly voice concern that this occurs in the patient develops pneumonia. EMS notes the patient's baseline mental status per the is A&O times 2-4 and states that he is at his baseline mental status. The patient does note that he developed a productive cough over the past 2-3 days. He denies chest pain, shortness of breath, abdominal pain, fever, dysuria or hematuria. He notes he has chronic lower extremity edema which is unchanged from baseline. Patient wears supple oxygen for chronic hypoxic respiratory failure from COPD. He states he normally wears 2 L nasal cannula at rest and 4 L with ambulation, however EMS states patient worse for L at all times. Patient states he stopped smoking several years ago. Besides elevated blood sugars which were running in 300-350 whit history of diabetes patient was also short of breath and wheezing with history of COPD, CXR showing bilateral infiltrates of the mid and lower lungs have developed. Differential diagnosis includes edema and pneumonia. Patient is being treated with ceftriaxone and Zithomax, for patient wheezing patient is treated with solumedrol which causing hyperglycemia, will adjust patient insulin and monitor. [facility] Past Medical History Medical History Type 2 diabetes mellitus treated with insulin Hypotension Parkinson disease Family History Family History Father Cancer Social History Social History Smoking packs per day: 1.25 Smoking cigarettes per day: 25.0 Years smoked: 16 Smoking pack-years: 20.00 Smoking status: Former smoker Alcohol intake: former Substance use: former Substance use type: marijuana Last use: years ago Do You Feel Safe in your Home?: Yes Lack of Transportation: No Lack of Food: Never True Current Housing: I Have Housing Concerned About Future Housing: No Difficulty Paying Gas/Electric Bills: No Difficulty Paying for Meds: No Currently Unemployed: No Education: Trade/Vocational Certificate Difficulty w/ Childcare or Family Care: No Living arrangements: with family Additional living arrangements comments: sister Gender identity (if verbalized by the patient): Male Spiritual care concerns: No Meds Home Medications and Allergies Home Medications ?Medication ?Instructions ?Recorded ?Confirmed ?Type albuterol 90 mcg/actuation aerosol 1 mcg inhalation QID PRN shortness 12/20/20 02/09/25 History inhaler of breath or wheezing atorvastatin 40 mg tablet 80 mg PO HS 12/20/20 02/09/25 History diclofenac sodium 1 % topical gel 4 g topical QID PRN pain 12/20/20 02/09/25 History finasteride 5 mg tablet 5 mg PO DAILY 12/20/20 02/09/25 History insulin aspart U-100 100 unit/mL 5 unit subcut .with breakfast 12/20/20 02/09/25 History subcutaneous solution (Novolog U-100 Insulin aspart) insulin glargine 100 unit/mL 16 unit subcut HS 12/20/20 02/09/25 History subcutaneous cartridge metformin 1,000 mg tablet 1,000 mg PO BID 12/20/20 02/09/25 History pantoprazole 40 mg tablet,delayed 40 mg PO QPM 12/20/20 02/09/25 History release sertraline 100 mg tablet 150 mg PO DAILY 12/20/20 02/09/25 History tamsulosin 0.4 mg capsule 0.4 mg PO HS 12/20/20 02/09/25 History aspirin 81 mg chewable tablet 81 mg PO DAILY@0800 #30 tabs 12/21/20 02/09/25 Rx (Children's Aspirin) carbidopa 25 mg-levodopa 100 mg 2 tablet PO QID 07/10/24 02/09/25 History tablet docusate sodium 100 mg capsule 200 mg PO BID 07/10/24 02/09/25 History empagliflozin 25 mg tablet 25 mg PO DAILY 07/10/24 02/09/25 History insulin aspart U-100 100 unit/mL 5 unit subcut .with lunch 07/10/24 02/09/25 History subcutaneous solution (Novolog U-100 Insulin aspart) insulin aspart U-100 100 unit/mL 11 unit subcut .with dinner 07/10/24 02/09/25 History subcutaneous solution (Novolog U-100 Insulin aspart) losartan 50 mg tablet (Cozaar) 100 mg PO DAILY 07/10/24 02/09/25 History semaglutide 1 mg/dose (4 mg/3 mL) 1 mg subcut WEEKLY 07/10/24 02/09/25 History subcutaneous pen injector (Ozempic) sennosides 8.6 mg tablet (senna) 8.6 mg PO DAILY 07/10/24 02/09/25 History Allergies Allergy/AdvReac Type Severity Reaction Status Date / Time lisinopril Allergy Mild SWELLING Verified 12/19/24 22:30 Vital Signs Vital Signs - 24 hr 02/09/25 00:15 02/09/25 00:37 02/09/25 01:13 Temperature 36.8 C 37.1 C Pulse Rate 97 75 36 L Respiratory Rate 18 18 18 Blood Pressure 146/103 H 146/103 H Pulse Oximetry 97 100 Oxygen Delivery Nasal Cannula Room Air Oxygen Flow Rate 4 02/09/25 01:33 02/09/25 01:45 02/09/25 02:39 Temperature 36.6 C Pulse Rate 74 72 777 H Respiratory Rate 22 H 14 18 Blood Pressure 176/76 H Pulse Oximetry 94 95 Oxygen Delivery Nasal Cannula Oxygen Flow Rate 2 02/09/25 03:08 02/09/25 04:09 02/09/25 05:10 Temperature 36.7 C Pulse Rate 99 89 Respiratory Rate 16 Blood Pressure 117/53 L Pulse Oximetry 94 94 Oxygen Delivery Nasal Cannula Oxygen Flow Rate 4 02/09/25 05:15 02/09/25 08:10 02/09/25 08:12 Temperature 36.6 C Pulse Rate 81 75 Respiratory Rate 16 20 Blood Pressure 147/67 H Pulse Oximetry 94 96 Oxygen Delivery Nasal Cannula Oxygen Flow Rate 4 02/09/25 08:13 02/09/25 08:17 02/09/25 12:35 Temperature Pulse Rate 75 75 Respiratory Rate 20 20 Blood Pressure Pulse Oximetry 95 Oxygen Delivery Nasal Cannula Oxygen Flow Rate 2 02/09/25 14:29 Temperature Pulse Rate 73 Respiratory Rate 20 Blood Pressure Pulse Oximetry Oxygen Delivery Oxygen Flow Rate Exam Narrative: Morbidly obese Patient is comfortable, NAD HEENT: eyes are clear and none icteric LUNGS:CTA HEART: RR S1S2 ABD: BS+, Soft and nontender Lower extremities: no edema SKIN: nonjaundiced Neuro: grossly intact. H&P: Results Labs Labs: Short CBC 02/09/25 Range/Units 01:02 WBC 11.8 H (4.5-10.0) K/mm3 Hgb 9.7 L (14.0-18.0) g/dL Hct 31.7 L (42.0-52.0) % Plt Count 225 (150-375) k/mm3 BMP 02/09/25 01:02 Sodium 137 Potassium 3.9 Chloride 100 Carbon Dioxide 32 H BUN 24 H D Creatinine 0.88 Glucose 313 H Calcium 8.9 Liver Function 02/09/25 Range/Units 01:02 Total Bilirubin 0.5 (0.2-1.3) mg/dL AST 24 (17-59) U/L ALT 12 (6-50) U/L Alkaline Phosphatase 117 (38-126) U/L Albumin 3.6 (3.5-5.1) g/dL Urine 02/09/25 Range/Units 01:23 Urine Color Yellow (Yellow) Urine Appearance Clear (Clear) Urine pH 5.5 (5.0-9.0) Ur Specific [place] 1.024 (1.001-1.035) Urine Protein 3+ H (Negative) mg/dL Urine Glucose (UA) 3+ H (Negative) mg/dL Assessment and Plan Assessment and plan (1) Acute exacerbation of chronic obstructive pulmonary disease: Code(s): J44.1 - Chronic obstructive pulmonary disease with (acute) exacerbation Status: Acute (2) CAP (community acquired pneumonia): Code(s): J18.9 - Pneumonia, unspecified organism Status: Acute (3) Diabetes type 2, controlled: Code(s): E11.9 - Type 2 diabetes mellitus without complications Status: Chronic (4) Hypertension: Qualifiers: Hypertension type: essential hypertension Qualified Code(s): I10 - Essential (primary) hypertension Code(s): I10 - Essential (primary) hypertension Status: Chronic (5) Hyperlipidemia: Qualifiers: Hyperlipidemia type: unspecified Qualified Code(s): E78.5 - Hyperlipidemia, unspecified Code(s): E78.5 - Hyperlipidemia, unspecified Status: Chronic (6) Parkinson disease: Code(s): G20.A1 - Parkinson's disease without dyskinesia, without mention of fluctuations Status: Chronic Plan Besides elevated blood sugars which were running in 300-350 whit history of diabetes patient was also short of breath and wheezing with history of COPD, CXR showing bilateral infiltrates of the mid and lower lungs have developed. Differential diagnosis includes edema and pneumonia. Patient is being treated with ceftriaxone and Zithomax, for patient wheezing patient is treated with solumedrol which causing hyperglycemia, will adjust patient insulin and monitor.
[2025-02-09] MEDS: PANTOPRAZOLE 40 MG TABLET PO (17:29)
[2025-02-09] MEDS: INSULIN ASPART (*BKC) 100 UNITS/ML 11 UNITS SUB-Q (17:30)
[2025-02-09] MEDS: INSULIN GLARGINE (*BKC) 100 UNITS/ML 16 UNITS SUB-Q (21:35)
[2025-02-09] MEDS: ATORVASTATIN 40 MG TABLET 80 MG PO (21:36)
[2025-02-09] MEDS: TAMSULOSIN HCL 0.4 MG CAPSULE PO (21:36)
[2025-02-10] VITALS (14 sets, daily range): BP systolic 142–174; BP diastolic 86–91; PULSE 71–83; RESP 16–20; TEMP 36.5–36.9; O2SAT 93–96
[2025-02-10] MEDS: CARBIDOPA/LEVODOPA 25/100 MG TABLET 2 TABLET PO ×5 (00:36→23:20)
[2025-02-10] MEDS: cefTRIAXone 1 GM in SODIUM CHLORIDE 0.9% IV 50 ML 100 ML IVPB (01:23)
[2025-02-10] MEDS: AZITHROMYCIN IV 500 MG in SODIUM CHLORIDE 0.9% IV 250 ML 125 ML IVPB (01:54)
[2025-02-10] MEDS: IPRATROPIUM 0.5 MG/ALBUTEROL SULFATE 2.5 MG AMPUL.NEB 3 ML INHALATION ×4 (02:10→20:26)
[2025-02-10] MEDS: LOSARTAN POTASSIUM 50 MG TABLET 100 MG PO (06:30)
[2025-02-10 06:47] LABS: Hematocrit 31.7 % (42.0-52.0); Hemoglobin 9.5 g/dL (14.0-18.0); Mean Corpuscular HGB Conc 30.0 g/dl (32-36); Mean Corpuscular Hemoglobin 27.6 pg (26-34); Mean Corpuscular Volume 92.2 fl (80-100); Platelet Count Result 273 k/mm3 (150-375); Red Blood Count 3.44 M/mm3 (4.6-6.20); White Blood Count 15.0 K/mm3 (4.5-10.0)
[2025-02-10 06:57] LABS: Anion Gap 4 mmol/L (4-12); Blood Urea Nitrogen 31 mg/dL (9-20); Calcium 9.0 mg/dL (8.4-10.2); Carbon Dioxide 30 mmol/L (22-30); Chloride 101 mmol/L (98-107); Estimated CRCL calculation 64 ml/min; Estimated Glomerular Filt Rate > 60; Glucose 274 mg/dL (65-110); Magnesium 2.2 mg/dL (1.6-2.3); Potassium 4.0 mmol/L (3.4-5.0); Sodium 135 mmol/L (137-145)
[2025-02-10] MEDS: SENNOSIDES 8.6 MG TABLET PO (08:28)
[2025-02-10] MEDS: ASPIRIN 81 MG CHEWABLE TABLET PO (08:28)
[2025-02-10] MEDS: INSULIN ASPART (*BKC) 100 UNITS/ML SUB-Q ×5 (08:29→16:52)
[2025-02-10] MEDS: DOCUSATE SODIUM 100 MG CAPSULE 200 MG PO ×2 (08:29→16:52)
[2025-02-10] MEDS: FINASTERIDE 5 MG TABLET PO (08:29)
[2025-02-10] MEDS: EMPAGLIFLOZIN 25 MG TABLET PO (08:29)
[2025-02-10] MEDS: SERTRALINE HCL 50 MG TABLET 150 MG PO (08:29)
[2025-02-10] MEDS: ENOXAPARIN 40 MG/0.4 ML SYRINGE SUB-Q (08:31)
--- NOTE | 2025-02-10 11:24 | P.PNIM_ITS ---
Progress Note: A&P Assessment and Plan (1) Acute exacerbation of chronic obstructive pulmonary disease: Code(s): J44.1 - Chronic obstructive pulmonary disease with (acute) exacerbation Status: Acute (2) CAP (community acquired pneumonia): Code(s): J18.9 - Pneumonia, unspecified organism Status: Acute (3) Diabetes type 2, controlled: Code(s): E11.9 - Type 2 diabetes mellitus without complications Status: Chronic (4) Hypertension: Qualifiers: Hypertension type: essential hypertension Qualified Code(s): I10 - Essential (primary) hypertension Code(s): I10 - Essential (primary) hypertension Status: Chronic (5) Hyperlipidemia: Qualifiers: Hyperlipidemia type: unspecified Qualified Code(s): E78.5 - Hyperlipidemia, unspecified Code(s): E78.5 - Hyperlipidemia, unspecified Status: Chronic (6) Parkinson disease: Code(s): G20.A1 - Parkinson's disease without dyskinesia, without mention of fluctuations Status: Chronic Plan Besides elevated blood sugars which were running in 300-350 whit history of diabetes, gave Lantus 20u x1, as patient is on steroids, patient was also short of breath and wheezing with history of COPD, CXR showing bilateral infiltrates of the mid and lower lungs have developed. Differential diagnosis includes edema and pneumonia. Patient is being treated with ceftriaxone and Zithomax, for patient wheezing patient is treated with solumedrol which causing hyperglycemia, will adjust patient insulin and monitor. there is concern for pulmonary edema, will start patient on lasix 20mg IV daily. Subjective Date/time seen: 02/10/25 11:24 Interval history: Besides elevated blood sugars which were running in 300-350 whit history of diabetes, gave Lantus 20u x1, as patient is on steroids, patient was also short of breath and wheezing with history of COPD, CXR showing bilateral infiltrates of the mid and lower lungs have developed. Differential diagnosis includes edema and pneumonia. Patient is being treated with ceftriaxone and Zithomax, for patient wheezing patient is treated with solumedrol which causing hyperglycemia, will adjust patient insulin and monitor. there is concern for pulmonary edema, will start patient on lasix 20mg IV daily. Exam Narrative: Morbidly obese Patient is comfortable, NAD HEENT: eyes are clear and none icteric LUNGS:CTA HEART: RR S1S2 ABD: BS+, Soft and nontender Lower extremities: no edema SKIN: nonjaundiced Neuro: grossly intact. Objective Data Vital Signs Vital Signs: Vital Signs - 24 hr 02/09/25 12:35 02/09/25 14:00 02/09/25 14:29 Temperature 37.1 C Pulse Rate 75 79 73 Respiratory Rate 20 18 20 Blood Pressure 163/83 H Pulse Oximetry 92 Oxygen Delivery Oxygen Flow Rate 02/09/25 20:00 02/09/25 21:41 02/09/25 21:42 Temperature Pulse Rate 72 71 Respiratory Rate 20 20 Blood Pressure Pulse Oximetry 96 96 Oxygen Delivery Nasal Cannula Nasal Cannula Oxygen Flow Rate 4 2 02/09/25 21:50 02/09/25 22:00 02/10/25 02:11 Temperature 36.4 C L Pulse Rate 72 96 71 Respiratory Rate 20 28 H 20 Blood Pressure 168/73 H Pulse Oximetry 90 Oxygen Delivery Oxygen Flow Rate 02/10/25 06:00 02/10/25 07:58 02/10/25 07:59 Temperature 36.9 C Pulse Rate 83 74 Respiratory Rate 16 20 Blood Pressure 173/91 H Pulse Oximetry 93 96 Oxygen Delivery Nasal Cannula Oxygen Flow Rate 2 02/10/25 08:03 02/10/25 08:15 Temperature Pulse Rate 76 Respiratory Rate 20 Blood Pressure Pulse Oximetry 95 Oxygen Delivery Nasal Cannula Oxygen Flow Rate 2 Intake/Output Intake/Output: Intake & Output 02/07/25 02/08/25 02/09/25 02/10/25 23:59 23:59 23:59 23:59 Intake Total 2740 840 Output Total 1750 Balance 990 840 Meds/Results Medications: Active Medications Generic Name Dose Route Start Last Admin Trade Name Freq PRN Reason Stop Dose Admin Albuterol 1 puff 02/09/25 08:56 Albuterol Sulfate (*Sp) Aerosol 1 Puff INHALATION QID PRN shortness of breath or wheezing Albuterol/Ipratropium 3 ml 02/09/25 08:00 02/10/25 02:10 Ipratropium 0.5 Mg/Albuterol Sulfate 2.5 Mg Ampul.Neb 3 Ml INHALATION 3 ml Q6HRT KETTY Administration Aspirin 81 mg 02/09/25 08:50 02/10/25 08:28 Aspirin 81 Mg Chewable Tablet PO 81 mg DAILY@0800 KETTY Administration Atorvastatin Calcium 80 mg 02/09/25 21:00 02/09/25 21:36 Atorvastatin 40 Mg Tablet PO 80 mg HS KETTY Administration Carbidopa/Levodopa 2 tablet 02/09/25 09:00 02/10/25 05:52 Carbidopa/Levodopa 25/100 Mg Tablet PO 2 tablet Q6HR KETTY Administration Dextrose 12.5 gm 02/09/25 05:38 Dextrose 50% 25 Gm/50 Ml Syringe IV PUSH PRN PRN Hypoglycemia Protocol Diclofenac Sodium applic 02/09/25 08:37 Diclofenac Sodium 1% 100 Gm Gel (*Bkc) TOPICAL QID PRN pain Docusate Sodium 200 mg 02/09/25 09:00 02/10/25 08:29 Docusate Sodium 100 Mg Capsule PO 200 mg BID KETTY Administration Empagliflozin 25 mg 02/09/25 09:00 02/10/25 08:29 Empagliflozin 25 Mg Tablet PO 25 mg DAILY KETTY Administration Enoxaparin Sodium 40 mg 02/09/25 09:00 02/10/25 08:31 Enoxaparin 40 Mg/0.4 Ml Syringe SUB-Q 40 mg DAILY KETTY Administration Finasteride 5 mg 02/09/25 09:00 02/10/25 08:29 Finasteride 5 Mg Tablet PO 5 mg DAILY KETTY Administration Glucose 15 gm 02/09/25 05:38 Glucose Oral Gel 15 Gm Of Glucse In 37.5 Gm Tube PO PRN PRN Hypoglycemia Protocol Ceftriaxone Sodium 1 gm/ 50 mls @ 100 mls/hr 02/10/25 02:00 02/10/25 01:53 Sodium Chloride IVPB Infused Q24H KETTY Infusion Azithromycin 500 mg/ Sodium 250 mls @ 250 mls/hr 02/10/25 02:00 02/10/25 03:54 Chloride IVPB 02/13/25 02:59 Infused Q24H KETTY Infusion Dextrose 1,000 mls @ 100 mls/hr 02/09/25 05:38 Dextrose 5% 1,000 Ml IVPB PRN PRN Hypoglycemia Protocol Insulin Aspart 2 - 5 units 02/09/25 08:00 02/10/25 08:29 Insulin Aspart (*Bkc) 100 Units/Ml SUB-Q 2 units TIDWM KETTY Administration Protocol Insulin Aspart 1 - 2 units 02/09/25 21:00 02/09/25 21:35 Insulin Aspart (*Bkc) 100 Units/Ml SUB-Q 1 units HS KETTY Administration Protocol Insulin Aspart 5 units 02/10/25 08:30 02/10/25 08:30 Insulin Aspart (*Bkc) 100 Units/Ml SUB-Q 5 units 0830 KETTY Administration Insulin Aspart 11 units 02/09/25 17:30 02/09/25 17:30 Insulin Aspart (*Bkc) 100 Units/Ml SUB-Q 11 units 1730 KETTY Administration Insulin Aspart 5 units 02/10/25 12:30 Insulin Aspart (*Bkc) 100 Units/Ml SUB-Q 1230 KETTY Insulin Glargine 16 units 02/09/25 21:00 02/09/25 21:35 Insulin Glargine (*Bkc) 100 Units/Ml SUB-Q 16 units HS [facility] Administration Insulin Glargine 10 units 02/10/25 10:50 Insulin Glargine (*Bkc) 100 Units/Ml SUB-Q QAM KETTY Losartan Potassium 100 mg 02/09/25 09:00 02/10/25 06:30 Losartan Potassium 50 Mg Tablet PO 100 mg DAILY KETTY Administration Methylprednisolone Sodium Succinate 60 mg 02/09/25 06:00 02/10/25 05:52 Methylprednisolone Sod Succ 125 Mg Vial IV PUSH 60 mg Q6HR KETTY Administration Miscellaneous Information 0 each 02/09/25 00:01 To Where Is The Diclofenac Gel Being Applied? XX 03/11/25 00:00 CLARIFY [facility] Miscellaneous Information 0 each 02/09/25 00:01 Ozempic Is Non-Formulary. Use Pt Own Supply? XX 03/11/25 00:00 [facility]IFY [facility] Non-Formulary Medication 1 mg 02/09/25 09:00 Semaglutide [Ozempic] SUB-Q 03/11/25 08:59 WEEKLY [facility] Pantoprazole Sodium 40 mg 02/09/25 18:00 02/09/25 17:29 Pantoprazole 40 Mg Tablet PO 40 mg QPM KETTY Administration Senna 8.6 mg 02/09/25 09:00 02/10/25 08:28 Sennosides 8.6 Mg Tablet PO 8.6 mg DAILY KETTY Administration Sertraline HCl 150 mg 02/09/25 09:00 02/10/25 08:29 Sertraline Hcl 50 Mg Tablet PO 150 mg DAILY KETTY Administration Tamsulosin HCl 0.4 mg 02/09/25 21:00 02/09/25 21:36 Tamsulosin Hcl 0.4 Mg Capsule PO 0.4 mg HS KETTY Administration Radiology Results: ITS Impressions Chest X-Ray 02/09/25 04:49 Impression: 1: Bilateral infiltrates of the mid and lower lungs have developed. Differential diagnosis includes edema and pneumonia. Labs Labs: Laboratory Results - last 24 hr 02/09/25 02/09/25 02/09/25 11:34 16:49 21:22 WBC RBC Hgb Hct MCV MCH MCHC RDW Plt Count MPV Sodium Potassium Chloride Carbon Dioxide Anion Gap BUN Creatinine Estim Creat Clear Calc Estimated GFR Glucose POC Capillary Glucose 431 H 380 H 230 H Calcium Magnesium 02/10/25 02/10/25 06:05 07:53 WBC 15.0 H RBC 3.44 L Hgb 9.5 L Hct 31.7 L MCV 92.2 MCH 27.6 MCHC 30.0 L RDW 13.3 Plt Count 273 MPV 10.7 H Sodium 135 L Potassium 4.0 Chloride 101 Carbon Dioxide 30 Anion Gap 4 BUN 31 H Creatinine 1.00 Estim Creat Clear Calc 64 Estimated GFR > 60 Glucose 274 H POC Capillary Glucose 240 H Calcium 9.0 Magnesium 2.2
[2025-02-10] MEDS: INSULIN GLARGINE (*BKC) 100 UNITS/ML 10 UNITS SUB-Q (11:37)
[2025-02-10] MEDS: FUROSEMIDE INJ 40 MG/4 ML VIAL 20 MG IV PUSH (11:44)
[2025-02-10] MEDS: PANTOPRAZOLE 40 MG TABLET PO (16:52)
[2025-02-10] MEDS: INSULIN ASPART (*BKC) 100 UNITS/ML 11 UNITS SUB-Q (16:52)
[2025-02-10] MEDS: INSULIN GLARGINE (*BKC) 100 UNITS/ML 16 UNITS SUB-Q (21:52)
[2025-02-10] MEDS: ATORVASTATIN 40 MG TABLET 80 MG PO (21:53)
[2025-02-10] MEDS: TAMSULOSIN HCL 0.4 MG CAPSULE PO (21:53)
[2025-02-11] VITALS (15 sets, daily range): BP systolic 133–185; BP diastolic 80–88; PULSE 6–78; RESP 12–20; TEMP 36.4–36.7; O2SAT 95–97
[2025-02-11] MEDS: cefTRIAXone 1 GM in SODIUM CHLORIDE 0.9% IV 50 ML 100 ML IVPB (01:18)
[2025-02-11] MEDS: AZITHROMYCIN IV 500 MG in SODIUM CHLORIDE 0.9% IV 250 ML 125 ML IVPB (01:46)
[2025-02-11] MEDS: IPRATROPIUM 0.5 MG/ALBUTEROL SULFATE 2.5 MG AMPUL.NEB 3 ML INHALATION ×4 (03:18→20:24)
[2025-02-11] MEDS: CARBIDOPA/LEVODOPA 25/100 MG TABLET 2 TABLET PO ×3 (06:13→18:16)
[2025-02-11 06:15] LABS: Hematocrit 33.5 % (42.0-52.0); Hemoglobin 10.0 g/dL (14.0-18.0); Mean Corpuscular HGB Conc 29.9 g/dl (32-36); Mean Corpuscular Hemoglobin 27.3 pg (26-34); Mean Corpuscular Volume 91.5 fl (80-100); Platelet Count Result 306 k/mm3 (150-375); Red Blood Count 3.66 M/mm3 (4.6-6.20); White Blood Count 15.9 K/mm3 (4.5-10.0)
[2025-02-11 06:41] LABS: Anion Gap 6 mmol/L (4-12); Blood Urea Nitrogen 33 mg/dL (9-20); Calcium 8.8 mg/dL (8.4-10.2); Carbon Dioxide 27 mmol/L (22-30); Chloride 98 mmol/L (98-107); Estimated CRCL calculation 67 ml/min; Estimated Glomerular Filt Rate > 60; Glucose 195 mg/dL (65-110); Magnesium 2.2 mg/dL (1.6-2.3); Potassium 3.7 mmol/L (3.4-5.0); Sodium 131 mmol/L (137-145)
[2025-02-11] MEDS: DOCUSATE SODIUM 100 MG CAPSULE 200 MG PO ×2 (08:55→18:16)
[2025-02-11] MEDS: LOSARTAN POTASSIUM 50 MG TABLET 100 MG PO (08:56)
[2025-02-11] MEDS: EMPAGLIFLOZIN 25 MG TABLET PO (08:56)
[2025-02-11] MEDS: SENNOSIDES 8.6 MG TABLET PO (08:56)
[2025-02-11] MEDS: ENOXAPARIN 40 MG/0.4 ML SYRINGE SUB-Q (08:56)
[2025-02-11] MEDS: SERTRALINE HCL 50 MG TABLET 150 MG PO (08:56)
[2025-02-11] MEDS: ASPIRIN 81 MG CHEWABLE TABLET PO (08:56)
[2025-02-11] MEDS: FINASTERIDE 5 MG TABLET PO (08:56)
[2025-02-11] MEDS: INSULIN GLARGINE (*BKC) 100 UNITS/ML 10 UNITS SUB-Q (08:57)
[2025-02-11] MEDS: INSULIN ASPART (*BKC) 100 UNITS/ML SUB-Q ×3 (08:57→12:39)
[2025-02-11] MEDS: FUROSEMIDE INJ 40 MG/4 ML VIAL 20 MG IV PUSH (09:07)
[2025-02-11] MEDS: BENZONATATE 100 MG CAPSULE 200 MG PO ×3 (10:09→18:16)
[2025-02-11] MEDS: guaiFENesin 12 HR 600 MG TABCR PO ×2 (10:09→21:52)
--- NOTE | 2025-02-11 12:59 | PM.IMPN ---
Progress Note: A&P Assessment and Plan (1) Acute exacerbation of chronic obstructive pulmonary disease: Code(s): J44.1 - Chronic obstructive pulmonary disease with (acute) exacerbation Status: Acute (2) CAP (community acquired pneumonia): Code(s): J18.9 - Pneumonia, unspecified organism Status: Acute (3) Diabetes type 2, controlled: Code(s): E11.9 - Type 2 diabetes mellitus without complications Status: Chronic (4) Hypertension: Qualifiers: Hypertension type: essential hypertension Qualified Code(s): I10 - Essential (primary) hypertension Code(s): I10 - Essential (primary) hypertension Status: Chronic (5) Hyperlipidemia: Qualifiers: Hyperlipidemia type: unspecified Qualified Code(s): E78.5 - Hyperlipidemia, unspecified Code(s): E78.5 - Hyperlipidemia, unspecified Status: Chronic (6) Parkinson disease: Code(s): G20.A1 - Parkinson's disease without dyskinesia, without mention of fluctuations Status: Chronic Plan Besides elevated blood sugars which were running in 300-350 whit history of diabetes, gave Lantus 20u x1, as patient he is on steroids, patient was also short of breath and wheezing with history of COPD, CXR showing bilateral infiltrates of the mid and lower lungs have developed. Differential diagnosis includes edema and pneumonia. Patient is being treated with ceftriaxone and Zithomax, for patient wheezing patient is treated with solumedrol which causing hyperglycemia, today patient has more cough, repeat chest x-ray shows persistent pneumonia, will add flagly suspect patient have silent aspiration, will adjust patient insulin and monitor. there is concern for pulmonary edema, started the patient on lasix 20mg IV daily. Subjective Date/time seen: 02/11/25 12:59 Interval history: Besides elevated blood sugars which were running in 300-350 whit history of diabetes, gave Lantus 20u x1, as patient he is on steroids, patient was also short of breath and wheezing with history of COPD, CXR showing bilateral infiltrates of the mid and lower lungs have developed. Differential diagnosis includes edema and pneumonia. Patient is being treated with ceftriaxone and Zithomax, for patient wheezing patient is treated with solumedrol which causing hyperglycemia, today patient has more cough, repeat chest x-ray shows persistent pneumonia, will add flagly suspect patient have silent aspiration, will adjust patient insulin and monitor. there is concern for pulmonary edema, started the patient on lasix 20mg IV daily. Exam Narrative: Morbidly obese Patient is comfortable, NAD HEENT: eyes are clear and none icteric LUNGS:CTA HEART: RR S1S2 ABD: BS+, Soft and nontender Lower extremities: no edema SKIN: nonjaundiced Neuro: grossly intact. Objective Data Vital Signs Vital Signs: Vital Signs - 24 hr 02/10/25 14:00 02/10/25 14:40 02/10/25 14:46 Temperature 36.6 C Pulse Rate 75 73 74 Respiratory Rate 18 20 20 Blood Pressure 142/86 H Pulse Oximetry 96 Oxygen Delivery Oxygen Flow Rate 02/10/25 20:00 02/10/25 20:26 02/10/25 20:27 Temperature Pulse Rate 74 71 Respiratory Rate 19 20 Blood Pressure Pulse Oximetry 96 96 Oxygen Delivery Nasal Cannula Nasal Cannula Oxygen Flow Rate 2 2 02/10/25 20:32 02/10/25 20:55 02/11/25 03:20 Temperature 36.5 C Pulse Rate 72 74 68 Respiratory Rate 20 19 20 Blood Pressure 174/86 H Pulse Oximetry 96 Oxygen Delivery Oxygen Flow Rate 02/11/25 03:27 02/11/25 05:53 02/11/25 08:00 Temperature 36.7 C Pulse Rate 69 72 Respiratory Rate 20 12 Blood Pressure 185/81 H Pulse Oximetry 96 96 Oxygen Delivery Nasal Cannula Oxygen Flow Rate 2 02/11/25 09:31 02/11/25 09:34 02/11/25 09:39 Temperature Pulse Rate 72 71 Respiratory Rate 20 20 Blood Pressure Pulse Oximetry 96 Oxygen Delivery Nasal Cannula Oxygen Flow Rate 2 Intake/Output Intake/Output: Intake & Output 02/08/25 02/09/25 02/10/25 02/11/25 23:59 23:59 23:59 23:59 Intake Total 2740 1080 1140 Output Total 1750 1800 900 Balance 990 -720 240 Meds/Results Medications: Active Medications Generic Name Dose Route Start Last Admin Trade Name Freq PRN Reason Stop Dose Admin Albuterol 1 puff 02/09/25 08:56 Albuterol Sulfate (*Sp) Aerosol 1 Puff INHALATION QID PRN shortness of breath or wheezing Albuterol/Ipratropium 3 ml 02/09/25 08:00 02/11/25 09:31 Ipratropium 0.5 Mg/Albuterol Sulfate 2.5 Mg Ampul.Neb 3 Ml INHALATION 3 ml Q6HRT KETTY Administration Aspirin 81 mg 02/09/25 08:50 02/11/25 08:56 Aspirin 81 Mg Chewable Tablet PO 81 mg DAILY@0800 KETTY Administration Atorvastatin Calcium 80 mg 02/09/25 21:00 02/10/25 21:53 Atorvastatin 40 Mg Tablet PO 80 mg HS KETTY Administration Benzonatate 200 mg 02/11/25 09:00 02/11/25 12:38 Benzonatate 100 Mg Capsule PO 200 mg TID KETTY Administration Carbidopa/Levodopa 2 tablet 02/09/25 09:00 02/11/25 12:38 Carbidopa/Levodopa 25/100 Mg Tablet PO 2 tablet Q6HR KETTY Administration Dextrose 12.5 gm 02/09/25 05:38 Dextrose 50% 25 Gm/50 Ml Syringe IV PUSH PRN PRN Hypoglycemia Protocol Diclofenac Sodium applic 02/09/25 08:37 Diclofenac Sodium 1% 100 Gm Gel (*Bkc) TOPICAL QID PRN pain Docusate Sodium 200 mg 02/09/25 09:00 02/11/25 08:55 Docusate Sodium 100 Mg Capsule PO 200 mg BID KETTY Administration Empagliflozin 25 mg 02/09/25 09:00 02/11/25 08:56 Empagliflozin 25 Mg Tablet PO 25 mg DAILY KETTY Administration Enoxaparin Sodium 40 mg 02/09/25 09:00 02/11/25 08:56 Enoxaparin 40 Mg/0.4 Ml Syringe SUB-Q 40 mg DAILY KETTY Administration Finasteride 5 mg 02/09/25 09:00 02/11/25 08:56 Finasteride 5 Mg Tablet PO 5 mg DAILY KETTY Administration Furosemide 20 mg 02/10/25 11:30 02/11/25 09:07 Furosemide Inj 40 Mg/4 Ml Vial IV PUSH 20 mg DAILY KETTY Administration Glucose 15 gm 02/09/25 05:38 Glucose Oral Gel 15 Gm Of Glucse In 37.5 Gm Tube PO PRN PRN Hypoglycemia Protocol Guaifenesin 600 mg 02/11/25 09:00 02/11/25 10:09 Guaifenesin 12 Hr 600 Mg Tabcr PO 600 mg Q12HR KETTY Administration Ceftriaxone Sodium 1 gm/ 50 mls @ 100 mls/hr 02/10/25 02:00 02/11/25 01:49 Sodium Chloride IVPB Infused Q24H KETTY Infusion Azithromycin 500 mg/ Sodium 250 mls @ 250 mls/hr 02/10/25 02:00 02/11/25 03:46 Chloride IVPB 02/13/25 02:59 Infused Q24H KETTY Infusion Dextrose 1,000 mls @ 100 mls/hr 02/09/25 05:38 Dextrose 5% 1,000 Ml IVPB PRN PRN Hypoglycemia Protocol Insulin Aspart 2 - 5 units 02/09/25 08:00 02/11/25 12:39 Insulin Aspart (*Bkc) 100 Units/Ml SUB-Q 3 units TIDWM KETTY Administration Protocol Insulin Aspart 1 - 2 units 02/09/25 21:00 02/10/25 21:53 Insulin Aspart (*Bkc) 100 Units/Ml SUB-Q Not Given HS KETTY Protocol Insulin Aspart 5 units 02/10/25 08:30 02/11/25 08:57 Insulin Aspart (*Bkc) 100 Units/Ml SUB-Q 5 units 0830 KETTY Administration Insulin Aspart 11 units 02/09/25 17:30 02/10/25 16:52 Insulin Aspart (*Bkc) 100 Units/Ml SUB-Q 11 units 1730 KETTY Administration Insulin Aspart 5 units 02/10/25 12:30 02/11/25 12:39 Insulin Aspart (*Bkc) 100 Units/Ml SUB-Q 5 units 1230 KETTY Administration Insulin Glargine 16 units 02/09/25 21:00 02/10/25 21:52 Insulin Glargine (*Bkc) 100 Units/Ml SUB-Q 16 units HS KETTY Administration Insulin Glargine 10 units 02/10/25 10:50 02/11/25 08:57 Insulin Glargine (*Bkc) 100 Units/Ml SUB-Q 10 units QAM KETTY Administration Losartan Potassium 100 mg 02/09/25 09:00 02/11/25 08:56 Losartan Potassium 50 Mg Tablet PO 100 mg DAILY KETTY Administration Methylprednisolone Sodium Succinate 60 mg 02/09/25 06:00 02/11/25 12:48 Methylprednisolone Sod Succ 125 Mg Vial IV PUSH 60 mg Q6HR KETTY Administration Miscellaneous Information 0 each 02/09/25 00:01 To Where Is The Diclofenac Gel Being Applied? XX 03/11/25 00:00 [facility] Miscellaneous Information 0 each 02/09/25 00:01 Ozempic Is Non-Formulary. Use Pt Own Supply? XX 03/11/25 00:00 [facility] Non-Formulary Medication 1 mg 02/09/25 09:00 Semaglutide [Ozempic] SUB-Q 03/11/25 08:59 WEEKLY KETTY Pantoprazole Sodium 40 mg 02/09/25 18:00 02/10/25 16:52 Pantoprazole 40 Mg Tablet PO 40 mg QPM KETTY Administration Senna 8.6 mg 02/09/25 09:00 02/11/25 08:56 Sennosides 8.6 Mg Tablet PO 8.6 mg DAILY KETTY Administration Sertraline HCl 150 mg 02/09/25 09:00 02/11/25 08:56 Sertraline Hcl 50 Mg Tablet PO 150 mg DAILY KETTY Administration Tamsulosin HCl 0.4 mg 02/09/25 21:00 02/10/25 21:53 Tamsulosin Hcl 0.4 Mg Capsule PO 0.4 mg HS KETTY Administration Radiology Results: ITS Impressions Chest X-Ray 02/09/25 04:49 Impression: 1: Bilateral infiltrates of the mid and lower lungs have developed. Differential diagnosis includes edema and pneumonia. Labs Labs: Laboratory Results - last 24 hr 02/10/25 02/10/25 02/11/25 16:34 19:55 06:05 WBC 15.9 H RBC 3.66 L Hgb 10.0 L Hct 33.5 L MCV 91.5 MCH 27.3 MCHC 29.9 L RDW 13.2 Plt Count 306 MPV 10.2 Sodium 131 L Potassium 3.7 Chloride 98 Carbon Dioxide 27 Anion Gap 6 BUN 33 H Creatinine 0.95 Estim Creat Clear Calc 67 Estimated GFR > 60 Glucose 195 H POC Capillary Glucose 220 H 157 H Calcium 8.8 Magnesium 2.2 02/11/25 02/11/25 08:06 11:37 WBC RBC Hgb Hct MCV MCH MCHC RDW Plt Count MPV Sodium Potassium Chloride Carbon Dioxide Anion Gap BUN Creatinine Estim Creat Clear Calc Estimated GFR Glucose POC Capillary Glucose 164 H 278 H Calcium Magnesium
[2025-02-11] MEDS: PANTOPRAZOLE 40 MG TABLET PO (18:16)
[2025-02-11] MEDS: INSULIN ASPART (*BKC) 100 UNITS/ML 11 UNITS SUB-Q (18:19)
--- NOTE | 2025-02-11 19:43 | PC.NURSE ---
On 02/11/25, the WRIST HEMMER, Arlen Travis, provided care and completed [facility] documentation on this patient. I have reviewed the WRIST HEMMER's documentation and agree with the findings.
[2025-02-11] MEDS: INSULIN GLARGINE (*BKC) 100 UNITS/ML 16 UNITS SUB-Q (21:51)
[2025-02-11] MEDS: ATORVASTATIN 40 MG TABLET 80 MG PO (21:52)
[2025-02-11] MEDS: TAMSULOSIN HCL 0.4 MG CAPSULE PO (21:52)
[2025-02-12] VITALS (17 sets, daily range): BP systolic 158–200; BP diastolic 89–100; PULSE 65–103; RESP 18–20; TEMP 36.4–36.7; O2SAT 90–98
[2025-02-12] MEDS: CARBIDOPA/LEVODOPA 25/100 MG TABLET 2 TABLET PO ×5 (01:07→23:24)
[2025-02-12] MEDS: cefTRIAXone 1 GM in SODIUM CHLORIDE 0.9% IV 50 ML 100 ML IVPB (01:08)
[2025-02-12] MEDS: AZITHROMYCIN IV 500 MG in SODIUM CHLORIDE 0.9% IV 250 ML 125 ML IVPB (01:37)
[2025-02-12] MEDS: IPRATROPIUM 0.5 MG/ALBUTEROL SULFATE 2.5 MG AMPUL.NEB 3 ML INHALATION ×4 (01:45→20:45)
[2025-02-12] MEDS: LOSARTAN POTASSIUM 50 MG TABLET 100 MG PO (05:26)
[2025-02-12 06:32] LABS: Hematocrit 34.1 % (42.0-52.0); Hemoglobin 10.4 g/dL (14.0-18.0); Mean Corpuscular HGB Conc 30.5 g/dl (32-36); Mean Corpuscular Hemoglobin 27.7 pg (26-34); Mean Corpuscular Volume 90.9 fl (80-100); Platelet Count Result 333 k/mm3 (150-375); Red Blood Count 3.75 M/mm3 (4.6-6.20); White Blood Count 13.2 K/mm3 (4.5-10.0)
[2025-02-12 06:47] LABS: Anion Gap 5 mmol/L (4-12); Blood Urea Nitrogen 26 mg/dL (9-20); Calcium 8.5 mg/dL (8.4-10.2); Carbon Dioxide 28 mmol/L (22-30); Chloride 96 mmol/L (98-107); Estimated CRCL calculation 79 ml/min; Estimated Glomerular Filt Rate > 60; Glucose 185 mg/dL (65-110); Magnesium 2.0 mg/dL (1.6-2.3); Potassium 3.7 mmol/L (3.4-5.0); Sodium 129 mmol/L (137-145)
[2025-02-12] MEDS: INSULIN ASPART (*BKC) 100 UNITS/ML SUB-Q ×4 (08:30→17:07)
[2025-02-12] MEDS: INSULIN GLARGINE (*BKC) 100 UNITS/ML 10 UNITS SUB-Q (08:30)
[2025-02-12] MEDS: ENOXAPARIN 40 MG/0.4 ML SYRINGE SUB-Q (08:35)
[2025-02-12] MEDS: DOCUSATE SODIUM 100 MG CAPSULE 200 MG PO ×2 (08:37→17:09)
[2025-02-12] MEDS: SERTRALINE HCL 50 MG TABLET 150 MG PO (08:37)
[2025-02-12] MEDS: guaiFENesin 12 HR 600 MG TABCR PO ×2 (08:38→21:49)
[2025-02-12] MEDS: ASPIRIN 81 MG CHEWABLE TABLET PO (08:38)
[2025-02-12] MEDS: EMPAGLIFLOZIN 25 MG TABLET PO (08:38)
[2025-02-12] MEDS: BENZONATATE 100 MG CAPSULE 200 MG PO ×3 (08:38→17:09)
[2025-02-12] MEDS: FINASTERIDE 5 MG TABLET PO (08:38)
[2025-02-12] MEDS: FUROSEMIDE INJ 40 MG/4 ML VIAL 20 MG IV PUSH (08:39)
--- NOTE | 2025-02-12 15:49 | PM.IMPN ---
Progress Note: A&P Assessment and Plan (1) Acute exacerbation of chronic obstructive pulmonary disease: Code(s): J44.1 - Chronic obstructive pulmonary disease with (acute) exacerbation Status: Acute (2) CAP (community acquired pneumonia): Code(s): J18.9 - Pneumonia, unspecified organism Status: Acute (3) Diabetes type 2, controlled: Code(s): E11.9 - Type 2 diabetes mellitus without complications Status: Chronic (4) Hypertension: Qualifiers: Hypertension type: essential hypertension Qualified Code(s): I10 - Essential (primary) hypertension Code(s): I10 - Essential (primary) hypertension Status: Chronic (5) Hyperlipidemia: Qualifiers: Hyperlipidemia type: unspecified Qualified Code(s): E78.5 - Hyperlipidemia, unspecified Code(s): E78.5 - Hyperlipidemia, unspecified Status: Chronic (6) Parkinson disease: Code(s): G20.A1 - Parkinson's disease without dyskinesia, without mention of fluctuations Status: Chronic Plan Besides elevated blood sugars which were running in 300-350 whit history of diabetes, gave Lantus 20u x1, as patient he is on steroids, patient was also short of breath and wheezing with history of COPD, CXR showing bilateral infiltrates of the mid and lower lungs have developed. Differential diagnosis includes edema and pneumonia. Patient is being treated with ceftriaxone and Zithomax, for patient wheezing patient is treated with solumedrol which causing hyperglycemia, on 02/11 patient had more cough, repeat chest x-ray showed persistent pneumonia, added flagly suspect patient have silent aspiration, today patient stats he feels little better and cough has improve, will monitor, will adjust patient insulin and monitor. there is concern for pulmonary edema, started the patient on lasix 20mg IV daily. Subjective Date/time seen: 02/12/25 15:49 Interval history: Besides elevated blood sugars which were running in 300-350 whit history of diabetes, gave Lantus 20u x1, as patient he is on steroids, patient was also short of breath and wheezing with history of COPD, CXR showing bilateral infiltrates of the mid and lower lungs have developed. Differential diagnosis includes edema and pneumonia. Patient is being treated with ceftriaxone and Zithomax, for patient wheezing patient is treated with solumedrol which causing hyperglycemia, on 02/11 patient had more cough, repeat chest x-ray showed persistent pneumonia, added flagly suspect patient have silent aspiration, today patient stats he feels little better and cough has improve, will monitor, will adjust patient insulin and monitor. there is concern for pulmonary edema, started the patient on lasix 20mg IV daily. Exam Narrative: Morbidly obese Patient is comfortable, NAD HEENT: eyes are clear and none icteric LUNGS:CTA HEART: RR S1S2 ABD: BS+, Soft and nontender Lower extremities: no edema SKIN: nonjaundiced Neuro: grossly intact. Objective Data Vital Signs Vital Signs: Vital Signs - 24 hr 02/11/25 20:00 02/11/25 20:24 02/11/25 20:25 Temperature Pulse Rate 75 Respiratory Rate 20 Blood Pressure Pulse Oximetry 95 96 Oxygen Delivery Nasal Cannula Nasal Cannula Oxygen Flow Rate 2 2 02/11/25 20:33 02/11/25 22:00 02/12/25 01:45 Temperature 36.4 C L Pulse Rate 73 63 70 Respiratory Rate 20 18 20 Blood Pressure 172/80 H Pulse Oximetry 95 Oxygen Delivery Oxygen Flow Rate 02/12/25 01:54 02/12/25 04:00 02/12/25 06:00 Temperature 36.4 C Pulse Rate 74 65 Respiratory Rate 20 18 Blood Pressure 192/90 H Pulse Oximetry 90 Oxygen Delivery Oxygen Flow Rate 02/12/25 06:38 02/12/25 07:45 02/12/25 07:52 Temperature Pulse Rate Respiratory Rate Blood Pressure 200/98 H 160/100 H Pulse Oximetry 93 Oxygen Delivery Nasal Cannula Oxygen Flow Rate 2 02/12/25 07:52 02/12/25 07:54 02/12/25 08:00 Temperature Pulse Rate 99 103 H 78 Respiratory Rate 18 18 Blood Pressure Pulse Oximetry 93 Oxygen Delivery Nasal Cannula Oxygen Flow Rate 2 02/12/25 10:49 02/12/25 14:00 02/12/25 15:19 Temperature 36.7 C Pulse Rate 79 85 Respiratory Rate 18 18 Blood Pressure 163/95 H 158/89 H Pulse Oximetry 94 Oxygen Delivery Oxygen Flow Rate 02/12/25 15:26 Temperature Pulse Rate 86 Respiratory Rate 18 Blood Pressure Pulse Oximetry Oxygen Delivery Oxygen Flow Rate Intake/Output Intake/Output: Intake & Output 02/09/25 02/10/25 02/11/25 02/12/25 23:59 23:59 23:59 23:59 Intake Total 2740 1080 1860 240 Output Total 1750 1800 3400 2400 Balance 747 -792 -9646 -0653 Meds/Results Medications: Active Medications Generic Name Dose Route Start Last Admin Trade Name Freq PRN Reason Stop Dose Admin Albuterol 1 puff 02/09/25 08:56 Albuterol Sulfate (*Sp) Aerosol 1 Puff INHALATION QID PRN shortness of breath or wheezing Albuterol/Ipratropium 3 ml 02/09/25 08:00 02/12/25 15:19 Ipratropium 0.5 Mg/Albuterol Sulfate 2.5 Mg Ampul.Neb 3 Ml INHALATION 3 ml Q6HRT KETTY Administration Aspirin 81 mg 02/09/25 08:50 02/12/25 08:38 Aspirin 81 Mg Chewable Tablet PO 81 mg DAILY@0800 KETTY Administration Atorvastatin Calcium 80 mg 02/09/25 21:00 02/11/25 21:52 Atorvastatin 40 Mg Tablet PO 80 mg HS KETTY Administration Benzonatate 200 mg 02/11/25 09:00 02/12/25 12:23 Benzonatate 100 Mg Capsule PO 200 mg TID KETTY Administration Carbidopa/Levodopa 2 tablet 02/09/25 09:00 02/12/25 12:23 Carbidopa/Levodopa 25/100 Mg Tablet PO 2 tablet Q6HR KETTY Administration Dextrose 12.5 gm 02/09/25 05:38 Dextrose 50% 25 Gm/50 Ml Syringe IV PUSH PRN PRN Hypoglycemia Protocol Diclofenac Sodium applic 02/09/25 08:37 Diclofenac Sodium 1% 100 Gm Gel (*Bkc) TOPICAL QID PRN pain Docusate Sodium 200 mg 02/09/25 09:00 02/12/25 08:37 Docusate Sodium 100 Mg Capsule PO 200 mg BID KETTY Administration Empagliflozin 25 mg 02/09/25 09:00 02/12/25 08:38 Empagliflozin 25 Mg Tablet PO 25 mg DAILY KETTY Administration Enoxaparin Sodium 40 mg 02/09/25 09:00 02/12/25 08:35 Enoxaparin 40 Mg/0.4 Ml Syringe SUB-Q 40 mg DAILY KETTY Administration Finasteride 5 mg 02/09/25 09:00 02/12/25 08:38 Finasteride 5 Mg Tablet PO 5 mg DAILY KETTY Administration Furosemide 20 mg 02/10/25 11:30 02/12/25 08:39 Furosemide Inj 40 Mg/4 Ml Vial IV PUSH 20 mg DAILY KETTY Administration Glucose 15 gm 02/09/25 05:38 Glucose Oral Gel 15 Gm Of Glucse In 37.5 Gm Tube PO PRN PRN Hypoglycemia Protocol Guaifenesin 600 mg 02/11/25 09:00 02/12/25 08:38 Guaifenesin 12 Hr 600 Mg Tabcr PO 600 mg Q12HR KETTY Administration Ceftriaxone Sodium 1 gm/ 50 mls @ 100 mls/hr 02/10/25 02:00 02/12/25 01:08 Sodium Chloride IVPB 100 mls/hr Q24H KETTY Administration Azithromycin 500 mg/ Sodium 250 mls @ 250 mls/hr 02/10/25 02:00 02/12/25 01:37 Chloride IVPB 02/13/25 02:59 125 mls/hr Q24H KETTY Administration Dextrose 1,000 mls @ 100 mls/hr 02/09/25 05:38 Dextrose 5% 1,000 Ml IVPB PRN PRN Hypoglycemia Protocol Insulin Aspart 2 - 5 units 02/09/25 08:00 02/12/25 12:21 Insulin Aspart (*Bkc) 100 Units/Ml SUB-Q 2 units TIDWM KETTY Administration Protocol Insulin Aspart 1 - 2 units 02/09/25 21:00 02/11/25 21:52 Insulin Aspart (*Bkc) 100 Units/Ml SUB-Q Not Given HS KETTY Protocol Insulin Aspart 5 units 02/10/25 08:30 02/12/25 08:30 Insulin Aspart (*Bkc) 100 Units/Ml SUB-Q 5 units 0830 KETTY Administration Insulin Aspart 11 units 02/09/25 17:30 02/11/25 18:19 Insulin Aspart (*Bkc) 100 Units/Ml SUB-Q 11 units 1730 KETTY Administration Insulin Aspart 5 units 02/10/25 12:30 02/12/25 12:22 Insulin Aspart (*Bkc) 100 Units/Ml SUB-Q 5 units 1230 KETTY Administration Insulin Glargine 16 units 02/09/25 21:00 02/11/25 21:51 Insulin Glargine (*Bkc) 100 Units/Ml SUB-Q 16 units HS KETTY Administration Insulin Glargine 10 units 02/10/25 10:50 02/12/25 08:30 Insulin Glargine (*Bkc) 100 Units/Ml SUB-Q 10 units QAM KETTY Administration Losartan Potassium 100 mg 02/09/25 09:00 02/12/25 05:26 Losartan Potassium 50 Mg Tablet PO 100 mg DAILY KETTY Administration Methylprednisolone Sodium Succinate 60 mg 02/09/25 06:00 02/12/25 12:23 Methylprednisolone Sod Succ 125 Mg Vial IV PUSH 60 mg Q6HR KETTY Administration Metronidazole 500 mg 02/11/25 14:00 02/12/25 13:17 Metronidazole 500 Mg Tablet PO 500 mg Q8HR KETTY Administration Miscellaneous Information 0 each 02/09/25 00:01 To Where Is The Diclofenac Gel Being Applied? XX 03/11/25 00:00 [facility] Miscellaneous Information 0 each 02/09/25 00:01 Ozempic Is Non-Formulary. Use Pt Own Supply? XX 03/11/25 00:00 [facility] Non-Formulary Medication 1 mg 02/09/25 09:00 Semaglutide [Ozempic] SUB-Q 03/11/25 08:59 [facility] Pantoprazole Sodium 40 mg 02/09/25 18:00 02/11/25 18:16 Pantoprazole 40 Mg Tablet PO 40 mg QPM KETTY Administration Senna 8.6 mg 02/09/25 09:00 02/12/25 08:39 Sennosides 8.6 Mg Tablet PO Not Given DAILY KETTY Sertraline HCl 150 mg 02/09/25 09:00 02/12/25 08:37 Sertraline Hcl 50 Mg Tablet PO 150 mg DAILY KETTY Administration Tamsulosin HCl 0.4 mg 02/09/25 21:00 02/11/25 21:52 Tamsulosin Hcl 0.4 Mg Capsule PO 0.4 mg HS KETTY Administration Radiology Results: ITS Impressions Chest X-Ray 02/09/25 04:49 Impression: 1: Bilateral infiltrates of the mid and lower lungs have developed. Differential diagnosis includes edema and pneumonia. Labs Labs: Laboratory Results - last 24 hr 02/11/25 02/11/25 02/12/25 16:41 20:05 05:50 WBC 13.2 H RBC 3.75 L Hgb 10.4 L Hct 34.1 L MCV 90.9 MCH 27.7 MCHC 30.5 L RDW 13.2 Plt Count 333 MPV 10.2 Sodium 129 L Potassium 3.7 Chloride 96 L Carbon Dioxide 28 Anion Gap 5 BUN 26 H Creatinine 0.80 Estim Creat Clear Calc 79 Estimated GFR > 60 Glucose 185 H POC Capillary Glucose 171 H 160 H Calcium 8.5 Magnesium 2.0 02/12/25 02/12/25 07:44 11:25 WBC RBC Hgb Hct MCV MCH MCHC RDW Plt Count MPV Sodium Potassium Chloride Carbon Dioxide Anion Gap BUN Creatinine Estim Creat Clear Calc Estimated GFR Glucose POC Capillary Glucose 173 H 221 H Calcium Magnesium
[2025-02-12] MEDS: INSULIN ASPART (*BKC) 100 UNITS/ML 11 UNITS SUB-Q (17:07)
[2025-02-12] MEDS: PANTOPRAZOLE 40 MG TABLET PO (17:09)
[2025-02-12] MEDS: INSULIN GLARGINE (*BKC) 100 UNITS/ML 16 UNITS SUB-Q (21:48)
[2025-02-12] MEDS: ATORVASTATIN 40 MG TABLET 80 MG PO (21:49)
[2025-02-12] MEDS: TAMSULOSIN HCL 0.4 MG CAPSULE PO (21:49)
[2025-02-13] VITALS (9 sets, daily range): BP systolic 153–169; BP diastolic 85–102; PULSE 66–82; RESP 18–20; TEMP 36.6; O2SAT 95–97
[2025-02-13] MEDS: cefTRIAXone 1 GM in SODIUM CHLORIDE 0.9% IV 50 ML 100 ML IVPB (01:43)
[2025-02-13] MEDS: AZITHROMYCIN IV 500 MG in SODIUM CHLORIDE 0.9% IV 250 ML 125 ML IVPB (02:13)
[2025-02-13] MEDS: IPRATROPIUM 0.5 MG/ALBUTEROL SULFATE 2.5 MG AMPUL.NEB 3 ML INHALATION ×3 (02:36→15:16)
[2025-02-13] MEDS: CARBIDOPA/LEVODOPA 25/100 MG TABLET 2 TABLET PO ×2 (06:05→11:38)
[2025-02-13 06:26] LABS: Hematocrit 36.5 % (42.0-52.0); Hemoglobin 11.1 g/dL (14.0-18.0); Mean Corpuscular HGB Conc 30.4 g/dl (32-36); Mean Corpuscular Hemoglobin 27.1 pg (26-34); Mean Corpuscular Volume 89.2 fl (80-100); Platelet Count Result 332 k/mm3 (150-375); Red Blood Count 4.09 M/mm3 (4.6-6.20); White Blood Count 12.9 K/mm3 (4.5-10.0)
[2025-02-13 06:47] LABS: Anion Gap 6 mmol/L (4-12); Blood Urea Nitrogen 23 mg/dL (9-20); Calcium 8.8 mg/dL (8.4-10.2); Carbon Dioxide 28 mmol/L (22-30); Chloride 98 mmol/L (98-107); Estimated CRCL calculation 85 ml/min; Estimated Glomerular Filt Rate > 60; Glucose 137 mg/dL (65-110); Magnesium 2.1 mg/dL (1.6-2.3); Potassium 3.7 mmol/L (3.4-5.0); Sodium 132 mmol/L (137-145)
[2025-02-13] MEDS: EMPAGLIFLOZIN 25 MG TABLET PO (08:09)
[2025-02-13] MEDS: LOSARTAN POTASSIUM 50 MG TABLET 100 MG PO (08:09)
[2025-02-13] MEDS: guaiFENesin 12 HR 600 MG TABCR PO (08:09)
[2025-02-13] MEDS: ASPIRIN 81 MG CHEWABLE TABLET PO (08:09)
[2025-02-13] MEDS: DOCUSATE SODIUM 100 MG CAPSULE 200 MG PO ×2 (08:09→16:31)
[2025-02-13] MEDS: SERTRALINE HCL 50 MG TABLET 150 MG PO (08:09)
[2025-02-13] MEDS: BENZONATATE 100 MG CAPSULE 200 MG PO ×3 (08:09→16:31)
[2025-02-13] MEDS: FUROSEMIDE INJ 40 MG/4 ML VIAL 20 MG IV PUSH (08:10)
[2025-02-13] MEDS: ENOXAPARIN 40 MG/0.4 ML SYRINGE SUB-Q (08:10)
[2025-02-13] MEDS: SENNOSIDES 8.6 MG TABLET PO (08:10)
[2025-02-13] MEDS: FINASTERIDE 5 MG TABLET PO (08:10)
[2025-02-13] MEDS: INSULIN ASPART (*BKC) 100 UNITS/ML SUB-Q ×3 (08:11→12:25)
[2025-02-13] MEDS: INSULIN GLARGINE (*BKC) 100 UNITS/ML 10 UNITS SUB-Q (08:12)
--- NOTE | 2025-02-13 13:24 | P.DS_ITS ---
DS: Admitting Diagnosis Discharge Date 02/13/25 Admitting Diagnosis High blood sugars. DS: Discharge Diagnosis Discharge Diagnosis (1) Acute exacerbation of chronic obstructive pulmonary disease: Code(s): J44.1 - Chronic obstructive pulmonary disease with (acute) exacerbation Status: Acute (2) CAP (community acquired pneumonia): Code(s): J18.9 - Pneumonia, unspecified organism Status: Acute (3) Diabetes type 2, controlled: Code(s): E11.9 - Type 2 diabetes mellitus without complications Status: Chronic (4) Hypertension: Qualifiers: Hypertension type: essential hypertension Qualified Code(s): I10 - Essential (primary) hypertension Code(s): I10 - Essential (primary) hypertension Status: Chronic (5) Hyperlipidemia: Qualifiers: Hyperlipidemia type: unspecified Qualified Code(s): E78.5 - Hyperlipidemia, unspecified Code(s): E78.5 - Hyperlipidemia, unspecified Status: Chronic (6) Parkinson disease: Code(s): G20.A1 - Parkinson's disease without dyskinesia, without mention of fluctuations Status: Chronic Plan Besides elevated blood sugars which were running in 300-350 whit history of diabetes, gave Lantus 20u x1, as patient he is on steroids, patient was also short of breath and wheezing with history of COPD, CXR showing bilateral infiltrates of the mid and lower lungs have developed. Differential diagnosis includes edema and pneumonia. Patient is being treated with ceftriaxone and Zithomax, for patient wheezing patient is treated with solumedrol which causing hyperglycemia, on 02/11 patient had more cough, repeat chest x-ray showed persistent pneumonia, added flagly suspect patient have silent aspiration, today patient stats he feels little better and cough has improve, will monitor, will adjust patient insulin and monitor. there is concern for pulmonary edema, started the patient on lasix 20mg IV daily. DS: Summary Hospital Course Hospital Course: Besides elevated blood sugars which were running in 300-350 whit history of diabetes, gave Lantus 20u x1, as patient he is on steroids, patient was also short of breath and wheezing with history of COPD, CXR showing bilateral infiltrates of the mid and lower lungs have developed. Differential diagnosis includes edema and pneumonia. Patient is being treated with ceftriaxone and Zithomax, for patient wheezing patient is treated with solumedrol which causing hyperglycemia, on 02/11 patient had more cough, repeat chest x-ray showed persistent pneumonia, added flagly suspect patient have silent aspiration, today patient stats he feels little better and cough has improve, will monitor, will adjust patient insulin and monitor. there is concern for pulmonary edema, started the patient on lasix 20mg IV daily. patient clinical symptoms have imp roved, CXR shows improvement, will discharge home today. Time Spent with Patient Time attestation: Total time spent providing and/or coordinating discharge services: Exam Narrative: Morbidly obese Patient is comfortable, NAD HEENT: eyes are clear and none icteric LUNGS:CTA HEART: RR S1S2 ABD: BS+, Soft and nontender Lower extremities: no edema SKIN: nonjaundiced Neuro: grossly intact. DS: Data Data Completed and Pending Labs on day of discharge: Labs from last 24 hours 02/13/25 02/13/25 02/13/25 11:22 07:28 06:10 WBC 12.9 H RBC 4.09 L Hgb 11.1 L Hct 36.5 L MCV 89.2 MCH 27.1 MCHC 30.4 L RDW 13.2 Plt Count 332 MPV 9.8 Sodium 132 L Potassium 3.7 Chloride 98 Carbon Dioxide 28 Anion Gap 6 BUN 23 H Creatinine 0.74 Estim Creat Clear Calc 85 Estimated GFR > 60 Glucose 137 H POC Capillary Glucose 243 H 158 H Calcium 8.8 Magnesium 2.1 02/12/25 02/12/25 20:37 16:11 WBC RBC Hgb Hct MCV MCH MCHC RDW Plt Count MPV Sodium Potassium Chloride Carbon Dioxide Anion Gap BUN Creatinine Estim Creat Clear Calc Estimated GFR Glucose POC Capillary Glucose 172 H 229 H Calcium Magnesium Preliminary micro results at discharge 02/09/25 02:33 Blood Culture - Preliminary Blood 02/09/25 02:34 Blood Culture - Preliminary Blood Discharge Plan Discharge Attending physician on discharge: Lolita Irizarry Consulting providers: Carroll Araiza; Mable Charlton; Tevin Griffin; Juanita Nayak Discharging Clinician: Pelon French Patient Disposition: Home Activity: as tolerated Diet: heart healthy Discharge Instructions: patient to follow up with her primary care provider as soon as possible, patient is instructed if any symptoms redevelop to go to nearest ER Patient Instructions: Antibiotic Form Patient Language: [place] Stand Alone Forms: General Discharge Information Follow-up/Referrals: [facility] [Primary Care Provider] - Discharge Medications: New ipratropium-albuterol 0.5 mg-3 mg(2.5 mg base)/3 mL Solution For Nebulization 3 ml inhalation Q6HRT Qty: 90 0RF guaifenesin [Mucus Relief ER] 600 mg Tablet Extended Release 12hr 600 mg PO Q12HR Qty: 30 0RF prednisone 10 mg tablet 10 mg PO DAILY Qty: 63 0RF Rx Instructions: 6Tx3d, 5Tx3d, 4Tx3d, 3Tx3d, 2Tx2d 1Tx3d metronidazole 500 mg Tablet 500 mg PO Q8HR Qty: 15 0RF benzonatate 100 mg Capsule 200 mg PO TID Qty: 30 0RF cefdinir 300 mg capsule 300 mg PO Q12H Qty: 10 0RF (DME) compressor, for nebulizer Device See Rx Instructions .Route Qty: 1 0RF Rx Instructions: As directed Continued atorvastatin 40 mg Tablet 80 mg PO HS insulin aspart U-100 [Novolog U-100 Insulin aspart] 100 unit/mL Solution 5 unit SUBCUT .with breakfast metformin 1,000 mg Tablet 1,000 mg PO BID albuterol 90 mcg/actuation Aerosol 1 mcg INHALATION QID PRN (Reason: shortness of breath or wheezing) finasteride 5 mg Tablet 5 mg PO DAILY insulin glargine 100 unit/mL Cartridge 16 unit SUBCUT HS diclofenac sodium 1 % Gel 4 g TOPICAL QID PRN (Reason: pain) sertraline 100 mg Tablet 150 mg PO DAILY tamsulosin 0.4 mg Capsule 0.4 mg PO HS pantoprazole 40 mg Tablet,Delayed Release (Dr/Ec) 40 mg PO QPM aspirin [Children's Aspirin] 81 mg Tablet,Chewable 81 mg PO DAILY@0800 Qty: 30 0RF carbidopa-levodopa 25-100 mg tablet 2 tablet PO QID Patient Comments: significant other decreased dose to 2 tabs with neurologist instruction losartan [Cozaar] 50 mg tablet 100 mg PO DAILY docusate sodium 100 mg capsule 200 mg PO BID sennosides [senna] 8.6 mg tablet 8.6 mg PO DAILY insulin aspart U-100 [Novolog U-100 Insulin aspart] 100 unit/mL solution 5 unit subcut .with lunch insulin aspart U-100 [Novolog U-100 Insulin aspart] 100 unit/mL solution 11 unit subcut .with dinner Ozempic 1 mg/dose (4 mg/3 mL) pen injector 1 mg subcut WEEKLY Rx Instructions: every Wednesday empagliflozin 25 mg tablet 25 mg PO DAILY Date of admission: 02/10/25 13:18 Primary Care Provider: [facility] Admitting Provider: Lolita Irizarry Attending physician on admission: Pelon French Condition: Stable
[2025-02-13] MEDS: INSULIN ASPART (*BKC) 100 UNITS/ML 11 UNITS SUB-Q (16:32)
== END 2025-02-13 17:35 | disposition home or self-care (01) | DRG 190 ==
LOC: ANHED 02:12 → ANH3MEDSUR 05:25
PROVIDERS: Admitting Provider General Practice; Emergency Provider Physician Assistant; Visit Provider Family Medicine
DX: J44.1 Chronic obstructive pulmonary disease with (acute) exacerbation (principal); J18.9 Pneumonia, unspecified organism; J96.10 Chronic respiratory failure, unspecified whether with hypoxia or hypercapnia; J44.0 Chronic obstructive pulmonary disease with (acute) lower respiratory infection; E11.9 Type 2 diabetes mellitus without complications; I10 Essential (primary) hypertension; E78.5 Hyperlipidemia, unspecified; K21.9 Gastro-esophageal reflux disease without esophagitis; G20.A1 Parkinson's disease without dyskinesia, without mention of fluctuations; Z20.822 Contact with and (suspected) exposure to COVID-19; Z87.891 Personal history of nicotine dependence; Z79.4 Long term (current) use of insulin; Z99.81 Dependence on supplemental oxygen; Z79.82 Long term (current) use of aspirin
CPT/HCPCS: 36415; 71045; 80048; 80053; 81001; 82948; 83605; 83735; 83880; 85025; 85027; 85610; 87040; 87637; 93005; 94640; 96365; 96375; 97161; 97165; 99285; A9270; G0378; J0360; J0456; J0696; J1650; J1815; J1938; J2405; J2919; J7050